=== PATIENT | female | born 1945 | race Caucasian/White ===

== ENCOUNTER 2017-08-12 09:49 | Inpatient (IN) ==
--- NOTE | 2017-08-12 10:02 | Emergency Department Note ---
Disposition Clinical Impression: Pleural effusion, right, Acute dyspnea, CKD (chronic kidney disease) stage 3, GFR 30-59 ml/min, T12 compression fracture, Pulmonary nodule Anemia Qualifiers: Anemia type: unspecified type Qualified Code(s): D64.9 - Anemia, unspecified Hypotension Qualifiers: Hypotension type: unspecified hypotension type Qualified Code(s): I95.9 - Hypotension, unspecified Disposition: Admitted As Inpatient Condition: Undetermined Referrals: Stephanie Morgan, FIELD ACCOUNT DIRECTOR [Primary Care Provider] - Forms: ED Satisfaction Letter Time of Disposition: 12:44 General Adult HPI - General Chief complaint: ED Dizziness Stated complaint: dizziness Time Seen by Provider: 08/12/17 09:55 Source: patient, EMS Mode of arrival: EMS Limitations: no limitations Nursing Notes Reviewed: Yes Vital Signs Reviewed: Yes - History of Present Illness HPI Narrative: 71-year-old female with history of MA with 2 cardiac stents, seizures, "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 The patient states she was also drinking some right upper quadrant to right flank discomfort at that time. No radiation of the pain. It was sharp in nature. Patient was also noted to be mildly dyspneic with an O2 saturation of 89% per EMS upon arrival. The patient was placed on 2 L nasal cannula and transported to the emergency department after receiving 4 mg of IV Zofran. The patient has a history of congestive heart failure. She admits to some bilateral lower extremity swelling. She denies any hemoptysis, history DVT or PE, recent immobilizations, recent surgeries. The patient also states that she has been experiencing headaches over the past month and a strange feeling inside her head. She denies any other complaints at this time. She is mildly diaphoretic on examination. - Related Data Home Medications Medication Instructions Recorded Confirmed Furosemide [Lasix] 20 mg PO DAILY 11/30/14 03/13/15 Lisinopril/Hydrochlorothiazide 1 tab PO DAILY 11/30/14 03/13/15 [Zestoretic 20-12.5 mg Tablet] Carvedilol [Coreg] 25 mg PO BID 03/13/15 03/13/15 Insulin ASPART [NovoLOG] 0 unit SQ TIDWM 03/13/15 03/13/15 Insulin Glargine [Lantus] 15 unit 03/13/15 Levothyroxine [Synthroid] 125 mcg PO 0630 03/13/15 03/13/15 Pantoprazole Sodium [Protonix] 40 mg PO 03/13/15 Thiamine (B-1) [Vitamin B-1] 100 mg PO DAILY 03/13/15 03/13/15 hydrALAZINE [HydrALAZINE] 25 mg PO Q8HR 03/13/15 03/13/15 Previous Rx's Medication Instructions Recorded cephALEXin [Keflex] 500 mg PO BID #10 capsule 03/15/15 Allergies Allergy/AdvReac Type Severity Reaction Status Date / Time Tetanus Vaccines and Toxoid Allergy Unknown unknown Verified 03/13/15 22:58 [Tetanus Vaccines & Toxoid] All systems ED: reviewed and negative except as stated. Constitutional: Denies: fever, chills, weakness ENT ED: Denies: congestion Cardiovascular: Reports: dyspnea on exertion, edema. Denies: chest pain, orthopnea, syncope Respiratory: Reports: dyspnea. Denies: cough, wheezes Gastrointestinal: Reports: abdominal pain, nausea, vomiting. Denies: diarrhea, constipation, hematemesis, melena, hematochezia Genitourinary: Denies: urgency, dysuria Musculoskeletal: Denies: back pain, neck pain Neurological: Reports: headache, weakness. Denies: numbness, paresthesias, confusion, abnormal gait Past Medical History - Past Medical History Attestation: Yes The following information was validated with the patient. Source: patient, old records reviewed Medical history: Reports: asthma, CHF, diabetes, hyperlipidemia, hypertension, seizures, other Surgical history: Reports: cholecystectomy, coronary bypass (CABG), other Psychiatric history: Reports: anxiety, depression, panic disorder - Social History Smoking Status: Never smoker Smokeless Tobacco Status: No Alcohol use: Reports: none Drug use: Reports: none Physical Exam - General Limitations: no limitations General appearance: alert, in distress (mildly diaphoretic) - Head Head exam: atraumatic, normocephalic, normal inspection - Eye Eye exam: Present: normal appearance, PERRL, EOMI - ENT ENT exam: normal exam, normal oropharynx, mucous membranes moist - Neck Neck exam: Present: normal inspection, full ROM, trachea midline - Chest Chest inspection: Present: normal inspection, symmetric chest wall rise - Respiratory Respiratory exam: Present: other (Coarse breath sounds) - Cardiovascular Cardiovascular exam: Present: regular rate, normal rhythm, normal heart sounds - Abdominal Exam Abdominal exam: Present: soft, tenderness (RUQ/ Right flank). Absent: distention, guarding, rebound, rigidity, pulsatile mass - Extremities Exam Extremities exam: Present: normal inspection, full ROM. Absent: tenderness, pedal edema - Neurological Exam Neurological exam: Present: alert, oriented X3 - Skin Skin exam: Present: warm, dry, intact, normal color Course - Consultations Consultation #1: Spoke with interventional radiology, who stated they will see patient once admitted. Time: 12:05 Vital Signs Temperature 98.2 F 08/12/17 09:51 Pulse Rate 65 08/12/17 09:51 Respiratory Rate 18 08/12/17 09:51 Blood Pressure 127/102 08/12/17 09:51 O2 Sat by Pulse Oximetry 93 08/12/17 09:51 Temperature 98.2 F 08/12/17 09:51 Pulse Rate 62 08/12/17 12:42 Respiratory Rate 14 08/12/17 12:42 Blood Pressure 109/56 08/12/17 12:42 O2 Sat by Pulse Oximetry 98 08/12/17 12:42 Oxygen Delivery Oxygen Delivery Bipap Medical Decision Making - [facility] Narrative Medical decision making narrative: Workup in the emergency department demonstrates findings consistent with a moderate right-sided pleural effusion. The patient has numerous nodules noted on CT scan. The patient is also noted to be anemic with hemoglobin of 9.1 with her last hemoglobin being roughly 6 months ago at 12. The patient denies any black or bloody stools. She denies any other sources of bleeding. In addition the patient was noted to have a chronic kidney disease with a creatinine of 1.40. She denies any unilateral leg swelling. She has no episodes of hemoptysis. The patient was given 1 L of IV fluids here in the emergency department for her hypotension to which she quickly responded. She is maintaining blood pressures with systolics over 100 since the IV fluids. In addition the patient had a small blood pressure cuff for the patient initially and was improperly sized. After correct size the patient's blood pressures remained within normal limits. The patient has not been tachycardic during her ED visit. She has remained in the 60s likely associated with the patient's medications. The patient has remained with a normal mental status ever since receiving the IV fluids. She is aware what is going on in his had no further syncopal episodes. In addition the patient was placed on BiPAP to prevent any further progression of pleural effusion. She is resting comfortably on BiPAP with an O2 saturation of 100% at this time. The patient is in no respiratory distress at this time. The patient's lactic acid was negative. The patient did have some acidosis that was noted on VBG. This does not appear to be DKA and rather is likely associated with this pleural effusion. The patient was administered 1 dose of Zosyn here in the emergency department to cover any sort of infectious etiology of the patient's right pleural effusion. Urinalysis did not treats no ketones or any other signs of infection as well. Patient's abdominal CT demonstrates no intra-abdominal source of infection or an etiology for the patient's symptoms. We will admit the patient to the hospital at this time. Interventional cardiology has been consulted and will see patient and likely drainage of the patient's right pleural effusion was admitted to the floor. The patient was admitted to the hospitalist, accepted by Dr. Hernandez. Patient and daughter were made aware of the admission and agree to plan of care. No further questions or concerns noted at this time. - Lab Data Lab results reviewed: Yes I reviewed the patient's lab results. Result diagrams: 08/12/17 10:15 08/12/17 10:15 Lab Results 08/12/17 08/12/17 08/12/17 Range/Units 10:09 10:15 10:15 WBC 15.1 H (4.3-11.1) K/mcL RBC 3.26 L (3.82-4.97) M/mcL Hgb 9.1 L (11.5-15.4) g/dL Hct 29.3 L (35.3-44.9) % MCV 89.9 (83.0-100.0) fL MCH 27.9 L (28.0-33.3) pg MCHC 31.1 L (31.6-35.5) g/dL RDW 14.3 (11.5-14.5) % Plt Count 312 (140-400) K/mcL MPV 9.4 (9.4-12.4) fL Immature Gran % 0.5 (0-4) % Seg Neutrophils % 75.8 % Lymphocytes % 15.2 % Monocytes % 4.4 % Eosinophils % 3.6 % Basophils % 0.5 % Neutrophils # 11.5 H (1.6-8.9) K/mcL Lymphocytes # 2.3 (0.6-4.6) K/mcL Monocytes # 0.7 (0.0-1.3) K/mcL Eosinophils # 0.5 (0.0-0.6) K/mcL Basophils # 0.1 (0.0-0.2) K/mcL PT (9.4-12.1) Seconds INR APTT (26.0-36.0) Seconds VBG pH (7.32-7.42) pH Units VBG pCO2 (41-51) mmHg VBG pO2 (25-50) mmHg VBG HCO3 (21-27) mEq/L Sodium 141 (136-145) mEq/L Potassium 4.0 (3.5-5.1) mEq/L Chloride 109 H (98-107) mEq/L Carbon Dioxide 22 L (23-29) mEq/L BUN 21 (8-23) mg/dL Creatinine 1.40 H (0.60-1.20) mg/dL Est GFR ( Amer) 45 L (> 60) Est GFR (Non-Af Amer) 37 L (> 60) BUN/Creatinine Ratio 15 (6-26) Glucose 251 H (70-105) mg/dL POC Glucose 246 H (70-99) mg/dL Calculated Osmolality 303 H (280-300) Lactic Acid (0.5-2.2) mmol/L Calcium 8.1 L (8.6-10.3) mg/dL Total Bilirubin 0.2 L (0.3-1.0) mg/dL AST 8 L (13-39) Units/L ALT 9 (7-52) Units/L Alkaline Phosphatase 99 (34-104) Units/L Troponin I < 0.03 (< 0.04) ng/mL B-Natriuretic Peptide (Less than 100) pg/mL Serum Total Protein 6.2 L (6.4-8.9) g/dL Albumin 3.2 L (3.5-5.7) g/dL Globulin 3.0 (2.4-3.5) g/dL Albumin/Globulin Ratio 1.1 (1.1-2.2) Urine Color (Yellow) Urine Clarity (Clear) Urine pH (5.0-8.0) pH Units Ur Specific [place] (1.010-1.025) Urine Protein (Neg-Trace) mg/dL Urine Glucose (UA) (Normal) mg/dL Urine Ketones (Negative) mg/dL Urine Blood (Negative) Urine Nitrite (Negative) Urine Bilirubin (Negative) Urine Urobilinogen (Normal) mg/dL Ur Leukocyte Esterase (Negative) Urine Microscopic RBC (0-3) per hpf Urine Microscopic WBC (0-3) per hpf Ur Squamous Epith Cells (None-Few) per lpf Amorphous Sediment (Few) Urine Bacteria (None-Few) per hpf Hyaline Casts (None-Few) per lpf Granular Casts (None Seen) per lpf Ur Culture Indicated? (NO) 08/12/17 08/12/17 08/12/17 Range/Units 10:15 10:37 11:15 WBC (4.3-11.1) K/mcL RBC (3.82-4.97) M/mcL Hgb (11.5-15.4) g/dL Hct (35.3-44.9) % MCV (83.0-100.0) fL MCH (28.0-33.3) pg MCHC (31.6-35.5) g/dL RDW (11.5-14.5) % Plt Count (140-400) K/mcL MPV (9.4-12.4) fL Immature Gran % (0-4) % Seg Neutrophils % % Lymphocytes % % Monocytes % % Eosinophils % % Basophils % % Neutrophils # (1.6-8.9) K/mcL Lymphocytes # (0.6-4.6) K/mcL Monocytes # (0.0-1.3) K/mcL Eosinophils # (0.0-0.6) K/mcL Basophils # (0.0-0.2) K/mcL PT 12.1 (9.4-12.1) Seconds INR 1.1 APTT 25.3 L (26.0-36.0) Seconds VBG pH 7.28 L (7.32-7.42) pH Units VBG pCO2 49 (41-51) mmHg VBG pO2 47 (25-50) mmHg VBG HCO3 23 (21-27) mEq/L Sodium (136-145) mEq/L Potassium (3.5-5.1) mEq/L Chloride (98-107) mEq/L Carbon Dioxide (23-29) mEq/L BUN (8-23) mg/dL Creatinine (0.60-1.20) mg/dL Est GFR ( Amer) (> 60) Est GFR (Non-Af Amer) (> 60) BUN/Creatinine Ratio (6-26) Glucose (70-105) mg/dL POC Glucose (70-99) mg/dL Calculated Osmolality (280-300) Lactic Acid (0.5-2.2) mmol/L Calcium (8.6-10.3) mg/dL Total Bilirubin (0.3-1.0) mg/dL AST (13-39) Units/L ALT (7-52) Units/L Alkaline Phosphatase (34-104) Units/L Troponin I (< 0.04) ng/mL B-Natriuretic Peptide 125 H (Less than 100) pg/mL Serum Total Protein (6.4-8.9) g/dL Albumin (3.5-5.7) g/dL Globulin (2.4-3.5) g/dL Albumin/Globulin Ratio (1.1-2.2) Urine Color (Yellow) Urine Clarity (Clear) Urine pH (5.0-8.0) pH Units Ur Specific [place] (1.010-1.025) Urine Protein (Neg-Trace) mg/dL Urine Glucose (UA) (Normal) mg/dL Urine Ketones (Negative) mg/dL Urine Blood (Negative) Urine Nitrite (Negative) Urine Bilirubin (Negative) Urine Urobilinogen (Normal) mg/dL Ur Leukocyte Esterase (Negative) Urine Microscopic RBC (0-3) per hpf Urine Microscopic WBC (0-3) per hpf Ur Squamous Epith Cells (None-Few) per lpf Amorphous Sediment (Few) Urine Bacteria (None-Few) per hpf Hyaline Casts (None-Few) per lpf Granular Casts (None Seen) per lpf Ur Culture Indicated? (NO) 08/12/17 08/12/17 Range/Units 11:40 11:51 WBC (4.3-11.1) K/mcL RBC (3.82-4.97) M/mcL Hgb (11.5-15.4) g/dL Hct (35.3-44.9) % MCV (83.0-100.0) fL MCH (28.0-33.3) pg MCHC (31.6-35.5) g/dL RDW (11.5-14.5) % Plt Count (140-400) K/mcL MPV (9.4-12.4) fL Immature Gran % (0-4) % Seg Neutrophils % % Lymphocytes % % Monocytes % % Eosinophils % % Basophils % % Neutrophils # (1.6-8.9) K/mcL Lymphocytes # (0.6-4.6) K/mcL Monocytes # (0.0-1.3) K/mcL Eosinophils # (0.0-0.6) K/mcL Basophils # (0.0-0.2) K/mcL PT (9.4-12.1) Seconds INR APTT (26.0-36.0) Seconds VBG pH (7.32-7.42) pH Units VBG pCO2 (41-51) mmHg VBG pO2 (25-50) mmHg VBG HCO3 (21-27) mEq/L Sodium (136-145) mEq/L Potassium (3.5-5.1) mEq/L Chloride (98-107) mEq/L Carbon Dioxide (23-29) mEq/L BUN (8-23) mg/dL Creatinine (0.60-1.20) mg/dL Est GFR ( Amer) (> 60) Est GFR (Non-Af Amer) (> 60) BUN/Creatinine Ratio (6-26) Glucose (70-105) mg/dL POC Glucose (70-99) mg/dL Calculated Osmolality (280-300) Lactic Acid 2.0 (0.5-2.2) mmol/L Calcium (8.6-10.3) mg/dL Total Bilirubin (0.3-1.0) mg/dL AST (13-39) Units/L ALT (7-52) Units/L Alkaline Phosphatase (34-104) Units/L Troponin I (< 0.04) ng/mL B-Natriuretic Peptide (Less than 100) pg/mL Serum Total Protein (6.4-8.9) g/dL Albumin (3.5-5.7) g/dL Globulin (2.4-3.5) g/dL Albumin/Globulin Ratio (1.1-2.2) Urine Color Yellow (Yellow) Urine Clarity Cloudy A (Clear) Urine pH 5.0 (5.0-8.0) pH Units Ur Specific [place] 1.019 (1.010-1.025) Urine Protein Negative (Neg-Trace) mg/dL Urine Glucose (UA) Normal (Normal) mg/dL Urine Ketones Negative (Negative) mg/dL Urine Blood Negative (Negative) Urine Nitrite Negative (Negative) Urine Bilirubin Negative (Negative) Urine Urobilinogen Normal (Normal) mg/dL Ur Leukocyte Esterase Negative (Negative) Urine Microscopic RBC 0-3 (0-3) per hpf Urine Microscopic WBC 0-3 (0-3) per hpf Ur Squamous Epith Cells Many H (None-Few) per lpf Amorphous Sediment Moderate H (Few) Urine Bacteria Few (None-Few) per hpf Hyaline Casts None Seen (None-Few) per lpf Granular Casts Few H (None Seen) per lpf Ur Culture Indicated? NO (NO) - Radiology Data Radiology results reviewed: Yes I reviewed the patient's radiology results. Abdomen/Pelvis CT 08/12/17 09:55 IMPRESSION: 1. [id number] right-sided pleural effusion with adjacent compressive atelectasis. Bilateral lung nodules measuring up to 1.[address] chest is recommended. 2. No evidence of obstructive uropathy. 3. A 1.2 cm hyperdense lesion in the midpole of the right kidney which is indeterminate on this noncontrast examination. Further evaluation with CT or MRI renal mass protocol is recommended. 4. T12 compression deformity of unknown chronicity. D/ / 08/12/2017 12:03:36 Zenobia Lemon MD / [facility] Interpreting Provider: Zenobia Lemon MD Chest X-Ray 08/12/17 09:55 IMPRESSION: Multiple enlarging pulmonary masses. Moderate right pleural effusion. D/ / 08/12/2017 10:28:59 Ortiz Costa MD / [facility] Interpreting Provider: Ortiz Costa MD Head CT 08/12/17 09:55 IMPRESSION: No acute intracranial abnormality. Previous bifrontal craniotomy. Encephalomalacia in the right frontal lobe from previous area of injury or infarct. Mild chronic small vessel ischemic changes. D/ / 08/12/2017 11:29:55 Flower Vargas MD / [facility] Interpreting Provider: Flower Vargas MD - EKG Data EKG #1 EKG attestation: Yes I reviewed and interpreted this EKG. EKG results narrative: Heart rate 64 bpm. Normal sinus rhythm with new right bundle branch block. No ST elevation or ST depression noted. Right bundle branch block new from EKG from 12/01/2014. EKG #2 heart rate 59 beats for minute. Sinus bradycardia. No ST elevation or ST depression noted. EKG identical to EKG performed at 0959 on 08/12/2017.
--- NOTE | 2017-08-12 10:16 | Emergency Department Note ---
Disposition Clinical Impression: ACS (acute coronary syndrome) Disposition: Still a Patient Referrals: Stephanie Morgan, RETAIL DEPARTMENT MANAGER [Primary Care Provider] - Forms: ED Satisfaction Letter General Adult HPI - General Chief complaint: ED Dizziness Stated complaint: dizziness Time Seen by Provider: 08/12/17 09:55 Source: patient, EMS Mode of arrival: EMS Limitations: no limitations - History of Present Illness Pain Scale: 4 - Related Data Home Medications Medication Instructions Recorded Confirmed Atorvastatin [Lipitor] 10 mg PO HS 11/30/14 03/13/15 Clopidogrel [Plavix] 75 mg PO DAILY 11/30/14 03/13/15 Furosemide [Lasix] 20 mg PO DAILY 11/30/14 03/13/15 Lisinopril/Hydrochlorothiazide 1 tab PO DAILY 11/30/14 03/13/15 [Zestoretic 20-12.5 mg Tablet] Metoprolol [Lopressor] 12.5 mg PO BID 11/30/14 03/13/15 Montelukast [Singulair] 10 mg PO DAILY 11/30/14 03/13/15 Potassium Chloride 10 meq PO DAILY 11/30/14 11/30/14 SitaGLIPtin [Januvia] 100 mg PO DAILY 11/30/14 03/13/15 Carvedilol [Coreg] 25 mg PO BID 03/13/15 03/13/15 Insulin ASPART [NovoLOG] 0 unit SQ TIDWM 03/13/15 03/13/15 Insulin Glargine [Lantus] 15 unit 03/13/15 Levothyroxine [Synthroid] 125 mcg PO 0630 03/13/15 03/13/15 Pantoprazole Sodium [Protonix] 40 mg PO 03/13/15 Thiamine (B-1) [Vitamin B-1] 100 mg PO DAILY 03/13/15 03/13/15 hydrALAZINE [HydrALAZINE] 25 mg PO Q8HR 03/13/15 03/13/15 Previous Rx's Medication Instructions Recorded LORazepam [Ativan] 1 mg PO BID #10 tablet 11/27/14 LevETIRAcetam [Keppra] 500 mg PO BID #20 tablet 11/27/14 cephALEXin [Keflex] 500 mg PO BID #10 capsule 03/15/15 Allergies Allergy/AdvReac Type Severity Reaction Status Date / Time Tetanus Vaccines and Toxoid Allergy Unknown unknown Verified 03/13/15 22:58 [Tetanus Vaccines & Toxoid] Constitutional: Denies: fever, chills, weakness ENT ED: Denies: congestion Cardiovascular: Reports: dyspnea on exertion, edema. Denies: chest pain, orthopnea, syncope Respiratory: Reports: dyspnea. Denies: cough, wheezes Gastrointestinal: Reports: abdominal pain, nausea, vomiting. Denies: diarrhea, constipation, hematemesis, melena, hematochezia Genitourinary: Denies: urgency, dysuria Musculoskeletal: Denies: back pain, neck pain Neurological: Reports: headache, weakness. Denies: numbness, paresthesias, confusion, abnormal gait Past Medical History - Past Medical History Medical history: Reports: asthma, CHF, diabetes, hyperlipidemia, hypertension, seizures, other Surgical history: Reports: cholecystectomy, coronary bypass (CABG), other Psychiatric history: Reports: anxiety, depression, panic disorder - Social History Smoking Status: Never smoker Smokeless Tobacco Status: No Alcohol use: Reports: none Drug use: Reports: none Physical Exam - General Limitations: no limitations General appearance: alert, in distress (mildly diaphoretic) Course - Reevaluation(s) Reevaluation #1: ATTESTATION NOTE I examined this patient and my medical decision-making was reviewed with the Emergency Medicine Resident Physician, Benjamin Nolan. I agree with the documented findings, disposition and treatment plan as described except to the extent set forth below. I have personally performed a face to face evaluation on this patient. I have reviewed and agree with the care plan. Briefly: 71-year-old female, by EMS brought in for chest discomfort right upper quadrant pain. Patient has a history of 2 prior coronary stents. Patient's abdomen has right upper quadrant discomfort she presents slightly pale and weak. She also has dizziness. No vertigo. Neurologically nonfocal slight bibasilar crackles with peripheral edema noted. Patient will be getting screening labs. EKG shows a marked mild nonspecific ST-T changes were noted EKG for comparison unable to these are important changes or not. Plan is admission, disposition pending. Time: 10:13 Vital Signs Temperature 98.2 F 08/12/17 09:51 Pulse Rate 65 08/12/17 09:51 Respiratory Rate 18 08/12/17 09:51 Blood Pressure 127/102 08/12/17 09:51 O2 Sat by Pulse Oximetry 93 06/07/18 09:51 Temperature 98.2 F 08/12/17 09:51 Pulse Rate 65 08/12/17 09:51 Respiratory Rate 18 08/12/17 09:51 Blood Pressure 127/102 08/12/17 09:51 O2 Sat by Pulse Oximetry 96 08/12/17 10:06 Oxygen Delivery Oxygen Delivery Nasal Cannula
[2017-08-12] MEDS ORDERED: 0.9 % Sodium Chloride 1,000 ML ONE (10:27)
[2017-08-12 10:31] LABS: Basophils # 0.1 K/mcL (0.0-0.2); Basophils % 0.5 %; Eosinophils # 0.5 K/mcL (0.0-0.6); Eosinophils % 3.6 %; Hematocrit 29.3 % (35.3-44.9); Hemoglobin 9.1 g/dL (11.5-15.4); Immature Granulocytes % 0.5 % (0-4); Lymphocytes # 2.3 K/mcL (0.6-4.6); Lymphocytes % 15.2 %; Mean Corpuscular HGB Conc 31.1 g/dL (31.6-35.5); Mean Corpuscular Hemoglobin 27.9 pg (28.0-33.3); Mean Corpuscular Volume 89.9 fL (83.0-100.0); Mean Platelet Volume 9.4 fL (9.4-12.4); Monocytes # 0.7 K/mcL (0.0-1.3); Monocytes % 4.4 %; Neutrophils # 11.5 K/mcL (1.6-8.9); Platelet Count 312 K/mcL (140-400); Red Blood Count 3.26 M/mcL (3.82-4.97); Red Cell Distribution Width 14.3 % (11.5-14.5); Segmented Neutrophils % 75.8 %
[2017-08-12 10:41] LABS: VBG HCO3 23 mEq/L (21-27); VBG PCO2 49 mmHg (41-51); VBG PH 7.28 pH Units (7.32-7.42); VBG PO2 47 mmHg (25-50)
[2017-08-12 10:52] LABS: Troponin I < 0.03 ng/mL (< 0.04)
[2017-08-12 10:55] LABS: Alanine Aminotransferase 9 Units/L (7-52); Albumin 3.2 g/dL (3.5-5.7); Albumin/Globulin Ratio 1.1 (1.1-2.2); Alkaline Phosphatase 99 Units/L (34-104); Aspartate Amino Transferase 8 Units/L (13-39); BUN/Creatinine Ratio 15 (6-26); Bilirubin,Total 0.2 mg/dL (0.3-1.0); Blood Urea Nitrogen 21 mg/dL (8-23); Calcium 8.1 mg/dL (8.6-10.3); Carbon Dioxide 22 mEq/L (23-29); Chloride 109 mEq/L (98-107); Glucose 251 mg/dL (70-105); Osmolality,Calculated 303 (280-300); Sodium 141 mEq/L (136-145); Total Protein 6.2 g/dL (6.4-8.9); eGFR For African Americans 45 (> 60); eGFR For Non-African Americans 37 (> 60)
[2017-08-12 11:59] LABS: INR 1.1; Prothrombin Time 12.1 Seconds (9.4-12.1)
[2017-08-12 12:01] LABS: Bilirubin,Urine Negative (Negative); Blood,Urine Negative (Negative); Clarity,Urine Cloudy (Clear); Color,Urine Yellow (Yellow); Glucose,Urine (UA) Normal (Normal); Ketones,Urine Negative (Negative); Leukocyte Esterase,Urine Negative (Negative); Nitrite,Urine Negative (Negative); Protein,Urine Negative (Neg-Trace); Specific Gravity,Urine 1.019 (1.010-1.025); Urobilinogen,Urine Normal (Normal)
[2017-08-12 12:02] LABS: Activated Partial Thrombo Time 25.3 Seconds (26.0-36.0)
[2017-08-12 12:04] LABS: RBC,Urine 0-3 per hpf (0-3); Squamous Epithelial Cell,Urine Many per lpf (None-Few); WBC,Urine 0-3 per hpf (0-3)
[2017-08-12 12:22] LABS: Amorphous Sediment,Urine Moderate (Few); Granular Casts,Urine Few per lpf (None Seen); Hyaline Casts,Urine None Seen per lpf (None-Few)
[2017-08-12 12:23] LABS: Bacteria,Urine Few per hpf (None-Few)
[2017-08-12] MEDS ORDERED: Piperacillin/Tazobactam 3.375 GM in 0.9 % Sodium Chloride Mini Bag 100 ML IVPB ONE ×2 (12:28→14:00)
[2017-08-12] MEDS ORDERED: Naloxone 0.4 MG/ML INJ IVP PRN (13:33)
[2017-08-12] MEDS ORDERED: Ondansetron 4 MG/2 ML VIAL IVP ONE (13:38)
[2017-08-12] MEDS ORDERED: Ondansetron 4 MG/2 ML VIAL ONE (13:40)
[2017-08-12] MEDS ORDERED: Azithromycin 500 MG in D5% in Water 250 ML IVPB SCH (14:00)
--- NOTE | 2017-08-12 14:59 | Pulmonology Consult Note ---
<SterlingLuci leos M - Last Filed: 08/12/17 17:40> Date of Encounter: 08/12/17 Medications and Allergies Furosemide [Lasix] 20 mg PO DAILY 11/30/14 [History] Insulin ASPART [NovoLOG] 0 unit SQ TIDWM PRN 03/13/15 [History] Insulin Glargine [Lantus] 15 unit SQ DAILY 03/13/15 [History] Pantoprazole Sodium [Protonix] 40 mg PO DAILY 03/13/15 [History] hydrALAZINE [HydrALAZINE] 25 mg PO Q8HR 03/13/15 [History] Aspirin [Adult Aspirin] 81 mg PO DAILY 08/12/17 [History] Atorvastatin Calcium [Lipitor] 20 mg PO DAILY 08/12/17 [History] Clopidogrel [Plavix] 75 mg PO DAILY 08/12/17 [History] Ergocalciferol (VITAMIN D2) [Vitamin D2] 50,000 unit PO QWEEK 08/12/17 [History] Escitalopram Oxalate 5 mg PO DAILY 08/12/17 [History] LevETIRAcetam [Keppra] 750 mg PO BID 08/12/17 [History] Levothyroxine Sodium [Levoxyl] 25 mcg PO DAILY 08/12/17 [History] Levothyroxine Sodium [Synthroid] 200 mcg PO DAILY 08/12/17 [History] Lisinopril [Zestril] 10 mg PO DAILY 08/12/17 [History] Metoprolol [Lopressor] 25 mg PO BID 08/12/17 [History] Montelukast [Singulair] 10 mg PO DAILY 08/12/17 [History] Phenytoin [Dilantin] 150 mg PO BID 08/12/17 [History] Pioglitazone HCl [Actos] 15 mg PO DAILY 08/12/17 [History] SitaGLIPtin [Januvia] 100 mg PO DAILY 08/12/17 [History] Tolterodine Tartrate [Detrol] 2 mg PO BID 08/12/17 [History] 3 Allergy/AdvReac Type Severity Reaction Status Date / Time Tetanus Vaccines and Toxoid Allergy Unknown unknown Verified 03/13/15 22:58 [Tetanus Vaccines & Toxoid] All Systems: The remainder of the systems were reviewed and are negative Physical Examination Vital Signs: Vital Signs, Last 4 Hours Temp Pulse Resp BP Pulse Ox 08/12/17 15:58 16 91 08/12/17 15:30 97.9 F 73 18 93/66 93 08/12/17 14:31 97.5 F L 68 20 98/62 92 Results - Laboratory Findings CBC and BMP: 08/12/17 10:15 08/12/17 10:15 PT/INR, D-dimer PT 12.1 Seconds (9.4-12.1) 08/12/17 11:15 Abnormal lab findings: Abnormal lab results WBC 15.1 K/mcL (4.3-11.1) H 08/12/17 10:15 RBC 3.26 M/mcL (3.82-4.97) L 08/12/17 10:15 Hgb 9.1 g/dL (11.5-15.4) L 08/12/17 10:15 Hct 29.3 % (35.3-44.9) L 08/12/17 10:15 MCH 27.9 pg (28.0-33.3) L 08/12/17 10:15 MCHC 31.1 g/dL (31.6-35.5) L 08/12/17 10:15 Neutrophils # 11.5 K/mcL (1.6-8.9) H 08/12/17 10:15 APTT 25.3 Seconds (26.0-36.0) L 08/12/17 11:15 VBG pH 7.28 pH Units (7.32-7.42) L 08/12/17 10:37 Chloride 109 mEq/L (98-107) H 08/12/17 10:15 Carbon Dioxide 22 mEq/L (23-29) L 08/12/17 10:15 Creatinine 1.40 mg/dL (0.60-1.20) H 08/12/17 10:15 Est GFR ( Amer) 45 (> 60) L 08/12/17 10:15 Est GFR (Non-Af Amer) 37 (> 60) L 08/12/17 10:15 Glucose 251 mg/dL (70-105) H 08/12/17 10:15 POC Glucose 246 mg/dL (70-99) H 08/12/17 10:09 Calculated Osmolality 303 (280-300) H 06/07/18 10:15 Calcium 8.1 mg/dL (8.6-10.3) L 08/12/17 10:15 Phosphorus 5.0 mg/dL (2.7-4.5) H 08/12/17 13:45 AST 8 Units/L (13-39) L 08/12/17 10:15 B-Natriuretic Peptide 125 pg/mL (Less than 100) H 08/12/17 10:15 Albumin/Globulin Ratio 1.0 (1.1-2.2) L 08/12/17 13:45 Urine Clarity Cloudy (Clear) A 08/12/17 11:40 Ur Squamous Epith Cells Many per lpf (None-Few) H 08/12/17 11:40 Amorphous Sediment Moderate (Few) H 08/12/17 11:40 Granular Casts Few per lpf (None Seen) H 08/12/17 11:40 - Clinical Findings Intake & Output: Intake & Output 08/12/17 08/12/17 08/12/17 07:59 15:59 23:59 Weight 118.501 kg Consult Discharge Plan - Plan Referrals: Stephanie Morgan, AUDIO EXPERIENCE EXPERT [Primary Care Provider] - - Attending Attestation I examined this patient and my medical decision-making was reviewed with the Resident Physician. I agree with the documented findings, disposition and treatment plan as described except to the extent set forth below. Patient seen and examined. Labs, radiology, chart personally reviewed. 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 Patient has evidence of pleural effusion on CT abdomen and since it is unilateral recommend to have a full CT chest for better visualization and to rule out any underlying abnormalities or lesions of the lung. I suspect this is chronic in nature with possibly trapped lung and most likely will need the diagnostic thoracentesis. It is not clear at this time the etiology of pleural effusion. Cardiovascular: stable Thank you for the consultation and this was discussed with primary team. <Ava Javier - Last Filed: 08/12/17 22:12> Date of Encounter: 08/12/17 Time of Encounter: 14:58 Assessment and Plan (1) Pleural effusion, right Current Visit: Yes Status: Acute - Right-sided pleural effusion visible on CXR and CT abd/pelvis. - Unclear etiology but may be secondary to CHF, malignancy, vs other - CT chest pending - Plan for diagnostic thoracentesis tomorrow - Tolerating room air during interview, intermittent BiPAP dependence Plan - Supportive care with O2 - Diagnostic thoracentesis and CT chest pending (2) Lung entrapment Current Visit: Yes Status: Acute - As above for pleural effusion (3) Pulmonary nodule Current Visit: Yes Status: Acute - On CXR - Pt is aware, had a follow up MRI scheduled in 2017 without change of size or character per patient - Further management as outpatient (4) Right upper quadrant abdominal pain Current Visit: Yes Status: Acute - Likely related to pleural referred pain - Without gallbladder - CT abd shows kidney cyst and lung findings as above, otherwise does not note abnormality - Symptomatic treatment per primary with pain control and anti-emetics - Further management as above for lung findings. History of Present Illness Consult date: 08/12/17 Requesting physician: Seema Dawson Reason for consult: pleural effusion Chief complaint: nausea, vomiting History of present illness: 71 year old female with a MOMhx of SC s/p stent x2, seizures, CHF, childhood asthma, unknown brain tumor s/p resection and radiation 5 years ago presented to ED with a complaint of nausea and vomiting. Pulmonology was consulted due to moderate sized pleural effusion on CXR and abdominal CT as well as lung nodules. She states she has had fevers, chills, dull ache in her RUQ/right lower chest since this AM. Pain is dull in nature but admits to sharp pleuritic pain. Also admits to cough with productive green sputum x 1-2days which is not her baseline. Denies increasing SOB. Never a smoker, no family history of lung cancers. Past Med Surg Social Fam HX - Past Medical History Medical history: asthma, CHF, diabetes, hyperlipidemia, hypertension, seizures, other Additional medical history: history of brain tumor Psychiatric history: anxiety, depression, panic disorder - Past Surgical History Surgical History: cholecystectomy, coronary bypass (CABG), other Additional surgical history: Craniotomy, ankle surgery - Social History Smoking Status: Never smoker Smokeless Tobacco Status: No Alcohol use: none Drug use: none - Family History Father Adopted: No Living Status: Hx Family Cardiac Disorders: Yes Hx Family Respiratory Disorders: Yes Hx Family Cancer: Yes All Systems: The remainder of the systems were reviewed and are negative - Constitutional Constitutional: as per HPI, chills, fever(s) - Cardiovascular Cardiovascular: no chest pain, no chest pain at rest, no chest pain with activity, no dyspnea, no dyspnea on exertion, no pedal edema - Respiratory Respiratory: cough, pain on inspirtation, excessive phlegm production, change in phlegm color, no dyspnea, no hemoptysis, no dyspnea on exertion, no wheezing - Gastrointestinal Gastrointestinal: nausea, vomiting Physical Examination Vital Signs: Vital Signs, Last 4 Hours Temp Pulse Resp BP Pulse Ox 08/12/17 14:31 97.5 F L 68 20 98/62 92 General appearance: no acute distress, other (ill appearing, tired, pale) ENT: oropharynx moist Effort: normal Inspection: normal Auscultation: right: diminished breath sounds (absent on RLL), bilateral: clear Cardiovascular: regular rate and rhythm Integumentary: normal, other (pale) Extremities: no edema, pink and warm normal mental status, non-focal exam mood appropriate, affect normal Results - Laboratory Findings CBC and BMP: 08/12/17 10:15 08/12/17 10:15 PT/INR, D-dimer PT 12.1 Seconds (9.4-12.1) 08/12/17 11:15 Abnormal lab findings: Abnormal lab results WBC 15.1 K/mcL (4.3-11.1) H 08/12/17 10:15 RBC 3.26 M/mcL (3.82-4.97) L 08/12/17 10:15 Hgb 9.1 g/dL (11.5-15.4) L 08/12/17 10:15 Hct 29.3 % (35.3-44.9) L 08/12/17 10:15 MCH 27.9 pg (28.0-33.3) L 08/12/17 10:15 MCHC 31.1 g/dL (31.6-35.5) L 08/12/17 10:15 Neutrophils # 11.5 K/mcL (1.6-8.9) H 08/12/17 10:15 APTT 25.3 Seconds (26.0-36.0) L 08/12/17 11:15 VBG pH 7.28 pH Units (7.32-7.42) L 08/12/17 10:37 Chloride 109 mEq/L (98-107) H 08/12/17 10:15 Carbon Dioxide 22 mEq/L (23-29) L 08/12/17 10:15 Creatinine 1.40 mg/dL (0.60-1.20) H 08/12/17 10:15 Est GFR ( Amer) 45 (> 60) L 08/12/17 10:15 Est GFR (Non-Af Amer) 37 (> 60) L 08/12/17 10:15 Glucose 251 mg/dL (70-105) H 08/12/17 10:15 POC Glucose 246 mg/dL (70-99) H 08/12/17 10:09 Calculated Osmolality 303 (280-300) H 08/12/17 10:15 Calcium 8.1 mg/dL (8.6-10.3) L 08/12/17 10:15 Total Bilirubin 0.2 mg/dL (0.3-1.0) L 08/12/17 10:15 AST 8 Units/L (13-39) L 08/12/17 10:15 B-Natriuretic Peptide 125 pg/mL (Less than 100) H 08/12/17 10:15 Serum Total Protein 6.2 g/dL (6.4-8.9) L 08/12/17 10:15 Albumin 3.2 g/dL (3.5-5.7) L 08/12/17 10:15 Urine Clarity Cloudy (Clear) A 08/12/17 11:40 Ur Squamous Epith Cells Many per lpf (None-Few) H 08/12/17 11:40 Amorphous Sediment Moderate (Few) H 08/12/17 11:40 Granular Casts Few per lpf (None Seen) H 08/12/17 11:40 - Clinical Findings Intake & Output: Intake & Output 08/11/17 08/12/17 08/12/17 23:59 07:59 15:59 Weight 118.501 kg
--- NOTE | 2017-08-12 15:14 | Internal Med History&Physical ---
Date of Encounter: 08/12/17 Time of Encounter: 14:30 Internal Medicine - H&P: HPI Chief complaint: Shortness of breath, dizziness Admitted From: Emergency Dept History of present illness: Ms. Almanza is a 71 year old female with past medical history of brain cancer status post surgery chemotherapy and radiation therapy. Patient stated that that she has history of lung nodule in the past. Patient stated over last year she has history of recurrent bronchitis, she was recently diagnosed with pneumonia she was placed on antibiotic as well as steroid as an outpatient. Patient stated her symptom has been getting better over last months but noticed over last 1 week her symptom started to get worse again starts to have productive cough with greenish sputum with progressive shortness of breath. Patient stated she wake up this morning with severe right axillary area and right lower quadrant pain 6 out of 10 in severity sharp constant her being get worse with taking deep breathing or coughing. Patient denied any and denies any trauma. Patient stated that she will she was feeling so. Dizzy and clammy this morning denies any palpitation. Patient denies any motor or sensory changes, denies any visual changes. Patient denies any fever or chills. Past Med Surg Social Fam HX - Past Medical History Medical history: asthma, CHF, diabetes, hyperlipidemia, hypertension, seizures, other Additional medical history: history of brain tumor Psychiatric history: anxiety, depression, panic disorder - Past Surgical History Surgical History: cholecystectomy, coronary bypass (CABG), other Additional surgical history: Craniotomy, ankle surgery - Social History Smoking Status: Never smoker Smokeless Tobacco Status: No Alcohol use: none Drug use: none - Family History Father Adopted: No Living Status: Hx Family Cardiac Disorders: Yes Hx Family Respiratory Disorders: Yes Hx Family Cancer: Yes Hx Family Medical Disorders: Yes (Mother has a history of ovarian cancer, uncle has H/O pancreatic cancer) Internal Medicine - H&P: Meds Furosemide [Lasix] 20 mg PO DAILY 11/30/14 [History] Insulin ASPART [NovoLOG] 0 unit SQ TIDWM PRN 03/13/15 [History] Insulin Glargine [Lantus] 15 unit SQ DAILY 03/13/15 [History] Pantoprazole Sodium [Protonix] 40 mg PO DAILY 03/13/15 [History] hydrALAZINE [HydrALAZINE] 25 mg PO Q8HR 03/13/15 [History] Aspirin [Adult Aspirin] 81 mg PO DAILY 08/12/17 [History] Atorvastatin Calcium [Lipitor] 20 mg PO DAILY 08/12/17 [History] Clopidogrel [Plavix] 75 mg PO DAILY 08/12/17 [History] Ergocalciferol (VITAMIN D2) [Vitamin D2] 50,000 unit PO QWEEK 08/12/17 [History] Escitalopram Oxalate 5 mg PO DAILY 08/12/17 [History] LevETIRAcetam [Keppra] 750 mg PO BID 08/12/17 [History] Levothyroxine Sodium [Levoxyl] 25 mcg PO DAILY 08/12/17 [History] Levothyroxine Sodium [Synthroid] 200 mcg PO DAILY 08/12/17 [History] Lisinopril [Zestril] 10 mg PO DAILY 08/12/17 [History] Metoprolol [Lopressor] 25 mg PO BID 08/12/17 [History] Montelukast [Singulair] 10 mg PO DAILY 08/12/17 [History] Phenytoin [Dilantin] 150 mg PO BID 08/12/17 [History] Pioglitazone HCl [Actos] 15 mg PO DAILY 08/12/17 [History] SitaGLIPtin [Januvia] 100 mg PO DAILY 08/12/17 [History] Tolterodine Tartrate [Detrol] 2 mg PO BID 08/12/17 [History] 3 Allergy/AdvReac Type Severity Reaction Status Date / Time Tetanus Vaccines and Toxoid Allergy Unknown unknown Verified 03/13/15 22:58 [Tetanus Vaccines & Toxoid] All Systems PM: A 10-system review of systems was performed and is negative for pertinent findings except as documented above in the HPI. - Constitutional Vitals: Temp Pulse Resp BP Pulse Ox 97.5 F L 68 20 98/62 92 08/12/17 14:31 08/12/17 14:31 08/12/17 14:31 08/12/17 14:31 08/12/17 14:31 General appearance: Present: A&O X 3, answers questions appropriately - Head Head exam: Present: atraumatic Additional comments: Patient had to scarring from her previous brain surgery right temporal lobe - Eye Eye exam: Present: PERRL, conjuntiva pink, sclera anicteric Pupils: Present: PERRL - Neck Neck exam general surgery: Present: supple, trachea midline. Absent: lymphadenopathy - Respiratory Respiratory exam: Present: decreased breath sounds, prolonged expiratory phase, rales (rales bilateral lung base). Absent: accessory muscle use, rhonchi, wheezes - Cardiovascular Cardiovascular exam: Present: RRR, +S1, +S2. Absent: diastolic murmur, gallop, rubs, systolic murmur - GI/Abdominal GI/Abdominal exam: Present: normal bowel sounds, soft, no peritoneal signs. Absent: distended, tenderness - Extremities Exam Extremities exam: Present: calf tenderness, warm, radial pulses palpable and symmetrical. Absent: cyanotic - Neurological Exam Neurological exam: Present: CN II-XII intact, oriented X3, no focal deficits. Absent: pronater drift, facial droop, speech deficit - Psychiatric Psychiatric exam: Present: normal affect, normal mood - Skin Skin exam: Present: dry, intact Internal Med - H&P Results - Labs CBC & Chem 7: 08/12/17 10:15 08/12/17 10:15 - Assessment and plan (1) Right upper quadrant abdominal pain Current Visit: Yes Status: Acute (2) Lung mass Current Visit: Yes Status: Acute Code(s): R91.8 - Other nonspecific abnormal finding of lung field SNOMED Code(s): 965564760 (3) Hypotension Current Visit: Yes Status: Acute Qualifiers: Hypotension type: unspecified hypotension type Qualified Code(s): I95.9 - Hypotension, unspecified Code(s): I95.9 - Hypotension, unspecified SNOMED Code(s): 22798068 (4) Pleural effusion, right Current Visit: Yes Status: Acute Code(s): J90 - Pleural effusion, not elsewhere classified SNOMED Code(s): 93087423 (5) Calf tenderness Current Visit: Yes Status: Acute - Time Spent With Patient Patient had calf tenderness left lower extremities, will check venous Doppler lower extremity stat. For right now will start patient on anticoagulant on prophylactic dose, with her morbid obesity was start Lovenox twice a day, awaiting thoracocentesis to be done by interventional radiology, with her history of brain cancer and large lung mass with sick cytology and check for any exudative pleural effusion. With her worsening of shortness of breath productive cough with yellowish sputum on possible parapneumonic effusion was start patient on empiric antibiotic coverage add steroid to help with her pleuritic chest pain in addition to add aerosol treatment every 6 hour, add Mucinex. With chronic use of the steroid on the off and her hypotension, add this to stress dose of steroids Wean off steroids gradually, close monitoring patient condition. Total time spent is greater than 50% in coordination of care (as documented) at patient's floor/unit and/or counseling patient:60 minutes
[2017-08-12 15:16] LABS: Magnesium 1.7 mg/dL (1.6-2.6); Troponin I < 0.03 ng/mL (< 0.04)
[2017-08-12] MEDS ORDERED: methylPREDNISolone 125 MG/2 ML VIAL IVP ONE (15:34)
[2017-08-12 15:46] LABS: Albumin 3.6 g/dL (3.5-5.7); Bilirubin,Total 0.3 mg/dL (0.3-1.0); Cholesterol 134 mg/dL (< 200); Globulin 3.5 g/dL (2.4-3.5); Lactate Dehydrogenase 155 Units/L (140-271); Total Protein 7.1 g/dL (6.4-8.9)
[2017-08-12] MEDS: Ipratropium/Albuterol Neb 3 ML IH SCH ×3 (15:58→23:37)
[2017-08-12] MEDS: Doxycycline 100 MG in 0.9 % Sodium Chloride Mini Bag 100 ML IVPB SCH (17:47)
[2017-08-12] MEDS: Hydrocortisone Sodium Succ 100 MG/2 ML VIAL IVP SCH (17:47)
[2017-08-12] MEDS: Piperacillin/Tazobactam 3.375 GM in 0.9 % Sodium Chloride Mini Bag 100 ML IVPB SCH (23:23)
[2017-08-13] MEDS ORDERED: *HR* Dextrose 50 % in Water (Syg) 50 ML SYRINGE IVP PRN (00:44)
[2017-08-13] MEDS ORDERED: D5% in Water 1,000 ML IVC PRN (00:44)
[2017-08-13] MEDS ORDERED: Dextrose Gel 15 GM/37.5 ML TUBE PO PRN ×2 (00:44)
[2017-08-13] MEDS ORDERED: Insulin DETEMIR 100 UNIT/ML X5UNITS SQ SCH (00:45)
[2017-08-13] MEDS: Hydrocortisone Sodium Succ 100 MG/2 ML VIAL IVP SCH ×3 (01:13→15:09)
[2017-08-13] MEDS: Ipratropium/Albuterol Neb 3 ML IH SCH ×6 (03:44→23:44)
[2017-08-13 05:46] LABS: Basophils % 0.2 %; Eosinophils % 0.1 %; Hematocrit 27.6 % (35.3-44.9); Hemoglobin 8.2 g/dL (11.5-15.4); Immature Granulocytes % 0.5 % (0-4); Lymphocytes # 1.3 K/mcL (0.6-4.6); Lymphocytes % 8.1 %; Mean Corpuscular HGB Conc 29.7 g/dL (31.6-35.5); Mean Corpuscular Hemoglobin 27.7 pg (28.0-33.3); Mean Corpuscular Volume 93.2 fL (83.0-100.0); Mean Platelet Volume 9.9 fL (9.4-12.4); Monocytes # 0.4 K/mcL (0.0-1.3); Monocytes % 2.6 %; Neutrophils # 14.4 K/mcL (1.6-8.9); Platelet Count 269 K/mcL (140-400); Red Blood Count 2.96 M/mcL (3.82-4.97); Red Cell Distribution Width 14.6 % (11.5-14.5); Segmented Neutrophils % 88.5 %
[2017-08-13 06:04] LABS: Albumin 3.5 g/dL (3.5-5.7); Bilirubin,Total 0.3 mg/dL (0.3-1.0); Calcium 8.3 mg/dL (8.6-10.3); Chol/HDL Ratio 4.2 (0-4.9); Globulin 3.4 g/dL (2.4-3.5); Potassium 4.5 mEq/L (3.5-5.1); Total Protein 6.9 g/dL (6.4-8.9)
[2017-08-13] MEDS: Doxycycline 100 MG in 0.9 % Sodium Chloride Mini Bag 100 ML IVPB SCH ×2 (06:28→17:01)
--- NOTE | 2017-08-13 08:07 | Pulmonology Progress Note ---
Date of Encounter: 08/13/17 Time of Encounter: 08:05 Assessment and Plan (1) Pleural effusion, right Current Visit: Yes Status: Acute - Right-sided pleural effusion visible on CXR and CT abd/pelvis. - Unclear etiology but may be secondary to CHF, malignancy, vs other - Beside U/S shows loculated fluid surrounding compressed lung tissue; d/t characteristics of pleural fluid and body habitus, thoracentesis would be technically difficult Plan - Supportive care with O2 - Recommend diagnostic thoracentesis by IR with repeat CT chest following procedure; pleural fluid should be sent for analysis to include cytology, protein, and LDH to determine transudative vs exudative fluid (2) Lung entrapment Current Visit: Yes Status: Acute - As above for pleural effusion (3) Pulmonary nodule Current Visit: Yes Status: Acute -On CXR and visible on CT abdomen pelvis, pt has known about these nodules for a few years - 08/12/17 CT Chest (compared to 2016) shows pulmonary masses that are new and larger; dominant right lobe mass 5.1 cm (was 2.8 cm) and dominant LLL mass 3.2 cm; right pleural effusion partially loculated; large amount of atelectasis vs airspace disease right middle and right lower lobes - Concerning for potential malignancy which could be followed up as outpatient. (4) Right upper quadrant abdominal pain Current Visit: Yes Status: Acute - Likely related to pleural referred pain - h/o cholecystectomy - CT abd shows kidney cyst and lung findings as above, otherwise does not note abnormality - Symptomatic treatment per primary with pain control and anti-emetics - Further management as above for lung findings Subjective Interval history: Pt seen and examined at bedside. She is seated at edge of bed with breakfast tray and is feeling well. Pt's only complaint is pain while having labs drawn by phlebotomists at this time as well. Objective PUL Vital signs: Last Vital Signs Temp 98.4 F 08/13/17 07:19 Pulse 97 08/13/17 07:19 Resp 18 08/13/17 07:29 BP 144/73 08/13/17 07:19 Pulse Ox 91 08/13/17 07:29 General: vital signs noted, no acute distress, AAO x3 Head: normocephalic, atraumatic Eyes: PERRL, sclera anicteric Neck: supple, no lymphadenopathy Cardio: Regular rate, regular rhythm Pulm: normal respiratory effort, absent breath sounds RLL, diminished breath sounds bilaterally Neuro: no focal deficits, moves all extremities spontaneously Psych: normal mood, normal affect, cooperative, answers questions appropriately Skin: warm, dry, intact Results - Laboratory Findings CBC and BMP: 08/13/17 04:57 08/13/17 04:57 PT/INR, D-dimer PT 12.1 Seconds (9.4-12.1) 08/12/17 11:15 Abnormal lab findings: Abnormal lab results WBC 16.2 K/mcL (4.3-11.1) H 08/13/17 04:57 RBC 2.96 M/mcL (3.82-4.97) L 08/13/17 04:57 Hgb 8.2 g/dL (11.5-15.4) L 08/13/17 04:57 Hct 27.6 % (35.3-44.9) L 08/13/17 04:57 MCH 27.7 pg (28.0-33.3) L 08/13/17 04:57 MCHC 29.7 g/dL (31.6-35.5) L 08/13/17 04:57 RDW 14.6 % (11.5-14.5) H 08/13/17 04:57 Neutrophils # 14.4 K/mcL (1.6-8.9) H 08/13/17 04:57 APTT 25.3 Seconds (26.0-36.0) L 08/12/17 11:15 VBG pH 7.28 pH Units (7.32-7.42) L 08/12/17 10:37 Carbon Dioxide 21 mEq/L (23-29) L 08/13/17 04:57 BUN 30 mg/dL (8-23) H 08/13/17 04:57 Creatinine 2.09 mg/dL (0.60-1.20) H 08/13/17 04:57 Est GFR ( Amer) 28 (> 60) L 08/13/17 04:57 Est GFR (Non-Af Amer) 23 (> 60) L 08/13/17 04:57 Glucose 250 mg/dL (70-105) H 08/13/17 04:57 POC Glucose 231 mg/dL (70-99) H 08/12/17 21:28 Calculated Osmolality 305 (280-300) H 08/13/17 04:57 Calcium 8.3 mg/dL (8.6-10.3) L 08/13/17 04:57 Phosphorus 5.0 mg/dL (2.7-4.5) H 08/12/17 13:45 AST 9 Units/L (13-39) L 08/13/17 04:57 Alkaline Phosphatase 107 Units/L (34-104) H 08/13/17 04:57 B-Natriuretic Peptide 125 pg/mL (Less than 100) H 08/12/17 10:15 Albumin/Globulin Ratio 1.0 (1.1-2.2) L 08/13/17 04:57 Triglycerides 153 mg/dL (< 150) H 08/13/17 04:57 VLDL Cholesterol, Calc 31 mg/dL (< 31) H 08/13/17 04:57 HDL Cholesterol 31 mg/dL (40-59) L 08/13/17 04:57 Urine Clarity Cloudy (Clear) A 08/12/17 11:40 Ur Squamous Epith Cells Many per lpf (None-Few) H 08/12/17 11:40 Amorphous Sediment Moderate (Few) H 08/12/17 11:40 Granular Casts Few per lpf (None Seen) H 08/12/17 11:40 - Clinical Findings Intake & Output: Intake & Output 08/12/17 08/13/17 08/13/17 23:59 07:59 15:59 Intake Total 100 / 100 Output Total 100 / 100 Balance 0 / 0 Weight 118.841 kg Consult Discharge Plan - Plan Referrals: Stephanie Morgan, PLUGGER MAN [Primary Care Provider] -
[2017-08-13] MEDS: Aspirin Enteric Coated 81 MG Tablet PO SCH (08:13)
[2017-08-13] MEDS: Insulin LISPRO 300 UNITS/3 ML VIAL SQ SCH ×3 (08:13→17:00)
[2017-08-13] MEDS: Piperacillin/Tazobactam 3.375 GM in 0.9 % Sodium Chloride Mini Bag 100 ML IVPB SCH ×3 (08:14→21:55)
[2017-08-13] MEDS ORDERED: PrednisoLONE Oral Soln 15 MG/5 ML UDC PO SCH (09:00)
[2017-08-13 10:28] LABS: Phenytoin (Dilantin) 4.8 mcg/mL (10.0-20.0)
--- NOTE | 2017-08-13 10:32 | Internal Med Progress Note ---
Date of Encounter: 08/13/17 Time of Encounter: 10:15 - Assessment and plan (1) Right upper quadrant abdominal pain Current Visit: Yes Status: Acute Assessment and plan: Resolved (2) Lung mass Current Visit: Yes Status: Acute Assessment and plan: Awaiting for thoracocentesis may need bronchoscopy Code(s): R91.8 - Other nonspecific abnormal finding of lung field SNOMED Code( s): 004429132 (3) Hypotension Current Visit: Yes Status: Resolved Assessment and plan: Resume home blood pressure medication Qualifiers: Hypotension type: unspecified hypotension type Qualified Code(s): I95.9 - Hypotension, unspecified Code(s): I95.9 - Hypotension, unspecified SNOMED Code(s): 57940024 (4) Pleural effusion, right Current Visit: Yes Status: Acute Assessment and plan: Discussed with pulmonary team, recommended thoracocentesis to be done by interventional radiology, consult placed again, awaiting for fluid analysis Code(s): J90 - Pleural effusion, not elsewhere classified SNOMED Code(s): 38906361 (5) Calf tenderness Current Visit: Yes Status: Acute (6) Acute renal failure superimposed on stage 3 chronic kidney disease Current Visit: Yes Status: Acute Assessment and plan: Discussed with nephrology team, remove Segal catheter, check postvoiding residual, patient had history of urinary incontinence rule out neurogenic bladder Qualifiers: Acute renal failure type: unspecified Qualified Code(s): N17.9 - Acute kidney failure, unspecified; N18.3 - Chronic kidney disease, stage 3 (moderate) (7) Anemia in chronic kidney disease Current Visit: Yes Status: Acute Assessment and plan: Iron study ordered patient would benefit from Aranesp especially with her COPD and hypoxemia Qualifiers: Chronic kidney disease stage: stage 3 (moderate) Qualified Code(s): N18.3 - Chronic kidney disease, stage 3 (moderate); D63.1 - Anemia in chronic kidney disease (8) Renal mass Current Visit: Yes Status: Acute Assessment and plan: Urology was consulted, discussed with interventional radiology, patient need contrast study at this point with her renal function hold on any contrast study (9) Hyperglycemia Current Visit: Yes Status: Acute Assessment and plan: Insulin sliding scale - Time Spent With Patient Total time spent is greater than 50% in coordination of care (as documented) at patient's floor/unit and/or counseling patient: Greater than 35 minutes - Subjective Interval history: Productive cough with clear sputum - Constitutional Vitals: Temp Pulse Resp BP Pulse Ox 98.4 F 97 18 144/73 91 08/13/17 07:19 08/13/17 07:19 08/13/17 07:29 08/13/17 07:19 08/13/17 07:29 General appearance: Present: A&O X 3, no acute distress, answers questions appropriately - Respiratory Respiratory exam: Present: decreased breath sounds (more at rt lung base), prolonged expiratory phase. Absent: accessory muscle use, rhonchi, wheezes - GI/Abdominal GI/Abdominal exam: Present: normal bowel sounds, soft, no peritoneal signs. Absent: distended, tenderness - Extremities Exam Extremities exam: Present: pedal edema (+1-2), warm, radial pulses palpable and symmetrical. Absent: calf tenderness, cyanotic - Neurological Exam Neurological exam: Present: CN II-XII intact, oriented X3, no focal deficits Internal Medicine: Result - Labs CBC & Chem 7: 08/13/17 04:57 08/13/17 04:57 - ABG Interpretation ABG results: PT/INR, D-dimer PT 12.1 Seconds (9.4-12.1) 08/12/17 11:15 Consult Discharge Plan - Plan Referrals: Stephanie Morgan, WING COVERER [Primary Care Provider] -
--- NOTE | 2017-08-13 10:38 | Nephrology Consult Note ---
Date of Encounter: 08/13/17 Time of Encounter: 10:33 Assessment and Plan (1) Acute kidney injury Current Visit: No Status: Acute GLENNA on CKD stage IIIb with prior renal insults (hx of AKIs increase the chance for CKD), plus her CKD may be from obesity and HTN. The GLENNA will need work up, but is currently nonoliguric. No urgent indications for CATHODE MAKER today. I have ordered serologies to work up for a GN and renal U/S to rule out any post renal contribution to the GLENNA Renal mass noted, but appears chronic. Agree with out pt work up as described by Urology. Continue to follow a renal protective strategy including strict I/Os, avoidance of NSAIDs, IV contrast, Bactrim, other nephrotoxins and to dose renally cleared Rx by eGFR Thank you for consulting the [facility]. Will continue to follow with you. (2) Anemia Current Visit: Yes Status: Acute Will check iron studies Qualifiers: Anemia type: unspecified type Qualified Code(s): D64.9 - Anemia, unspecified (3) CKD (chronic kidney disease) stage 3, GFR 30-59 ml/min Current Visit: Yes Status: Chronic She has not followed with a animation director for her CKD IIIb but I'd recommend follow up after this hospitalization. (4) Renal mass Current Visit: Yes Status: Acute (5) Hypertension Current Visit: No Status: Chronic Hold the SHIRA d/t the GLENNA. Qualifiers: Hypertension type: unspecified Qualified Code(s): I10 - Essential (primary ) hypertension History of Present Illness - Reason for Consult Consult date: 08/13/17 Acute Kidney Injury, Chronic Kidney Disease Requesting physician: Seema Dawson - Chief Complaint GLENNA on CKD stage IIIb - History of Present Illness Van Jones is a very pleasant 71 y/o WF with a pmh of Obesity, HTN, CKD stage IIIb and et al who presented with N/V and RUQ pain. She said that she does not follow with a animation director. Dating back to 2016, she was first diagnosed with CKD when she reported being critically ill at [facility] and ultimately transferred to [facility] for rehab. She denied taking OTC NSAIDS or any recent Contrast exposures (no recent LHC or CT with IV contrast), she affirmed. She did report having extensive N/V and pain that developed near the RUQ recently. She occ has some LE edema, she affirmed but not bad now and typically the left leg is larger the right, she reported. She denied having any FHx of ESRD or renal transplant. Past Med Surg Social Fam HX - Past Medical History Medical history: asthma, CHF, diabetes, hyperlipidemia, hypertension, seizures, other Additional medical history: history of brain tumor Psychiatric history: anxiety, depression, panic disorder - Past Surgical History Surgical History: cholecystectomy, coronary bypass (CABG), other Additional surgical history: Craniotomy, ankle surgery - Social History Smoking Status: Never smoker Smokeless Tobacco Status: No Alcohol use: none Drug use: none - Family History Father Adopted: No Living Status: Hx Family Cardiac Disorders: Yes Hx Family Respiratory Disorders: Yes Hx Family Cancer: Yes Hx Family Medical Disorders: Yes (Mother has a history of ovarian cancer, uncle has H/O pancreatic cancer) Medications and Allergies Furosemide [Lasix] 20 mg PO DAILY 11/30/14 [History] Insulin ASPART [NovoLOG] 0 unit SQ TIDWM PRN 03/13/15 [History] Insulin Glargine [Lantus] 15 unit SQ DAILY 03/13/15 [History] Pantoprazole Sodium [Protonix] 40 mg PO DAILY 03/13/15 [History] hydrALAZINE [HydrALAZINE] 25 mg PO Q8HR 03/13/15 [History] Aspirin [Adult Aspirin] 81 mg PO DAILY 08/12/17 [History] Atorvastatin Calcium [Lipitor] 20 mg PO DAILY 08/12/17 [History] Clopidogrel [Plavix] 75 mg PO DAILY 08/12/17 [History] Ergocalciferol (VITAMIN D2) [Vitamin D2] 50,000 unit PO QWEEK 08/12/17 [History] Escitalopram Oxalate 5 mg PO DAILY 08/12/17 [History] LevETIRAcetam [Keppra] 750 mg PO BID 08/12/17 [History] Levothyroxine Sodium [Levoxyl] 25 mcg PO DAILY 08/12/17 [History] Levothyroxine Sodium [Synthroid] 200 mcg PO DAILY 08/12/17 [History] Lisinopril [Zestril] 10 mg PO DAILY 08/12/17 [History] Metoprolol [Lopressor] 25 mg PO BID 08/12/17 [History] Montelukast [Singulair] 10 mg PO DAILY 08/12/17 [History] Phenytoin [Dilantin] 150 mg PO BID 08/12/17 [History] Pioglitazone HCl [Actos] 15 mg PO DAILY 08/12/17 [History] SitaGLIPtin [Januvia] 100 mg PO DAILY 08/12/17 [History] Tolterodine Tartrate [Detrol] 2 mg PO BID 08/12/17 [History] 3 Allergy/AdvReac Type Severity Reaction Status Date / Time Tetanus Vaccines and Toxoid Allergy Unknown unknown Verified 03/13/15 22:58 [Tetanus Vaccines & Toxoid] Review of Systems All Systems: reviewed and no additional remarkable complaints except as stated Exam - Vital Signs Vital signs: Initial Vital Signs Temp Pulse Resp BP Pulse Ox 98.2 F 65 18 127/102 93 08/12/17 09:51 08/12/17 09:51 08/12/17 09:51 08/12/17 09:51 08/12/17 09:51 Intake and Output 08/12/17 08/13/17 08/13/17 23:59 07:59 15:59 Other: Blood Glucose* 264 - General Appearance General appearance: well-developed, well-nourished, appears started age, obese EENT: ATNC, PERRL, mucous membranes moist Neck: supple Respiratory: clear Cardiology: edema (nontense, nonpitting (mostly SQ adiposity) LLE > RLE), regular rate, regular rhythm, normal S1, normal S2 Gastrointestinal: normoactive bowel sounds, no tenderness, no guarding, obese Integumentary: no rash, warm and dry Neurologic: no focal deficit, no asterixis, alert and oriented x3 (with fluent speach and moved all four extremities) Musculoskeletal: no erythema, no cyanosis Psychiatric: mood/affect appropriate (very talkative), cooperative Results - Lab Results 08/13/17 04:57 08/13/17 04:57 Most recent lab results Calcium 8.3 mg/dL (8.6-10.3) L 08/13/17 04:57 Phosphorus 5.0 mg/dL (2.7-4.5) H 08/12/17 13:45 Magnesium 1.7 mg/dL (1.6-2.6) 08/12/17 13:45 I reviewed the progress notes, labs, vitals, imaging, med lists and etc in this high risk patient. Consult Discharge Plan - Plan Referrals: Stephanie Morgan, CAR [Primary Care Provider] -
[2017-08-13] MEDS: Insulin DETEMIR 100 UNIT/ML X5UNITS SQ SCH ×2 (12:15→21:54)
[2017-08-13] MEDS: hydrALAZINE 25 MG TABLET PO SCH ×2 (15:09→21:53)
--- NOTE | 2017-08-13 15:14 | IR Procedure Note ---
Date of procedure: 08/13/17 Consent Obtained: Written consent Timeout: Correct patient and procedure verified, Correct site verified, Time out performed, Skin prep completed Indications: rt effusion Procedure Performed: rt thorACENTESIS Was there an blacksmith assistant present: No Site/Technique: right, 8F Results/Findings: large effusion right Estimated blood loss (cc): 0 Complications: None; Tolerated procedure well Post Procedure Treatment Plan: CXR Specimen: none
[2017-08-13 15:41] LABS: RBC,Pleural Fluid 1.561 M/mcL
[2017-08-13 15:48] LABS: Total Protein,Pleural Fluid 5.6 g/dL (No Ref Range)
[2017-08-13 15:55] LABS: Appearance of Pleural Fl Bloody (Clear)
--- NOTE | 2017-08-13 16:34 | Urology - Consult Note ---
Date of Encounter: 08/13/17 Time of Encounter: 16:32 - Assessment and Plan (1) Renal mass Current Visit: Yes Status: Acute Assessment and plan: Patient has a small hyperdense lesion in the right lateral aspect of her kidney. This area does not show obvious changes consistent with renal cell carcinoma but is poorly evaluated on the CT scan. This will eventually require either MRI or follow up CT scan to evaluate for possible change in size. Patient can be scheduled for follow-up in our office in 3-4 weeks for discussion of possible further evaluation. Patient is agreeable with this plan. Call with any questions. Urology CN:HPI Consult date: 08/13/17 Reason for consult Urology: Other (right renal mass) Requesting physician: Seema Dawson History of present illness: Gene is a 71-year-old female with a history of brain cancer status post treatment and radiation in the mid . Patient now admitted secondary to right upper quadrant abdominal pain. She was found on CT scan to have a fluid collection/pleural effusion. Patient also found to have a small 17 m hyperdense right renal lesion. No comparison CT scans were available. Patient also with large lung mass seen on CT scan. No flank pain. No hydronephrosis. Past Med Surg Social Fam HX - Past Medical History Medical history: asthma, CHF, diabetes, hyperlipidemia, hypertension, seizures, other Additional medical history: history of brain tumor Psychiatric history: anxiety, depression, panic disorder - Past Surgical History Surgical History: cholecystectomy, coronary bypass (CABG), other Additional surgical history: Craniotomy, ankle surgery - Social History Smoking Status: Never smoker Smokeless Tobacco Status: No Alcohol use: none Drug use: none - Family History Father Adopted: No Living Status: Hx Family Cardiac Disorders: Yes Hx Family Respiratory Disorders: Yes Hx Family Cancer: Yes Hx Family Medical Disorders: Yes (Mother has a history of ovarian cancer, uncle has H/O pancreatic cancer) Medications and Allergies Furosemide [Lasix] 20 mg PO DAILY 11/30/14 [History] Insulin ASPART [NovoLOG] 0 unit SQ TIDWM PRN 03/13/15 [History] Insulin Glargine [Lantus] 15 unit SQ DAILY 03/13/15 [History] Pantoprazole Sodium [Protonix] 40 mg PO DAILY 03/13/15 [History] hydrALAZINE [HydrALAZINE] 25 mg PO Q8HR 03/13/15 [History] Aspirin [Adult Aspirin] 81 mg PO DAILY 08/12/17 [History] Atorvastatin Calcium [Lipitor] 20 mg PO DAILY 08/12/17 [History] Clopidogrel [Plavix] 75 mg PO DAILY 08/12/17 [History] Ergocalciferol (VITAMIN D2) [Vitamin D2] 50,000 unit PO QWEEK 08/12/17 [History] Escitalopram Oxalate 5 mg PO DAILY 08/12/17 [History] LevETIRAcetam [Keppra] 750 mg PO BID 08/12/17 [History] Levothyroxine Sodium [Levoxyl] 25 mcg PO DAILY 08/12/17 [History] Levothyroxine Sodium [Synthroid] 200 mcg PO DAILY 08/12/17 [History] Lisinopril [Zestril] 10 mg PO DAILY 08/12/17 [History] Metoprolol [Lopressor] 25 mg PO BID 08/12/17 [History] Montelukast [Singulair] 10 mg PO DAILY 08/12/17 [History] Phenytoin [Dilantin] 150 mg PO BID 08/12/17 [History] Pioglitazone HCl [Actos] 15 mg PO DAILY 08/12/17 [History] SitaGLIPtin [Januvia] 100 mg PO DAILY 08/12/17 [History] Tolterodine Tartrate [Detrol] 2 mg PO BID 08/12/17 [History] 3 Allergy/AdvReac Type Severity Reaction Status Date / Time Tetanus Vaccines and Toxoid Allergy Unknown unknown Verified 03/13/15 22:58 [Tetanus Vaccines & Toxoid] Review of Systems - Constitutional no chills, no fever(s) - EENT Nose, mouth and throat: no dizziness - Cardiovascular no chest pain - Respiratory no cough, no dyspnea - Gastrointestinal abdominal pain Exam Initial Vital Signs Temp Pulse Resp BP Pulse Ox 98.2 F 65 18 127/102 93 08/12/17 09:51 08/12/17 09:51 08/12/17 09:51 08/12/17 09:51 08/12/17 09:51 General/Neuological: alert and oriented x 3 Eyes: normal pupils, non-icteric Neck: no lymphadenopathy noted, supple to touch ABD: soft, nontender, morbidly obese, no masses palpated, good bowel sounds Back: no pain on percmussion bilaterally Skin: no rashes noted Musculoskeletal: normal gait, FROMx4 Urology Results - Labs 08/13/17 04:57 08/13/17 04:57 Abnormal lab results WBC 16.2 K/mcL (4.3-11.1) H 08/13/17 04:57 RBC 2.96 M/mcL (3.82-4.97) L 08/13/17 04:57 Hgb 8.2 g/dL (11.5-15.4) L 08/13/17 04:57 Hct 27.6 % (35.3-44.9) L 08/13/17 04:57 MCH 27.7 pg (28.0-33.3) L 08/13/17 04:57 MCHC 29.7 g/dL (31.6-35.5) L 08/13/17 04:57 RDW 14.6 % (11.5-14.5) H 08/13/17 04:57 Neutrophils # 14.4 K/mcL (1.6-8.9) H 08/13/17 04:57 APTT 25.3 Seconds (26.0-36.0) L 08/12/17 11:15 VBG pH 7.28 pH Units (7.32-7.42) L 08/12/17 10:37 Carbon Dioxide 21 mEq/L (23-29) L 08/13/17 04:57 BUN 30 mg/dL (8-23) H 08/13/17 04:57 Creatinine 2.09 mg/dL (0.60-1.20) H 08/13/17 04:57 Est GFR ( Amer) 28 (> 60) L 08/13/17 04:57 Est GFR (Non-Af Amer) 23 (> 60) L 08/13/17 04:57 Glucose 250 mg/dL (70-105) H 08/13/17 04:57 POC Glucose 231 mg/dL (70-99) H 08/12/17 21:28 Calculated Osmolality 305 (280-300) H 08/13/17 04:57 Calcium 8.3 mg/dL (8.6-10.3) L 08/13/17 04:57 Phosphorus 5.0 mg/dL (2.7-4.5) H 08/12/17 13:45 Iron 38 mcg/dL (50-170) L 08/13/17 08:14 % Saturation 12 % (15-50) L 08/13/17 08:14 AST 9 Units/L (13-39) L 08/13/17 04:57 Alkaline Phosphatase 107 Units/L (34-104) H 08/13/17 04:57 B-Natriuretic Peptide 125 pg/mL (Less than 100) H 08/12/17 10:15 Albumin/Globulin Ratio 1.0 (1.1-2.2) L 08/13/17 04:57 Triglycerides 153 mg/dL (< 150) H 08/13/17 04:57 VLDL Cholesterol, Calc 31 mg/dL (< 31) H 08/13/17 04:57 HDL Cholesterol 31 mg/dL (40-59) L 08/13/17 04:57 Urine Clarity Cloudy (Clear) A 08/12/17 11:40 Ur Squamous Epith Cells Many per lpf (None-Few) H 08/12/17 11:40 Amorphous Sediment Moderate (Few) H 08/12/17 11:40 Granular Casts Few per lpf (None Seen) H 08/12/17 11:40 Pleural Appearance Bloody (Clear) A 08/13/17 14:00 Pleural RBC 1.561 M/mcL (0.000-0.002) H 08/13/17 14:00 Pleural Tot Nuc Cell 4157 TNC/mcL (0-1000) H 08/13/17 14:00 Phenytoin 4.8 mcg/mL (10.0-20.0) L 08/13/17 08:14 All other labs normal. - Imaging CT scan - abdomen: image reviewed CT scan - pelvis: image reviewed Consult Discharge Plan - Plan Referrals: Stephanie Morgan, CONSTRUCTION LINEMAN [Primary Care Provider] -
--- NOTE | 2017-08-13 17:18 | Electrocardiograph Report ---
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
--- NOTE | 2017-08-13 17:20 | Electrocardiograph Report ---
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
[2017-08-13] MEDS: levETIRAcetam 250 MG TABLET PO SCH (21:53)
[2017-08-14] MEDS: Hydrocortisone Sodium Succ 100 MG/2 ML VIAL IVP SCH ×4 (00:27→22:08)
[2017-08-14] MEDS: Insulin LISPRO 300 UNITS/3 ML VIAL SQ SCH ×5 (00:27→22:09)
[2017-08-14] MEDS: Ipratropium/Albuterol Neb 3 ML IH SCH ×6 (04:11→23:36)
[2017-08-14] MEDS: Doxycycline 100 MG in 0.9 % Sodium Chloride Mini Bag 100 ML IVPB SCH ×2 (05:38→17:00)
[2017-08-14] MEDS: Levothyroxine 25 MCG TABLET PO SCH (05:38)
[2017-08-14 06:12] LABS: Basophils % 0.1 %; Eosinophils % 0.3 %; Hemoglobin 6.8 g/dL (11.5-15.4); Immature Granulocytes % 0.8 % (0-4); Lymphocytes # 1.5 K/mcL (0.6-4.6); Lymphocytes % 10.8 %; Mean Corpuscular HGB Conc 30.9 g/dL (31.6-35.5); Mean Corpuscular Hemoglobin 27.6 pg (28.0-33.3); Mean Corpuscular Volume 89.4 fL (83.0-100.0); Mean Platelet Volume 9.9 fL (9.4-12.4); Monocytes # 0.6 K/mcL (0.0-1.3); Monocytes % 4.6 %; Neutrophils # 11.3 K/mcL (1.6-8.9); Platelet Count 213 K/mcL (140-400); Red Blood Count 2.46 M/mcL (3.82-4.97); Segmented Neutrophils % 83.4 %
[2017-08-14 06:30] LABS: Calcium 7.8 mg/dL (8.6-10.3); Magnesium 1.8 mg/dL (1.6-2.6); Potassium 4.2 mEq/L (3.5-5.1)
--- NOTE | 2017-08-14 07:22 | Internal Med Progress Note ---
Date of Encounter: 08/14/17 Time of Encounter: 07:22 - Assessment and plan (1) Acute renal failure superimposed on stage 3 chronic kidney disease Current Visit: Yes Status: Acute Assessment and plan: Cr 1.4 --> 2.0 --> 2.0 nephrology appreciated: supporitve management, hold SHIRA-i Qualifiers: Acute renal failure type: unspecified Qualified Code(s): N17.9 - Acute kidney failure, unspecified; N18.3 - Chronic kidney disease, stage 3 (moderate) (2) Acute on chronic anemia Current Visit: Yes Status: Acute Assessment and plan: Hb 9.1 --> 6.8 Transfuse 1 unit PRBC, recheck AM no overt bleeding check stool for occult blood may need GI eval (3) Recurrent right pleural effusion Current Visit: Yes Status: Acute Assessment and plan: s/p thoracentesis exudative cytology pending pulmonology appreciated: pneumonia vs malignancy, wait for above before invasive work up will attemt to wean off of oxygen (4) Renal mass Current Visit: Yes Status: Acute Assessment and plan: ontrast CT or MRI when GLENNA resolved per urology (5) Pneumonia Current Visit: Yes Status: Acute Assessment and plan: possible pneumonia cont Abx until cultures back Qualifiers: Pneumonia type: due to unspecified organism Laterality: unspecified laterality Lung location: unspecified part of lung Qualified Code(s): J18.9 - Pneumonia, unspecified organism (6) CAD (coronary artery disease) Current Visit: Yes Status: Acute Assessment and plan: on ASA/Plavix LAD stent If anemia persistent, will ask cardiology if Plavix can be stopped Qualifiers: Coronary Disease-Associated Artery/Lesion type: tang[place]q artery [place] vs. transplanted heart: tang[place]q heart Associated angina: angina presence unspecified Qualified Code(s): I25.10 - Atherosclerotic heart disease of [place]irnaq coronary artery without angina pectoris (7) Hypotension Current Visit: Yes Status: Resolved Assessment and plan: hypotension resolved appears that solu-cortef started on admission in that setting will start weaning down Qualifiers: Hypotension type: unspecified hypotension type Qualified Code(s): I95.9 - Hypotension, unspecified (8) Skin lesion of scalp Current Visit: Yes Status: Acute Assessment and plan: ongoing scab for a few months at the site of prior surgery will likely need imaging of brain and oncology vs dermatology eval - Time Spent With Patient Total time spent is greater than 50% in coordination of care (as documented) at patient's floor/unit and/or counseling patient: - Subjective Interval history: feeling better but still has fatigue some blood in sputum dyspnea right flank pain 3 L/NC no n, v, abd pain Scab on head for 1.5 months at prior surgery site - Constitutional Vitals: Temp Pulse Resp BP Pulse Ox 98.7 F 86 18 144/71 94 08/14/17 04:31 08/14/17 04:31 08/14/17 04:31 08/14/17 04:31 08/14/17 04:31 General appearance: Present: A&O X 3, morbidly obese, no acute distress, answers questions appropriately - Head Additional comments: 3x 3.5 cm approx right centre scalp scab like lesion - Eye Eye exam: Present: PERRL, conjuntiva pink, sclera anicteric Pupils: Present: PERRL - Neck Neck exam general surgery: Present: supple, trachea midline. Absent: nuchal rigidity - Respiratory Respiratory exam: Present: CTAB. Absent: accessory muscle use, rales, rhonchi, wheezes - Cardiovascular Cardiovascular exam: Present: RRR, +S1, +S2. Absent: diastolic murmur, gallop, rubs, systolic murmur - GI/Abdominal GI/Abdominal exam: Present: normal bowel sounds, soft, no peritoneal signs. Absent: distended, tenderness - Extremities Exam Extremities exam: Present: warm, radial pulses palpable and symmetrical. Absent : cyanotic, pedal edema - Neurological Exam Neurological exam: Present: oriented X3, no focal deficits. Absent: pronater drift, facial droop, speech deficit - Skin Skin exam: Present: dry, intact Internal Medicine: Result - Labs CBC & Chem 7: 08/14/17 05:22 08/14/17 05:22 Labs: Short CBC 08/14/17 Range/Units 05:22 WBC 13.6 H (4.3-11.1) K/mcL Hgb 6.8 L (11.5-15.4) g/dL Hct 22.0 L (35.3-44.9) % Plt Count 213 (140-400) K/mcL Neutrophils # 11.3 H (1.6-8.9) K/mcL BMP 08/14/17 05:22 Sodium 136 Potassium 4.2 Chloride 107 Carbon Dioxide 21 L BUN 39 H Creatinine 2.03 H Glucose 204 H Calcium 7.8 L - ABG Interpretation ABG results: PT/INR, D-dimer PT 12.1 Seconds (9.4-12.1) 08/12/17 11:15 - Impressions Impressions Chest X-Ray 08/13/17 14:35 IMPRESSION: Decreased right pleural effusion following thoracentesis with no pneumothorax. Multiple rounded nodules bilaterally largest measuring over 6 cm on the right presumed metastatic. These are better demonstrated on recent CT scan but partially obscured by pleural effusion. D/ / Cesar Pham MD / Cesar Pham MD Interpreting Provider: Cesar Pham MD Retroperitoneum Ultrasound 08/13/17 20:00 IMPRESSION: 1. No hydronephrosis. 2. Soft tissue nodule in the abdominal wall, perhaps a schwannoma. D/ / John Quiñones MD / John Quiñones MD Interpreting Provider: John Quiñones MD Consult Discharge Plan - Plan Referrals: Stephanie Morgan, PILL COATER [Primary Care Provider] -
--- NOTE | 2017-08-14 08:25 | Pulmonology Progress Note ---
<Naveed Sears - Last Filed: 08/14/17 10:31> Date of Encounter: 08/14/17 Time of Encounter: 08:25 Assessment and Plan (1) Pleural effusion, right Current Visit: Yes Status: Acute 1. Awaiting results of cytology from recent thoracentesis 2. Effusion is definitely exudative and multiple etiologies are considered including pneumonia and malignancy 3. HGB dropped today, ordered repeat CT chest w/o contrast - significant improvement in effusion, also had some concern over pleural thickening 4. Symptomatically, patient is doing much better and I feel we can hold off on any further invasive procedures from a pulmonary standpoint until workup is back Subjective Principal diagnosis: pleural effusion Interval history: Patient doing well from a symptomatic standpoint. HGB did drop to <7. Reviewing IR tap, it was bloody but patient has been doing very well so do not suspect any continued bleeding from that source. Patient states she is feeling better. Denies fever, worsening cough, chest pain, worsening SOB, or n/v/d. Objective PUL Vital signs: Last Vital Signs Temp 98.6 F 08/14/17 07:30 Pulse 80 08/14/17 07:30 Resp 18 08/14/17 07:30 BP 154/68 08/14/17 07:30 Pulse Ox 96 08/14/17 07:30 General appearance: no acute distress, alert Eyes: nonicteric ENT: oropharynx moist Neck: supple Effort: normal Auscultation: right: diminished breath sounds Cardiovascular: regular rate and rhythm Gastrointestinal: normoactive bowel sounds, non-distended Integumentary: normal Extremities: no cyanosis, no clubbing Musculoskeletal: no deformities, ROM normal normal mental status, non-focal exam mood appropriate, affect normal Results - Laboratory Findings CBC and BMP: 08/14/17 05:22 08/14/17 05:22 PT/INR, D-dimer PT 12.1 Seconds (9.4-12.1) 08/12/17 11:15 Abnormal lab findings: Abnormal lab results WBC 13.6 K/mcL (4.3-11.1) H 08/14/17 05:22 RBC 2.46 M/mcL (3.82-4.97) L 08/14/17 05:22 Hgb 6.8 g/dL (11.5-15.4) L 08/14/17 05:22 Hct 22.0 % (35.3-44.9) L 08/14/17 05:22 MCH 27.6 pg (28.0-33.3) L 08/14/17 05:22 MCHC 30.9 g/dL (31.6-35.5) L 08/14/17 05:22 RDW 15.0 % (11.5-14.5) H 08/14/17 05:22 Neutrophils # 11.3 K/mcL (1.6-8.9) H 08/14/17 05:22 APTT 25.3 Seconds (26.0-36.0) L 08/12/17 11:15 VBG pH 7.28 pH Units (7.32-7.42) L 08/12/17 10:37 Carbon Dioxide 21 mEq/L (23-29) L 08/14/17 05:22 BUN 39 mg/dL (8-23) H 08/14/17 05:22 Creatinine 2.03 mg/dL (0.60-1.20) H 08/14/17 05:22 Est GFR ( Amer) 29 (> 60) L 08/14/17 05:22 Est GFR (Non-Af Amer) 24 (> 60) L 08/14/17 05:22 Glucose 204 mg/dL (70-105) H 08/14/17 05:22 POC Glucose 213 mg/dL (70-99) H 08/13/17 22:32 Calcium 7.8 mg/dL (8.6-10.3) L 08/14/17 05:22 Phosphorus 5.0 mg/dL (2.7-4.5) H 08/12/17 13:45 Iron 38 mcg/dL (50-170) L 08/13/17 08:14 % Saturation 12 % (15-50) L 08/13/17 08:14 AST 9 Units/L (13-39) L 08/13/17 04:57 Alkaline Phosphatase 107 Units/L (34-104) H 08/13/17 04:57 B-Natriuretic Peptide 172 pg/mL (Less than 100) H 08/14/17 05:22 Albumin/Globulin Ratio 1.0 (1.1-2.2) L 08/13/17 04:57 Triglycerides 153 mg/dL (< 150) H 08/13/17 04:57 VLDL Cholesterol, Calc 31 mg/dL (< 31) H 08/13/17 04:57 HDL Cholesterol 31 mg/dL (40-59) L 08/13/17 04:57 Urine Clarity Cloudy (Clear) A 08/12/17 11:40 Ur Squamous Epith Cells Many per lpf (None-Few) H 08/12/17 11:40 Amorphous Sediment Moderate (Few) H 08/12/17 11:40 Granular Casts Few per lpf (None Seen) H 08/12/17 11:40 Pleural Appearance Bloody (Clear) A 08/13/17 14:00 Pleural RBC 1.561 M/mcL (0.000-0.002) H 08/13/17 14:00 Pleural Tot Nuc Cell 4157 TNC/mcL (0-1000) H 08/13/17 14:00 Phenytoin 4.8 mcg/mL (10.0-20.0) L 08/13/17 08:14 - Microbiology Findings Microbiology Findings: Microbiology, Last 48 Hours 08/13/17 14:00 Body Fluid Culture - Preliminary Pleural Fluid - Clinical Findings Intake & Output: Intake & Output 08/13/17 08/14/17 08/14/17 23:59 07:59 15:59 Intake Total 600 / 600 Output Total 100 / 100 Balance 600 / 600 -100 / -100 Weight 119.6 kg Consult Discharge Plan - Plan Referrals: Stephanie Morgan, WET MIX OPERATOR [Primary Care Provider] - <Luci Fraser - Last Filed: 08/14/17 13:17> Date of Encounter: 08/14/17 Objective PUL Vital signs: Last Vital Signs Temp 98.2 F 08/14/17 11:14 Pulse 72 08/14/17 11:14 Resp 18 08/14/17 11:25 BP 147/79 08/14/17 11:14 Pulse Ox 93 08/14/17 11:25 Results - Laboratory Findings CBC and BMP: 08/14/17 05:22 08/14/17 05:22 PT/INR, D-dimer PT 12.1 Seconds (9.4-12.1) 08/12/17 11:15 Abnormal lab findings: Abnormal lab results WBC 13.6 K/mcL (4.3-11.1) H 08/14/17 05:22 RBC 2.46 M/mcL (3.82-4.97) L 08/14/17 05:22 Hgb 6.8 g/dL (11.5-15.4) L 08/14/17 05:22 Hct 22.0 % (35.3-44.9) L 08/14/17 05:22 MCH 27.6 pg (28.0-33.3) L 08/14/17 05:22 MCHC 30.9 g/dL (31.6-35.5) L 08/14/17 05:22 RDW 15.0 % (11.5-14.5) H 08/14/17 05:22 Neutrophils # 11.3 K/mcL (1.6-8.9) H 08/14/17 05:22 APTT 25.3 Seconds (26.0-36.0) L 08/12/17 11:15 VBG pH 7.28 pH Units (7.32-7.42) L 08/12/17 10:37 Carbon Dioxide 21 mEq/L (23-29) L 08/14/17 05:22 BUN 39 mg/dL (8-23) H 08/14/17 05:22 Creatinine 2.03 mg/dL (0.60-1.20) H 08/14/17 05:22 Est GFR ( Amer) 29 (> 60) L 08/14/17 05:22 Est GFR (Non-Af Amer) 24 (> 60) L 08/14/17 05:22 Glucose 204 mg/dL (70-105) H 08/14/17 05:22 POC Glucose 186 mg/dL (70-99) H 08/14/17 10:55 Calcium 7.8 mg/dL (8.6-10.3) L 08/14/17 05:22 Phosphorus 5.0 mg/dL (2.7-4.5) H 08/12/17 13:45 Iron 38 mcg/dL (50-170) L 08/13/17 08:14 % Saturation 12 % (15-50) L 08/13/17 08:14 AST 9 Units/L (13-39) L 08/13/17 04:57 Alkaline Phosphatase 107 Units/L (34-104) H 08/13/17 04:57 B-Natriuretic Peptide 172 pg/mL (Less than 100) H 08/14/17 05:22 Albumin/Globulin Ratio 1.0 (1.1-2.2) L 08/13/17 04:57 Triglycerides 153 mg/dL (< 150) H 08/13/17 04:57 VLDL Cholesterol, Calc 31 mg/dL (< 31) H 08/13/17 04:57 HDL Cholesterol 31 mg/dL (40-59) L 08/13/17 04:57 Urine Clarity Cloudy (Clear) A 08/12/17 11:40 Ur Squamous Epith Cells Many per lpf (None-Few) H 08/12/17 11:40 Amorphous Sediment Moderate (Few) H 08/12/17 11:40 Granular Casts Few per lpf (None Seen) H 08/12/17 11:40 Pleural Appearance Bloody (Clear) A 08/13/17 14:00 Pleural RBC 1.561 M/mcL (0.000-0.002) H 08/13/17 14:00 Pleural Tot Nuc Cell 4157 TNC/mcL (0-1000) H 08/13/17 14:00 Phenytoin 4.8 mcg/mL (10.0-20.0) L 08/13/17 08:14 - Microbiology Findings Microbiology Findings: Microbiology, Last 48 Hours 08/13/17 14:00 Body Fluid Culture - Preliminary Pleural Fluid - Clinical Findings Intake & Output: Intake & Output 08/13/17 08/14/17 08/14/17 23:59 07:59 15:59 Intake Total 600 / 600 100 / 100 360 / 360 Output Total 100 / 100 Balance 600 / 600 0 / 0 360 / 360 Weight 119.6 kg - Attending Attestation I examined this patient and my medical decision-making was reviewed with the Resident Physician. I agree with the documented findings, disposition and treatment plan as described except to the extent set forth below. Patient seen and examined. Labs, radiology, chart personally reviewed. Agree with resident's history and physical, assessment, plan with following comments: MANAGER AEROSPACE: Patient follows commands, Pulmonary: Acceptable oxygenation and ventilation and patient feels better after thoracentesis. Repeating CT chest still show evidence of multiple lesions in both lungs, however there is improvement in the area of the right lower lobe and they suspect he was compressive atelectasis. Waiting for pleural fluid analysis and digits nondiagnostic perhaps CT-guided biopsy for one of those masses. Cardiovascular: stable GI: Nutrition per dietary and GI prophylaxis per routine Heme: DVT prophylaxis per routine
[2017-08-14] MEDS: hydrALAZINE 25 MG TABLET PO SCH ×3 (09:15→22:07)
[2017-08-14] MEDS: levETIRAcetam 250 MG TABLET PO SCH ×2 (09:15→22:07)
[2017-08-14] MEDS: Aspirin Enteric Coated 81 MG Tablet PO SCH (09:15)
[2017-08-14] MEDS: Piperacillin/Tazobactam 3.375 GM in 0.9 % Sodium Chloride Mini Bag 100 ML IVPB SCH ×2 (09:16→14:56)
[2017-08-14] MEDS: Insulin DETEMIR 100 UNIT/ML X5UNITS SQ SCH ×2 (09:16→22:07)
[2017-08-14] MEDS ORDERED: 0.9 % Sodium Chloride 250 ML ONE (10:39)
--- NOTE | 2017-08-14 11:11 | Nephrology Progress Note ---
Date of Encounter: 08/14/17 Time of Encounter: 09:20 - Assessment and Plan (1) Acute kidney injury Current Visit: No Status: Acute Nonoliguric and stable. No indications for SUPERVISOR PIG MACHINE. Her UA had demonstrated a few granular casts, but she clearly does not have saurav ATN since she is not progressively worsening. Continue to follow a renal protective strategy and I would continue to hold the SHIRA until her SCr trends a little better. (2) Anemia Current Visit: Yes Status: Acute Worsening. Transfusion parameters as per primary. Qualifiers: Anemia type: unspecified type Qualified Code(s): D64.9 - Anemia, unspecified (3) CKD (chronic kidney disease) stage 3, GFR 30-59 ml/min Current Visit: Yes Status: Chronic B/l CKD stage III with basic renal work up having been started. Though her UA did not have microscopic hematuria, I did order some serologies, but I am not expecting a GN. (4) Renal mass Current Visit: Yes Status: Acute Appreciate Urology. Appears to be stable. (5) Hypertension Current Visit: No Status: Chronic See above Qualifiers: Hypertension type: unspecified Qualified Code(s): I10 - Essential (primary ) hypertension Subjective Principal diagnosis: pleural effusion Interval history: Pt was s/e and she reported feeling better today and wanting to be more mobile. She denied N/V/D or diminished appetite. She feels that her breathing is easier after the paracentesis, she affirmed. Her floor RN was present during my interview/exam. Objective - Vital Signs Vital signs: Vital Signs Temp Pulse Resp BP Pulse Ox 08/14/17 10:57 97.8 F 74 18 151/78 96 08/14/17 10:52 97.8 F 72 16 151/78 95 08/14/17 07:30 98.6 F 80 18 154/68 96 08/14/17 04:31 98.7 F 86 18 144/71 94 08/14/17 04:12 16 97 08/14/17 01:07 98.6 F 90 18 175/71 96 08/13/17 23:45 16 99 08/13/17 20:02 98.6 F 102 18 161/65 96 08/13/17 19:25 16 96 08/13/17 15:45 18 91 08/13/17 15:21 98.6 F 87 16 130/73 93 06/08/18 11:26 98.3 F 79 16 129/51 92 08/13/17 11:16 18 92 Intake and Output 08/13/17 08/14/17 08/14/17 23:59 07:59 15:59 Intake Total 600 / 600 100 / 100 240 / 240 Output Total 100 / 100 Balance 600 / 600 0 / 0 240 / 240 Intake: IV Fluids 200 / 200 100 / 100 Doxycycline 100 MG In 0.9 % 100 / 100 Sodium Chloride (Mini-Bag +) 100 ML @ 100 mls/hr IVPB Q12HR [facility] Rx#:[id number] Zosyn 3.375 GM In 0.9 % Sodium 100 / 100 100 / 100 Chloride (Mini-Bag +) 100 ML @ 25 mls/hr IVPB TID [facility] Rx#: [id number] Oral 400 / 400 240 / 240 Blood Product 0 / 0 Rbcs Leuko Poor As-1 Unit 0 / 0 [id number] Output: Urine 100 / 100 Other: Meal Breakfast Percent of Meal Consumed 100% # Voids 1 Weight 119.6 kg Blood Glucose* 251 225 186 Patient Weight 08/14/17 23:59 Weight 119.6 kg - General Appearance Exam: General appearance: well-developed, well-nourished, appears started age, obese EENT: ATNC, PERRL, mucous membranes moist, facial pallor Neck: supple Respiratory: clear with improved airflow in the bases bilaterally Cardiology: edema (nontense, nonpitting (mostly SQ adiposity) LLE > RLE), regular rate, regular rhythm, normal S1, normal S2 Gastrointestinal: normoactive bowel sounds, no tenderness, no guarding, obese Integumentary: no rash, warm and dry Neurologic: no focal deficit, no asterixis, alert and oriented x3 (with fluent speach and moved all four extremities) Musculoskeletal: no erythema, no cyanosis Psychiatric: mood/affect appropriate (very talkative), cooperative - Lab 08/14/17 05:22 08/14/17 05:22 Most recent lab results Calcium 7.8 mg/dL (8.6-10.3) L 08/14/17 05:22 Phosphorus 5.0 mg/dL (2.7-4.5) H 08/12/17 13:45 Magnesium 1.8 mg/dL (1.6-2.6) 08/14/17 05:22 - VTE Documentation of Mechanical Device: Intermittent pneumatic compression device Consult Discharge Plan - Plan Referrals: Stephanie Morgan, CAR [Primary Care Provider] -
[2017-08-14 22:46] LABS: Phenytoin (Dilantin) Free 0.9 ug/mL (1.0-2.5); Phenytoin Dose NOT PROVIDED; Phenytoin Dose Frequency NOT PROVIDED; Phenytoin Route NOT PROVIDED
[2017-08-15] MEDS: Piperacillin/Tazobactam 3.375 GM in 0.9 % Sodium Chloride Mini Bag 100 ML IVPB SCH ×3 (00:50→14:48)
[2017-08-15] MEDS: Ipratropium/Albuterol Neb 3 ML IH SCH ×6 (03:14→23:47)
[2017-08-15 03:28] LABS: Basophils % 0.1 %; Eosinophils # 0.1 K/mcL (0.0-0.6); Eosinophils % 0.6 %; Hematocrit 23.1 % (35.3-44.9); Hemoglobin 7.2 g/dL (11.5-15.4); Immature Granulocytes % 0.8 % (0-4); Lymphocytes # 1.2 K/mcL (0.6-4.6); Lymphocytes % 8.7 %; Mean Corpuscular HGB Conc 31.2 g/dL (31.6-35.5); Mean Corpuscular Hemoglobin 28.2 pg (28.0-33.3); Mean Corpuscular Volume 90.6 fL (83.0-100.0); Mean Platelet Volume 9.8 fL (9.4-12.4); Monocytes % 5.6 %; Neutrophils # 11.2 K/mcL (1.6-8.9); Red Blood Count 2.55 M/mcL (3.82-4.97); Red Cell Distribution Width 14.7 % (11.5-14.5); Segmented Neutrophils % 84.2 %
[2017-08-15 03:46] LABS: Calcium 7.7 mg/dL (8.6-10.3); Magnesium 1.8 mg/dL (1.6-2.6); Potassium 4.1 mEq/L (3.5-5.1)
[2017-08-15 03:47] LABS: Monocytes # 0.7 K/mcL (0.0-1.3)
[2017-08-15 03:51] LABS: Platelet Count 208 K/mcL (140-400)
[2017-08-15] MEDS: Levothyroxine 25 MCG TABLET PO SCH (05:50)
[2017-08-15] MEDS: Doxycycline 100 MG in 0.9 % Sodium Chloride Mini Bag 100 ML IVPB SCH ×2 (05:50→17:03)
[2017-08-15] MEDS: Hydrocortisone Sodium Succ 100 MG/2 ML VIAL IVP SCH ×3 (05:51→22:15)
[2017-08-15] MEDS: Insulin LISPRO 300 UNITS/3 ML VIAL SQ SCH ×4 (07:26→22:24)
[2017-08-15] MEDS: levETIRAcetam 250 MG TABLET PO SCH ×2 (07:50→22:14)
[2017-08-15] MEDS: Insulin DETEMIR 100 UNIT/ML X5UNITS SQ SCH ×2 (07:50→22:24)
[2017-08-15] MEDS: Aspirin Enteric Coated 81 MG Tablet PO SCH (07:50)
[2017-08-15] MEDS: hydrALAZINE 25 MG TABLET PO SCH ×3 (07:50→22:15)
[2017-08-15 13:47] LABS: Phenytoin Type of Draw NOT PROVIDED
[2017-08-15 15:11] LABS: Bilirubin,Urine Negative (Negative); Blood,Urine Trace-intact (Negative); Clarity,Urine Clear (Clear); Color,Urine Yellow (Yellow); Glucose,Urine (UA) Normal (Normal); Ketones,Urine Negative (Negative); Leukocyte Esterase,Urine Large (Negative); Nitrite,Urine Negative (Negative); PH,Urine 5.5 pH Units (5.0-8.0); Protein,Urine Trace mg/dL (Neg-Trace); Specific Gravity,Urine 1.015 (1.010-1.025); Urobilinogen,Urine Normal (Normal)
[2017-08-15 15:16] LABS: Bacteria,Urine Few per hpf (None-Few); RBC,Urine 0-3 per hpf (0-3); WBC,Urine 0-3 per hpf (0-3)
--- NOTE | 2017-08-15 17:14 | Internal Med Progress Note ---
Date of Encounter: 08/15/17 Time of Encounter: 17:12 - Assessment and plan (1) Acute renal failure superimposed on stage 3 chronic kidney disease Current Visit: Yes Status: Acute Assessment and plan: slowly improving Cr 1.4 --> 2.0 --> 1.8 nephrology appreciated: supportive management, hold SHIRA-i Qualifiers: Acute renal failure type: unspecified Qualified Code(s): N17.9 - Acute kidney failure, unspecified; N18.3 - Chronic kidney disease, stage 3 (moderate) (2) Acute on chronic anemia Current Visit: Yes Status: Acute Assessment and plan: Hb 9.1 --> 6.8 --> 1 unit PRBC --> 7.2 FOBT negative no overt bleeding Could be due to acute illness, but f recurrent anemia, may need GI eval (3) Recurrent right pleural effusion Current Visit: Yes Status: Acute Assessment and plan: s/p thoracentesis exudative cytology pending pulmonology appreciated: pneumonia vs malignancy, wait for above before invasive work up, may need CT guided biopsy now weaned off of oxygen though still had intermittent hypoxia 87% on RA, cont pulm toilet (4) Renal mass Current Visit: Yes Status: Acute Assessment and plan: contrast CT or MRI when GLENNA resolved per urology (5) Pneumonia Current Visit: Yes Status: Acute Assessment and plan: possible pneumonia, leukocytosis noted today is day 3, cont Abx until cultures back, likely doesn't need if pleural fluid and blood culture negative until tomorrow Qualifiers: Pneumonia type: due to unspecified organism Laterality: unspecified laterality Lung location: unspecified part of lung Qualified Code(s): J18.9 - Pneumonia, unspecified organism (6) CAD (coronary artery disease) Current Visit: Yes Status: Acute Assessment and plan: on ASA/Plavix due to LAD stent If anemia deemed to be due to bleeding, will ask cardiology if Plavix can be stopped Qualifiers: Coronary Disease-Associated Artery/Lesion type: [place] artery [place] vs. transplanted heart: [place] heart Associated angina: angina presence unspecified Qualified Code(s): I25.10 - Atherosclerotic heart disease of [place] coronary artery without angina pectoris (7) Hypotension Current Visit: Yes Status: Resolved Assessment and plan: hypotension resolved appears that solu-cortef started on admission in that setting DC Solu-Cortef Qualifiers: Hypotension type: unspecified hypotension type Qualified Code(s): I95.9 - Hypotension, unspecified (8) Skin lesion of scalp Current Visit: Yes Status: Acute Assessment and plan: ongoing scab for a few months at the site of prior surgery for brain cancer will likely need imaging of brain with contrast when GLENNA resolved and oncology vs dermatology eval - Time Spent With Patient Total time spent is greater than 50% in coordination of care (as documented) at patient's floor/unit and/or counseling patient: - Subjective Interval history: occasional hemoptysis no chest pain or dyspnea no n, v, abd pain Scab on head for 1.5 months at prior surgery site - Constitutional Vitals: Temp Pulse Resp BP Pulse Ox 98.5 F 85 17 158/70 92 08/15/17 16:14 08/15/17 16:14 08/15/17 16:14 08/15/17 16:14 08/15/17 16:14 General appearance: Present: A&O X 3, morbidly obese, no acute distress, answers questions appropriately - Head Head exam: Present: normocephalic Additional comments: approx 3x 3.5 cm right centre scalp scab like lesion - Eye Eye exam: Present: PERRL, conjuntiva pink, sclera anicteric Pupils: Present: PERRL - Neck Neck exam general surgery: Present: supple, trachea midline. Absent: nuchal rigidity - Respiratory Respiratory exam: Present: CTAB. Absent: accessory muscle use, rales, rhonchi, wheezes - Cardiovascular Cardiovascular exam: Present: RRR, +S1, +S2. Absent: diastolic murmur, gallop, rubs, systolic murmur - GI/Abdominal GI/Abdominal exam: Present: normal bowel sounds, soft, no peritoneal signs. Absent: distended, guarding, rebound, tenderness - Extremities Exam Extremities exam: Present: warm, radial pulses palpable and symmetrical. Absent : calf tenderness, cyanotic, pedal edema - Neurological Exam Neurological exam: Present: oriented X3, no focal deficits. Absent: facial droop, speech deficit - Skin Skin exam: Present: dry, intact Internal Medicine: Result - Labs CBC & Chem 7: 08/15/17 02:15 08/15/17 02:15 Labs: Short CBC 08/15/17 Range/Units 02:15 WBC 13.3 H (4.3-11.1) K/mcL Hgb 7.2 L (11.5-15.4) g/dL Hct 23.1 L (35.3-44.9) % Plt Count 208 (140-400) K/mcL Neutrophils # 11.2 H (1.6-8.9) K/mcL BMP 08/15/17 02:15 Sodium 137 Potassium 4.1 Chloride 108 H Carbon Dioxide 20 L BUN 46 H Creatinine 1.80 H Glucose 140 H Calcium 7.7 L Urine 08/15/17 Range/Units 14:45 Urine Color Yellow (Yellow) Urine Clarity Clear (Clear) Urine pH 5.5 (5.0-8.0) pH Units Ur Specific [place] 1.015 (1.010-1.025) Urine Protein Trace (Neg-Trace) mg/dL Urine Glucose (UA) Normal (Normal) mg/dL - ABG Interpretation ABG results: PT/INR, D-dimer PT 12.1 Seconds (9.4-12.1) 08/12/17 11:15 - Impressions Impressions Chest CT 08/14/17 08:07 IMPRESSION: 1. Interval decrease in right pleural effusion, with interval improvement in large right lower lobe pulmonary opacity. Findings may represent combination of atelectasis, pneumonia, aspiration, and/or malignancy. 2. High density appearance of the pleura within right lower hemithorax. Although this could represent collapsed lung parenchyma, pleural metastasis is not excluded. Recommend attention on follow-up examination. 3. Redemonstration of multiple pulmonary nodules/masses of various size within bilateral lungs, reasonably similar to examination 2 days prior. Findings are most concerning for pulmonary metastasis. Correlate with patient's history. 4. Unchanged moderate T12 vertebral body fracture with mild retropulsion into the spinal canal superiorly. No new osseous abnormalities identified. D/ / 08/14/2017 10:00:35 Cirilo Arthur MD / [email or web address] Interpreting Provider: Cirilo Arthur MD - VTE Documentation of Mechanical Device: Intermittent pneumatic compression device Consult Discharge Plan - Plan Referrals: Stephanie Morgan, DISTRIBUTOR CLEANER [Primary Care Provider] - (web request 08/15/2017)
[2017-08-15] MEDS: Acetaminophen 325 MG TABLET PO PRN (22:23)
[2017-08-16] MEDS: Piperacillin/Tazobactam 3.375 GM in 0.9 % Sodium Chloride Mini Bag 100 ML IVPB SCH ×4 (01:32→23:14)
[2017-08-16] MEDS: Ipratropium/Albuterol Neb 3 ML IH SCH ×6 (03:35→23:00)
[2017-08-16 04:24] LABS: Basophils # 0.1 K/mcL (0.0-0.2); Basophils % 0.4 %; Eosinophils # 0.4 K/mcL (0.0-0.6); Eosinophils % 2.8 %; Hemoglobin 7.8 g/dL (11.5-15.4); Immature Granulocytes % 0.9 % (0-4); Lymphocytes # 2.3 K/mcL (0.6-4.6); Lymphocytes % 16.8 %; Mean Corpuscular HGB Conc 31.2 g/dL (31.6-35.5); Mean Corpuscular Hemoglobin 28.4 pg (28.0-33.3); Mean Corpuscular Volume 90.9 fL (83.0-100.0); Mean Platelet Volume 9.6 fL (9.4-12.4); Monocytes # 0.9 K/mcL (0.0-1.3); Monocytes % 6.3 %; Platelet Count 202 K/mcL (140-400); Red Blood Count 2.75 M/mcL (3.82-4.97); Red Cell Distribution Width 15.1 % (11.5-14.5); Segmented Neutrophils % 72.8 %
[2017-08-16 04:37] LABS: Calcium 7.8 mg/dL (8.6-10.3)
[2017-08-16] MEDS: Doxycycline 100 MG in 0.9 % Sodium Chloride Mini Bag 100 ML IVPB SCH ×3 (05:59→23:15)
[2017-08-16] MEDS: Hydrocortisone Sodium Succ 100 MG/2 ML VIAL IVP SCH ×2 (06:00→07:37)
[2017-08-16] MEDS: Levothyroxine 25 MCG TABLET PO SCH (06:01)
[2017-08-16] MEDS: hydrALAZINE 25 MG TABLET PO SCH ×3 (09:00→23:18)
[2017-08-16] MEDS: levETIRAcetam 250 MG TABLET PO SCH ×2 (09:00→23:18)
[2017-08-16] MEDS: Aspirin Enteric Coated 81 MG Tablet PO SCH (09:00)
[2017-08-16] MEDS: Insulin LISPRO 300 UNITS/3 ML VIAL SQ SCH ×4 (09:01→23:39)
[2017-08-16] MEDS: Insulin DETEMIR 100 UNIT/ML X5UNITS SQ SCH ×2 (09:05→23:17)
--- NOTE | 2017-08-16 13:03 | Nephrology Progress Note ---
Date of Encounter: 08/16/17 Time of Encounter: 12:50 - Assessment and Plan (1) Acute kidney injury Current Visit: No Status: Acute Trending better Renal function. No inpatient indications for VP BUSINESS DEVELOPMENT. She c/o dyspnea: as per primary but consider CXR, BNP and Breathing treatments Having recovered to her baseline, I will sign-off. Please feel free to call or contact me for any questions. Continue to follow a renal protective strategy Thank you. (2) Anemia Current Visit: Yes Status: Acute Worsening. Transfusion parameters as per primary. Qualifiers: Anemia type: unspecified type Qualified Code(s): D64.9 - Anemia, unspecified (3) CKD (chronic kidney disease) stage 3, GFR 30-59 ml/min Current Visit: Yes Status: Chronic Baseline CKD stage III (4) Renal mass Current Visit: Yes Status: Acute Appreciate Urology. Appears to be stable. (5) Hypertension Current Visit: No Status: Chronic See above Qualifiers: Hypertension type: unspecified Qualified Code(s): I10 - Essential (primary ) hypertension Subjective Principal diagnosis: pleural effusion Interval history: Pt was s/e and she reported feeling better today and wanting to be more mobile. She denied N/V/D or diminished appetite. However she did c/o shortness of breath. Objective - Vital Signs Vital signs: Vital Signs Temp Pulse Resp BP Pulse Ox 08/16/17 11:29 16 96 08/16/17 11:19 98.5 F 86 16 147/68 94 08/16/17 07:48 16 96 08/16/17 06:45 98.3 F 79 16 169/75 94 08/16/17 03:38 97.9 F 76 17 174/76 100 08/16/17 03:35 16 97 08/15/17 23:51 98.3 F 80 16 164/82 100 08/15/17 23:48 16 93 08/15/17 19:56 20 92 08/15/17 19:34 98.9 F 88 17 142/55 90 08/15/17 16:14 98.5 F 85 17 158/70 92 08/15/17 15:48 16 93 08/15/17 14:35 81 18 175/79 96 Intake and Output 08/15/17 08/16/17 08/16/17 23:59 07:59 15:59 Intake Total 540 / 540 100 / 100 60 / 60 Output Total 400 / 400 700 / 700 200 / 200 Balance 140 / 140 -600 / -600 -140 / -140 Intake: IV Fluids 300 / 300 100 / 100 Doxycycline 100 MG In 0.9 % 200 / 200 Sodium Chloride (Mini-Bag +) 100 ML @ 100 mls/hr IVPB Q12HR [facility] Rx#:[id number] Zosyn 3.375 GM In 0.9 % Sodium 100 / 100 100 / 100 Chloride (Mini-Bag +) 100 ML @ 25 mls/hr IVPB Q8HR [facility] Rx#: [id number] Oral 240 / 240 60 / 60 Output: Urine 400 / 400 700 / 700 200 / 200 Other: Meal Dinner Percent of Meal Consumed 90% Stool Size Moderate Moderate Stool Consistency loose loose soft soft Stool Color Brown # Voids 1 1 # Bowel Movements 1 Weight 122.47 kg Blood Glucose* 200 118 150 - General Appearance Exam: General appearance: well-developed, well-nourished, appears started age, obese EENT: ATNC, PERRL, mucous membranes moist Neck: supple Respiratory: clear Cardiology: edema (nontense, nonpitting (mostly SQ adiposity) LLE > RLE), regular rate, regular rhythm, normal S1, normal S2 Gastrointestinal: normoactive bowel sounds, no tenderness, no guarding, obese Integumentary: no rash, warm and dry Neurologic: no focal deficit, no asterixis, alert and oriented x3 (with fluent speach and moved all four extremities) Musculoskeletal: no erythema, no cyanosis Psychiatric: mood/affect appropriate (very talkative), cooperative - Lab 08/16/17 04:11 08/16/17 04:11 Most recent lab results Calcium 7.8 mg/dL (8.6-10.3) L 08/16/17 04:11 Phosphorus 5.0 mg/dL (2.7-4.5) H 08/12/17 13:45 Magnesium 1.8 mg/dL (1.6-2.6) 08/15/17 02:15 Urine Creatinine 65 mg/dL 08/15/17 14:45 Urine Sodium 36.0 mEq/L 08/15/17 14:45 - VTE Documentation of Mechanical Device: Intermittent pneumatic compression device Consult Discharge Plan - Plan Referrals: Stephanie Morgan, EMT I/99 [Primary Care Provider] - 08/24/17 11:00 am ()
[2017-08-16] MEDS ORDERED: Hydrocortisone Sodium Succ 100 MG/2 ML VIAL IVP ONE (16:00)
--- NOTE | 2017-08-16 16:04 | Internal Med Progress Note ---
Date of Encounter: 08/16/17 Time of Encounter: 16:00 - Assessment and plan (1) Pleural effusion, right Current Visit: Yes Status: Acute Assessment and plan: Executive neutrophilic predominant. Pending cytology. Suspect secondary to malignancy. Likely metastatic disease to the chest. Code(s): J90 - Pleural effusion, not elsewhere classified SNOMED Code(s): 71783402 (2) Hypotension Current Visit: Yes Status: Resolved Assessment and plan: Resume home blood pressure medication Qualifiers: Hypotension type: unspecified hypotension type Qualified Code(s): I95.9 - Hypotension, unspecified Code(s): I95.9 - Hypotension, unspecified SNOMED Code(s): 17652764 (3) Lung mass Current Visit: Yes Status: Acute Assessment and plan: Bilateral pulmonary nodules and masses noted suspected to be secondary to metastatic disease. Primary could be renal. Awaiting pleural fluid cytology. Code(s): R91.8 - Other nonspecific abnormal finding of lung field SNOMED Code( s): 218097120 (4) Right upper quadrant abdominal pain Current Visit: Yes Status: Acute Assessment and plan: Improved (5) Acute renal failure superimposed on stage 3 chronic kidney disease Current Visit: Yes Status: Acute Assessment and plan: Creatinine is improving. We will trend urine output and follow creatinine. Qualifiers: Acute renal failure type: unspecified Qualified Code(s): N17.9 - Acute kidney failure, unspecified; N18.3 - Chronic kidney disease, stage 3 (moderate) (6) Anemia in chronic kidney disease Current Visit: Yes Status: Acute Assessment and plan: Stable hemoglobin Qualifiers: Chronic kidney disease stage: stage 3 (moderate) Qualified Code(s): N18.3 - Chronic kidney disease, stage 3 (moderate); D63.1 - Anemia in chronic kidney disease (7) Renal mass Current Visit: Yes Status: Acute Assessment and plan: She will need follow-up imaging either a CTA abdomen pelvis or MRI. Awaiting resolution of GLENNA. 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 No events overnight. - Constitutional Vitals: Temp Pulse Resp BP Pulse Ox 97.9 F 77 15 160/70 90 08/16/17 15:42 08/16/17 15:42 08/16/17 15:42 08/16/17 15:42 08/16/17 15:42 General appearance: Present: A&O X 3, morbidly obese, no acute distress, answers questions appropriately Exam: Physical exam Gen: Comfortable, laying in bed, in no visible distress HEENT: Normocephalic, atraumatic. No conjunctival icterus. Moist oral mucosa. Neck: Supple Lungs: Diminished breath sounds, reduced egophony at the right base Heart: Normal S1-S2, no murmurs rubs or gallops Abdomen: Normoactive bowel sounds, no guarding rigidity or tenderness Extremities: No edema clubbing or cyanosis Neuro: Alert oriented 3, no focal deficits Skin: No skin lesions Internal Medicine: Result - Labs CBC & Chem 7: 08/16/17 04:11 08/16/17 04:11 Labs: Short CBC 08/16/17 Range/Units 04:11 WBC 13.7 H (4.3-11.1) K/mcL Hgb 7.8 L (11.5-15.4) g/dL Hct 25.0 L (35.3-44.9) % Plt Count 202 (140-400) K/mcL Neutrophils # 10.0 H (1.6-8.9) K/mcL BMP 08/16/17 04:11 Sodium 140 Potassium 4.0 Chloride 113 H Carbon Dioxide 16 L BUN 47 H Creatinine 1.67 H Glucose 129 H Calcium 7.8 L - ABG Interpretation ABG results: PT/INR, D-dimer PT 12.1 Seconds (9.4-12.1) 08/12/17 11:15 - VTE Documentation of Mechanical Device: Intermittent pneumatic compression device Consult Discharge Plan - Plan Referrals: Stephanie Morgan, [employer]ER [Primary Care Provider] - 08/24/17 11:00 am ()
[2017-08-16] MEDS ORDERED: Ketorolac 30 MG/ML VIAL IVP PRN (18:11)
[2017-08-17] MEDS: Ipratropium/Albuterol Neb 3 ML IH SCH ×6 (03:46→23:55)
[2017-08-17] MEDS: *HR* Promethazine 25 MG/ML VIAL IVP PRN (04:45)
[2017-08-17] MEDS: Levothyroxine 25 MCG TABLET PO SCH (05:40)
[2017-08-17] MEDS: Doxycycline 100 MG in 0.9 % Sodium Chloride Mini Bag 100 ML IVPB SCH ×2 (06:49→16:45)
[2017-08-17] MEDS: Insulin LISPRO 300 UNITS/3 ML VIAL SQ SCH ×4 (09:38→22:04)
[2017-08-17] MEDS: hydrALAZINE 25 MG TABLET PO SCH ×3 (09:46→22:00)
[2017-08-17] MEDS: predniSONE 20 MG TABLET PO SCH (09:46)
[2017-08-17] MEDS: levETIRAcetam 250 MG TABLET PO SCH ×2 (09:46→22:00)
[2017-08-17] MEDS: Aspirin Enteric Coated 81 MG Tablet PO SCH (09:46)
[2017-08-17] MEDS: Piperacillin/Tazobactam 3.375 GM in 0.9 % Sodium Chloride Mini Bag 100 ML IVPB SCH ×3 (09:47→23:51)
[2017-08-17] MEDS: Insulin DETEMIR 100 UNIT/ML X5UNITS SQ SCH ×2 (09:48→22:08)
--- NOTE | 2017-08-17 09:53 | Internal Med Progress Note ---
Date of Encounter: 08/17/17 Time of Encounter: 09:15 - Assessment and plan (1) Pleural effusion, right Current Visit: Yes Status: Acute Assessment and plan: Executive neutrophilic predominant. Pending cytology. Suspect secondary to malignancy. Likely metastatic disease to the chest. Code(s): J90 - Pleural effusion, not elsewhere classified SNOMED Code(s): 74943180 (2) Hypotension Current Visit: Yes Status: Resolved Assessment and plan: Resume home blood pressure medication Qualifiers: Hypotension type: unspecified hypotension type Qualified Code(s): I95.9 - Hypotension, unspecified Code(s): I95.9 - Hypotension, unspecified SNOMED Code(s): 98183127 (3) Lung mass Current Visit: Yes Status: Acute Assessment and plan: Bilateral pulmonary nodules and masses noted suspected to be secondary to metastatic disease. Primary could be renal. Awaiting pleural fluid cytology. Code(s): R91.8 - Other nonspecific abnormal finding of lung field SNOMED Code( s): 465498245 (4) Right upper quadrant abdominal pain Current Visit: Yes Status: Acute Assessment and plan: Improved (5) Acute renal failure superimposed on stage 3 chronic kidney disease Current Visit: Yes Status: Acute Assessment and plan: Creatinine is improving. We will trend urine output and follow creatinine. Qualifiers: Acute renal failure type: unspecified Qualified Code(s): N17.9 - Acute kidney failure, unspecified; N18.3 - Chronic kidney disease, stage 3 (moderate) (6) Anemia in chronic kidney disease Current Visit: Yes Status: Acute Assessment and plan: Stable hemoglobin Qualifiers: Chronic kidney disease stage: stage 3 (moderate) Qualified Code(s): N18.3 - Chronic kidney disease, stage 3 (moderate); D63.1 - Anemia in chronic kidney disease (7) Renal mass Current Visit: Yes Status: Acute Assessment and plan: She will need follow-up imaging either a CTA abdomen pelvis or MRI. Awaiting resolution of GLENNA. 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 No events overnight. She is upset about people coming to her room sitting in the room which induced cough today. - Constitutional Vitals: Temp Pulse Resp BP Pulse Ox 98.5 F 77 17 164/73 90 08/17/17 07:00 08/17/17 07:00 08/17/17 07:00 08/17/17 07:00 08/17/17 07:00 Exam: Physical exam Gen: Comfortable, laying in bed, in no visible distress HEENT: Normocephalic, atraumatic. No conjunctival icterus. Moist oral mucosa. Neck: Supple Lungs: Diminished breath sounds, reduced egophony at the right base Heart: Normal S1-S2, no murmurs rubs or gallops Abdomen: Normoactive bowel sounds, no guarding rigidity or tenderness Extremities: No edema clubbing or cyanosis Neuro: Alert oriented 3, no focal deficits Skin: No skin lesions Internal Medicine: Result - Labs CBC & Chem 7: 08/16/17 04:11 08/16/17 04:11 - ABG Interpretation ABG results: PT/INR, D-dimer PT 12.1 Seconds (9.4-12.1) 08/12/17 11:15 - VTE Documentation of Mechanical Device: Intermittent pneumatic compression device Consult Discharge Plan - Plan Referrals: Stephanie Morgan, [employer]ESSIONAL [Primary Care Provider] - 08/24/17 11:00 am ()
[2017-08-17 10:16] LABS: Hemoglobin 8.2 g/dL (11.5-15.4); Mean Corpuscular HGB Conc 31.5 g/dL (31.6-35.5); Mean Corpuscular Hemoglobin 28.8 pg (28.0-33.3); Mean Corpuscular Volume 91.2 fL (83.0-100.0); Mean Platelet Volume 9.5 fL (9.4-12.4); Platelet Count 225 K/mcL (140-400); Red Blood Count 2.85 M/mcL (3.82-4.97); Red Cell Distribution Width 15.2 % (11.5-14.5)
[2017-08-17 10:35] LABS: Calcium 8.1 mg/dL (8.6-10.3); Potassium 3.7 mEq/L (3.5-5.1)
[2017-08-17 11:25] LABS: Complement Component 3 137 mg/dL (88-201); Complement Component 4 25 mg/dL (10-40)
--- NOTE | 2017-08-17 15:30 | Event Note ---
Date of Encounter: 08/17/17 Time of Encounter: 15:29 Pulmonary event now. Pleural fluid negative for malignancy. Recommend CT- guided biopsy of right dominant lung mass while in house. Alternatively this could be done as an outpatient. Regardless he will need pulmonary follow-up after discharge versus oncology consultation based upon pathology result. Please call with questions
[2017-08-17] MEDS: Benzonatate 100 MG CAPSULE PO PRN (22:01)
[2017-08-17] MEDS: Acetaminophen 325 MG TABLET PO PRN (22:01)
[2017-08-18] MEDS: Ipratropium/Albuterol Neb 3 ML IH SCH ×5 (03:51→19:27)
[2017-08-18] MEDS: Levothyroxine 25 MCG TABLET PO SCH (06:08)
[2017-08-18] MEDS: Doxycycline 100 MG in 0.9 % Sodium Chloride Mini Bag 100 ML IVPB SCH (06:08)
[2017-08-18 07:11] LABS: Basophils % 0.3 %; Eosinophils # 0.7 K/mcL (0.0-0.6); Eosinophils % 4.7 %; Hematocrit 26.4 % (35.3-44.9); Hemoglobin 8.1 g/dL (11.5-15.4); Immature Granulocytes % 0.5 % (0-4); Lymphocytes # 1.5 K/mcL (0.6-4.6); Lymphocytes % 9.5 %; Mean Corpuscular HGB Conc 30.7 g/dL (31.6-35.5); Mean Corpuscular Hemoglobin 27.8 pg (28.0-33.3); Mean Corpuscular Volume 90.7 fL (83.0-100.0); Mean Platelet Volume 9.6 fL (9.4-12.4); Monocytes % 6.4 %; Platelet Count 252 K/mcL (140-400); Red Blood Count 2.91 M/mcL (3.82-4.97); Red Cell Distribution Width 15.2 % (11.5-14.5); Segmented Neutrophils % 78.6 %
[2017-08-18 07:30] LABS: Potassium 3.4 mEq/L (3.5-5.1)
[2017-08-18] MEDS: Insulin LISPRO 300 UNITS/3 ML VIAL SQ SCH ×3 (07:30→16:19)
[2017-08-18 07:51] LABS: ANA IgG by ELISA NONE DETECTED (None Detected)
[2017-08-18] MEDS: levETIRAcetam 250 MG TABLET PO SCH (07:51)
[2017-08-18] MEDS: Benzonatate 100 MG CAPSULE PO PRN ×2 (07:51→16:25)
[2017-08-18] MEDS: hydrALAZINE 25 MG TABLET PO SCH ×2 (07:52→16:19)
[2017-08-18] MEDS: predniSONE 20 MG TABLET PO SCH (07:52)
[2017-08-18] MEDS: Insulin DETEMIR 100 UNIT/ML X5UNITS SQ SCH (07:52)
[2017-08-18] MEDS: Aspirin Enteric Coated 81 MG Tablet PO SCH (07:52)
[2017-08-18] MEDS: Piperacillin/Tazobactam 3.375 GM in 0.9 % Sodium Chloride Mini Bag 100 ML IVPB SCH (07:53)
[2017-08-18] MEDS: *HR* Promethazine 25 MG/ML VIAL IVP PRN (11:59)
[2017-08-18 13:26] LABS: Myeloperoxidase Ab 0 AU/mL (0-19); Serine Protease-3 Antibody 3 AU/mL (0-19)
[2017-08-18 15:54] VITALS: BP 153/79
--- NOTE | 2017-08-18 16:04 | Discharge Summary ---
- NOTES TO OUTPATIENT PROVIDER Notes to Outpatient Provider: Follow-up with pulmonary medicine within 1 week Date of Encounter: 08/18/17 Time of Encounter: 14:00 - Discharge Diagnosis (1) Pleural effusion, right Priority: Primary Status: Acute Assessment and Plan: Exudative neutrophilic predominant. Cytology negative for malgnancy. Suspect secondary to malignancy. Likely metastatic disease to the chest. Strict primary renal cell carcinoma. Code(s): J90 - Pleural effusion, not elsewhere classified SNOMED Code(s): 15026142 (2) Hypotension Priority: Secondary Status: Resolved Qualifiers: Hypotension type: unspecified hypotension type Qualified Code(s): I95.9 - Hypotension, unspecified Code(s): I95.9 - Hypotension, unspecified SNOMED Code(s): 50325005 (3) Lung mass Priority: Primary Status: Acute Assessment and Plan: Bilateral pulmonary nodules and masses noted suspected to be secondary to metastatic disease. Primary could be renal. Needs CT-guided biopsy of the nodules. Code(s): R91.8 - Other nonspecific abnormal finding of lung field SNOMED Code( s): 936103656 (4) Right upper quadrant abdominal pain Priority: Secondary Status: Resolved Assessment and Plan: Improved (5) Acute renal failure superimposed on stage 3 chronic kidney disease Priority: Primary Status: Resolved Assessment and Plan: Creatinine is back to baseline at around 1.33. Qualifiers: Acute renal failure type: unspecified Qualified Code(s): N17.9 - Acute kidney failure, unspecified; N18.3 - Chronic kidney disease, stage 3 (moderate) (6) Anemia in chronic kidney disease Priority: Secondary Status: Acute Assessment and Plan: Stable hemoglobin Qualifiers: Chronic kidney disease stage: stage 3 (moderate) Qualified Code(s): N18.3 - Chronic kidney disease, stage 3 (moderate); D63.1 - Anemia in chronic kidney disease (7) Renal mass Priority: Primary Status: Acute Assessment and Plan: She will need follow-up imaging either a CTA abdomen pelvis or MRI. Follow up with urology. (8) Lung entrapment Priority: Primary Status: Acute Assessment and Plan: Cannot completely exclude pneumonia of the right lower lobe in evidence of leukocytosis and neutrophilia in the pleural effusion. She received antibiotics intravenous Zosyn until today. We will prescribe 3 more days of Levaquin and finish a total of 8 is of antibiotics. 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 Almanza is a 71 year old female with prior medical history of asthma, HFpEF, hypertension, hyperlipidemia, diabetes, seizure disorder, anxiety, depression, brain tumor status post resection presented presented to the emergency room on 09/01/2017. Patient stated over last year she has history of recurrent bronchitis, she was recently diagnosed with pneumonia she was placed on antibiotic as well as steroid as an outpatient. Patient stated her symptom has been getting better over last months but noticed over last 1 week her symptom started to get worse again starts to have productive cough with greenish sputum with progressive shortness of breath. Patient stated she woke up this morning with severe right axillary area and right lower quadrant pain 6 out of 10 in severity sharp constant her being get worse with taking deep breathing or coughing. Patient denied any and denies any trauma. Patient stated that she will she was feeling so. Dizzy and clammy this morning denies any palpitation. Patient denies any motor or sensory changes, denies any visual changes. Patient denies any fever or chills. Initial workup: Physical exam on admission suggestive of decreased sounds, prolonged expiratory phase, bilateral crackles. The body data suggestive of leukocytosis with a white count of 15.1 thousand, elevated creatinine 1.4 Imaging included: CT abdomen and pelvis without contrast for abdominal pain IMPRESSION: 1. [id number] right-sided pleural effusion with adjacent compressive atelectasis. Bilateral lung nodules measuring up to 1.[address] chest is recommended. 2. No evidence of obstructive uropathy. 3. A 1.2 cm hyperdense lesion in the midpole of the right kidney which is indeterminate on this noncontrast examination. Further evaluation with CT or MRI renal mass protocol is recommended. 4. T12 compression deformity of unknown chronicity. CT head that showed no acute intracranial abnormality and previous bifrontal craniotomy with an supplementation the right frontal lobe was noted. Mild chronic small vessel ischemic changes noted. Pulmonary medicine was consulted. Differential diagnosis included CHF, malignancy, infection. Diagnostic thoracentesis was recommended and performed subsequently which revealed neutrophilic predominant exudative pleural effusion. A follow up CT chest was obtained. This showed: IMPRESSION: The examination is limited due to lack of IV contrast. Compared to a prior chest CT from 2016, there are multiple new and larger pulmonary nodules and masses. The dominant mass in the right lobe measures 5.1 cm, which is partially obscured by surrounding fluid, previously measuring 2.8 cm. The largest mass in the left lower lobe measures 3.2 cm. Moderate somewhat complex right pleural effusion, which appears partially loculated. Large amount of atelectasis or airspace disease in the right middle lobe and right lower lobe. Smaller amount of atelectasis or airspace disease in the right upper lobe. Cytology was negative for malignancy cells. Due to leukocytosis their suspicion for infection, patient received a total of 8 days of antibiotics including the 3 days that she will finish outpatient in case there is a pneumonia. Plan is to see pulmonary medicine and urology in clinic. She will require transthoracic needle biopsy of the pulmonary nodules. Suspicion at this time is for primary renal cell carcinoma with metastases to the lungs. Dedicated imaging of the kidneys such as MRI or CT abdomen pelvis with contrast should be performed outpatient. - Time Spent with Patient Total time spent providing and/or coordinating discharge services: Greater than 30 minutes - Discharge Medications Prescriptions: Insulin Glargine [Lantus] 15 unit SQ BID 30 Days #900 mls levoFLOXacin [Levaquin] 750 mg PO DAILY 3 Days #3 tablet Home Medications: Furosemide [Lasix] 20 mg PO DAILY 11/30/14 [History] Insulin ASPART [NovoLOG] 0 unit SQ TIDWM PRN 03/13/15 [History] Pantoprazole Sodium [Protonix] 40 mg PO DAILY 03/13/15 [History] Aspirin [Adult Aspirin] 81 mg PO DAILY 08/12/17 [History] Atorvastatin Calcium [Lipitor] 20 mg PO DAILY 08/12/17 [History] Clopidogrel [Plavix] 75 mg PO DAILY 08/12/17 [History] Ergocalciferol (VITAMIN D2) [Vitamin D2] 50,000 unit PO QWEEK 08/12/17 [History] Escitalopram Oxalate 5 mg PO DAILY 08/12/17 [History] LevETIRAcetam [Keppra] 750 mg PO BID 08/12/17 [History] Levothyroxine Sodium [Levoxyl] 25 mcg PO DAILY 08/12/17 [History] Levothyroxine Sodium [Synthroid] 200 mcg PO DAILY 08/12/17 [History] Lisinopril [Zestril] 10 mg PO DAILY 08/12/17 [History] Metoprolol [Lopressor] 25 mg PO BID 08/12/17 [History] Montelukast [Singulair] 10 mg PO DAILY 08/12/17 [History] Phenytoin [Dilantin] 150 mg PO BID 08/12/17 [History] Pioglitazone HCl [Actos] 15 mg PO DAILY 08/12/17 [History] SitaGLIPtin [Januvia] 100 mg PO DAILY 08/12/17 [History] Tolterodine Tartrate [Detrol] 2 mg PO BID 08/12/17 [History] Acetaminophen [Tylenol] 650 mg PO Q6HR PRN tablet 08/18/17 [Rx] Insulin Glargine [Lantus] 15 unit SQ BID 30 Days #900 mls 08/18/17 [Rx] hydrALAZINE [HydrALAZINE] 25 mg PO TID tablet 08/18/17 [Rx] levoFLOXacin [Levaquin] 750 mg PO DAILY 3 Days #3 tablet 08/18/17 [Rx] Allergies/Adverse Reactions: 3 Allergy/AdvReac Type Severity Reaction Status Date / Time Tetanus Vaccines and Toxoid Allergy Unknown unknown Verified 03/13/15 22:58 [Tetanus Vaccines & Toxoid] Date of admission: 08/13/17 07:40 Primary care physician: Stephanie Morgan CNP Consults: 08/13/17 09:28 Consult to Interventional Radiology [CONS] Routine Consulting Provider: Radiology Interventional Cols Reason for Consult: Thorocentisis Rt pleura, please send fluid for furthur testing Call Completed: Yes Discharging clinician: Milly Gonzalez Anticipated date of discharge: 08/18/17 - Constitutional Vitals: Temp Pulse Resp BP Pulse Ox 98.1 F 75 16 153/79 92 08/18/17 15:43 08/18/17 15:43 08/18/17 15:59 08/18/17 15:43 08/18/17 15:59 Exam: Physical exam Gen: Comfortable, laying in bed, in no visible distress HEENT: Normocephalic, atraumatic. No conjunctival icterus. Moist oral mucosa. Neck: Supple Lungs: Diminished breath sounds, reduced egophony at the right base Heart: Normal S1-S2, no murmurs rubs or gallops Abdomen: Normoactive bowel sounds, no guarding rigidity or tenderness Extremities: No edema clubbing or cyanosis Neuro: Alert oriented 3, no focal deficits Skin: No skin lesions - Patient Status Disposition: Home Health Service Condition: Fair Functional capacity at discharge: independent ambulation Overall status at discharge: patient is progressing back to baseline - Discharge Instructions Follow Up With: Stephanie Morgan CNP [Primary Care Provider] - 08/24/17 11:00 am () Marcel Harman MD [Partnered Physician] - Tod Cornejo MD [Partnered Physician] - Additional Instructions: Follow-up with pulmonary medicine and urology within a week - Diet and Activity Activity: resume usual activities as tolerated Diet: advance to your usual diet - VTE Documentation of Mechanical Device: Intermittent pneumatic compression device
--- NOTE | 2017-08-18 17:30 | Physician Discharge Referral ---
Home Health/Hosp Referral Info Transfer to: Home Health Provider in Charge Post Discharge: PCP - Diagnosis (1) Pleural effusion, right Priority: Primary Status: Acute (2) Hypotension Priority: Secondary Status: Resolved (3) Lung mass Priority: Primary Status: Acute (4) Right upper quadrant abdominal pain Priority: Primary Status: Resolved (5) Acute renal failure superimposed on stage 3 chronic kidney disease Priority: Primary Status: Resolved (6) Anemia in chronic kidney disease Priority: Secondary Status: Acute (7) Renal mass Priority: Primary Status: Acute (8) Lung entrapment Priority: Primary Status: Acute (9) Skin lesion of scalp Priority: Secondary Status: Acute (10) Diabetes mellitus Priority: Secondary Status: Chronic (11) Hypertension Priority: Secondary Status: Chronic (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 For more information, call the [place] Tobacco Quit Line at 3-517-SPHR-NOW. - Diet/Nutrition Diet/Nutrition Orders: Regular - Activity Activity Orders: Ambulate - Services Needed Following services are medically necessary services: Nursing, Home Health Aide - Transfer Medications Prescriptions: Benzonatate [Tessalon] 100 mg PO TID PRN 14 Days #42 capsule PRN Reason: Cough Insulin Glargine [Lantus] 15 unit SQ BID 30 Days #900 mls levoFLOXacin [Levaquin] 750 mg PO DAILY 3 Days #3 tablet Home Medications: Furosemide [Lasix] 20 mg PO DAILY 11/30/14 [History] Insulin ASPART [NovoLOG] 0 unit SQ TIDWM PRN 03/13/15 [History] Pantoprazole Sodium [Protonix] 40 mg PO DAILY 03/13/15 [History] Aspirin [Adult Aspirin] 81 mg PO DAILY 08/12/17 [History] Atorvastatin Calcium [Lipitor] 20 mg PO DAILY 08/12/17 [History] Clopidogrel [Plavix] 75 mg PO DAILY 08/12/17 [History] Ergocalciferol (VITAMIN D2) [Vitamin D2] 50,000 unit PO QWEEK 08/12/17 [History] Escitalopram Oxalate 5 mg PO DAILY 08/12/17 [History] LevETIRAcetam [Keppra] 750 mg PO BID 08/12/17 [History] Levothyroxine Sodium [Levoxyl] 25 mcg PO DAILY 08/12/17 [History] Levothyroxine Sodium [Synthroid] 200 mcg PO DAILY 08/12/17 [History] Lisinopril [Zestril] 10 mg PO DAILY 08/12/17 [History] Metoprolol [Lopressor] 25 mg PO BID 08/12/17 [History] Montelukast [Singulair] 10 mg PO DAILY 08/12/17 [History] Phenytoin [Dilantin] 150 mg PO BID 08/12/17 [History] Pioglitazone HCl [Actos] 15 mg PO DAILY 08/12/17 [History] SitaGLIPtin [Januvia] 100 mg PO DAILY 08/12/17 [History] Tolterodine Tartrate [Detrol] 2 mg PO BID 08/12/17 [History] Acetaminophen [Tylenol] 650 mg PO Q6HR PRN tablet 08/18/17 [Rx] Benzonatate [Tessalon] 100 mg PO TID PRN 14 Days #42 capsule 08/18/17 [Rx] Insulin Glargine [Lantus] 15 unit SQ BID 30 Days #900 mls 08/18/17 [Rx] hydrALAZINE [HydrALAZINE] 25 mg PO TID tablet 08/18/17 [Rx] levoFLOXacin [Levaquin] 750 mg PO DAILY 3 Days #3 tablet 08/18/17 [Rx] Allergies/Adverse Reactions: 3 Allergy/AdvReac Type Severity Reaction Status Date / Time Tetanus Vaccines and Toxoid Allergy Unknown unknown Verified 03/13/15 22:58 [Tetanus Vaccines & Toxoid] Certification: Further, I certify that my clinical findings support that this patient is homebound (i.e. absences from home require considerable and taxing effort and are for medical reasons or christian services or infrequently or short duration when for other reasons) because: Homebound Reason: Patient requires assistance of a person or device to safely leave home Attestation: My signature below is to certify that this patient is under my care and that I, or nurse practitioner, or a physician's recreation assistant working with me, has a face-to -face encounter with this patient.
[2017-08-19] MEDS ORDERED: levoFLOXacin 750 MG TABLET PO SCH (09:00)
== END 2017-08-18 19:30 | disposition home health service (06) | DRG 187 ==
LOC: 2ANU 09:49 → EMEROO 09:49 → 2ANU 13:49
PROVIDERS: ADMIT Family Medicine; ATTEND Family Medicine

== ENCOUNTER 2017-08-20 11:45 | Inpatient (IN) ==
[2017-08-20] MEDS ORDERED: Isovue-370 500 ML INFUS..BTL IV ONE (12:32)
[2017-08-20 12:33] LABS: Basophils % 0.2 %; Eosinophils # 0.2 K/mcL (0.0-0.6); Eosinophils % 1.2 %; Hematocrit 28.4 % (35.3-44.9); Hemoglobin 9.1 g/dL (11.5-15.4); Immature Granulocytes % 0.7 % (0-4); Lymphocytes # 1.2 K/mcL (0.6-4.6); Lymphocytes % 6.1 %; Mean Corpuscular Hemoglobin 28.3 pg (28.0-33.3); Mean Corpuscular Volume 88.5 fL (83.0-100.0); Mean Platelet Volume 9.2 fL (9.4-12.4); Monocytes # 1.2 K/mcL (0.0-1.3); Monocytes % 6.3 %; Neutrophils # 16.4 K/mcL (1.6-8.9); Platelet Count 338 K/mcL (140-400); Red Blood Count 3.21 M/mcL (3.82-4.97); Red Cell Distribution Width 15.1 % (11.5-14.5); Segmented Neutrophils % 85.5 %
[2017-08-20 12:47] LABS: INR 1.2; Prothrombin Time 13.1 Seconds (9.4-12.1)
[2017-08-20 12:50] LABS: Activated Partial Thrombo Time 24.7 Seconds (26.0-36.0)
[2017-08-20 12:53] LABS: Troponin I < 0.03 ng/mL (< 0.04)
--- NOTE | 2017-08-20 12:54 | Emergency Department Note ---
Disposition Clinical Impression: Acute dyspnea, Hypoxia, Recurrent right pleural effusion Anemia Qualifiers: Anemia type: unspecified type Qualified Code(s): D64.9 - Anemia, unspecified Pneumonia Qualifiers: Pneumonia type: due to unspecified organism Laterality: right Lung location: lower lobe of lung Qualified Code(s): J18.1 - Lobar pneumonia, unspecified organism Disposition: Admitted As Inpatient Condition: Fair Referrals: Stephanie Morgan, [employer] [Primary Care Provider] - Forms: ED Satisfaction Letter Time of Disposition: 15:20 SOB HPI - General Chief Complaint: ED Shortness of Breath/Dyspnea Stated Complaint: sob/right chest pain Time Seen by Provider: 08/20/17 11:49 Source: patient, EMS Mode of arrival: EMS Limitations: no limitations Nursing Notes Reviewed: Yes Vital Signs Reviewed: Yes - History of Present Illness Patient presents emergency room by EMS for evaluation of shortness of breath. Patient was just discharged from the hospital on Wednesday for similar issue. She was diagnosed with a right-sided pleural effusion. Patient was at home. Today she felt she could not breathe and that her initial symptoms were getting worse again. She has right-sided chest wall discomfort and pain is worse when she takes a deep breath in. She denies any symptoms when she is sitting still or resting. Patient denies any fevers or chills nausea vomiting diarrhea headache vision changes at this point. Patient does have shortness of breath and hypoxia based on EMS transport but otherwise is comfortable. Pt Subjective Complaint: shortness of breath Onset (ago): hour(s) Context: recent illness Severity: moderate Consistency/Duration: constant Improves with: oxygen, rest, upright position Worsens with: lying flat, exertion, movement Associated symptoms: Reports: chest pain, pain with inspiration, cough, orthopnea. Denies: fever, wheezing, sputum production, lower extremity pain, polyuria, polydipsia Treatment prior to arrival: oxygen Cough present: Yes Cough Description: Voluntary - Related Data Home oxygen amount: none Home Medications Medication Instructions Recorded Confirmed Furosemide [Lasix] 20 mg PO DAILY 11/30/14 08/20/17 Insulin ASPART [NovoLOG] 0 unit SQ TIDWM PRN 03/13/15 08/20/17 Pantoprazole Sodium [Protonix] 40 mg PO DAILY 03/13/15 08/20/17 Aspirin [Adult Aspirin] 81 mg PO DAILY 08/12/17 08/20/17 Atorvastatin Calcium [Lipitor] 20 mg PO DAILY 08/12/17 08/20/17 Clopidogrel [Plavix] 75 mg PO DAILY 08/12/17 08/20/17 Ergocalciferol (VITAMIN D2) 50,000 unit PO QWEEK 08/12/17 08/20/17 [Vitamin D2] Escitalopram Oxalate 5 mg PO DAILY 08/12/17 08/20/17 LevETIRAcetam [Keppra] 750 mg PO BID 08/12/17 08/20/17 Levothyroxine Sodium [Levoxyl] 25 mcg PO DAILY 08/12/17 08/20/17 Levothyroxine Sodium [Synthroid] 200 mcg PO DAILY 08/12/17 08/20/17 Lisinopril [Zestril] 10 mg PO DAILY 08/12/17 08/20/17 Metoprolol [Lopressor] 25 mg PO BID 08/12/17 08/20/17 Montelukast [Singulair] 10 mg PO DAILY 08/12/17 08/20/17 Phenytoin [Dilantin] 150 mg PO BID 08/12/17 08/20/17 Pioglitazone HCl [Actos] 15 mg PO DAILY 08/12/17 08/20/17 SitaGLIPtin [Januvia] 100 mg PO DAILY 08/12/17 08/20/17 Tolterodine Tartrate [Detrol] 2 mg PO BID 08/12/17 08/20/17 Previous Rx's Medication Instructions Recorded Acetaminophen [Tylenol] 650 mg PO Q6HR PRN tablet 08/18/17 Benzonatate [Tessalon] 100 mg PO TID PRN 14 Days #42 08/18/17 capsule Insulin Glargine [Lantus] 15 unit SQ BID 30 Days #900 mls 08/18/17 hydrALAZINE [HydrALAZINE] 25 mg PO TID tablet 08/18/17 levoFLOXacin [Levaquin] 750 mg PO DAILY 3 Days #3 tablet 08/18/17 Allergies Allergy/AdvReac Type Severity Reaction Status Date / Time Tetanus Vaccines and Toxoid Allergy Unknown unknown Verified 08/20/17 11:53 [Tetanus Vaccines & Toxoid] All systems ED: reviewed and negative except as stated. Review of Systems: As Per HPI Constitutional: Denies: fever, chills ENT ED: Denies: congestion Cardiovascular: Reports: chest pain, dyspnea on exertion, orthopnea. Denies: palpitations, edema Respiratory: Reports: cough, dyspnea. Denies: wheezes, hemoptysis, stridor, sputum production Gastrointestinal: Denies: abdominal pain, nausea, vomiting, diarrhea, constipation, hematemesis, melena, hematochezia Genitourinary: Denies: urgency, dysuria, frequency Musculoskeletal: Denies: back pain, neck pain Integumentary: Denies: rash Neurological: Denies: headache Psychiatric: Denies: anxiety, depression Endocrine: Denies: fatigue Past Medical History - Past Medical History Attestation: Yes The following information was validated with the patient. Source: patient Medical history: Reports: asthma, CHF, diabetes, hyperlipidemia, hypertension, seizures, other Surgical history: Reports: cholecystectomy, coronary bypass (CABG), other Psychiatric history: Reports: anxiety, depression, panic disorder - Social History Smoking Status: Never smoker Smokeless Tobacco Status: No Alcohol use: Reports: none Drug use: Reports: none Physical Exam - General Limitations: no limitations General appearance: alert - Head Head exam: atraumatic, normocephalic, normal inspection - Eye Eye exam: Present: normal appearance, PERRL, EOMI - Chest Chest inspection: Present: normal inspection, symmetric chest wall rise, tenderness - Respiratory Respiratory exam: Present: respiratory distress, accessory muscle use, other. Absent: wheezes, stridor - Cardiovascular Cardiovascular exam: Present: regular rate, normal rhythm, normal heart sounds - Abdominal Exam Abdominal exam: Present: soft, tenderness. Absent: Non-Tender, distention, guarding, rebound, rigidity, Clark's sign, Rovsing's sign, tenderness at McBurney's Point - Extremities Exam Extremities exam: Present: normal inspection, full ROM - Back Exam Back exam: Present: normal inspection - Neurological Exam Neurological exam: Present: alert, oriented X3, CN II-XII intact, normal gait - Skin Skin exam: Present: warm, dry, intact, normal color Course Course Narrative: Patient seen and examined some arrival. See history of present illness. 71- year-old female presents emergency room by EMS for complaint of progressively worsening shortness of breath. Patient was seen and evaluated treated in the hospital for the last 5 days. She was discharged on Wednesday of this week. Since going home patient has had difficulty with breathing. The symptoms of been progressively getting worse. Today she has had right-sided chest wall pain is worse with inspiration. She denies any fevers or chills nausea vomiting or diarrhea headache or vision change. She has been taking all of her home medications. During her last hospital stay patient had a thoracentesis completed for which she said they took off 2 L of fluid. Since the procedure she feels like the initial complaint got much better and then slowly got worse over time. She does have a very remote history of cardiac related disease over 15 years ago. She does not have any rash or lesion across the chest wall. Physical exam shows patient presenting here with his hypoxic on initial evaluation requiring oxygen for which she typically does not use at home. She does have significantly diminished breath sounds in the right side of the chest. Left lung appears to be stable. Heart is regular. Abdomen is soft nontender nondistended with no guarding no rigidity. There is reproducible discomfort up over the right lateral rib margins into the right upper quadrant of the abdomen but there is no point tenderness or guarding or concern for gallbladder related illness. Patient has no pitting edema in the lower extremity she ambulated to her bed without any significant difficulty except that she required oxygen. Patient otherwise does not have any acute signs cardiac related disease appears to be reproducible chest wall discomfort and pain over the right side of the chest wall where she had thoracentesis completed. The area will be evaluated. Patient will have EKG chest x-ray CBC chemistry troponin along with lactic acid electrolytes and liver function testing at this point. Patient will be provided with fluids pain medication nausea medication this time. Patient will most likely require admission after the full workup and treatment course are established. Initial EKG shows sinus rhythm with potential slight elevation in lead 3 but appears to be chronic in nature but because of the context of the right-sided chest wall pain will repeat EKG 30 minutes after arrival. Aspirin will be given. Disposition pending treatment course and evaluation. Patient is otherwise stable at this point with oxygen applied - Reevaluation(s) Reevaluation #1: Patient's troponin is normal lactic acid is normal. Patient does have a newly elevated white blood cell count. Concern is noted for pulmonary infection based on the chest x-ray does show either stable right pleural effusion or progressing of nodularity and atelectasis. Patient will have vancomycin and Zosyn added on secondary to age Concerned with her most recent admission. Patient will have symptomatic control completed observation and established. Patient will require admission once his treatment course is completed at this time. Because of the change in the interval presentation of the right-sided chest wall issues CT angiography the chest will be added on to address any signs of pulmonary emboli versus cancerous etiology versus infectious etiology Time: 13:03 Reevaluation #2: IV pain medication will be given at this time. Patient had worsening symptoms when she got back from her CAT scan. After lengthy discussion it was determined that the patient has had this pain since last which required to be admitted the last time. Patient has never truly gone away just persisting at worse again to the point where it is the same as it felt like when she got admitted during her last evaluation. This is more concerning for the chest wall versus pleural effusion related issue causing the symptoms here today as opposed cardiac presentation. CT of the chest is still pending and an admission process will be completed for the hypoxia shortness of breath and increased work of breathing Time: 13:47 Reevaluation #3: Patient was discussed with the hospitalist Dr. Owens. Interventional radiology was contacted for thoracentesis of the right chest wall. Patient will be admitted for hypoxia and progressive progression of her pleural effusion after being discharged from the hospital. Patient otherwise is currently stable but appears to be metastatic disease causing effusion in the right lung field. No other recommendations or concerns at this time. Admission process to be completed Time: 15:19 Vital Signs O2 Sat by Pulse Oximetry 86 08/20/17 11:54 Temperature 99.1 F 08/20/17 11:56 Pulse Rate 69 08/20/17 15:05 Respiratory Rate 26 08/20/17 15:05 Blood Pressure 128/91 08/20/17 15:05 O2 Sat by Pulse Oximetry 95 08/20/17 15:05 Oxygen Delivery Oxygen Delivery Nasal Cannula Shortness of Breath/Dyspnea - MDM Narrative Medical decision making narrative: Shortness of breath, hypoxia, right-sided chest wall pain, right-sided pleural effusion pneumonia - Medical Records Medical records reviewed: Yes I reviewed the patient's medical records. - Lab Data Lab results reviewed: Yes I reviewed the patient's lab results. Result diagrams: 08/20/17 12:17 08/20/17 12:17 Lab Results 08/20/17 08/20/17 08/20/17 Range/Units 12:17 12:17 12:17 WBC 19.1 H (4.3-11.1) K/mcL RBC 3.21 L (3.82-4.97) M/mcL Hgb 9.1 L (11.5-15.4) g/dL Hct 28.4 L (35.3-44.9) % MCV 88.5 (83.0-100.0) fL MCH 28.3 (28.0-33.3) pg MCHC 32.0 (31.6-35.5) g/dL RDW 15.1 H (11.5-14.5) % Plt Count 338 (140-400) K/mcL MPV 9.2 L (9.4-12.4) fL Immature Gran % 0.7 (0-4) % Seg Neutrophils % 85.5 % Lymphocytes % 6.1 % Monocytes % 6.3 % Eosinophils % 1.2 % Basophils % 0.2 % Neutrophils # 16.4 H (1.6-8.9) K/mcL Lymphocytes # 1.2 (0.6-4.6) K/mcL Monocytes # 1.2 (0.0-1.3) K/mcL Eosinophils # 0.2 (0.0-0.6) K/mcL Basophils # 0.0 (0.0-0.2) K/mcL PT 13.1 H (9.4-12.1) Seconds INR 1.2 APTT 24.7 L (26.0-36.0) Seconds Sodium 133 L (136-145) mEq/L Potassium 3.7 (3.5-5.1) mEq/L Chloride 104 (98-107) mEq/L Carbon Dioxide 21 L (23-29) mEq/L BUN 31 H (8-23) mg/dL Creatinine 1.48 H (0.60-1.20) mg/dL Est GFR ( Amer) 42 L (> 60) Est GFR (Non-Af Amer) 35 L (> 60) BUN/Creatinine Ratio 21 (6-26) Glucose 193 H (70-105) mg/dL Calculated Osmolality 288 (280-300) Lactic Acid (0.5-2.2) mmol/L Calcium 7.8 L (8.6-10.3) mg/dL Total Bilirubin 0.5 (0.3-1.0) mg/dL Direct Bilirubin 0.0 (0.0-0.2) mg/dL Indirect Bilirubin 0.5 (0.0-1.2) mg/dL AST 9 L (13-39) Units/L ALT 12 (7-52) Units/L Alkaline Phosphatase 120 H (34-104) Units/L Troponin I < 0.03 (< 0.04) ng/mL B-Natriuretic Peptide (Less than 100) pg/mL Serum Total Protein 5.9 L (6.4-8.9) g/dL Albumin 2.8 L (3.5-5.7) g/dL Globulin 3.1 (2.4-3.5) g/dL Albumin/Globulin Ratio 0.9 L (1.1-2.2) Lipase 8 L (11-82) Units/L 08/20/17 08/20/17 Range/Units 12:17 12:17 WBC (4.3-11.1) K/mcL RBC (3.82-4.97) M/mcL Hgb (11.5-15.4) g/dL Hct (35.3-44.9) % MCV (83.0-100.0) fL MCH (28.0-33.3) pg MCHC (31.6-35.5) g/dL RDW (11.5-14.5) % Plt Count (140-400) K/mcL MPV (9.4-12.4) fL Immature Gran % (0-4) % Seg Neutrophils % % Lymphocytes % % Monocytes % % Eosinophils % % Basophils % % Neutrophils # (1.6-8.9) K/mcL Lymphocytes # (0.6-4.6) K/mcL Monocytes # (0.0-1.3) K/mcL Eosinophils # (0.0-0.6) K/mcL Basophils # (0.0-0.2) K/mcL PT (9.4-12.1) Seconds INR APTT (26.0-36.0) Seconds Sodium (136-145) mEq/L Potassium (3.5-5.1) mEq/L Chloride (98-107) mEq/L Carbon Dioxide (23-29) mEq/L BUN (8-23) mg/dL Creatinine (0.60-1.20) mg/dL Est GFR ( Amer) (> 60) Est GFR (Non-Af Amer) (> 60) BUN/Creatinine Ratio (6-26) Glucose (70-105) mg/dL Calculated Osmolality (280-300) Lactic Acid 0.9 (0.5-2.2) mmol/L Calcium (8.6-10.3) mg/dL Total Bilirubin (0.3-1.0) mg/dL Direct Bilirubin (0.0-0.2) mg/dL Indirect Bilirubin (0.0-1.2) mg/dL AST (13-39) Units/L ALT (7-52) Units/L Alkaline Phosphatase (34-104) Units/L Troponin I (< 0.04) ng/mL B-Natriuretic Peptide 175 H (Less than 100) pg/mL Serum Total Protein (6.4-8.9) g/dL Albumin (3.5-5.7) g/dL Globulin (2.4-3.5) g/dL Albumin/Globulin Ratio (1.1-2.2) Lipase (11-82) Units/L - Radiology Data Radiology results reviewed: Yes I reviewed the patient's radiology results. X-ray shows right-sided pleural effusion with possible mass versus nodularity - EKG Data EKG attestation: Yes I reviewed and interpreted this EKG. EKG results narrative: Initial EKG shows sinus rhythm with marked left axis deviation. Ventricular rate of 78. SC interval 155. QRS duration of 142. QTC of 4:30. Patient has potential 0.5 mm elevation in lead 3 but no other contiguous leads are appreciated. Patient does have T-wave inversions and depressions in lead 1 aVL and V1 V2 on this EKG. Is compared to previous EKG on 08/12/17 with the only new changes being the T-wave inversion in lead V2. Repeat EKG will be collected. EKG #2 Repeat EKG shows sinus rhythm. Ventricular rate of 76. SC interval 156. QRS duration 144. QTC of 444. [place] appears to be stable leftward deviation. No acute changes in the morphology of presentation within 50 minutes of the initial EKG being collected. No acute signs of WPW or Brugada syndrome noted
[2017-08-20] MEDS ORDERED: *HR* HYDROcodone/Acet 5/325 mg TABLET PO ONE (12:59)
[2017-08-20] MEDS ORDERED: Ondansetron 4 MG/2 ML VIAL IVP ONE (12:59)
[2017-08-20] MEDS ORDERED: Piperacillin/Tazobactam 3.375 GM in 0.9 % Sodium Chloride Mini Bag 100 ML IVPB ONE (13:02)
[2017-08-20 13:08] LABS: BUN/Creatinine Ratio 21 (6-26); Blood Urea Nitrogen 31 mg/dL (8-23); Calcium 7.8 mg/dL (8.6-10.3); Carbon Dioxide 21 mEq/L (23-29); Chloride 104 mEq/L (98-107); Glucose 193 mg/dL (70-105); Osmolality,Calculated 288 (280-300); Potassium 3.7 mEq/L (3.5-5.1); Sodium 133 mEq/L (136-145); eGFR For African Americans 42 (> 60); eGFR For Non-African Americans 35 (> 60)
[2017-08-20 13:37] LABS: Alanine Aminotransferase 12 Units/L (7-52); Albumin 2.8 g/dL (3.5-5.7); Albumin/Globulin Ratio 0.9 (1.1-2.2); Alkaline Phosphatase 120 Units/L (34-104); Aspartate Amino Transferase 9 Units/L (13-39); Bilirubin,Indirect 0.5 mg/dL (0.0-1.2); Bilirubin,Total 0.5 mg/dL (0.3-1.0); Globulin 3.1 g/dL (2.4-3.5); Lipase 8 Units/L (11-82); Total Protein 5.9 g/dL (6.4-8.9)
[2017-08-20] MEDS ORDERED: *HR* FentaNYL (PF) 100 MCG/2 ML VIAL IVP ONE (13:43)
--- NOTE | 2017-08-20 17:42 | IR Procedure Note ---
Date of procedure: 08/20/17 Consent Obtained: Verbal consent, Written consent Timeout: Correct patient and procedure verified, Correct site verified, Time out performed, Skin prep completed Local anesthetic: Lidocaine 1% Indications: effusion Procedure Performed: thoracentesis Was there an assistant executive housekeeper present: No Site/Technique: right Estimated blood loss (cc): 1 Post Procedure Treatment Plan: CXR Specimen: 1.5L fluid aspirated
[2017-08-20] MEDS ORDERED: Benzonatate 100 MG CAPSULE PO PRN (18:43)
[2017-08-20] MEDS ORDERED: Naloxone 0.4 MG/ML INJ IVP PRN (18:48)
[2017-08-20] MEDS ORDERED: *HR* Dextrose 50 % in Water (Syg) 50 ML SYRINGE IVP PRN (18:50)
[2017-08-20] MEDS ORDERED: D5% in Water 1,000 ML IVC PRN (18:50)
[2017-08-20] MEDS ORDERED: Dextrose Gel 15 GM/37.5 ML TUBE PO PRN ×2 (18:50)
--- NOTE | 2017-08-20 18:55 | Internal Med History&Physical ---
Date of Encounter: 08/20/17 Time of Encounter: 19:05 Internal Medicine - H&P: HPI Chief complaint: SOB History of present illness: Ms. Almanza is a 71 year old female who was recently discharged on Wednesday after being here for 6 days for investigation for right pleural effusion likely secondary to malignancy pending evaluation who presents as a readmission for recurrent shortness of breath secondary to rapidly reaccumulating pleural effusion. She reports a history significant for diabetes type 2, CAD, CHF, seizure. During her last hospital course pressure was discharged 2 days ago, she had been investigated with a suspicion that her pleural effusion is second to an undiagnosed malignancy and was advised for outpatient pulmonology and urology follow-up. Imaging suggested multiple lung lesions with abdominal imaging suspicious for a small renal lesion - unsure whether this represents a primary. Nevertheless she was discharged on antibiotics Levaquin and was sent home with outpatient follow-up with pulmonary neurology for further investigation. However that did not last long and she had rapidly accumulating and recurrent pleural effusion Patient reported becoming symptomatic this morning after waking up reporting shortness of breath at rest, could not catch her breath. She reports some difficulty breathing associated with some pain on inspiration. She is feeling more tired in general. At baseline, she uses no oxygen. She denies smoking history. She reports a history significant for diabetes type 2, CAD, CHF, seizure. EKG personally reviewed with rate 76, right bundle branch block XR/XR chest 1V portable IMPRESSION: 1. Small right pleural effusion with overlying atelectasis, increased in size from the previous exam. 2. Pulmonary nodules and dominant right mid lung mass, concerning for metastatic disease. CT/CT chest wo con IMPRESSION: Interval increase in size of partially loculated large right pleural effusion with volume loss in the right lung. Multiple large pulmonary nodules and masses throughout both lungs, the largest measuring 4.8 cm in diameter in the right upper lobe most likely representing metastatic disease. Significant progression in size and number since 05/07/2015 exam. Chronic T12 compression fracture. Past Med Surg Social Fam HX - Past Medical History Medical history: asthma, CHF, diabetes, hyperlipidemia, hypertension, seizures, other Additional medical history: history of brain tumor Psychiatric history: anxiety, depression, panic disorder - Past Surgical History Surgical History: cholecystectomy, coronary bypass (CABG), other Additional surgical history: Craniotomy, ankle surgery - Social History Smoking Status: Never smoker Smokeless Tobacco Status: No Alcohol use: none Drug use: none - Family History Father Adopted: No Living Status: Hx Family Cardiac Disorders: Yes Hx Family Respiratory Disorders: Yes Hx Family Cancer: Yes Internal Medicine - H&P: Meds Furosemide [Lasix] 20 mg PO DAILY 11/30/14 [History] Insulin ASPART [NovoLOG] 0 unit SQ TIDWM PRN 03/13/15 [History] Pantoprazole Sodium [Protonix] 40 mg PO DAILY 03/13/15 [History] Aspirin [Adult Aspirin] 81 mg PO DAILY 08/12/17 [History] Atorvastatin Calcium [Lipitor] 20 mg PO DAILY 08/12/17 [History] Clopidogrel [Plavix] 75 mg PO DAILY 08/12/17 [History] Ergocalciferol (VITAMIN D2) [Vitamin D2] 50,000 unit PO QWEEK 08/12/17 [History] Escitalopram Oxalate 5 mg PO DAILY 08/12/17 [History] LevETIRAcetam [Keppra] 750 mg PO BID 08/12/17 [History] Levothyroxine Sodium [Levoxyl] 25 mcg PO DAILY 08/12/17 [History] Levothyroxine Sodium [Synthroid] 200 mcg PO DAILY 08/12/17 [History] Lisinopril [Zestril] 10 mg PO DAILY 08/12/17 [History] Metoprolol [Lopressor] 25 mg PO BID 08/12/17 [History] Montelukast [Singulair] 10 mg PO DAILY 08/12/17 [History] Phenytoin [Dilantin] 150 mg PO BID 08/12/17 [History] Pioglitazone HCl [Actos] 15 mg PO DAILY 08/12/17 [History] SitaGLIPtin [Januvia] 100 mg PO DAILY 08/12/17 [History] Tolterodine Tartrate [Detrol] 2 mg PO BID 08/12/17 [History] Acetaminophen [Tylenol] 650 mg PO Q6HR PRN tablet 08/18/17 [Rx] Benzonatate [Tessalon] 100 mg PO TID PRN 14 Days #42 capsule 08/18/17 [Rx] Insulin Glargine [Lantus] 15 unit SQ BID 30 Days #900 mls 08/18/17 [Rx] hydrALAZINE [HydrALAZINE] 25 mg PO TID tablet 08/18/17 [Rx] levoFLOXacin [Levaquin] 750 mg PO DAILY 3 Days #3 tablet 08/18/17 [Rx] 3 Allergy/AdvReac Type Severity Reaction Status Date / Time Tetanus Vaccines and Toxoid Allergy Unknown unknown Verified 08/20/17 11:53 [Tetanus Vaccines & Toxoid] All Systems PM: A 10-system review of systems was performed and is negative for pertinent findings except as documented above in the HPI. Review of systems: ROS 14 point review of systems reviewed as best as possible given presentation. Pertinent positive or negative as per HPI or otherwise reviewed as negative - Constitutional Vitals: Temp Pulse Resp BP Pulse Ox 98.5 F 67 20 150/61 97 08/20/17 16:34 08/20/17 18:03 08/20/17 18:03 08/20/17 18:03 08/20/17 18:03 Exam: General - AAO x 3 Psych - Appropriate affect/speech. No agitation Eyes - AMARI. Eye lids intact. No scleral icterus Neuro - No gross peripheral or central neuro deficits on inspection Heart - Sinus. RRR. S1 and S2 present. No added HS/murmurs appreciated. No elevated JVD appreciated. Lung - decreased air entry b/l, No crackles/wheezes appreciated GI - Abdominal hernia. Soft, non-tender. No hepatosplenomegaly/ascites. BS+ - No CVA/suprapubic tenderness or palpable bladder distension Skin - Intact. No rash/petechiae/ecchymosis. Lower extremity edema Internal Med - H&P Results - Labs CBC & Chem 7: 08/20/17 12:17 08/20/17 12:17 - Impressions ITS Impressions Chest X-Ray 08/20/17 17:06 IMPRESSION: No pneumothorax following right thoracentesis. Decreased size of partially loculated right pleural effusion, with basilar atelectasis and/or consolidation. Stable right mid lung mass. 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 Current Visit: Yes Status: Acute Assessment and plan: consult onc to assist in eval and management (3) CKD (chronic kidney disease) stage 3, GFR 30-59 ml/min Current Visit: No Status: Chronic Assessment and plan: trend Cr (4) Diabetes mellitus Current Visit: No Status: Chronic Assessment and plan: continue insulin and oral agents Qualifiers: Diabetes mellitus terminal carman insulin use: with residential use Diabetes mellitus complication status: without complication Qualified Code(s): E11.9 - Type 2 diabetes mellitus without complications; Z79.4 - senior living (current) use of insulin (5) Hypertension Current Visit: No Status: Chronic Qualifiers: Hypertension type: essential hypertension Qualified Code(s): I10 - Essential (primary) hypertension (6) Reactive airway disease Current Visit: Yes Status: Acute Assessment and plan: continue med Qualifiers: Asthma severity: mild Asthma complication type: uncomplicated Qualified Code(s): J45.20 - Mild intermittent asthma, uncomplicated (7) Hypothyroid Current Visit: Yes Status: Acute Assessment and plan: synthroid Qualifiers: Hypothyroidism type: acquired Qualified Code(s): E03.9 - Hypothyroidism, unspecified (8) Seizure Current Visit: Yes Status: Acute Assessment and plan: hx of seizure - continue seizure med - Time Spent With Patient Total time spent is greater than 50% in coordination of care (as documented) at patient's floor/unit and/or counseling patient:
[2017-08-20] MEDS: hydrALAZINE 25 MG TABLET PO SCH (20:32)
[2017-08-20] MEDS: levETIRAcetam 250 MG TABLET PO SCH (20:33)
[2017-08-20] MEDS: Insulin LISPRO 300 UNITS/3 ML VIAL SQ SCH (20:33)
[2017-08-20] MEDS: Insulin DETEMIR 100 UNIT/ML X5UNITS SQ SCH (20:34)
[2017-08-21 05:36] LABS: Basophils % 0.2 %; Eosinophils # 0.7 K/mcL (0.0-0.6); Eosinophils % 3.9 %; Hematocrit 27.1 % (35.3-44.9); Hemoglobin 8.4 g/dL (11.5-15.4); Immature Granulocytes % 0.8 % (0-4); Lymphocytes # 1.4 K/mcL (0.6-4.6); Lymphocytes % 8.4 %; Mean Corpuscular Hemoglobin 28.6 pg (28.0-33.3); Mean Corpuscular Volume 92.2 fL (83.0-100.0); Mean Platelet Volume 9.3 fL (9.4-12.4); Monocytes # 1.3 K/mcL (0.0-1.3); Monocytes % 7.3 %; Neutrophils # 13.6 K/mcL (1.6-8.9); Platelet Count 328 K/mcL (140-400); Red Blood Count 2.94 M/mcL (3.82-4.97); Red Cell Distribution Width 15.2 % (11.5-14.5); Segmented Neutrophils % 79.4 %
[2017-08-21 05:42] LABS: INR 1.2; Prothrombin Time 13.2 Seconds (9.4-12.1)
[2017-08-21 05:45] LABS: Activated Partial Thrombo Time 25.3 Seconds (26.0-36.0)
[2017-08-21 05:58] LABS: Calcium 7.5 mg/dL (8.6-10.3); Potassium 3.6 mEq/L (3.5-5.1)
[2017-08-21] MEDS: Levothyroxine 25 MCG TABLET PO SCH (06:30)
--- NOTE | 2017-08-21 06:52 | Pulmonology Consult Note ---
Date of Encounter: 08/21/17 Time of Encounter: 06:52 Assessment and Plan (1) Pleural effusion, right Current Visit: No Status: Acute The patient has recurrent exudative right-sided pleural effusion. This is very suspicious for a malignant effusion however cytology at last drainage was negative for malignant cells. These effusions can be missed clot classified on the first attempt and 40% of the cases. Additional samples can increase the sensitivity. Repeat thoracentesis was done yesterday with the cytology pending. Given the rapid reaccumulation definitive treatment is indicated. Although at first approximation the placement of Pleurx catheter seems beneficial given the loculated nature of her effusion I suspect that this would not be the most ideal management strategy. For this reason I am recommending formal consultation with CT surgery to evaluate for possible pleurodesis given the loculated nature of her effusion. Alternatively patient could not undergo serial thoracentesis although given the rapid reaccumulation I do not think that this is clinically feasible (2) Multiple lung nodules on CT Current Visit: Yes Status: Acute I reviewed the images of her CT scan as well as chest x-ray before and after thoracentesis. The CT scan is notable for bilateral lung nodules the largest of which is approximately 5 cm in the right upper lobe however she has multiple nodules bilaterally measuring up to 2.8 cm. Radiographically with a history of a renal mass this is very suspicious for renal cell carcinoma which has notoriously been associated with metastatic disease to the lung in the radiographic pattern that is noted on the patient's CT scan. Per the primary service's Notes they are requesting formal oncology evaluation which I think is reasonable The patient was evaluated by pulmonary at last visit and had recommended CT- guided biopsy of any number of the lung lesions which is still my recommendation the largest of which is in the right upper lobe which could be easily accessible by transthoracic needle aspiration (TTNA) (3) Renal mass Current Visit: No Status: Acute Concerning for renal cell carcinoma although evaluated be urology who feels that the radiographic appearance is not necessarily consistent with this. May need biopsy or outpatient MRI Thank you for this consultation please call with any questions History of Present Illness Consult date: 08/21/17 Requesting physician: Jose Padron Reason for consult: pleural effusion Chief complaint: Difficulty in Breathing History of present illness: The patient is a 71-year-old woman who presents for evaluation of shortness of breath. She was recently discharged from the hospital where a right pleural effusion was diagnosed status post thoracentesis. She also has evidence of bilateral lung nodules with a renal lesion concerning for metastatic disease however of unclear primary. The pleural effusion was thought to be malignant however cytology that was processed at last admission was negative for malignancy. She was home less than 48 hours when she return for increasing shortness of breath and chest pain found to have reaccumulation of right pleural effusion status post thoracentesis yesterday with approximately 1.5 L of arcenio-colored fluid drained from the right lung. Pulmonary was consulted for further evaluation of the reaccumulation of her pleural effusion as well as some options for management. The patient is a lifelong nonsmoker she denies any significant weight loss fevers chills night sweats or hemoptysis. She did have a history of a brain lesion in the past for which she underwent radiotherapy she is unclear if this was a malignant tumor or not this was managed at [facility] Past Med Surg Social Fam HX - Past Medical History Medical history: asthma, CHF, diabetes, hyperlipidemia, hypertension, seizures, other Additional medical history: history of brain tumor Psychiatric history: anxiety, depression, panic disorder - Past Surgical History Surgical History: cholecystectomy, coronary bypass (CABG), other Additional surgical history: Craniotomy, ankle surgery - Social History Smoking Status: Never smoker Smokeless Tobacco Status: No Alcohol use: none Drug use: none - Family History Father Adopted: No Living Status: Hx Family Cardiac Disorders: Yes Hx Family Respiratory Disorders: Yes Hx Family Cancer: Yes Medications and Allergies Furosemide [Lasix] 20 mg PO DAILY 11/30/14 [History] Insulin ASPART [NovoLOG] 0 unit SQ TIDWM PRN 03/13/15 [History] Pantoprazole Sodium [Protonix] 40 mg PO DAILY 03/13/15 [History] Aspirin [Adult Aspirin] 81 mg PO DAILY 08/12/17 [History] Atorvastatin Calcium [Lipitor] 20 mg PO DAILY 08/12/17 [History] Clopidogrel [Plavix] 75 mg PO DAILY 08/12/17 [History] Ergocalciferol (VITAMIN D2) [Vitamin D2] 50,000 unit PO QWEEK 08/12/17 [History] Escitalopram Oxalate 5 mg PO DAILY 08/12/17 [History] LevETIRAcetam [Keppra] 750 mg PO BID 08/12/17 [History] Levothyroxine Sodium [Levoxyl] 25 mcg PO DAILY 08/12/17 [History] Levothyroxine Sodium [Synthroid] 200 mcg PO DAILY 08/12/17 [History] Lisinopril [Zestril] 10 mg PO DAILY 08/12/17 [History] Metoprolol [Lopressor] 25 mg PO BID 08/12/17 [History] Montelukast [Singulair] 10 mg PO DAILY 08/12/17 [History] Phenytoin [Dilantin] 150 mg PO BID 08/12/17 [History] Pioglitazone HCl [Actos] 15 mg PO DAILY 08/12/17 [History] SitaGLIPtin [Januvia] 100 mg PO DAILY 08/12/17 [History] Tolterodine Tartrate [Detrol] 2 mg PO BID 08/12/17 [History] Acetaminophen [Tylenol] 650 mg PO Q6HR PRN tablet 08/18/17 [Rx] Benzonatate [Tessalon] 100 mg PO TID PRN 14 Days #42 capsule 08/18/17 [Rx] Insulin Glargine [Lantus] 15 unit SQ BID 30 Days #900 mls 08/18/17 [Rx] hydrALAZINE [HydrALAZINE] 25 mg PO TID tablet 08/18/17 [Rx] levoFLOXacin [Levaquin] 750 mg PO DAILY 3 Days #3 tablet 08/18/17 [Rx] 3 Allergy/AdvReac Type Severity Reaction Status Date / Time Tetanus Vaccines and Toxoid Allergy Unknown unknown Verified 08/20/17 11:53 [Tetanus Vaccines & Toxoid] All Systems: The remainder of the systems were reviewed and are negative Physical Examination General appearance: no acute distress Eyes: nonicteric ENT: oropharynx moist Neck: supple, no lymphadenopathy Effort: normal Auscultation: left: clear, right: diminished breath sounds Cardiovascular: regular rate and rhythm Gastrointestinal: normoactive bowel sounds, soft, non-tender Integumentary: normal Extremities: no cyanosis, no clubbing, pink and warm Musculoskeletal: no deformities normal mental status, non-focal exam mood appropriate Results - Laboratory Findings CBC and BMP: 08/21/17 04:07 08/21/17 04:07 PT/INR, D-dimer PT 13.2 Seconds (9.4-12.1) H 08/21/17 04:07 Abnormal lab findings: Abnormal lab results WBC 17.1 K/mcL (4.3-11.1) H 08/21/17 04:07 RBC 2.94 M/mcL (3.82-4.97) L 08/21/17 04:07 Hgb 8.4 g/dL (11.5-15.4) L 08/21/17 04:07 Hct 27.1 % (35.3-44.9) L 08/21/17 04:07 MCHC 31.0 g/dL (31.6-35.5) L 08/21/17 04:07 RDW 15.2 % (11.5-14.5) H 08/21/17 04:07 MPV 9.3 fL (9.4-12.4) L 08/21/17 04:07 Neutrophils # 13.6 K/mcL (1.6-8.9) H 08/21/17 04:07 Eosinophils # 0.7 K/mcL (0.0-0.6) H 08/21/17 04:07 PT 13.2 Seconds (9.4-12.1) H 08/21/17 04:07 APTT 25.3 Seconds (26.0-36.0) L 08/21/17 04:07 Sodium 133 mEq/L (136-145) L 08/21/17 04:07 Carbon Dioxide 21 mEq/L (23-29) L 08/21/17 04:07 BUN 33 mg/dL (8-23) H 08/21/17 04:07 Creatinine 1.72 mg/dL (0.60-1.20) H 08/21/17 04:07 Est GFR ( Amer) 36 (> 60) L 08/21/17 04:07 Est GFR (Non-Af Amer) 29 (> 60) L 08/21/17 04:07 POC Glucose 141 mg/dL (70-99) H 08/20/17 20:33 Calcium 7.5 mg/dL (8.6-10.3) L 08/21/17 04:07 AST 9 Units/L (13-39) L 08/20/17 12:17 Alkaline Phosphatase 120 Units/L (34-104) H 08/20/17 12:17 B-Natriuretic Peptide 175 pg/mL (Less than 100) H 08/20/17 12:17 Serum Total Protein 5.9 g/dL (6.4-8.9) L 08/20/17 12:17 Albumin 2.8 g/dL (3.5-5.7) L 08/20/17 12:17 Albumin/Globulin Ratio 0.9 (1.1-2.2) L 08/20/17 12:17 Lipase 8 Units/L (11-82) L 08/20/17 12:17 - Diagnostic Findings Chest x-ray: report reviewed, image reviewed CT scan - chest: report reviewed, image reviewed - Clinical Findings Intake & Output: Intake & Output 08/20/17 08/20/17 08/21/17 15:59 23:59 07:59 Intake Total 250 / 250 120 / 120 Output Total 0 / 0 0 / 0 Balance 250 / 250 120 / 120 Weight 123.3 kg 124.8 kg Consult Discharge Plan - Plan Referrals: Stephanie Morgan, POEM WRITER [Primary Care Provider] -
[2017-08-21] MEDS ORDERED: Furosemide 20 MG TABLET PO SCH (09:00)
[2017-08-21] MEDS ORDERED: *HR* SitaGLIPtin 100 MG TABLET PO SCH (09:00)
[2017-08-21] MEDS ORDERED: *HR* Pioglitazone 15 MG TABLET PO SCH (09:00)
[2017-08-21] MEDS: Insulin LISPRO 300 UNITS/3 ML VIAL SQ SCH ×4 (10:08→21:32)
[2017-08-21] MEDS: Aspirin Enteric Coated 81 MG Tablet PO SCH (10:12)
[2017-08-21] MEDS: hydrALAZINE 25 MG TABLET PO SCH ×3 (10:14→21:07)
[2017-08-21] MEDS: Insulin DETEMIR 100 UNIT/ML X5UNITS SQ SCH ×2 (10:14→21:31)
[2017-08-21] MEDS: levETIRAcetam 250 MG TABLET PO SCH ×2 (10:14→21:07)
--- NOTE | 2017-08-21 10:47 | Electrocardiograph Report ---
[facility] Test Date: 2017-08-20 Pat Name: Van Almanza Department: 103 Room: 2NE18 Gender: F Vine Pruner: : 1945 Requested By: Alton Quinonez Order Number: [id number] Reading MD: Tommy Tejada Measurements Intervals [place] Rate: 78 P: 25 [place]: 155 QRS: -55 QRSD: 142 T: 44 QT: 396 QTc: 430 Interpretive Statements SINUS RHYTHM MARKED LEFT AXIS DEVIATION RIGHT BUNDLE BRANCH BLOCK Electronically Signed On 08-21-2017 10:45:32 EDT by Tommy Tejada
--- NOTE | 2017-08-21 10:48 | Electrocardiograph Report ---
[facility] Test Date: 2017-08-20 Pat Name: Van Almanza Department: 103 Room: 2NE18 Gender: F Technical Account Representative: : 1945 Requested By: Alton Quinonez Order Number: [id number] Reading MD: Tommy Tejada Measurements Intervals [place] Rate: 76 P: 9 [place]: 156 QRS: -53 QRSD: 140 T: 36 QT: 414 QTc: 444 Interpretive Statements SINUS RHYTHM RIGHT BUNDLE BRANCH BLOCK LEFT ANTERIOR FASCICULAR BLOCK Electronically Signed On 08-21-2017 10:46:51 EDT by Tommy Tejada
--- NOTE | 2017-08-21 11:25 | Internal Med Progress Note ---
Date of Encounter: 08/21/17 Time of Encounter: 11:25 - Assessment and plan (1) Diabetes mellitus Current Visit: Yes Status: Chronic Assessment and plan: continue insulin , FS ACHS, ADA diet Qualifiers: Diabetes mellitus fdc insulin use: with fdc use Diabetes mellitus complication status: without complication Qualified Code(s): E11.9 - Type 2 diabetes mellitus without complications; Z79.4 - halfway (current) use of insulin (2) Hypertension Current Visit: Yes Status: Chronic Assessment and plan: controlled, continue home medications Qualifiers: Hypertension type: essential hypertension Qualified Code(s): I10 - Essential (primary) hypertension (3) CKD (chronic kidney disease) stage 3, GFR 30-59 ml/min Current Visit: Yes Status: Chronic Assessment and plan: renal function slightly worse than baseline Hold lasix and lisinopril for the next 24 hrs and observe (4) Recurrent right pleural effusion Current Visit: Yes Status: Acute Assessment and plan: likely to be malignant-bloody, pleural fluid cytology has no yield previously, will repeat cytology on 1.5 L right thoracentesis today consult oncology to assist in choice of bx - likely need tissue pulm eval noted (5) Seizure Current Visit: Yes Status: Chronic Assessment and plan: hx of seizure - continue seizure med (6) Hypothyroid Current Visit: Yes Status: Chronic Assessment and plan: synthroid Qualifiers: Hypothyroidism type: acquired Qualified Code(s): E03.9 - Hypothyroidism, unspecified (7) Reactive airway disease Current Visit: Yes Status: Acute Assessment and plan: continue med Qualifiers: Asthma severity: mild Asthma complication type: uncomplicated Qualified Code(s): J45.20 - Mild intermittent asthma, uncomplicated (8) 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 Current Visit: Yes Status: Acute Assessment and plan: onc consulted by admitting team eval is pending - Time Spent With Patient Total time spent is greater than 50% in coordination of care (as documented) at patient's floor/unit and/or counseling patient: - Subjective Interval history: Seen and examined at the bedside 71 F with PMH of CKD, asthma, HFpEF, hypertension, hyperlipidemia, diabetes, seizure disorder, anxiety, depression, brain tumor status post resection She also has a history of renal cell CA with lung metastasis She was just discharged after being managed for PNA, Pleural effusion She presents with reaccumulation of R pleural effusion likely malignant s/p thoracentrensis with 1.5L removed, cytology pending Chest imaging of R lung also suspicious for malignancy Pulmonary has been consulted and is following, input appreciated - Constitutional Vitals: Temp Pulse Resp BP Pulse Ox 98.4 F 69 17 133/64 94 08/21/17 07:04 08/21/17 07:04 08/21/17 07:04 08/21/17 07:04 08/21/17 07:04 General appearance: Present: A&O X 3, morbidly obese, pleasant, no acute distress - Head Head exam: Present: atraumatic, normocephalic - Eye Eye exam: Present: PERRL, conjuntiva pink, sclera anicteric Pupils: Present: PERRL - Respiratory Additional comments: diminished breath sounds on the RLL, some rhonchi on RML and RLL - Cardiovascular Cardiovascular exam: Present: RRR, +S1, +S2. Absent: diastolic murmur, gallop, rubs, systolic murmur - GI/Abdominal GI/Abdominal exam: Present: normal bowel sounds, soft, no peritoneal signs. Absent: distended, tenderness - Extremities Exam Extremities exam: Present: warm, radial pulses palpable and symmetrical. Absent : calf tenderness, cyanotic, pedal edema - Neurological Exam Neurological exam: Present: alert, CN II-XII intact, oriented X3, no focal deficits. Absent: pronater drift, facial droop, speech deficit - Skin Skin exam: Present: dry, intact Internal Medicine: Result - Labs CBC & Chem 7: 08/21/17 04:07 08/21/17 04:07 Labs: Short CBC 08/21/17 Range/Units 04:07 WBC 17.1 H (4.3-11.1) K/mcL Hgb 8.4 L (11.5-15.4) g/dL Hct 27.1 L (35.3-44.9) % Plt Count 328 (140-400) K/mcL Neutrophils # 13.6 H (1.6-8.9) K/mcL BMP 08/21/17 04:07 Sodium 133 L Potassium 3.6 Chloride 107 Carbon Dioxide 21 L BUN 33 H Creatinine 1.72 H Glucose 86 Calcium 7.5 L - ABG Interpretation ABG results: PT/INR, D-dimer PT 13.2 Seconds (9.4-12.1) H 08/21/17 04:07 - Impressions Impressions Chest X-Ray 08/20/17 17:06 IMPRESSION: No pneumothorax following right thoracentesis. Decreased size of partially loculated right pleural effusion, with basilar atelectasis and/or consolidation. Stable right mid lung mass. D/ / Rob Menard MD / Rob Menard MD Interpreting Provider: Rob Menard MD Consult Discharge Plan - Plan Referrals: Stephanie Morgan, UNDERGROUND REPAIRER [Primary Care Provider] -
[2017-08-21] MEDS: *HR* Heparin 5,000 UNIT/ML VIAL SQ SCH (21:08)
[2017-08-22] MEDS: Levothyroxine 25 MCG TABLET PO SCH (05:56)
[2017-08-22] MEDS: *HR* Heparin 5,000 UNIT/ML VIAL SQ SCH ×3 (05:56→22:09)
[2017-08-22 05:59] LABS: Basophils % 0.1 %; Eosinophils # 0.7 K/mcL (0.0-0.6); Hematocrit 26.6 % (35.3-44.9); Hemoglobin 8.4 g/dL (11.5-15.4); Immature Granulocytes % 0.6 % (0-4); Lymphocytes # 1.4 K/mcL (0.6-4.6); Lymphocytes % 7.7 %; Mean Corpuscular HGB Conc 31.6 g/dL (31.6-35.5); Mean Corpuscular Volume 91.7 fL (83.0-100.0); Mean Platelet Volume 9.1 fL (9.4-12.4); Monocytes # 1.3 K/mcL (0.0-1.3); Monocytes % 7.5 %; Neutrophils # 14.2 K/mcL (1.6-8.9); Platelet Count 367 K/mcL (140-400); Red Cell Distribution Width 15.5 % (11.5-14.5); Segmented Neutrophils % 80.1 %
[2017-08-22 06:01] LABS: Calcium 7.6 mg/dL (8.6-10.3); Potassium 3.8 mEq/L (3.5-5.1)
[2017-08-22] MEDS ORDERED: 0.9 % Sodium Chloride 1,000 ML IVC ONE (08:06)
--- NOTE | 2017-08-22 09:16 | Oncology Inp Consult Note ---
Date of Encounter: 08/22/17 Time of Encounter: 09:00 Assessment and Plan (1) Recurrent right pleural effusion Status: Acute Assessment and plan: initial cytology was nondiagnostic, repeat cytology has been sent to likely secondary to malignancy, metastatic. Prior thoracentesis cytology was nondiagnostic, repeat is elevated we will recommend biopsy of the lung nodule while patient is in house. She is on Plavix which is currently on hold. We will obtain further reports from [facility] regarding her brain tumor treatment. Imaging findings and fluid pathology discussed with her. She is willing to undergo further testing and treatment at [place]. Plan of care discussed with patient will await biopsy results to discsus further management. - Data of Consult Requesting Physician: Tian Casillas MD Primary Care Provider: Stephanie Morgan CNP - Consult Narrative Reason for consult: lung nodules History of present illness: Ms. Almanza is a 71 year old female with medical history significant for asthma, hypertension, hyperlipidemia, diabetes mellitus, anxiety depression, seizure disorder, history of brain tumor status post resection in the past, chronic kidney disease, with recurrent pleural effusion, as patient was hospitalized recently underwent thoracentesis readmitted soon after discharge her due to worsening shortness of breath the. She had also noted previously productive phlegm with greenish expectoration, right lower quadrant pain. Imaging also CT abdomen and pelvis showed small moderate right-sided effusion bilateral lung nodules measuring up to 1.8 cm in size, peripherally located right upper lobe mass measuring up to 4.8 cm in size. Patient was treated with IV antibiotics, she underwent repeat thoracentesis and about 1.5 L of fluid was obtained. Cytology on prior thoracentesis showed inflammatory cells. A repeat cytology is pending. Imaging was also significant for a 1.2 cm hypodense lesion in the right kidney further evaluation with imaging was recommended. Patient reports some discomfort in the right lateral chest she is status post thoracentesis, Pleurx versus pleurodesis is planned. Her shortness of breath has improved. She is a nonsmoker. She denied any hemoptysis. Patient had prior excision of brain tumor at [facility]. She also undergone radiation therapy. Past Med Surg Social Fam HX - Past Medical History Medical history: asthma, CHF, diabetes, hyperlipidemia, hypertension, seizures, other Additional medical history: history of brain tumor Psychiatric history: anxiety, depression, panic disorder - Past Surgical History Surgical History: cholecystectomy, coronary bypass (CABG), other Additional surgical history: Craniotomy, ankle surgery - Social History Smoking Status: Never smoker Smokeless Tobacco Status: No Alcohol use: none Drug use: none - Family History Father Adopted: No Living Status: Hx Family Cardiac Disorders: Yes Hx Family Respiratory Disorders: Yes Hx Family Cancer: Yes Medications and Allergies Furosemide [Lasix] 20 mg PO DAILY 11/30/14 [History] Insulin ASPART [NovoLOG] 0 unit SQ TIDWM PRN 03/13/15 [History] Pantoprazole Sodium [Protonix] 40 mg PO DAILY 03/13/15 [History] Aspirin [Adult Aspirin] 81 mg PO DAILY 08/12/17 [History] Atorvastatin Calcium [Lipitor] 20 mg PO DAILY 08/12/17 [History] Clopidogrel [Plavix] 75 mg PO DAILY 08/12/17 [History] Ergocalciferol (VITAMIN D2) [Vitamin D2] 50,000 unit PO QWEEK 08/12/17 [History] Escitalopram Oxalate 5 mg PO DAILY 08/12/17 [History] LevETIRAcetam [Keppra] 750 mg PO BID 08/12/17 [History] Levothyroxine Sodium [Levoxyl] 25 mcg PO DAILY 08/12/17 [History] Levothyroxine Sodium [Synthroid] 200 mcg PO DAILY 08/12/17 [History] Lisinopril [Zestril] 10 mg PO DAILY 08/12/17 [History] Metoprolol [Lopressor] 25 mg PO BID 08/12/17 [History] Montelukast [Singulair] 10 mg PO DAILY 08/12/17 [History] Phenytoin [Dilantin] 150 mg PO BID 08/12/17 [History] Pioglitazone HCl [Actos] 15 mg PO DAILY 08/12/17 [History] SitaGLIPtin [Januvia] 100 mg PO DAILY 08/12/17 [History] Tolterodine Tartrate [Detrol] 2 mg PO BID 08/12/17 [History] Acetaminophen [Tylenol] 650 mg PO Q6HR PRN tablet 08/18/17 [Rx] Benzonatate [Tessalon] 100 mg PO TID PRN 14 Days #42 capsule 08/18/17 [Rx] Insulin Glargine [Lantus] 15 unit SQ BID 30 Days #900 mls 08/18/17 [Rx] hydrALAZINE [HydrALAZINE] 25 mg PO TID tablet 08/18/17 [Rx] levoFLOXacin [Levaquin] 750 mg PO DAILY 3 Days #3 tablet 08/18/17 [Rx] 3 Allergy/AdvReac Type Severity Reaction Status Date / Time Tetanus Vaccines and Toxoid Allergy Unknown unknown Verified 08/20/17 11:53 [Tetanus Vaccines & Toxoid] Review of systems: as in HPI Oncology - Exam - Constitutional Vitals: Temp Pulse Resp BP Pulse Ox 98.7 F 83 17 143/61 98 08/21/17 21:32 08/22/17 06:58 08/22/17 06:58 08/22/17 06:58 08/22/17 06:58 General appearance: average body habitus, no acute distress - Head Head exam: Present: atraumatic, normal inspection - Eye Eye exam: Present: sclera anicteric - ENT ENT exam: Present: mucous membranes moist - Neck Neck exam: Present: full ROM - Respiratory Respiratory exam: Present: CTAB - Cardiovascular Cardiovascular exam: Present: +S1, +S2 - GI/Abdominal GI/Abdominal exam: Present: normal bowel sounds, soft - Extremities Exam Extremities exam: Present: full ROM, normal inspection - Neurological Exam Neurological exam: Present: alert, CN II-XII intact, oriented X3, no focal deficits - Psychiatric Psychiatric exam: Present: normal affect Oncology - Results Labs: 3 08/22/17 08/22/17 08/22/17 07:01 05:32 05:32 WBC 17.8 H RBC 2.90 L Hgb 8.4 L Hct 26.6 L MCV 91.7 MCH 29.0 MCHC 31.6 RDW 15.5 H Plt Count 367 MPV 9.1 L Immature Gran % 0.6 Seg Neutrophils % 80.1 Lymphocytes % 7.7 Monocytes % 7.5 Eosinophils % 4.0 Basophils % 0.1 Neutrophils # 14.2 H Lymphocytes # 1.4 Monocytes # 1.3 Eosinophils # 0.7 H Basophils # 0.0 PT INR APTT Sodium 132 L Potassium 3.8 Chloride 104 Carbon Dioxide 23 BUN 38 H Creatinine 2.46 H Est GFR ( Amer) 24 L Est GFR (Non-Af Amer) 19 L BUN/Creatinine Ratio 15 Glucose 89 POC Glucose 83 Calculated Osmolality 283 Calcium 7.6 L 3 08/21/17 08/21/17 08/21/17 21:30 16:20 11:29 WBC RBC Hgb Hct MCV MCH MCHC RDW Plt Count MPV Immature Gran % Seg Neutrophils % Lymphocytes % Monocytes % Eosinophils % Basophils % Neutrophils # Lymphocytes # Monocytes # Eosinophils # Basophils # PT INR APTT Sodium Potassium Chloride Carbon Dioxide BUN Creatinine Est GFR ( Amer) Est GFR (Non-Af Amer) BUN/Creatinine Ratio Glucose POC Glucose 141 H 133 H 104 H Calculated Osmolality Calcium 3 08/21/17 08/21/17 08/21/17 07:16 04:07 04:07 WBC RBC Hgb Hct MCV MCH MCHC RDW Plt Count MPV Immature Gran % Seg Neutrophils % Lymphocytes % Monocytes % Eosinophils % Basophils % Neutrophils # Lymphocytes # Monocytes # Eosinophils # Basophils # PT 13.2 H INR 1.2 APTT 25.3 L Sodium 133 L Potassium 3.6 Chloride 107 Carbon Dioxide 21 L BUN 33 H Creatinine 1.72 H Est GFR ( Amer) 36 L Est GFR (Non-Af Amer) 29 L BUN/Creatinine Ratio 19 Glucose 86 POC Glucose 78 Calculated Osmolality 283 Calcium 7.5 L 3 08/21/17 08/20/17 08/20/17 04:07 20:33 18:12 WBC 17.1 H RBC 2.94 L Hgb 8.4 L Hct 27.1 L MCV 92.2 MCH 28.6 MCHC 31.0 L RDW 15.2 H Plt Count 328 MPV 9.3 L Immature Gran % 0.8 Seg Neutrophils % 79.4 Lymphocytes % 8.4 Monocytes % 7.3 Eosinophils % 3.9 Basophils % 0.2 Neutrophils # 13.6 H Lymphocytes # 1.4 Monocytes # 1.3 Eosinophils # 0.7 H Basophils # 0.0 PT INR APTT Sodium Potassium Chloride Carbon Dioxide BUN Creatinine Est GFR ( Amer) Est GFR (Non-Af Amer) BUN/Creatinine Ratio Glucose POC Glucose 141 H 145 H Calculated Osmolality Calcium Consult Discharge Plan - Plan Referrals: Stephanie Morgan, WATERWORKS SUPERVISOR [Primary Care Provider] -
[2017-08-22] MEDS: Insulin LISPRO 300 UNITS/3 ML VIAL SQ SCH ×4 (09:53→22:10)
[2017-08-22] MEDS: levETIRAcetam 250 MG TABLET PO SCH ×2 (10:00→22:09)
[2017-08-22] MEDS: Aspirin Enteric Coated 81 MG Tablet PO SCH (10:00)
[2017-08-22] MEDS: hydrALAZINE 25 MG TABLET PO SCH ×3 (10:06→22:09)
[2017-08-22] MEDS: Insulin DETEMIR 100 UNIT/ML X5UNITS SQ SCH (10:12)
[2017-08-22] MEDS: Acetaminophen 325 MG TABLET PO PRN ×2 (11:34→19:35)
--- NOTE | 2017-08-22 12:08 | Internal Med Progress Note ---
Date of Encounter: 08/22/17 Time of Encounter: 12:05 - Assessment and plan (1) Acute on chronic renal failure Current Visit: Yes Status: Acute Assessment and plan: Nonoliguric, likely prerenal. Creatinine this morning 2.48, yesterday 1.72. Give IV fluid boluses Monitor I and O Hold lisinopril, and lasix and avoid nephrotoxins Qualifiers: Acute renal failure type: unspecified Chronic kidney disease stage: stage 3 (moderate) Qualified Code(s): N17.9 - Acute kidney failure, unspecified; N18.3 - Chronic kidney disease, stage 3 (moderate) (2) Diabetes mellitus Current Visit: Yes Status: Chronic Assessment and plan: continue insulin , FS ACHS, ADA diet Hold po meds Qualifiers: Diabetes mellitus [facility] use: with [facility] use Diabetes mellitus complication status: without complication Qualified Code(s): E11.9 - Type 2 diabetes mellitus without complications; Z79.4 - keno terminal operator (current) use of insulin (3) Hypertension Current Visit: Yes Status: Chronic Assessment and plan: controlled, continue home medications Qualifiers: Hypertension type: essential hypertension Qualified Code(s): I10 - Essential (primary) hypertension (4) CKD (chronic kidney disease) stage 3, GFR 30-59 ml/min Current Visit: Yes Status: Chronic Assessment and plan: as in [facility] on CKD (5) Recurrent right pleural effusion Current Visit: Yes Status: Acute Assessment and plan: likely to be malignant-bloody, pleural fluid cytology has no yield previously, will repeat cytology on 1.5 L right thoracentesis today pulm eval noted Onc doni noted (6) Seizure Current Visit: Yes Status: Chronic Assessment and plan: hx of seizure - continue seizure med (7) Hypothyroid Current Visit: Yes Status: Chronic Assessment and plan: synthroid Qualifiers: Hypothyroidism type: acquired Qualified Code(s): E03.9 - Hypothyroidism, unspecified (8) Reactive airway disease Current Visit: Yes Status: Chronic Assessment and plan: continue med Qualifiers: Asthma severity: mild Asthma complication type: uncomplicated Qualified Code(s): J45.20 - Mild intermittent asthma, uncomplicated (9) 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 Current Visit: Yes Status: Acute Assessment and plan: onc consulteddoni noted, for tissue biopsy hold plavix - Time Spent With Patient Total time spent is greater than 50% in coordination of care (as documented) at patient's floor/unit and/or counseling patient: - Subjective Interval history: Seen and examined at the bedside 71 F with PMH of CKD, asthma, HFpEF, hypertension, hyperlipidemia, diabetes, seizure disorder, anxiety, depression, brain tumor status post resection She also has a history of renal cell CA with lung metastasis She was just discharged after being managed for PNA, Pleural effusion She presented with reaccumulation of R pleural effusion likely malignant s/p thoracentrensis with 1.5L removed, cytology pending Chest imaging of R lung also suspicious for malignancy Pulmonary has been consulted and is following, input appreciated Oncology evaluation noted. No new complaints this morning. She is making urine, however, renal function worsen above baseline. - Constitutional Vitals: Temp Pulse Resp BP Pulse Ox 98.7 F 78 18 128/59 90 08/21/17 21:32 08/22/17 11:20 08/22/17 11:20 08/22/17 11:20 08/22/17 11:20 General appearance: Present: A&O X 3, morbidly obese, pleasant, no acute distress - Head Head exam: Present: atraumatic, normocephalic - Eye Eye exam: Present: PERRL, conjuntiva pink, sclera anicteric Pupils: Present: PERRL - Neck Neck exam general surgery: Present: supple, trachea midline. Absent: lymphadenopathy - Respiratory Respiratory exam: Present: decreased breath sounds. Absent: rales, rhonchi, wheezes - Cardiovascular Cardiovascular exam: Present: RRR, +S1, +S2. Absent: diastolic murmur, gallop, rubs, systolic murmur - GI/Abdominal GI/Abdominal exam: Present: normal bowel sounds, soft, no peritoneal signs. Absent: distended, tenderness - Extremities Exam Extremities exam: Present: warm, radial pulses palpable and symmetrical. Absent : calf tenderness, cyanotic, pedal edema - Neurological Exam Neurological exam: Present: alert, CN II-XII intact, oriented X3, no focal deficits. Absent: pronater drift, facial droop, speech deficit - Skin Skin exam: Present: dry Internal Medicine: Result - Labs CBC & Chem 7: 08/22/17 05:32 08/22/17 05:32 Labs: Short CBC 08/22/17 Range/Units 05:32 WBC 17.8 H (4.3-11.1) K/mcL Hgb 8.4 L (11.5-15.4) g/dL Hct 26.6 L (35.3-44.9) % Plt Count 367 (140-400) K/mcL Neutrophils # 14.2 H (1.6-8.9) K/mcL BMP 08/22/17 05:32 Sodium 132 L Potassium 3.8 Chloride 104 Carbon Dioxide 23 BUN 38 H Creatinine 2.46 H Glucose 89 Calcium 7.6 L - ABG Interpretation ABG results: PT/INR, D-dimer PT 13.2 Seconds (9.4-12.1) H 08/21/17 04:07 Consult Discharge Plan - Plan Referrals: Stephanie Morgan, RADIO MAINTAINER [Primary Care Provider] -
[2017-08-23 06:01] LABS: Hematocrit 24.9 % (35.3-44.9); Hemoglobin 7.8 g/dL (11.5-15.4); Immature Granulocytes % 0.8 % (0-4); Lymphocytes % 7.9 %; Mean Corpuscular HGB Conc 31.3 g/dL (31.6-35.5); Mean Corpuscular Hemoglobin 28.4 pg (28.0-33.3); Mean Corpuscular Volume 90.5 fL (83.0-100.0); Mean Platelet Volume 9.1 fL (9.4-12.4); Monocytes % 6.2 %; Platelet Count 357 K/mcL (140-400); Red Blood Count 2.75 M/mcL (3.82-4.97); Red Cell Distribution Width 15.4 % (11.5-14.5)
[2017-08-23 06:02] LABS: Basophils % 0.1 %; Eosinophils # 0.4 K/mcL (0.0-0.6); Lymphocytes # 1.1 K/mcL (0.6-4.6); Monocytes # 0.9 K/mcL (0.0-1.3); Neutrophils # 11.6 K/mcL (1.6-8.9)
[2017-08-23] MEDS: *HR* Heparin 5,000 UNIT/ML VIAL SQ SCH ×3 (06:02→21:56)
[2017-08-23] MEDS: Levothyroxine 25 MCG TABLET PO SCH (06:02)
[2017-08-23 06:19] LABS: Calcium 7.6 mg/dL (8.6-10.3); Potassium 4.2 mEq/L (3.5-5.1)
[2017-08-23] MEDS: Insulin LISPRO 300 UNITS/3 ML VIAL SQ SCH ×4 (08:07→21:48)
[2017-08-23] MEDS: levETIRAcetam 250 MG TABLET PO SCH ×2 (08:16→21:56)
[2017-08-23] MEDS: hydrALAZINE 25 MG TABLET PO SCH ×3 (08:16→21:55)
[2017-08-23] MEDS: Aspirin Enteric Coated 81 MG Tablet PO SCH (08:16)
--- NOTE | 2017-08-23 10:02 | Internal Med Progress Note ---
Date of Encounter: 08/23/17 Time of Encounter: 10:00 - Assessment and plan (1) Acute on chronic renal failure Current Visit: Yes Status: Acute Assessment and plan: Nonoliguric, likely prerenal. Creatinine improved this morning 2.20 (2.46) Hold IVF Continue I/O Continue to hold lisinopril, and lasix and avoid nephrotoxins Qualifiers: Acute renal failure type: unspecified Chronic kidney disease stage: stage 3 (moderate) Qualified Code(s): N17.9 - Acute kidney failure, unspecified; N18.3 - Chronic kidney disease, stage 3 (moderate) (2) Diabetes mellitus Current Visit: Yes Status: Chronic Assessment and plan: continue insulin , FS ACHS, ADA diet Hold po meds Qualifiers: Diabetes mellitus skilled nursing insulin use: with skilled nursing use Diabetes mellitus complication status: without complication Qualified Code(s): E11.9 - Type 2 diabetes mellitus without complications; Z79.4 - custodial (current) use of insulin (3) Hypertension Current Visit: Yes Status: Chronic Assessment and plan: controlled, continue home medications Qualifiers: Hypertension type: essential hypertension Qualified Code(s): I10 - Essential (primary) hypertension (4) CKD (chronic kidney disease) stage 3, GFR 30-59 ml/min Current Visit: Yes Status: Chronic Assessment and plan: as in [facility] on CKD (5) Recurrent right pleural effusion Current Visit: Yes Status: Acute Assessment and plan: likely to be malignant-bloody, pleural fluid cytology has no yield previously, will repeat cytology on 1.5 L right thoracentesis today pulm eval noted Onc doni noted (6) Seizure Current Visit: Yes Status: Chronic Assessment and plan: hx of seizure - continue seizure med (7) Hypothyroid Current Visit: Yes Status: Chronic Assessment and plan: synthroid Qualifiers: Hypothyroidism type: acquired Qualified Code(s): E03.9 - Hypothyroidism, unspecified (8) Reactive airway disease Current Visit: Yes Status: Chronic Assessment and plan: continue med Qualifiers: Asthma severity: mild Asthma complication type: uncomplicated Qualified Code(s): J45.20 - Mild intermittent asthma, uncomplicated (9) 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 Current Visit: Yes Status: Acute Assessment and plan: onc consulteddoni noted, for tissue biopsy hold plavix - Time Spent With Patient Total time spent is greater than 50% in coordination of care (as documented) at patient's floor/unit and/or counseling patient: - Subjective Interval history: Seen and examined at the bedside 71 F with PMH of CKD, asthma, HFpEF, hypertension, hyperlipidemia, diabetes, seizure disorder, anxiety, depression, brain tumor status post resection She also has a history of renal cell CA with lung metastasis She was just discharged after being managed for PNA, Pleural effusion She presented with reaccumulation of R pleural effusion likely malignant s/p thoracentrensis with 1.5L removed, cytology pending Chest imaging of R lung also suspicious for malignancy Pulmonary has been consulted and is following, input appreciated Oncology evaluation noted. No new complaints this morning. Her renal function slightly improved with fluids, will hold IVF - Constitutional Vitals: Temp Pulse Resp BP Pulse Ox 98.2 F 72 16 130/68 95 08/23/17 07:00 08/23/17 07:00 08/23/17 07:00 08/23/17 07:00 08/23/17 07:00 General appearance: Present: A&O X 3, morbidly obese, pleasant, no acute distress - Head Head exam: Present: atraumatic, normocephalic - Eye Eye exam: Present: PERRL, conjuntiva pink, sclera anicteric Pupils: Present: PERRL - Neck Neck exam general surgery: Present: supple, trachea midline. Absent: lymphadenopathy - Respiratory Respiratory exam: Present: decreased breath sounds - Cardiovascular Cardiovascular exam: Present: RRR, +S1, +S2. Absent: diastolic murmur, gallop, rubs, systolic murmur - GI/Abdominal GI/Abdominal exam: Present: normal bowel sounds, soft, no peritoneal signs. Absent: distended, tenderness - Extremities Exam Extremities exam: Present: pedal edema (trace ), warm, radial pulses palpable and symmetrical. Absent: calf tenderness, cyanotic - Neurological Exam Neurological exam: Present: alert, CN II-XII intact, oriented X3, no focal deficits. Absent: pronater drift, facial droop, speech deficit - Skin Skin exam: Present: dry, intact Internal Medicine: Result - Labs CBC & Chem 7: 08/23/17 05:21 08/23/17 05:21 Labs: Short CBC 08/23/17 Range/Units 05:21 WBC 14.1 H (4.3-11.1) K/mcL Hgb 7.8 L (11.5-15.4) g/dL Hct 24.9 L (35.3-44.9) % Plt Count 357 (140-400) K/mcL Neutrophils # 11.6 H (1.6-8.9) K/mcL BMP 08/23/17 05:21 Sodium 129 L Potassium 4.2 Chloride 104 Carbon Dioxide 19 L BUN 36 H Creatinine 2.20 H Glucose 85 Calcium 7.6 L - ABG Interpretation ABG results: PT/INR, D-dimer PT 13.2 Seconds (9.4-12.1) H 08/21/17 04:07 Consult Discharge Plan - Plan Referrals: Stephanie Morgan, STAFFING AND SCHEDULING COORDINATOR [Primary Care Provider] -
--- NOTE | 2017-08-23 10:22 | Pulmonology Consult Note ---
<Luci Fraser M - Last Filed: 08/23/17 10:52> Date of Encounter: 08/23/17 Medications and Allergies Furosemide [Lasix] 20 mg PO DAILY 11/30/14 [History] Insulin ASPART [NovoLOG] 0 unit SQ TIDWM PRN 03/13/15 [History] Pantoprazole Sodium [Protonix] 40 mg PO DAILY 03/13/15 [History] Aspirin [Adult Aspirin] 81 mg PO DAILY 08/12/17 [History] Atorvastatin Calcium [Lipitor] 20 mg PO DAILY 08/12/17 [History] Clopidogrel [Plavix] 75 mg PO DAILY 08/12/17 [History] Ergocalciferol (VITAMIN D2) [Vitamin D2] 50,000 unit PO QWEEK 08/12/17 [History] Escitalopram Oxalate 5 mg PO DAILY 08/12/17 [History] LevETIRAcetam [Keppra] 750 mg PO BID 08/12/17 [History] Levothyroxine Sodium [Levoxyl] 25 mcg PO DAILY 08/12/17 [History] Levothyroxine Sodium [Synthroid] 200 mcg PO DAILY 08/12/17 [History] Lisinopril [Zestril] 10 mg PO DAILY 08/12/17 [History] Metoprolol [Lopressor] 25 mg PO BID 08/12/17 [History] Montelukast [Singulair] 10 mg PO DAILY 08/12/17 [History] Phenytoin [Dilantin] 150 mg PO BID 08/12/17 [History] Pioglitazone HCl [Actos] 15 mg PO DAILY 08/12/17 [History] SitaGLIPtin [Januvia] 100 mg PO DAILY 08/12/17 [History] Tolterodine Tartrate [Detrol] 2 mg PO BID 08/12/17 [History] Acetaminophen [Tylenol] 650 mg PO Q6HR PRN tablet 08/18/17 [Rx] Benzonatate [Tessalon] 100 mg PO TID PRN 14 Days #42 capsule 08/18/17 [Rx] Insulin Glargine [Lantus] 15 unit SQ BID 30 Days #900 mls 08/18/17 [Rx] hydrALAZINE [HydrALAZINE] 25 mg PO TID tablet 08/18/17 [Rx] levoFLOXacin [Levaquin] 750 mg PO DAILY 3 Days #3 tablet 08/18/17 [Rx] 3 Allergy/AdvReac Type Severity Reaction Status Date / Time Tetanus Vaccines and Toxoid Allergy Unknown unknown Verified 08/20/17 11:53 [Tetanus Vaccines & Toxoid] All Systems: The remainder of the systems were reviewed and are negative Physical Examination Vital Signs: Vital Signs, Last 4 Hours Temp Pulse Resp BP Pulse Ox 08/23/17 07:00 98.2 F 72 16 130/68 95 Results - Laboratory Findings CBC and BMP: 08/23/17 05:21 08/23/17 05:21 PT/INR, D-dimer PT 13.2 Seconds (9.4-12.1) H 08/21/17 04:07 Abnormal lab findings: Abnormal lab results WBC 14.1 K/mcL (4.3-11.1) H 08/23/17 05:21 RBC 2.75 M/mcL (3.82-4.97) L 08/23/17 05:21 Hgb 7.8 g/dL (11.5-15.4) L 08/23/17 05:21 Hct 24.9 % (35.3-44.9) L 08/23/17 05:21 MCHC 31.3 g/dL (31.6-35.5) L 08/23/17 05:21 RDW 15.4 % (11.5-14.5) H 08/23/17 05:21 MPV 9.1 fL (9.4-12.4) L 08/23/17 05:21 Neutrophils # 11.6 K/mcL (1.6-8.9) H 08/23/17 05:21 PT 13.2 Seconds (9.4-12.1) H 08/21/17 04:07 APTT 25.3 Seconds (26.0-36.0) L 08/21/17 04:07 Sodium 129 mEq/L (136-145) L 08/23/17 05:21 Carbon Dioxide 19 mEq/L (23-29) L 08/23/17 05:21 BUN 36 mg/dL (8-23) H 08/23/17 05:21 Creatinine 2.20 mg/dL (0.60-1.20) H 08/23/17 05:21 Est GFR ( Amer) 27 (> 60) L 08/23/17 05:21 Est GFR (Non-Af Amer) 22 (> 60) L 08/23/17 05:21 POC Glucose 138 mg/dL (70-99) H 08/22/17 20:14 Calculated Osmolality 276 (280-300) L 08/23/17 05:21 Calcium 7.6 mg/dL (8.6-10.3) L 08/23/17 05:21 AST 9 Units/L (13-39) L 08/20/17 12:17 Alkaline Phosphatase 120 Units/L (34-104) H 08/20/17 12:17 B-Natriuretic Peptide 175 pg/mL (Less than 100) H 08/20/17 12:17 Serum Total Protein 5.9 g/dL (6.4-8.9) L 08/20/17 12:17 Albumin 2.8 g/dL (3.5-5.7) L 08/20/17 12:17 Albumin/Globulin Ratio 0.9 (1.1-2.2) L 08/20/17 12:17 Lipase 8 Units/L (11-82) L 08/20/17 12:17 - Clinical Findings Intake & Output: Intake & Output 08/22/17 08/23/17 08/23/17 23:59 07:59 15:59 Intake Total 240 / 240 240 / 240 Output Total 300 / 300 200 / 200 Balance -60 / -60 40 / 40 Weight 125 kg Consult Discharge Plan - Plan Referrals: Stephanie Morgan, RELAY TESTER [Primary Care Provider] - 08/27/17 11:00 am - Attending Attestation I examined this patient and my medical decision-making was reviewed with the Resident Physician. I agree with the documented findings, disposition and treatment plan as described except to the extent set forth below. Patient seen and examined. Labs, radiology, chart personally reviewed. 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 Patient has somewhat loculated pleural effusion and is still no official diagnosis and I have reviewed with the residents CT chest with the interventional radiologist and biopsy of lung lesion and perhaps thoracentesis at the same time 11 diagnosis and then patient might benefit from Pleurx pleural catheter. This was explained to the patient is well. We will continue follow-up. <Ava Javier - Last Filed: 08/24/17 08:38> Date of Encounter: 08/23/17 Time of Encounter: 13:30 Assessment and Plan (1) Recurrent right pleural effusion Current Visit: Yes Status: Acute Concern for malignancy as cause of recurrent pleural effusion Discharged from [place] 08/18/17 after right sided pleural effusion drained by thoracentesis Between discharge and re-admission 08/20/17 her dyspnea had returned; repeat right-sided thoracentesis drained 1.5 L fluid and sample sent for cytology Chest CT showed interval increase in size of partially loculated right pleural effusion and right lung volume loss Multiple, large pulmonary nodules and masses also seen throughout both lungs concerning for malignancy Cytology from last admission's thoracentesis negative for malignant cells, but multiple samples may be needed Oncology following Imaging reviewed with IR, discussed possibility of obtaining lung mass biopsy May benefit from Pleurx pleural catheter O2 % saturation in 90's on 2L nasal cannula Plan Recent cytology results from pleural fluid pending Biopsy of lung lesion with possible thoracentesis by IR (2) Multiple lung nodules on CT Current Visit: Yes Status: Acute Chest CT showing multiple, large pulmonary nodules and masses throughout both lungs Largest nodule 4.8 cm diameter in RUL, suspicious for metastatic disease Increased progression of size and number of nodules since 05/07/15 imaging Oncology following Plan As above History of Present Illness Consult date: 08/23/17 Reason for consult: dyspnea, pleural effusion, lung mass History of present illness: Ms. Jones is a 71 year-old female who presented to the ED for shortness of breath. She returned to [place] 2 days after being discharged for similar issue, she was diagnosed with a right pleural effusion and a thoracentesis was performed by IR, total of 1.4 L fluid was drained. After admission, while she was at home, she began to feel like she couldn't breathe and like her original issues symptoms had gotten worse. She does have discomfort and pain of right chest wall when she inhales deeply, however she is without symptoms when she is not moving. Pulmonology was consulted for further care of this pt's recurrent right pleural effusion. She reports feeling more tired than she was at her last visit and feels like she is sleeping a lot more. There are no associated fevers, chills, nausea, vomiting. She also denies headaches or changes in vision. Past Med Surg Social Fam HX - Past Medical History Medical history: asthma, CHF, diabetes, hyperlipidemia, hypertension, seizures, other Additional medical history: history of brain tumor Psychiatric history: anxiety, depression, panic disorder - Past Surgical History Surgical History: cholecystectomy, coronary bypass (CABG), other Additional surgical history: Craniotomy, ankle surgery - Social History Smoking Status: Never smoker Smokeless Tobacco Status: No Alcohol use: none Drug use: none - Family History Father Adopted: No Living Status: Hx Family Cardiac Disorders: Yes Hx Family Respiratory Disorders: Yes Hx Family Cancer: Yes All Systems: The remainder of the systems were reviewed and are negative - Constitutional Constitutional: fatigue, weakness, no chills, no fever(s) - Cardiovascular Cardiovascular: no chest pain, no edema, no orthopnea - Respiratory Respiratory: pain on inspirtation, no hemoptysis - Gastrointestinal Gastrointestinal: no abdominal pain, no diarrhea, no nausea, no vomiting - Neurological Neurological: as per HPI, no numbness, no paresthesias Physical Examination Vital Signs: Vital Signs, Last 4 Hours Temp Pulse Resp BP Pulse Ox 08/23/17 07:00 98.2 F 72 16 130/68 95 General appearance: no acute distress (anxious) Neck: supple Effort: normal Auscultation: right: diminished breath sounds, rales, bilateral: clear Cardiovascular: regular rate and rhythm Gastrointestinal: normoactive bowel sounds, soft, non-distended Integumentary: other (pale) normal mental status, non-focal exam, pupils equal and round, motor strength normal and symmetric mood appropriate, affect normal, anxious Results - Laboratory Findings CBC and BMP: 08/24/17 04:01 08/24/17 04:01 PT/INR, D-dimer PT 13.2 Seconds (9.4-12.1) H 08/21/17 04:07 Abnormal lab findings: Abnormal lab results WBC 14.1 K/mcL (4.3-11.1) H 08/23/17 05:21 RBC 2.75 M/mcL (3.82-4.97) L 08/23/17 05:21 Hgb 7.8 g/dL (11.5-15.4) L 08/23/17 05:21 Hct 24.9 % (35.3-44.9) L 08/23/17 05:21 MCHC 31.3 g/dL (31.6-35.5) L 08/23/17 05:21 RDW 15.4 % (11.5-14.5) H 08/23/17 05:21 MPV 9.1 fL (9.4-12.4) L 08/23/17 05:21 Neutrophils # 11.6 K/mcL (1.6-8.9) H 08/23/17 05:21 PT 13.2 Seconds (9.4-12.1) H 08/21/17 04:07 APTT 25.3 Seconds (26.0-36.0) L 08/21/17 04:07 Sodium 129 mEq/L (136-145) L 08/23/17 05:21 Carbon Dioxide 19 mEq/L (23-29) L 08/23/17 05:21 BUN 36 mg/dL (8-23) H 08/23/17 05:21 Creatinine 2.20 mg/dL (0.60-1.20) H 08/23/17 05:21 Est GFR ( Amer) 27 (> 60) L 08/23/17 05:21 Est GFR (Non-Af Amer) 22 (> 60) L 08/23/17 05:21 POC Glucose 138 mg/dL (70-99) H 08/22/17 20:14 Calculated Osmolality 276 (280-300) L 08/23/17 05:21 Calcium 7.6 mg/dL (8.6-10.3) L 08/23/17 05:21 AST 9 Units/L (13-39) L 08/20/17 12:17 Alkaline Phosphatase 120 Units/L (34-104) H 08/20/17 12:17 B-Natriuretic Peptide 175 pg/mL (Less than 100) H 08/20/17 12:17 Serum Total Protein 5.9 g/dL (6.4-8.9) L 08/20/17 12:17 Albumin 2.8 g/dL (3.5-5.7) L 08/20/17 12:17 Albumin/Globulin Ratio 0.9 (1.1-2.2) L 08/20/17 12:17 Lipase 8 Units/L (11-82) L 06/15/18 12:17 - Clinical Findings Intake & Output: Intake & Output 08/22/17 08/23/17 08/23/17 23:59 07:59 15:59 Intake Total 240 / 240 240 / 240 Output Total 300 / 300 200 / 200 Balance -60 / -60 40 / 40 Weight 125 kg
[2017-08-23] MEDS: Acetaminophen 325 MG TABLET PO PRN (15:46)
--- NOTE | 2017-08-23 17:12 | Oncology Inp Progress Note ---
Date of Encounter: 08/23/17 Time of Encounter: 16:45 (1) Lung mass Current Visit: No Status: Acute Assessment and plan: Recurrent pleural effusions concerning for malignancy. Initial cytology was nondiagnostic, repeat cytology pending, likely secondary to malignancy, metastatic. She is on Plavix which is currently on hold-Last dose 6/15 AM- plan for CT guided lung biopsy with IR 08/25 after plavix on hold x5 days We will obtain further reports from [facility] regarding her brain tumor treatment. CT abdomen/pelvis from 08/12 without contrast reveals 1.2 cm hyperdense lesion in the midpole of the right kidney which is indeterminate. Unable to have IV contrast secondary to GLENNA on CKD. Consider MRI versus PET for staging Imaging findings and fluid pathology discussed with patient again today. She is willing to undergo further testing and treatment at [place]. Plan of care discussed with patient will await biopsy results to discuss further management. Oncology: Subj Interval history: Ms. Almanza is resting in bed, currently without complaints. She denies pain, nausea, vomiting, diarrhea. She is on O2 at 2L which is new for her. - Constitutional Vitals: Vital Signs Temp Pulse Resp BP Pulse Ox 08/23/17 07:00 98.2 F 72 16 130/68 95 08/23/17 04:00 71 16 114/48 92 08/22/17 20:11 98.3 F 73 18 135/56 95 Intake and Output 08/23/17 08/23/17 08/23/17 07:59 15:59 23:59 Intake Total 240 / 240 Output Total 200 / 200 Balance 40 / 40 Intake: Oral 240 / 240 Output: Urine 200 / 200 Other: Meal Breakfast Percent of Meal Consumed 70% Stool Size Small Moderate Stool Consistency formed # Bowel Movements 1 1 Weight 125 kg Blood Glucose* 77 113 Patient Weight 08/23/17 23:59 Weight 125 kg General appearance: cooperative, no acute distress, obese, no febrile - Head Head exam: Present: atraumatic - ENT ENT exam: Present: mucous membranes moist - Respiratory Respiratory exam: Present: decreased breath sounds. Absent: respiratory distress - Cardiovascular Cardiovascular exam: Present: RRR, +S1, +S2 - GI/Abdominal GI/Abdominal exam: Present: normal bowel sounds, soft. Absent: guarding, rebound, tenderness - Extremities Exam Extremities exam: Absent: calf tenderness - Neurological Exam Neurological exam: Present: alert, oriented X3, no focal deficits, strengths equal and symetr throughout - Psychiatric Psychiatric exam: Present: normal affect, normal mood - Skin Skin exam: Present: dry, intact, normal color, warm Oncology: Obj Data - Labs CBC & Chem 7: 08/24/17 04:01 08/24/17 04:01 - ABG Interpretation ABG results: PT/INR, D-dimer PT 13.2 Seconds (9.4-12.1) H 08/21/17 04:07 Consult Discharge Plan - Plan Referrals: Stephanie Morgan, BODY PIERCER [Primary Care Provider] - 08/27/17 11:00 am
[2017-08-23] MEDS: Insulin DETEMIR 100 UNIT/ML X5UNITS SQ SCH (21:56)
[2017-08-24 05:08] LABS: Basophils % 0.1 %; Eosinophils # 0.4 K/mcL (0.0-0.6); Eosinophils % 2.7 %; Hematocrit 23.2 % (35.3-44.9); Hemoglobin 7.1 g/dL (11.5-15.4); Immature Granulocytes % 0.7 % (0-4); Lymphocytes # 0.9 K/mcL (0.6-4.6); Lymphocytes % 6.6 %; Mean Corpuscular HGB Conc 30.6 g/dL (31.6-35.5); Mean Corpuscular Hemoglobin 27.7 pg (28.0-33.3); Mean Corpuscular Volume 90.6 fL (83.0-100.0); Mean Platelet Volume 9.1 fL (9.4-12.4); Monocytes # 0.9 K/mcL (0.0-1.3); Monocytes % 6.5 %; Neutrophils # 11.2 K/mcL (1.6-8.9); Platelet Count 369 K/mcL (140-400); Red Blood Count 2.56 M/mcL (3.82-4.97); Red Cell Distribution Width 15.5 % (11.5-14.5); Segmented Neutrophils % 83.4 %
[2017-08-24] MEDS: *HR* Heparin 5,000 UNIT/ML VIAL SQ SCH ×3 (05:23→19:58)
[2017-08-24] MEDS: Levothyroxine 25 MCG TABLET PO SCH (05:23)
[2017-08-24 05:31] LABS: Calcium 7.5 mg/dL (8.6-10.3); Potassium 3.7 mEq/L (3.5-5.1)
[2017-08-24] MEDS: Insulin LISPRO 300 UNITS/3 ML VIAL SQ SCH ×4 (07:51→22:13)
[2017-08-24] MEDS: levETIRAcetam 250 MG TABLET PO SCH ×2 (08:08→19:58)
[2017-08-24] MEDS: hydrALAZINE 25 MG TABLET PO SCH ×3 (08:08→19:58)
--- NOTE | 2017-08-24 08:39 | Pulmonology Progress Note ---
<Ava Javier - Last Filed: 08/24/17 17:34> Date of Encounter: 08/24/17 Time of Encounter: 14:37 Assessment and Plan (1) Recurrent right pleural effusion Current Visit: Yes Status: Acute Concerned for malignant etiology 08/20/17 repeat right-sided thoracentesis drained 1.5 L fluid Multiple masses in b/l lungs--increased in size and number since 2016 Largest mass in RUL measuring 4.8 cm diameter Imaging reviewed with IR regarding obtaining a lung biopsy Reactive mesothelial cells, inflammatory cells, and "atypical cells" from 08/20 pleural fluid cytology Oncology following Plan CT guided biopsy by IR planned for 08/25 Considering Pleurx (if IR does thoracentesis and if fluid re-accumulates) (2) Multiple lung nodules on CT Current Visit: Yes Status: Acute As above Subjective Principal diagnosis: recurrent right pleural effusion Interval history: Pt seen and examined this afternoon at bedside. When I entered the room, pt was sleeping in her bed and appeared comfortable. Pt states she feels the same as yesterday and denies increased dyspnea. No complaints at time of my visit. However, pt would like to know what her overall plan is and whether or not a lung biopsy will be done--she states she's been back and forth between room and CT and hearing conflicting plans about whether or not a CT biopsy will be done and if so, when? Objective PUL Vital signs: Last Vital Signs Temp 99.5 F 08/24/17 06:58 Pulse 72 08/24/17 06:58 Resp 15 08/24/17 06:58 BP 108/91 08/24/17 06:58 Pulse Ox 94 08/24/17 06:58 General appearance: no acute distress Effort: normal Auscultation: right: diminished breath sounds (Right base), bilateral: clear Cardiovascular: regular rate and rhythm Gastrointestinal: normoactive bowel sounds, soft, non-tender Integumentary: normal normal mental status, non-focal exam, pupils equal and round mood appropriate, affect normal Results - Laboratory Findings CBC and BMP: 08/24/17 15:42 08/24/17 04:01 PT/INR, D-dimer PT 13.2 Seconds (9.4-12.1) H 08/21/17 04:07 Abnormal lab findings: Abnormal lab results WBC 13.5 K/mcL (4.3-11.1) H 08/24/17 04:01 RBC 2.56 M/mcL (3.82-4.97) L 08/24/17 04:01 Hgb 7.1 g/dL (11.5-15.4) L 08/24/17 04:01 Hct 23.2 % (35.3-44.9) L 08/24/17 04:01 MCH 27.7 pg (28.0-33.3) L 08/24/17 04:01 MCHC 30.6 g/dL (31.6-35.5) L 08/24/17 04:01 RDW 15.5 % (11.5-14.5) H 08/24/17 04:01 MPV 9.1 fL (9.4-12.4) L 08/24/17 04:01 Neutrophils # 11.2 K/mcL (1.6-8.9) H 08/24/17 04:01 PT 13.2 Seconds (9.4-12.1) H 08/21/17 04:07 APTT 25.3 Seconds (26.0-36.0) L 08/21/17 04:07 Sodium 129 mEq/L (136-145) L 08/24/17 04:01 Carbon Dioxide 19 mEq/L (23-29) L 08/24/17 04:01 BUN 35 mg/dL (8-23) H 08/24/17 04:01 Creatinine 2.07 mg/dL (0.60-1.20) H 08/24/17 04:01 Est GFR ( Amer) 29 (> 60) L 08/24/17 04:01 Est GFR (Non-Af Amer) 24 (> 60) L 08/24/17 04:01 Glucose 120 mg/dL (70-105) H 08/24/17 04:01 POC Glucose 133 mg/dL (70-99) H 08/23/17 20:59 Calculated Osmolality 277 (280-300) L 08/24/17 04:01 Calcium 7.5 mg/dL (8.6-10.3) L 08/24/17 04:01 AST 9 Units/L (13-39) L 08/20/17 12:17 Alkaline Phosphatase 120 Units/L (34-104) H 08/20/17 12:17 B-Natriuretic Peptide 175 pg/mL (Less than 100) H 08/20/17 12:17 Serum Total Protein 5.9 g/dL (6.4-8.9) L 08/20/17 12:17 Albumin 2.8 g/dL (3.5-5.7) L 08/20/17 12:17 Albumin/Globulin Ratio 0.9 (1.1-2.2) L 08/20/17 12:17 Lipase 8 Units/L (11-82) L 08/20/17 12:17 - Clinical Findings Intake & Output: Intake & Output 08/23/17 08/24/17 08/24/17 23:59 07:59 15:59 Intake Total 120 / 120 240 / 240 Output Total 0 / 0 0 / 0 Balance 120 / 120 240 / 240 Weight 125.2 kg Consult Discharge Plan - Plan Referrals: Stephanie Morgan, CATERING ATTENDANT [Primary Care Provider] - 08/27/17 11:00 am <Luci Fraser - Last Filed: 08/24/17 22:13> Date of Encounter: 08/24/17 Objective PUL Vital signs: Last Vital Signs Temp 98.8 F 08/24/17 20:00 Pulse 71 08/24/17 20:00 Resp 16 08/24/17 20:00 BP 143/50 08/24/17 20:00 Pulse Ox 93 08/24/17 20:00 Results - Laboratory Findings CBC and BMP: 08/24/17 15:42 08/24/17 04:01 PT/INR, D-dimer PT 13.2 Seconds (9.4-12.1) H 08/21/17 04:07 Abnormal lab findings: Abnormal lab results WBC 13.5 K/mcL (4.3-11.1) H 08/24/17 04:01 RBC 2.56 M/mcL (3.82-4.97) L 08/24/17 04:01 Hgb 7.6 g/dL (11.5-15.4) L 08/24/17 15:42 Hct 24.2 % (35.3-44.9) L 08/24/17 15:42 MCH 27.7 pg (28.0-33.3) L 08/24/17 04:01 MCHC 30.6 g/dL (31.6-35.5) L 08/24/17 04:01 RDW 15.5 % (11.5-14.5) H 08/24/17 04:01 MPV 9.1 fL (9.4-12.4) L 08/24/17 04:01 Neutrophils # 11.2 K/mcL (1.6-8.9) H 08/24/17 04:01 PT 13.2 Seconds (9.4-12.1) H 08/21/17 04:07 APTT 25.3 Seconds (26.0-36.0) L 08/21/17 04:07 Sodium 129 mEq/L (136-145) L 08/24/17 04:01 Carbon Dioxide 19 mEq/L (23-29) L 08/24/17 04:01 BUN 35 mg/dL (8-23) H 08/24/17 04:01 Creatinine 2.07 mg/dL (0.60-1.20) H 08/24/17 04:01 Est GFR ( Amer) 29 (> 60) L 08/24/17 04:01 Est GFR (Non-Af Amer) 24 (> 60) L 08/24/17 04:01 Glucose 120 mg/dL (70-105) H 08/24/17 04:01 Calculated Osmolality 277 (280-300) L 08/24/17 04:01 Calcium 7.5 mg/dL (8.6-10.3) L 08/24/17 04:01 AST 9 Units/L (13-39) L 08/20/17 12:17 Alkaline Phosphatase 120 Units/L (34-104) H 08/20/17 12:17 B-Natriuretic Peptide 175 pg/mL (Less than 100) H 08/20/17 12:17 Serum Total Protein 5.9 g/dL (6.4-8.9) L 08/20/17 12:17 Albumin 2.8 g/dL (3.5-5.7) L 08/20/17 12:17 Albumin/Globulin Ratio 0.9 (1.1-2.2) L 08/20/17 12:17 Lipase 8 Units/L (11-82) L 08/20/17 12:17 - Clinical Findings Intake & Output: Intake & Output 08/24/17 08/24/17 08/24/17 07:59 15:59 23:59 Intake Total 240 / 240 420 / 420 360 / 360 Output Total 0 / 0 500 / 500 Balance 240 / 240 420 / 420 -140 / -140 Weight 125.2 kg - Attending Attestation Patient seen and examined. Labs, radiology, chart personally reviewed. 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 Discussed with primary team and preferred to have diagnosis before proceeding nursing PleurX pleural catheter.
--- NOTE | 2017-08-24 11:40 | Internal Med Progress Note ---
<Hanna Leblanc - Last Filed: 08/24/17 14:24> Date of Encounter: 08/24/17 Time of Encounter: 11:38 - Assessment and plan (1) Acute on chronic renal failure Current Visit: Yes Status: Acute Assessment and plan: Nonoliguric, likely prerenal. Creatinine improved this morning to 2.07 from 2.20 Plan: Will consult nephrology for management in the setting of GLENNA with hyponatremia-- recommendations appreciated Continue to hold IVF Continue Strict I/Os Continue to hold lisinopril, and daily lasix Will avoid nephrotoxins and renally dose as able Qualifiers: Acute renal failure type: unspecified Chronic kidney disease stage: stage 3 (moderate) Qualified Code(s): N17.9 - Acute kidney failure, unspecified; N18.3 - Chronic kidney disease, stage 3 (moderate) (2) Recurrent right pleural effusion Current Visit: Yes Status: Acute Assessment and plan: likely to be malignant-bloody, pleural fluid cytology has no yield previously, will repeat cytology on 1.5 L removed from right lung via thoracentesis 08/23 Pt to have lung bx and thoracentesis tomorrow as this will be day 5 off plavix. Repeat cytology pending, previous cytology negative. Pulm plans for pleurex cath if fluid re-accumulates after thoracentesis. Pt has been retaining fluid, SOB with b/l pedal and hand edema. 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 Plan: Oncology consulted, appreciate recommendations hold plavix (4) Diabetes mellitus Current Visit: Yes Status: Chronic Assessment and plan: Fasting sugars stable Plan: continue low dose ISS Accuchecks ACHS ADA diet Hold po meds Qualifiers: Diabetes mellitus type: type 2 Diabetes mellitus termite exterminator insulin use: with termite exterminator use Diabetes mellitus complication status: without complication Qualified Code(s): E11.9 - Type 2 diabetes mellitus without complications; Z79.4 - group home (current) use of insulin (5) Hypertension Current Visit: Yes Status: Chronic Assessment and plan: controlled, continue home medications Qualifiers: Hypertension type: essential hypertension Qualified Code(s): I10 - Essential (primary) hypertension (6) CKD (chronic kidney disease) stage 3, GFR 30-59 ml/min Current Visit: Yes Status: Chronic Assessment and plan: as in GLENNA on CKD (7) Seizure Current Visit: Yes Status: Chronic Assessment and plan: hx of seizure - continue seizure med (8) Hypothyroid Current Visit: Yes Status: Chronic Assessment and plan: continue home dose of levothyroxine Qualifiers: Hypothyroidism type: acquired Qualified Code(s): E03.9 - Hypothyroidism, unspecified (9) Reactive airway disease Current Visit: Yes Status: Chronic Assessment and plan: continue med Qualifiers: Asthma severity: mild Asthma persistence: persistent Asthma complication type: uncomplicated Qualified Code(s): J45.30 - Mild persistent asthma, uncomplicated (10) Hyponatremia Current Visit: Yes Status: Acute Assessment and plan: Na 133 on admission, decreased to 129 today. Consider SIADH in setting of possible malignancy. Plan: Will consult nephrology for assistance in management Fluid restriction One time dose of lasix 20mg IV UA, urine Na CMP in AM - Time Spent With Patient Total time spent is greater than 50% in coordination of care (as documented) at patient's floor/unit and/or counseling patient: - Subjective Interval history: Pt seem and examined, sitting in chair at bedside. She complains of pain in her buttocks. She also complains of SOB and pain on the right at rest with sharp pains in the right with deep breaths. She denies respiratory distress. She also has swelling of both hands and legs. - Constitutional Vitals: Temp Pulse Resp BP Pulse Ox 99.5 F 72 15 108/91 94 08/24/17 06:58 08/24/17 06:58 08/24/17 06:58 08/24/17 06:58 08/24/17 06:58 General appearance: Present: cooperative, A&O X 3, morbidly obese, pleasant, no acute distress, answers questions appropriately - Head Head exam: Present: atraumatic, normocephalic - Eye Eye exam: Present: PERRL, conjuntiva pink, sclera anicteric Pupils: Present: PERRL - ENT ENT exam: Present: mucous membranes dry - Neck Neck exam general surgery: Present: supple, trachea midline. Absent: lymphadenopathy - Respiratory Respiratory exam: Present: decreased breath sounds (on the right). Absent: accessory muscle use, rales, respiratory distress, rhonchi, wheezes, tachypnea - Cardiovascular Cardiovascular exam: Present: RRR, +S1, +S2. Absent: diastolic murmur, gallop, rubs, systolic murmur - GI/Abdominal GI/Abdominal exam: Present: normal bowel sounds, soft, no peritoneal signs. Absent: distended, tenderness - Extremities Exam Extremities exam: Present: normal capillary refill, pedal edema, radial pulses palpable and symmetrical (trace b/l) - Expanded Upper Extremities Exam Forearm wrist exam: Present: swelling Hand wrist exam: Present: swelling (2+ pitting edema b/l L>R) - Neurological Exam Neurological exam: Present: oriented X3, no focal deficits. Absent: facial droop, speech deficit - Psychiatric Psychiatric exam: Present: agitated, anxious - Skin Skin exam: Present: dry, intact Internal Medicine: Result - Labs CBC & Chem 7: 08/24/17 04:01 08/24/17 04:01 Labs: Short CBC 08/24/17 Range/Units 04:01 WBC 13.5 H (4.3-11.1) K/mcL Hgb 7.1 L (11.5-15.4) g/dL Hct 23.2 L (35.3-44.9) % Plt Count 369 (140-400) K/mcL Neutrophils # 11.2 H (1.6-8.9) K/mcL BMP 08/24/17 04:01 Sodium 129 L Potassium 3.7 Chloride 102 Carbon Dioxide 19 L BUN 35 H Creatinine 2.07 H Glucose 120 H Calcium 7.5 L - ABG Interpretation ABG results: PT/INR, D-dimer PT 13.2 Seconds (9.4-12.1) H 08/21/17 04:07 Consult Discharge Plan - Plan Referrals: Stephanie Morgan, MEDICAL RECORDS ADMINISTRATOR [Primary Care Provider] - 08/27/17 11:00 am <Telma Joe - Last Filed: 08/24/17 18:54> Date of Encounter: 08/24/17 - Assessment and plan (1) Diabetes mellitus Current Visit: Yes Status: Chronic Qualifiers: Qualified Code(s): E11.9 - Type 2 diabetes mellitus without complications; Z79.4 - group home (current) use of insulin (2) Hypertension Current Visit: Yes Status: Chronic Qualifiers: Qualified Code(s): I10 - Essential (primary) hypertension (3) CKD (chronic kidney disease) stage 3, GFR 30-59 ml/min Current Visit: Yes Status: Chronic (4) Recurrent right pleural effusion Current Visit: Yes Status: Acute (5) Seizure Current Visit: Yes Status: Chronic (6) Hypothyroid Current Visit: Yes Status: Chronic (7) Reactive airway disease Current Visit: Yes Status: Chronic Qualifiers: Qualified Code(s): J45.30 - Mild persistent asthma, uncomplicated (8) 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 Current Visit: Yes Status: Acute (9) Acute on chronic renal failure Current Visit: Yes Status: Acute Qualifiers: Qualified Code(s): N17.9 - Acute kidney failure, unspecified; N18.3 - Chronic kidney disease, stage 3 (moderate) (10) Hyponatremia Current Visit: Yes Status: Acute - Time Spent With Patient Total time spent is greater than 50% in coordination of care (as documented) at patient's floor/unit and/or counseling patient: - Constitutional Vitals: Temp Pulse Resp BP Pulse Ox 97.9 F 79 18 163/62 92 08/24/17 17:12 08/24/17 17:12 08/24/17 17:12 08/24/17 17:12 08/24/17 17:12 Internal Medicine: Result - Labs CBC & Chem 7: 08/24/17 15:42 08/24/17 04:01 Labs: Short CBC 08/24/17 08/24/17 Range/Units 04:01 15:42 WBC 13.5 H (4.3-11.1) K/mcL Hgb 7.1 L 7.6 L (11.5-15.4) g/dL Hct 23.2 L 24.2 L (35.3-44.9) % Plt Count 369 (140-400) K/mcL Neutrophils # 11.2 H (1.6-8.9) K/mcL BMP 08/24/17 04:01 Sodium 129 L Potassium 3.7 Chloride 102 Carbon Dioxide 19 L BUN 35 H Creatinine 2.07 H Glucose 120 H Calcium 7.5 L - ABG Interpretation ABG results: PT/INR, D-dimer PT 13.2 Seconds (9.4-12.1) H 08/21/17 04:07 - Attending Attestation I examined this patient and my medical decision-making was reviewed with the Resident Physician. I agree with the documented findings, disposition and treatment plan as described except to the extent set forth below.
[2017-08-24] MEDS ORDERED: Furosemide 20 MG/2 ML VIAL IVP ONE (13:39)
[2017-08-24] MEDS: Aspirin Enteric Coated 81 MG Tablet PO SCH (14:44)
[2017-08-24 16:02] LABS: Hematocrit 24.2 % (35.3-44.9); Hemoglobin 7.6 g/dL (11.5-15.4)
[2017-08-24] MEDS: Insulin DETEMIR 100 UNIT/ML X5UNITS SQ SCH (19:59)
[2017-08-25 00:45] LABS: Bilirubin,Urine Negative (Negative); Blood,Urine Negative (Negative); Clarity,Urine Cloudy (Clear); Color,Urine Yellow (Yellow); Glucose,Urine (UA) Normal (Normal); Ketones,Urine Negative (Negative); Leukocyte Esterase,Urine Moderate (Negative); Nitrite,Urine Negative (Negative); PH,Urine 5.5 pH Units (5.0-8.0); Protein,Urine Trace mg/dL (Neg-Trace); Specific Gravity,Urine 1.017 (1.010-1.025); Urobilinogen,Urine Normal (Normal)
[2017-08-25 00:46] LABS: Bacteria,Urine None Seen per hpf (None-Few); Hyaline Casts,Urine None Seen per lpf (None-Few); Squamous Epithelial Cell,Urine Many per lpf (None-Few); WBC,Urine 15-30 per hpf (0-3)
[2017-08-25 01:03] LABS: RBC,Urine 0-3 per hpf (0-3)
[2017-08-25 04:59] LABS: Basophils % 0.1 %; Eosinophils # 0.3 K/mcL (0.0-0.6); Eosinophils % 2.8 %; Hematocrit 23.3 % (35.3-44.9); Hemoglobin 7.2 g/dL (11.5-15.4); Immature Granulocytes % 0.8 % (0-4); Immature Platelets 1.1 % (1.1-6.1); Lymphocytes # 0.8 K/mcL (0.6-4.6); Lymphocytes % 6.9 %; Mean Corpuscular HGB Conc 30.9 g/dL (31.6-35.5); Mean Corpuscular Hemoglobin 27.9 pg (28.0-33.3); Mean Corpuscular Volume 90.3 fL (83.0-100.0); Mean Platelet Volume 8.9 fL (9.4-12.4); Monocytes # 0.7 K/mcL (0.0-1.3); Monocytes % 6.2 %; Platelet Count 401 K/mcL (140-400); Red Blood Count 2.58 M/mcL (3.82-4.97); Red Cell Distribution Width 15.2 % (11.5-14.5); Segmented Neutrophils % 83.2 %
[2017-08-25 05:03] LABS: INR 1.1; Prothrombin Time 12.2 Seconds (9.4-12.1)
[2017-08-25 05:06] LABS: Activated Partial Thrombo Time 28.9 Seconds (26.0-36.0)
[2017-08-25 05:15] LABS: Albumin 2.3 g/dL (3.5-5.7); Albumin/Globulin Ratio 0.7 (1.1-2.2); Bilirubin,Total 0.2 mg/dL (0.3-1.0); Calcium 7.6 mg/dL (8.6-10.3); Globulin 3.4 g/dL (2.4-3.5); Potassium 3.8 mEq/L (3.5-5.1); Total Protein 5.7 g/dL (6.4-8.9)
[2017-08-25] MEDS: *HR* Heparin 5,000 UNIT/ML VIAL SQ SCH (05:24)
[2017-08-25] MEDS: Levothyroxine 25 MCG TABLET PO SCH (05:24)
[2017-08-25] MEDS: Insulin LISPRO 300 UNITS/3 ML VIAL SQ SCH ×4 (07:30→21:38)
--- NOTE | 2017-08-25 07:45 | Internal Med Progress Note ---
<Hanna Leblanc - Last Filed: 08/25/17 07:42> Date of Encounter: 08/25/17 Time of Encounter: 07:44 - Assessment and plan (1) Recurrent right pleural effusion Current Visit: Yes Status: Acute Assessment and plan: Likely to be malignant-bloody, pleural fluid cytology has no yield previously, will repeat cytology on 1.5 L removed from right lung via thoracentesis 08/23 Pt to have lung bx and thoracentesis today as this will be day 5 off plavix. Repeat cytology shows reactive mesothelial cells, inflammatory cells, and "atypical cells" from 08/20 pleural fluid cytology pending, previous cytology negative. Pulm plans for pleurex cath if fluid re-accumulates after thoracentesis. Pt has been retaining fluid, SOB with b/l hand edema. Pedal edema and edema of fingers improved from yesterday, however pt has wheezing on the left. Plan: Lung bx today with IR, possible thoracentess Fluid restriction Continue to hold plavix Pulmonology consulted, appreciate their recommendations (2) Acute on chronic renal failure Current Visit: Yes Status: Acute Assessment and plan: Nonoliguric, likely prerenal. Creatinine improved this morning to 1.76 from 2.07 Plan: Nephrology has been consulted, appreciate their recommendations. Consider restarting lasix based on nephrology recs. 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 Current Visit: Yes Status: Acute Assessment and plan: Pt to have lung bx with IR today Repeat cytology shows reactive mesothelial cells, inflammatory cells, and "atypical cells" from 08/20 pleural fluid Plan: Oncology consulted, appreciate recommendations hold plavix (4) Diabetes mellitus Current Visit: Yes Status: Chronic Assessment and plan: Fasting sugars stable Plan: continue low dose ISS Accuchecks ACHS ADA diet Hold po meds Qualifiers: Diabetes mellitus type: type 2 Diabetes mellitus terminologist insulin use: with retirement use Diabetes mellitus complication status: without complication Qualified Code(s): E11.9 - Type 2 diabetes mellitus without complications; Z79.4 - [facility] (current) use of insulin (5) Hypertension Current Visit: Yes Status: Chronic Assessment and plan: controlled, continue home medications Qualifiers: Hypertension type: essential hypertension Qualified Code(s): I10 - Essential (primary) hypertension (6) CKD (chronic kidney disease) stage 3, GFR 30-59 ml/min Current Visit: Yes Status: Chronic Assessment and plan: as in GLENNA on CKD (7) Seizure Current Visit: Yes Status: Chronic Assessment and plan: hx of seizure - continue seizure med (8) Hypothyroid Current Visit: Yes Status: Chronic Assessment and plan: continue home dose of levothyroxine Qualifiers: Hypothyroidism type: acquired Qualified Code(s): E03.9 - Hypothyroidism, unspecified (9) Reactive airway disease Current Visit: Yes Status: Chronic Assessment and plan: continue med Qualifiers: Asthma severity: mild Asthma persistence: persistent Asthma complication type: uncomplicated Qualified Code(s): J45.30 - Mild persistent asthma, uncomplicated (10) Hyponatremia Current Visit: Yes Status: Acute Assessment and plan: Na 133 on admission, decreased to 129 08/24, improved today to 131 after fluid restriction and 1 dose of lasix 20mg IV. Consider SIADH in setting of possible malignancy. Urine Na <10 Plan: Nephrology consulted for assistance in management, appreciate their recommendations Continue 1.5L Fluid restriction - Time Spent With Patient Total time spent is greater than 50% in coordination of care (as documented) at patient's floor/unit and/or counseling patient: - Subjective Interval history: Pt seem and examined, lying comfortably in bed. She complains of SOB and pain on the right at rest with sharp pains in the right with deep breaths. She denies respiratory distress. She also has swelling of both hands that has improved slightly. - Constitutional Vitals: Temp Pulse Resp BP Pulse Ox 98.1 F 78 17 152/67 96 08/25/17 07:20 08/25/17 07:00 08/25/17 07:00 08/25/17 07:00 08/25/17 07:00 General appearance: Present: cooperative, A&O X 3, morbidly obese, pleasant, no acute distress, answers questions appropriately - Head Head exam: Present: atraumatic, normocephalic - Eye Eye exam: Present: PERRL, conjuntiva pink, sclera anicteric Pupils: Present: PERRL - ENT ENT exam: Present: mucous membranes dry - Respiratory Respiratory exam: Present: decreased breath sounds (on the right), wheezes (on the left). Absent: accessory muscle use, tachypnea - Cardiovascular Cardiovascular exam: Present: RRR, +S1, +S2. Absent: diastolic murmur, gallop, rubs, systolic murmur - GI/Abdominal GI/Abdominal exam: Present: normal bowel sounds, soft, no peritoneal signs. Absent: distended, tenderness - Extremities Exam Extremities exam: Present: normal capillary refill, warm, radial pulses palpable and symmetrical. Absent: pedal edema - Expanded Upper Extremities Exam Hand wrist exam: Present: swelling (of the hand, finger swelling has improved) - Neurological Exam Neurological exam: Present: CN II-XII intact, oriented X3, no focal deficits. Absent: pronater drift, facial droop, speech deficit - Psychiatric Psychiatric exam: Present: depressed - Skin Skin exam: Present: dry, intact Internal Medicine: Result - Labs CBC & Chem 7: 08/25/17 03:52 08/25/17 03:52 Labs: Short CBC 08/24/17 08/25/17 Range/Units 15:42 03:52 WBC 12.0 H (4.3-11.1) K/mcL Hgb 7.6 L 7.2 L (11.5-15.4) g/dL Hct 24.2 L 23.3 L (35.3-44.9) % Plt Count 401 H (140-400) K/mcL Neutrophils # 10.0 H (1.6-8.9) K/mcL BMP 08/25/17 03:52 Sodium 131 L Potassium 3.8 Chloride 104 Carbon Dioxide 19 L BUN 33 H Creatinine 1.76 H Glucose 128 H Calcium 7.6 L Liver Function 08/25/17 Range/Units 03:52 Total Bilirubin 0.2 L (0.3-1.0) mg/dL AST 7 L (13-39) Units/L ALT 7 (7-52) Units/L Alkaline Phosphatase 97 (34-104) Units/L Albumin 2.3 L (3.5-5.7) g/dL Urine 08/25/17 Range/Units 00:02 Urine Color Yellow (Yellow) Urine Clarity Cloudy A (Clear) Urine pH 5.5 (5.0-8.0) pH Units Ur Specific [place] 1.017 (1.010-1.025) Urine Protein Trace (Neg-Trace) mg/dL Urine Glucose (UA) Normal (Normal) mg/dL - ABG Interpretation ABG results: PT/INR, D-dimer PT 12.2 Seconds (9.4-12.1) H 08/25/17 03:52 Consult Discharge Plan - Plan Referrals: Stephanie Morgan HYDROGEOLOGY PROFESSOR [Primary Care Provider] - 08/27/17 11:00 am <Telma Joe - Last Filed: 08/25/17 18:23> Date of Encounter: 08/25/17 - Assessment and plan (1) Diabetes mellitus Current Visit: Yes Status: Chronic Qualifiers: Diabetes mellitus type: type 2 Diabetes mellitus retirement insulin use: with terminologist use Diabetes mellitus complication status: without complication Qualified Code(s): E11.9 - Type 2 diabetes mellitus without complications; Z79.4 - intermediate designer (current) use of insulin (2) Hypertension Current Visit: Yes Status: Chronic Qualifiers: Hypertension type: essential hypertension Qualified Code(s): I10 - Essential (primary) hypertension (3) CKD (chronic kidney disease) stage 3, GFR 30-59 ml/min Current Visit: Yes Status: Chronic (4) Recurrent right pleural effusion Current Visit: Yes Status: Acute (5) Seizure Current Visit: Yes Status: Chronic (6) Hypothyroid Current Visit: Yes Status: Chronic (7) Reactive airway disease Current Visit: Yes Status: Chronic Qualifiers: Asthma severity: mild Asthma persistence: persistent Asthma complication type: uncomplicated Qualified Code(s): J45.30 - Mild persistent asthma, uncomplicated (8) 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 Current Visit: Yes Status: Acute (9) Acute on chronic renal failure Current Visit: Yes Status: Acute Qualifiers: Acute renal failure type: unspecified Chronic kidney disease stage: stage 3 (moderate) Qualified Code(s): N17.9 - Acute kidney failure, unspecified; N18.3 - Chronic kidney disease, stage 3 (moderate) (10) Hyponatremia Current Visit: Yes Status: Acute - Time Spent With Patient Total time spent is greater than 50% in coordination of care (as documented) at patient's floor/unit and/or counseling patient: - Constitutional Vitals: Temp Pulse Resp BP Pulse Ox 98.0 F 70 18 145/67 98 08/25/17 16:19 08/25/17 16:19 08/25/17 16:19 08/25/17 16:19 08/25/17 16:19 Internal Medicine: Result - Labs CBC & Chem 7: 08/25/17 12:01 08/25/17 03:52 Labs: Short CBC 08/25/17 08/25/17 Range/Units 03:52 12:01 WBC 12.0 H (4.3-11.1) K/mcL Hgb 7.2 L 7.2 L (11.5-15.4) g/dL Hct 23.3 L 23.3 L (35.3-44.9) % Plt Count 401 H (140-400) K/mcL Neutrophils # 10.0 H (1.6-8.9) K/mcL BMP 08/25/17 03:52 Sodium 131 L Potassium 3.8 Chloride 104 Carbon Dioxide 19 L BUN 33 H Creatinine 1.76 H Glucose 128 H Calcium 7.6 L Liver Function 08/25/17 Range/Units 03:52 Total Bilirubin 0.2 L (0.3-1.0) mg/dL AST 7 L (13-39) Units/L ALT 7 (7-52) Units/L Alkaline Phosphatase 97 (34-104) Units/L Albumin 2.3 L (3.5-5.7) g/dL Urine 08/25/17 Range/Units 00:02 Urine Color Yellow (Yellow) Urine Clarity Cloudy A (Clear) Urine pH 5.5 (5.0-8.0) pH Units Ur Specific [place] 1.017 (1.010-1.025) Urine Protein Trace (Neg-Trace) mg/dL Urine Glucose (UA) Normal (Normal) mg/dL - ABG Interpretation ABG results: PT/INR, D-dimer PT 12.2 Seconds (9.4-12.1) H 08/25/17 03:52 - Impressions Impressions Thoracentesis 08/25/17 00:00 IMPRESSION: 1. CT-guided core biopsy of a right lung mass performed. 2. CT-guided right-sided thoracentesis performed. 300 mL of dark red fluid was able to be aspirated. Residual right-sided pleural fluid was present, likely related to loculations and/or complex debris within the effusion. D/ / 08/25/2017 15:35:56 Rob Menard MD / [email or web address] Interpreting Provider: Rob Menard MD Lung Biopsy CT 08/25/17 07:00 IMPRESSION: 1. CT-guided core biopsy of a right lung mass performed. 2. CT-guided right-sided thoracentesis performed. 300 mL of dark red fluid was able to be aspirated. Residual right-sided pleural fluid was present, likely related to loculations and/or complex debris within the effusion. D/ / 08/25/2017 15:35:56 Rob Menard MD / [email or web address] Interpreting Provider: Rob Menard MD Chest X-Ray 08/25/17 10:30 IMPRESSION: 1. No pneumothorax status post thoracentesis and lung biopsy. 2. Decreased left pleural effusion with moderate residual and associated airspace disease. 3. Similar rounded mass in the periphery of the right mid lung with smaller nodular densities in the left lung. D/ / Shade Serrano / Shade Serrano Interpreting Provider: Shade Serrano - Attending Attestation I examined this patient and my medical decision-making was reviewed with the Resident Physician. I agree with the documented findings, disposition and treatment plan as described except to the extent set forth below.
[2017-08-25] MEDS ORDERED: *HR* Midazolam HCl 2 MG/2 ML VIAL IVP ONE (08:31)
[2017-08-25] MEDS ORDERED: *HR* FentaNYL (PF) 100 MCG/2 ML VIAL IVP ONE (08:31)
--- NOTE | 2017-08-25 08:33 | Pre-Sedation Evaluation ---
Pre-sedation evaluation - Pre-sedation checklist Date of procedure: 08/25/17 Procedure: lung bx, thoracentesis Recent Vitals: Last Vital Signs Temp 98.1 F 08/25/17 07:20 Pulse 78 08/25/17 07:00 Resp 17 08/25/17 07:00 BP 152/67 08/25/17 07:00 Pulse Ox 96 08/25/17 07:00 Dietary Status: NPO 6 hours prior to procedure Airway Assessment: Patient can open mouth completely, TMJ function normal, Micrognathia (under-bite, receding chin) absent, Neck with adequate range of motion ASA Classification *see protocol: CLASS II-Mild systemic disease Plan of Care: Pt appropriate candidate for procedure/moderate/conscious sedation , Risks/benefits of procedure/sedation discussed w/ patient/family, If not NPO; Risk of intake outweiged by necessity to perform procedure
[2017-08-25] MEDS ORDERED: 0.9 % Sodium Chloride 500 ML ONE (08:50)
--- NOTE | 2017-08-25 08:57 | Pulmonology Progress Note ---
Date of Encounter: 08/25/17 Assessment and Plan (1) Recurrent right pleural effusion Current Visit: Yes Status: Acute Concerned for malignant etiology 08/20/17 repeat right-sided thoracentesis drained 1.5 L fluid Multiple masses in b/l lungs--increased in size and number since 2016 Largest mass in RUL measuring 4.8 cm diameter Imaging reviewed with IR regarding obtaining a lung biopsy Reactive mesothelial cells, inflammatory cells, and "atypical cells" from 08/20 pleural fluid cytology Oncology following Plan CT guided biopsy by IR planned for 08/25 Considering Pleurx (if IR does thoracentesis and if fluid re-accumulates) (2) Multiple lung nodules on CT Current Visit: Yes Status: Acute As above Subjective Principal diagnosis: recurrent right pleural effusion Interval history: Pt seen and examined this afternoon at bedside. When I entered the room, pt was sleeping in her bed and appeared comfortable. Pt states she feels the same as yesterday and denies increased dyspnea. No complaints at time of my visit. However, pt would like to know what her overall plan is and whether or not a lung biopsy will be done--she states she's been back and forth between room and CT and hearing conflicting plans about whether or not a CT biopsy will be done and if so, when? Objective PUL Vital signs: Last Vital Signs Temp 98.1 F 08/25/17 07:20 Pulse 82 08/25/17 08:53 Resp 22 08/25/17 08:53 BP 143/3 08/25/17 08:53 Pulse Ox 93 08/25/17 08:53 Results - Laboratory Findings CBC and BMP: 08/25/17 03:52 08/25/17 03:52 PT/INR, D-dimer PT 12.2 Seconds (9.4-12.1) H 08/25/17 03:52 Abnormal lab findings: Abnormal lab results WBC 12.0 K/mcL (4.3-11.1) H 08/25/17 03:52 RBC 2.58 M/mcL (3.82-4.97) L 08/25/17 03:52 Hgb 7.2 g/dL (11.5-15.4) L 08/25/17 03:52 Hct 23.3 % (35.3-44.9) L 08/25/17 03:52 MCH 27.9 pg (28.0-33.3) L 08/25/17 03:52 MCHC 30.9 g/dL (31.6-35.5) L 08/25/17 03:52 RDW 15.2 % (11.5-14.5) H 08/25/17 03:52 Plt Count 401 K/mcL (140-400) H 08/25/17 03:52 MPV 8.9 fL (9.4-12.4) L 08/25/17 03:52 Neutrophils # 10.0 K/mcL (1.6-8.9) H 08/25/17 03:52 PT 12.2 Seconds (9.4-12.1) H 08/25/17 03:52 Sodium 131 mEq/L (136-145) L 08/25/17 03:52 Carbon Dioxide 19 mEq/L (23-29) L 08/25/17 03:52 BUN 33 mg/dL (8-23) H 08/25/17 03:52 Creatinine 1.76 mg/dL (0.60-1.20) H 08/25/17 03:52 Est GFR ( Amer) 35 (> 60) L 08/25/17 03:52 Est GFR (Non-Af Amer) 29 (> 60) L 08/25/17 03:52 Glucose 128 mg/dL (70-105) H 08/25/17 03:52 POC Glucose 156 mg/dL (70-99) H 08/24/17 21:07 Calcium 7.6 mg/dL (8.6-10.3) L 08/25/17 03:52 Total Bilirubin 0.2 mg/dL (0.3-1.0) L 08/25/17 03:52 AST 7 Units/L (13-39) L 08/25/17 03:52 B-Natriuretic Peptide 175 pg/mL (Less than 100) H 08/20/17 12:17 Serum Total Protein 5.7 g/dL (6.4-8.9) L 08/25/17 03:52 Albumin 2.3 g/dL (3.5-5.7) L 08/25/17 03:52 Albumin/Globulin Ratio 0.7 (1.1-2.2) L 08/25/17 03:52 Lipase 8 Units/L (11-82) L 08/20/17 12:17 Urine Clarity Cloudy (Clear) A 08/25/17 00:02 Ur Leukocyte Esterase Moderate (Negative) H 08/25/17 00:02 Urine Microscopic WBC 15-30 per hpf (0-3) H 08/25/17 00:02 Ur Squamous Epith Cells Many per lpf (None-Few) H 08/25/17 00:02 Urine Osmolality 257 mOsm/kg (300-1090) L 08/25/17 00:02 - Clinical Findings Intake & Output: Intake & Output 08/24/17 08/25/17 08/25/17 23:59 07:59 15:59 Intake Total 360 / 360 220 / 220 Output Total 500 / 500 600 / 600 Balance -140 / -140 -380 / -380 Consult Discharge Plan - Plan Referrals: Stephanie Morgan, BUTTON MACHINE OPERATOR [Primary Care Provider] - 08/27/17 11:00 am
[2017-08-25] MEDS ORDERED: Ipratropium/Albuterol Neb 3 ML IH ONE (09:01)
--- NOTE | 2017-08-25 09:40 | IR Procedure Note ---
Date of procedure: 08/25/17 Consent Obtained: Verbal consent, Written consent Timeout: Correct patient and procedure verified, Correct site verified, Time out performed, Skin prep completed Local anesthetic: Lidocaine 1% Indications: right effusion and masses Procedure Performed: thoracentesis and lung bx Was there an mechanic assistant present: No Site/Technique: right Estimated blood loss (cc): 1 Complications: None; Tolerated procedure well Post Procedure Treatment Plan: CXR Specimen: 4 cores; 300 cc fluid aspirated
--- NOTE | 2017-08-25 10:06 | Nephrology Consult Note ---
Date of Encounter: 08/25/17 Time of Encounter: 10:00 Assessment and Plan (1) Acute kidney injury Current Visit: No Status: Acute Elevated SCr mostly from per-renal state with urine sodium noted at <10 but improving almost to baseline Continue current supportive measures as working (2) Hyponatremia Current Visit: Yes Status: Acute Likely from hypovolemic state or multifactorial but does not appear to be a pure SIADH despite pulm issues Urine sodium noted very low and urine osmolality also on the low side as well Increase sodium in diet if possible (3) CKD (chronic kidney disease) stage 3, GFR 30-59 ml/min Current Visit: Yes Status: Chronic History of Present Illness - Reason for Consult Consult date: 08/25/17 Acute Kidney Injury, Chronic Kidney Disease, hyponatremia Requesting physician: Hanna Leblanc - History of Present Illness 71 y o female admitted with SOB and found with right pleural effusion along with lung nodules and a renal lesion suspicious for malignancy currenrly undergoing workup. Renal consulted for management of elevated SCR and low sodium. Sodium has ranged from 129 to 133 this admission and is currently at 131. SCr has ranged from 1.3 to 2.46 this admission and now currently at 1.76, GFR 29. Prior to this admission, her sodium range from normal from 136 to 140 except for an episode in 2016 where it dropped to 130. Baseline Scr ranges from 1.3 to 1.6 with an episode of GLENNA noted in 2016 as well. Past Med Surg Social Fam HX - Past Medical History Medical history: asthma, CHF, diabetes, hyperlipidemia, hypertension, seizures, other Additional medical history: history of brain tumor Psychiatric history: anxiety, depression, panic disorder - Past Surgical History Surgical History: cholecystectomy, coronary bypass (CABG), other Additional surgical history: Craniotomy, ankle surgery - Social History Smoking Status: Never smoker Smokeless Tobacco Status: No Alcohol use: none Drug use: none - Family History Father Adopted: No Living Status: Hx Family Cardiac Disorders: Yes Hx Family Respiratory Disorders: Yes Hx Family Cancer: Yes Medications and Allergies Furosemide [Lasix] 20 mg PO DAILY 11/30/14 [History] Insulin ASPART [NovoLOG] 0 unit SQ TIDWM PRN 03/13/15 [History] Pantoprazole Sodium [Protonix] 40 mg PO DAILY 03/13/15 [History] Aspirin [Adult Aspirin] 81 mg PO DAILY 08/12/17 [History] Atorvastatin Calcium [Lipitor] 20 mg PO DAILY 08/12/17 [History] Clopidogrel [Plavix] 75 mg PO DAILY 08/12/17 [History] Ergocalciferol (VITAMIN D2) [Vitamin D2] 50,000 unit PO QWEEK 08/12/17 [History] Escitalopram Oxalate 5 mg PO DAILY 08/12/17 [History] LevETIRAcetam [Keppra] 750 mg PO BID 08/12/17 [History] Levothyroxine Sodium [Levoxyl] 25 mcg PO DAILY 08/12/17 [History] Levothyroxine Sodium [Synthroid] 200 mcg PO DAILY 08/12/17 [History] Lisinopril [Zestril] 10 mg PO DAILY 08/12/17 [History] Metoprolol [Lopressor] 25 mg PO BID 08/12/17 [History] Montelukast [Singulair] 10 mg PO DAILY 08/12/17 [History] Phenytoin [Dilantin] 150 mg PO BID 08/12/17 [History] Pioglitazone HCl [Actos] 15 mg PO DAILY 08/12/17 [History] SitaGLIPtin [Januvia] 100 mg PO DAILY 08/12/17 [History] Tolterodine Tartrate [Detrol] 2 mg PO BID 08/12/17 [History] Acetaminophen [Tylenol] 650 mg PO Q6HR PRN tablet 08/18/17 [Rx] Benzonatate [Tessalon] 100 mg PO TID PRN 14 Days #42 capsule 08/18/17 [Rx] Insulin Glargine [Lantus] 15 unit SQ BID 30 Days #900 mls 08/18/17 [Rx] hydrALAZINE [HydrALAZINE] 25 mg PO TID tablet 08/18/17 [Rx] levoFLOXacin [Levaquin] 750 mg PO DAILY 3 Days #3 tablet 08/18/17 [Rx] 3 Allergy/AdvReac Type Severity Reaction Status Date / Time Tetanus Vaccines and Toxoid Allergy Unknown unknown Verified 08/20/17 11:53 [Tetanus Vaccines & Toxoid] Review of Systems All Systems: reviewed and no additional remarkable complaints except as stated ( 10 systems reviewed) Exam - Vital Signs Vital signs: Initial Vital Signs Pulse Ox 86 08/20/17 11:54 Vital Signs - Last 8 Hours Temp Pulse Resp BP Pulse Ox 08/25/17 09:24 81 13 155/43 96 08/25/17 09:19 82 18 149/49 94 08/25/17 09:14 81 18 140/47 95 08/25/17 09:09 81 17 130/50 95 08/25/17 09:03 80 16 134/41 94 08/25/17 08:53 82 22 143/3 93 08/25/17 07:20 98.1 F 08/25/17 07:00 78 17 152/67 96 Intake and Output 08/24/17 08/25/17 08/25/17 23:59 07:59 15:59 Intake Total 360 / 360 220 / 220 Output Total 500 / 500 600 / 600 Balance -140 / -140 -380 / -380 Intake: Oral 360 / 360 220 / 220 Output: Urine 500 / 500 600 / 600 Other: Meal Dinner Percent of Meal Consumed 30% Blood Glucose* 156 96 - General Appearance General appearance: chronically ill (NAD) EENT: ATNC, mucous membranes dry Neck: no JVD, supple Additional Comments: good areation ant bilat Cardiology: no edema, normal S1, normal S2 Gastrointestinal: no tenderness, no guarding Integumentary: warm and dry Neurologic: no focal deficit Musculoskeletal: no deformities Psychiatric: mood/affect appropriate, cooperative Results - Lab Results 08/29/17 22:10 08/29/17 04:15 Most recent lab results Calcium 7.6 mg/dL (8.6-10.3) L 08/25/17 03:52 Urine Sodium < 10.0 mEq/L 08/25/17 00:02 Consult Discharge Plan - Plan Additional Instructions: Will need BMP 1 week after discharge. Follow up with nephrology 4 weeks after discharge. Referrals: Stephanie Morgan CNP [Primary Care Provider] - 08/27/17 11:00 am Tequila Dixon MD [Partnered Physician] - (f/u 4 weeks from discharge)
[2017-08-25 12:32] LABS: Hematocrit 23.3 % (35.3-44.9); Hemoglobin 7.2 g/dL (11.5-15.4)
[2017-08-25] MEDS: Aspirin Enteric Coated 81 MG Tablet PO SCH (12:43)
[2017-08-25] MEDS: levETIRAcetam 250 MG TABLET PO SCH ×2 (12:44→20:14)
[2017-08-25] MEDS: hydrALAZINE 25 MG TABLET PO SCH ×3 (12:44→20:14)
--- NOTE | 2017-08-25 12:56 | Oncology Inp Progress Note ---
<Lupe Finney L - Last Filed: 08/26/17 09:27> Date of Encounter: 08/25/17 Time of Encounter: 11:00 (1) Lung mass Current Visit: No Status: Acute Assessment and plan: Recurrent pleural effusions concerning for malignancy. Initial cytology was nondiagnostic, repeat cytology shows reactive mesothelial cells, red cells, inflammatory cells and few atypical cells seen (which are most likely reactive mesothelial). Likely secondary to malignancy, metastatic. Restart plavix per rec from IR CT abdomen/pelvis from 08/12 without contrast reveals 1.2 cm hyperdense lesion in the midpole of the right kidney which is indeterminate. Unable to have IV contrast secondary to GLENNA on CKD. Consider MRI versus PET for staging S/P lung biopsy today-pathology pending Given history of malignant hemangiopericytoma, could be recurrence, primary lung cancer, or other metastatic disease (renal cell carcinoma). Patient is a never smoker which makes lung cancer less likely but still a real possibility. Plan of care discussed with patient will await biopsy results to discuss further management. 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 Phillips's attestation below for additional details Qualifiers: Anemia type: unspecified type Qualified Code(s): D64.9 - Anemia, unspecified Oncology: Subj Interval history: Ms. Almanza has just recently returned from her biopsy, she is a bit drowsy but able to carry on conversation. She states that her biopsy went well and without complication. She denies pain, increased SOB, headache, dizziness, visual changes, nausea, vomiting, diarrhea or constipation. - Constitutional Vitals: Vital Signs Temp Pulse Resp BP Pulse Ox 08/25/17 11:00 79 18 155/60 95 08/25/17 09:24 81 13 155/43 96 08/25/17 09:19 82 18 149/49 94 08/25/17 09:14 81 18 140/47 95 08/25/17 09:09 81 17 130/50 95 08/25/17 09:03 80 16 134/41 94 08/25/17 08:53 82 22 143/3 93 08/25/17 07:20 98.1 F 08/25/17 07:00 78 17 152/67 96 08/24/17 21:00 93 08/24/17 20:00 98.8 F 71 16 143/50 93 08/24/17 17:12 97.9 F 79 18 163/62 92 Intake and Output 08/24/17 08/25/17 08/25/17 23:59 07:59 15:59 Intake Total 360 / 360 220 / 220 Output Total 500 / 500 600 / 600 Balance -140 / -140 -380 / -380 Intake: Oral 360 / 360 220 / 220 Output: Urine 500 / 500 600 / 600 Other: Meal Dinner Percent of Meal Consumed 30% Blood Glucose* 156 96 92 General appearance: cooperative, no acute distress, obese, no febrile - Head Additional comments: ulcerated, necrotic lesion to right frontal - ENT ENT exam: Present: mucous membranes moist - Respiratory Respiratory exam: Present: decreased breath sounds, CTAB. Absent: respiratory distress - Cardiovascular Cardiovascular exam: Present: RRR, +S1, +S2 - GI/Abdominal GI/Abdominal exam: Present: normal bowel sounds, soft. Absent: guarding, rebound, tenderness - Extremities Exam Extremities exam: Absent: calf tenderness - Neurological Exam Neurological exam: Present: alert, oriented X3, no focal deficits, strengths equal and symetr throughout - Psychiatric Psychiatric exam: Present: normal affect, normal mood - Skin Skin exam: Present: dry, intact, normal color, warm Oncology: Obj Data - Labs CBC & Chem 7: 08/26/17 03:25 08/26/17 03:25 - Impressions Impressions Chest X-Ray 08/25/17 10:30 IMPRESSION: 1. No pneumothorax status post thoracentesis and lung biopsy. 2. Decreased left pleural effusion with moderate residual and associated airspace disease. 3. Similar rounded mass in the periphery of the right mid lung with smaller nodular densities in the left lung. D/ / Shade Serrano / Shade Serrano Interpreting Provider: Shade Serrano - ABG Interpretation ABG results: PT/INR, D-dimer PT 12.2 Seconds (9.4-12.1) H 08/25/17 03:52 Consult Discharge Plan - Plan Referrals: Stephanie Morgan, [employer]LE REPAIRER [Primary Care Provider] - 08/27/17 11:00 am <David Phillips - Last Filed: 08/26/17 13:31> Date of Encounter: 08/26/17 - Constitutional Vitals: Vital Signs Temp Pulse Resp BP Pulse Ox 08/26/17 11:51 98.4 F 69 16 142/57 94 08/26/17 07:34 98.4 F 77 18 154/61 92 08/25/17 23:52 98.0 F 69 18 143/69 97 08/25/17 21:00 92 08/25/17 20:47 98.5 F 81 18 139/52 92 08/25/17 16:19 98.0 F 70 18 145/67 98 Intake and Output 08/25/17 08/26/17 08/26/17 23:59 07:59 15:59 Intake Total 480 / 480 0 / 0 Output Total 400 / 400 250 / 250 Balance 80 / 80 0 / 0 -250 / -250 Intake: Oral 480 / 480 0 / 0 Output: Urine 400 / 400 Urine/Stool Mix 250 / 250 Other: Meal Breakfast Percent of Meal Consumed 0% Stool Size Moderate Smear Stool Consistency loose soft Stool Color Brown Brown # Voids 0 # Bowel Movements 1 Weight 125.9 kg Blood Glucose* 116 77 83 Oncology: Obj Data - Labs CBC & Chem 7: 08/26/17 03:25 08/26/17 03:25 Labs: Laboratory Results - last 24 hr 08/25/17 08/25/17 08/25/17 07:18 09:15 09:15 WBC RBC Hgb Hct MCV MCH MCHC RDW Plt Count MPV Immature Gran % Seg Neutrophils % Lymphocytes % Monocytes % Eosinophils % Basophils % Neutrophils # Lymphocytes # Monocytes # Eosinophils # Basophils # Sodium Potassium Chloride Carbon Dioxide BUN Creatinine Est GFR ( Amer) Est GFR (Non-Af Amer) BUN/Creatinine Ratio Glucose POC Glucose 96 Calculated Osmolality Calcium Pleural Fluid Volume 300.0 Pleural Appearance Bloody A Pleural pH 8.00 Pleural RBC 0.129 H Pleural Tot Nuc Cell 575 Pleural Neutrophils 60.0 Pleural Band Neuts Test Not Performed Pleural Eosinophils Test Not Performed Pleural Basophils Test Not Performed Pleural Lymphocytes % 32.0 Pleural Monocytes % 8.0 Pleural Other Cells % Test Not Performed Pleural Total Protein 3.3 Pleural Albumin 1.6 Pleural LDH 1162 Pleural Glucose 57 08/25/17 08/25/17 08/26/17 11:26 16:21 03:25 WBC 9.9 RBC 2.59 L Hgb 7.4 L Hct 23.6 L MCV 91.1 MCH 28.6 MCHC 31.4 L RDW 15.5 H Plt Count 377 MPV 8.7 L Immature Gran % 0.8 Seg Neutrophils % 79.2 Lymphocytes % 9.2 Monocytes % 6.9 Eosinophils % 3.7 Basophils % 0.2 Neutrophils # 7.9 Lymphocytes # 0.9 Monocytes # 0.7 Eosinophils # 0.4 Basophils # 0.0 Sodium Potassium Chloride Carbon Dioxide BUN Creatinine Est GFR ( Amer) Est GFR (Non-Af Amer) BUN/Creatinine Ratio Glucose POC Glucose 92 92 Calculated Osmolality Calcium Pleural Fluid Volume Pleural Appearance Pleural pH Pleural RBC Pleural Tot Nuc Cell Pleural Neutrophils Pleural Band Neuts Pleural Eosinophils Pleural Basophils Pleural Lymphocytes % Pleural Monocytes % Pleural Other Cells % Pleural Total Protein Pleural Albumin Pleural LDH Pleural Glucose 08/26/17 08/26/17 03:25 07:35 WBC RBC Hgb Hct MCV MCH MCHC RDW Plt Count MPV Immature Gran % Seg Neutrophils % Lymphocytes % Monocytes % Eosinophils % Basophils % Neutrophils # Lymphocytes # Monocytes # Eosinophils # Basophils # Sodium 134 L Potassium 3.9 Chloride 107 Carbon Dioxide 21 L BUN 28 H Creatinine 1.59 H Est GFR ( Amer) 39 L Est GFR (Non-Af Amer) 32 L BUN/Creatinine Ratio 18 Glucose 81 POC Glucose 77 Calculated Osmolality 283 Calcium 7.8 L Pleural Fluid Volume Pleural Appearance Pleural pH Pleural RBC Pleural Tot Nuc Cell Pleural Neutrophils Pleural Band Neuts Pleural Eosinophils Pleural Basophils Pleural Lymphocytes % Pleural Monocytes % Pleural Other Cells % Pleural Total Protein Pleural Albumin Pleural LDH Pleural Glucose - Impressions Impressions Thoracentesis 08/25/17 00:00 IMPRESSION: 1. CT-guided core biopsy of a right lung mass performed. 2. CT-guided right-sided thoracentesis performed. 300 mL of dark red fluid was able to be aspirated. Residual right-sided pleural fluid was present, likely related to loculations and/or complex debris within the effusion. D/ / 08/25/2017 15:35:56 Rob Menard MD / tanesha Interpreting Provider: Rob Menard MD Lung Biopsy CT 08/25/17 07:00 IMPRESSION: 1. CT-guided core biopsy of a right lung mass performed. 2. CT-guided right-sided thoracentesis performed. 300 mL of dark red fluid was able to be aspirated. Residual right-sided pleural fluid was present, likely related to loculations and/or complex debris within the effusion. D/ / 08/25/2017 15:35:56 Rob Menard MD / tanesha Interpreting Provider: Rob Menard MD - ABG Interpretation ABG results: PT/INR, D-dimer PT 12.2 Seconds (9.4-12.1) H 08/25/17 03:52 - Attending Attestation I examined this patient and my medical decision-making was reviewed with the Advanced Practice Nurse. I agree with the documented findings, disposition and treatment plan as described except to the extent set forth below. 1. Hemangiopericytoma which is a rare primary [place]CH[place] HAND tumor. She had it resected at [facility] a few years ago 2. She presents with a right lung mass 4.8 cm bilateral lung nodules around 1.1 cm. Right lung mass is been biopsied results pending She also had recurrent effusion about 1.5 L drained. Initial cytology was negative 3. 1.2 cm hyperdense mass in the right kidney Hemangiopericytoma is one of those [place]CHARD HAND tumors that can metastasize outside of [place]CHARD HAND. Primary lung cancer is also in the differential We will await pathology results before making any treatment decisions 4. She has ulcerated eczema-type lesion right frontal scalp about 5 cm rounded with depressed margin with hemorrhagic base. I am not sure if it is benign versus malignant. Will have dermatology involved. She may need biopsy
[2017-08-25 14:23] LABS: Total Protein,Pleural Fluid 3.3 g/dL (No Ref Range)
[2017-08-25 14:27] LABS: RBC,Pleural Fluid 0.129 M/mcL
[2017-08-25 14:30] LABS: Appearance of Pleural Fl Bloody (Clear)
[2017-08-25] MEDS ORDERED: Iron Sucrose Complex 400 MG in 0.9 % Sodium Chloride 250 ML IVPB ONE (17:43)
[2017-08-25] MEDS: Insulin DETEMIR 100 UNIT/ML X5UNITS SQ SCH (20:14)
[2017-08-26 04:24] LABS: Basophils % 0.2 %; Eosinophils # 0.4 K/mcL (0.0-0.6); Eosinophils % 3.7 %; Hematocrit 23.6 % (35.3-44.9); Hemoglobin 7.4 g/dL (11.5-15.4); Immature Granulocytes % 0.8 % (0-4); Lymphocytes # 0.9 K/mcL (0.6-4.6); Lymphocytes % 9.2 %; Mean Corpuscular HGB Conc 31.4 g/dL (31.6-35.5); Mean Corpuscular Hemoglobin 28.6 pg (28.0-33.3); Mean Corpuscular Volume 91.1 fL (83.0-100.0); Mean Platelet Volume 8.7 fL (9.4-12.4); Monocytes # 0.7 K/mcL (0.0-1.3); Monocytes % 6.9 %; Neutrophils # 7.9 K/mcL (1.6-8.9); Platelet Count 377 K/mcL (140-400); Red Blood Count 2.59 M/mcL (3.82-4.97); Red Cell Distribution Width 15.5 % (11.5-14.5); Segmented Neutrophils % 79.2 %
[2017-08-26 04:46] LABS: Calcium 7.8 mg/dL (8.6-10.3); Potassium 3.9 mEq/L (3.5-5.1)
[2017-08-26] MEDS: Nystatin POWDER 30 GM BOTTLE TP SCH ×2 (04:54→20:51)
[2017-08-26] MEDS: Levothyroxine 25 MCG TABLET PO SCH (05:32)
--- NOTE | 2017-08-26 07:21 | Internal Med Progress Note ---
<Hanna Leblanc - Last Filed: 08/26/17 15:17> Date of Encounter: 08/26/17 Time of Encounter: 07:21 - Assessment and plan (1) Recurrent right pleural effusion Current Visit: Yes Status: Acute Assessment and plan: Likely to be malignant-bloody, pleural fluid cytology has no yield previously, will repeat cytology on 1.5 L removed from right lung via thoracentesis 08/23 Pt had lung bx and thoracentesis yesterday. Pathology pending Repeat cytology shows reactive mesothelial cells, inflammatory cells, and "atypical cells" from 08/20 pleural fluid cytology pending, previous cytology negative. Pulm plans for pleurex cath if fluid re-accumulates. Pt fluid overload is improving: no SOB, hand edema improved and no pedal edema Plan: Fluid restriction Continue to hold plavix Pulmonology consulted, appreciate their recommendations (2) Acute on chronic renal failure Current Visit: Yes Status: Acute Assessment and plan: Nonoliguric, likely prerenal. Creatinine improved this morning to 1.59 from 1.76 Nephrology would like f/u 4 weeks after discharge with repeat BMP 1 week from discharge. Plan: Nephrology has been consulted, appreciate their recommendations. Consider restarting lasix based on nephrology recs. 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 Current Visit: Yes Status: Acute Assessment and plan: Pt had lung bx with IR yesterday Repeat cytology shows reactive mesothelial cells, inflammatory cells, and "atypical cells" from 08/20 pleural fluid Lung bx--pathology pending Plan: Oncology consulted, appreciate recommendations (4) Diabetes mellitus Current Visit: Yes Status: Chronic Assessment and plan: Fasting sugars stable Plan: continue low dose ISS Accuchecks ACHS ADA diet Hold po meds Qualifiers: Diabetes mellitus type: type 2 Diabetes mellitus usp insulin use: with usp use Diabetes mellitus complication status: without complication Qualified Code(s): E11.9 - Type 2 diabetes mellitus without complications; Z79.4 - retirement (current) use of insulin (5) Hypertension Current Visit: Yes Status: Chronic Assessment and plan: controlled, continue home medications Qualifiers: Hypertension type: essential hypertension Qualified Code(s): I10 - Essential (primary) hypertension (6) CKD (chronic kidney disease) stage 3, GFR 30-59 ml/min Current Visit: Yes Status: Chronic Assessment and plan: as in GLENNA on CKD (7) Seizure Current Visit: Yes Status: Chronic Assessment and plan: hx of seizure - continue seizure med (8) Hypothyroid Current Visit: Yes Status: Chronic Assessment and plan: continue home dose of levothyroxine Qualifiers: Hypothyroidism type: acquired Qualified Code(s): E03.9 - Hypothyroidism, unspecified (9) Reactive airway disease Current Visit: Yes Status: Chronic Assessment and plan: continue med Qualifiers: Asthma severity: mild Asthma persistence: persistent Asthma complication type: uncomplicated Qualified Code(s): J45.30 - Mild persistent asthma, uncomplicated (10) Anemia in chronic kidney disease Current Visit: No Status: Acute Assessment and plan: Pt's hgb has bee down during her visit and has stayed at 7.2-7.4 the last few days. Oncology administered venofer yesterday, hgb 7.4 today. GI was consulted yesterday, plan for EGD/Colonoscopy tomorrow Hemmocult ordered, no sample provided yet Plan: GI has been consulted, appreciate their recommendations NPO at midnight Continue to monitor Qualifiers: Chronic kidney disease stage: stage 3 (moderate) Qualified Code(s): N18.3 - Chronic kidney disease, stage 3 (moderate); D63.1 - Anemia in chronic kidney disease (11) Hyponatremia Current Visit: Yes Status: Acute Assessment and plan: Na 133 on admission, decreased to 129 08/24, improved today to 134. Consider SIADH in setting of possible malignancy, but is likely related to volume status as it is improving with fluid restriction Urine Na <10 Plan: Nephrology consulted for assistance in management, appreciate their recommendations Continue 1.5L Fluid restriction - Time Spent With Patient Total time spent is greater than 50% in coordination of care (as documented) at patient's floor/unit and/or counseling patient: - Subjective Interval history: Pt seem and examined, lying comfortably in bed resting. She states that her SOB has improved after lung bx with thoracentesis yesterday. She states that she actually was able to sleep last night. Denies any other complaints at this time. - Constitutional Vitals: Temp Pulse Resp BP Pulse Ox 98.0 F 69 18 143/69 97 08/25/17 23:52 08/25/17 23:52 08/25/17 23:52 08/25/17 23:52 08/25/17 23:52 General appearance: Present: cooperative, A&O X 3, morbidly obese, pleasant, no acute distress, answers questions appropriately - Head Head exam: Present: atraumatic, normocephalic - Eye Eye exam: Present: PERRL, conjuntiva pink, sclera anicteric Pupils: Present: PERRL - Neck Neck exam general surgery: Present: supple, trachea midline. Absent: lymphadenopathy - Respiratory Respiratory exam: Present: rales. Absent: accessory muscle use, decreased breath sounds, respiratory distress, rhonchi, wheezes, tachypnea - Cardiovascular Cardiovascular exam: Present: RRR, +S1, +S2. Absent: diastolic murmur, gallop, rubs, systolic murmur - GI/Abdominal GI/Abdominal exam: Present: normal bowel sounds, soft, no peritoneal signs. Absent: distended, tenderness - Extremities Exam Extremities exam: Present: warm, radial pulses palpable and symmetrical. Absent : calf tenderness, cyanotic, pedal edema - Neurological Exam Neurological exam: Present: oriented X3, no focal deficits. Absent: motor sensory deficit, facial droop, speech deficit - Psychiatric Psychiatric exam: Present: normal affect, normal mood - Skin Skin exam: Present: dry, intact Internal Medicine: Result - Labs CBC & Chem 7: 08/26/17 03:25 08/26/17 03:25 Labs: Short CBC 08/25/17 08/26/17 Range/Units 12:01 03:25 WBC 9.9 (4.3-11.1) K/mcL Hgb 7.2 L 7.4 L (11.5-15.4) g/dL Hct 23.3 L 23.6 L (35.3-44.9) % Plt Count 377 (140-400) K/mcL Neutrophils # 7.9 (1.6-8.9) K/mcL BMP 08/26/17 03:25 Sodium 134 L Potassium 3.9 Chloride 107 Carbon Dioxide 21 L BUN 28 H Creatinine 1.59 H Glucose 81 Calcium 7.8 L - ABG Interpretation ABG results: PT/INR, D-dimer PT 12.2 Seconds (9.4-12.1) H 08/25/17 03:52 - Impressions Impressions Thoracentesis 08/25/17 00:00 IMPRESSION: 1. CT-guided core biopsy of a right lung mass performed. 2. CT-guided right-sided thoracentesis performed. 300 mL of dark red fluid was able to be aspirated. Residual right-sided pleural fluid was present, likely related to loculations and/or complex debris within the effusion. D/ / 08/25/2017 15:35:56 Rob Menard MD / tanesha Interpreting Provider: Rob Menard MD Lung Biopsy CT 08/25/17 07:00 IMPRESSION: 1. CT-guided core biopsy of a right lung mass performed. 2. CT-guided right-sided thoracentesis performed. 300 mL of dark red fluid was able to be aspirated. Residual right-sided pleural fluid was present, likely related to loculations and/or complex debris within the effusion. D/ / 08/25/2017 15:35:56 Rob Menard MD / tanesha Interpreting Provider: Rob Menard MD Chest X-Ray 08/25/17 10:30 IMPRESSION: 1. No pneumothorax status post thoracentesis and lung biopsy. 2. Decreased left pleural effusion with moderate residual and associated airspace disease. 3. Similar rounded mass in the periphery of the right mid lung with smaller nodular densities in the left lung. D/ / Shade Serrano / Shade Serrano Interpreting Provider: Shade Serrano - VTE Documentation of Mechanical Device: Intermittent pneumatic compression device Consult Discharge Plan - Plan Additional Instructions: Will need BMP 1 week after discharge. Follow up with nephrology 4 weeks after discharge. 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 (2) Hypertension Current Visit: Yes Status: Chronic Qualifiers: Hypertension type: essential hypertension Qualified Code(s): I10 - Essential (primary) hypertension (3) CKD (chronic kidney disease) stage 3, GFR 30-59 ml/min Current Visit: Yes Status: Chronic (4) Anemia in chronic kidney disease Current Visit: No Status: Acute Qualifiers: Chronic kidney disease stage: stage 3 (moderate) Qualified Code(s): N18.3 - Chronic kidney disease, stage 3 (moderate); D63.1 - Anemia in chronic kidney disease (5) Recurrent right pleural effusion Current Visit: Yes Status: Acute (6) Seizure Current Visit: Yes Status: Chronic (7) Hypothyroid Current Visit: Yes Status: Chronic (8) Reactive airway disease Current Visit: Yes Status: Chronic Qualifiers: Asthma severity: mild Asthma persistence: persistent Asthma complication type: uncomplicated Qualified Code(s): J45.30 - Mild persistent asthma, uncomplicated (9) 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 Current Visit: Yes Status: Acute (10) Acute on chronic renal failure Current Visit: Yes Status: Acute Qualifiers: Acute renal failure type: unspecified Chronic kidney disease stage: stage 3 (moderate) Qualified Code(s): N17.9 - Acute kidney failure, unspecified; N18.3 - Chronic kidney disease, stage 3 (moderate) (11) Hyponatremia Current Visit: Yes Status: Acute - Time Spent With Patient Total time spent is greater than 50% in coordination of care (as documented) at patient's floor/unit and/or counseling patient: - Constitutional Vitals: Temp Pulse Resp BP Pulse Ox 98.4 F 69 16 142/57 94 08/26/17 11:51 08/26/17 11:51 08/26/17 11:51 08/26/17 11:51 08/26/17 11:51 Internal Medicine: Result - Labs CBC & Chem 7: 08/26/17 03:25 08/26/17 03:25 Labs: Short CBC 08/26/17 Range/Units 03:25 WBC 9.9 (4.3-11.1) K/mcL Hgb 7.4 L (11.5-15.4) g/dL Hct 23.6 L (35.3-44.9) % Plt Count 377 (140-400) K/mcL Neutrophils # 7.9 (1.6-8.9) K/mcL BMP 08/26/17 03:25 Sodium 134 L Potassium 3.9 Chloride 107 Carbon Dioxide 21 L BUN 28 H Creatinine 1.59 H Glucose 81 Calcium 7.8 L - ABG Interpretation ABG results: PT/INR, D-dimer PT 12.2 Seconds (9.4-12.1) H 08/25/17 03:52 - Impressions Impressions Thoracentesis 08/25/17 00:00 IMPRESSION: 1. CT-guided core biopsy of a right lung mass performed. 2. CT-guided right-sided thoracentesis performed. 300 mL of dark red fluid was able to be aspirated. Residual right-sided pleural fluid was present, likely related to loculations and/or complex debris within the effusion. D/ / 08/25/2017 15:35:56 Rob Menard MD / tanesha Interpreting Provider: Rob Menard MD Lung Biopsy CT 08/25/17 07:00 IMPRESSION: 1. CT-guided core biopsy of a right lung mass performed. 2. CT-guided right-sided thoracentesis performed. 300 mL of dark red fluid was able to be aspirated. Residual right-sided pleural fluid was present, likely related to loculations and/or complex debris within the effusion. D/ / 08/25/2017 15:35:56 Rob Menard MD / tanesha Interpreting Provider: Rob Menard MD - Attending Attestation I examined this patient and my medical decision-making was reviewed with the Resident Physician. I agree with the documented findings, disposition and treatment plan as described except to the extent set forth below.
[2017-08-26] MEDS: Insulin LISPRO 300 UNITS/3 ML VIAL SQ SCH ×4 (07:56→20:48)
[2017-08-26] MEDS: hydrALAZINE 25 MG TABLET PO SCH ×3 (08:08→20:47)
[2017-08-26] MEDS: levETIRAcetam 250 MG TABLET PO SCH ×2 (08:10→20:48)
[2017-08-26] MEDS: Aspirin Enteric Coated 81 MG Tablet PO SCH (08:10)
--- NOTE | 2017-08-26 11:59 | Dermatology Consult Note ---
Date of Encounter: 08/26/17 Time of Encounter: 11:57 History of Present Illness Reason for Consult: ulceration on scalp History of Present Illness: Priscila Delarosa, is a 71-year-old female who was admitted to [facility] for difficulty breathing. During her admission, scale crust was noted on her scalp. She reports the lesion has been growing a previous surgical sites of the last 4-6 weeks. She has a history of craniotomy for tumor and 2009. 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 She denies pain and itching at the current site. She reports that fills thick. She denies touching her cleansing the area. She reports that prior to the crust, she could feel metal hardware in the depression on her scalp since the surgery was performed. She has also had radiation at the same site. Review of Systems Additional Comments: General/Constitutional: Patient denies fevers, chills, no recent unintended weight loss, night sweats, no change in appetite or malaise.. Hematology: Patient denies new or enlarging lumps or bumps.. Skin: Patient denies new or changing moles, or rash other than what is mentioned above.. General/Constitutional: Patient denies fevers, chills, nor recent unintended weight loss, night sweats, no change in appetite or malaise. Hematologic: Patient denies new or enlarging lumps or bumps. Skin: Patient denies new or changing moles, or rash other than what is mentioned above. Past Med Surg Social Fam HX - Past Medical History Medical history: asthma, CHF, diabetes, hyperlipidemia, hypertension, seizures, other Additional medical history: history of brain tumor Psychiatric history: anxiety, depression, panic disorder - Past Surgical History Surgical History: cholecystectomy, coronary bypass (CABG), other Additional surgical history: Craniotomy, ankle surgery - Social History Smoking Status: Never smoker Smokeless Tobacco Status: No Alcohol use: none Drug use: none - Family History Father Adopted: No Living Status: Hx Family Cardiac Disorders: Yes Hx Family Respiratory Disorders: Yes Hx Family Cancer: Yes Medications and Allergies Furosemide [Lasix] 20 mg PO DAILY 11/30/14 [History] Insulin ASPART [NovoLOG] 0 unit SQ TIDWM PRN 03/13/15 [History] Pantoprazole Sodium [Protonix] 40 mg PO DAILY 03/13/15 [History] Aspirin [Adult Aspirin] 81 mg PO DAILY 08/12/17 [History] Atorvastatin Calcium [Lipitor] 20 mg PO DAILY 08/12/17 [History] Clopidogrel [Plavix] 75 mg PO DAILY 08/12/17 [History] Ergocalciferol (VITAMIN D2) [Vitamin D2] 50,000 unit PO QWEEK 08/12/17 [History] Escitalopram Oxalate 5 mg PO DAILY 08/12/17 [History] LevETIRAcetam [Keppra] 750 mg PO BID 08/12/17 [History] Levothyroxine Sodium [Levoxyl] 25 mcg PO DAILY 08/12/17 [History] Levothyroxine Sodium [Synthroid] 200 mcg PO DAILY 08/12/17 [History] Lisinopril [Zestril] 10 mg PO DAILY 08/12/17 [History] Metoprolol [Lopressor] 25 mg PO BID 08/12/17 [History] Montelukast [Singulair] 10 mg PO DAILY 08/12/17 [History] Phenytoin [Dilantin] 150 mg PO BID 08/12/17 [History] Pioglitazone HCl [Actos] 15 mg PO DAILY 08/12/17 [History] SitaGLIPtin [Januvia] 100 mg PO DAILY 08/12/17 [History] Tolterodine Tartrate [Detrol] 2 mg PO BID 08/12/17 [History] Acetaminophen [Tylenol] 650 mg PO Q6HR PRN tablet 08/18/17 [Rx] Benzonatate [Tessalon] 100 mg PO TID PRN 14 Days #42 capsule 08/18/17 [Rx] Insulin Glargine [Lantus] 15 unit SQ BID 30 Days #900 mls 08/18/17 [Rx] hydrALAZINE [HydrALAZINE] 25 mg PO TID tablet 08/18/17 [Rx] levoFLOXacin [Levaquin] 750 mg PO DAILY 3 Days #3 tablet 08/18/17 [Rx] 3 Allergy/AdvReac Type Severity Reaction Status Date / Time Tetanus Vaccines and Toxoid Allergy Unknown unknown Verified 08/20/17 11:53 [Tetanus Vaccines & Toxoid] Examination Vital Signs: Temp Pulse Resp BP Pulse Ox 98.4 F 69 16 142/57 94 08/26/17 11:51 08/26/17 11:51 08/26/17 11:51 08/26/17 11:51 08/26/17 11:51 General Examination: The patient appears alert, oriented X3, in no acute distress, healthy-appearing , normal mood. A detailed skin examination of sites including: scalp, head, neck , face, conjunctive, lids, lips, back, chest/breast/axilla, abdomen, bilateral upper extremities including hands/digits/fingernails, was completed and found to be normal except: 6cm dry brown crust with hair matted into it on right frontal scalp with underlying right temporal depression Procedure: Dermatology Date of procedure: 08/26/17 Procedure: SHAVE BIOPSY: Shave biopsy(s) of the lesion(s) noted above to establish and confirm diagnosis. The procedure, risks, benefits, alternatives and expected outcomes were discussed with the patient and consent was obtained. Time out called. Patient identified, procedure verified, site(s) identified and verified. Patient and staff present in agreement. Area(s) prepped with alcohol and anesthetized with 01.0% lidocaine with epinephrine at 1:100,000 concentration. 2ml of lidocaine with epinephrine were injected- right frontal scalp - shave biopsy today Biopsy(s) of lesion performed. 20% AlCL. Specimen(s ) sent to pathology. Patient instructed in routine post-op care and wound care handout given.. 1 sample was taken for biopsy as [facility] and 1 sample was taken for tissue culture Assessment - D48.5- - favor just retained skin and crust -- however, biopsy taken today to rule out recurrent malignancy and tissue culture taken today to rule out infection -- however, once crust was removed, the underlying skin and hardware appeared clean and intact the consulting provider - Lupe Finney, was made aware of my findings - recommend gentle scrubbing of area daily when washing to prevent build up again in the future - further treatment recommendations pending pathology and culture results Consult Discharge Plan - Plan Referrals: Stephanie Morgan, [employer] [Primary Care Provider] - 08/27/17 11:00 am
--- NOTE | 2017-08-26 12:00 | Gastroenterology Consult Note ---
<Jhoan Chan - Last Filed: 08/26/17 11:45> Date of Encounter: 08/26/17 Time of Encounter: 10:10 - Assessment and plan (1) Anemia Current Visit: Yes Status: Acute Assessment and plan: Hgb on admission was 9.1 with MCV 88.5, today Hgb 7.4 with MCV 91.1. Her basline Hgb 9-10. She received a dose of Venofer yesterday. Continue to monitor CBC and transfuse PRBC as needed. Plan for EGD and colonoscopy tomorrow. Clear liquid diet today, no red or purple. NPO at midnight. If unable tolerate NuLytely please use MiraLAX prep. If not clear by 6 AM, give 2 tap water enemas. Qualifiers: Anemia type: unspecified type Qualified Code(s): D64.9 - Anemia, unspecified (2) Pleural effusion, right Current Visit: No Status: Acute Assessment and plan: Per primary team. (3) Lung mass Current Visit: No Status: Acute - Time Spent With Patient Total time spent is greater than 50% in coordination of care (as documented) at patient's floor/unit and/or counseling patient: GI History of Present Illness - Data of Consult Patient: new to practice Consult date: 08/26/17 Requesting Physician: Tian Casillas MD - Consult Narrative Reason for consult: anemia History of present illness: Ms. Almanza is a 71 year old female with PMHx of asthma, CHF, DM, HLD, HTN was admitted with shortness of breath and found with right pleural effusion, lung nodules, and renal lesion suspicious for malignancy. We have been consulted to evaluate her anemia. Hgb on admission was 9.1 with MCV 88.5, today Hgb 7.4 with MCV 91.1. Her basline Hgb 9-10. She received a dose of Venofer yesterday. Procedures: Colonoscopy 10/08/2005 Dr. Torres: with hyperplastic polyps. NSAIDs: ASA Anticoagulation: Plavix Past Med Surg Social Fam HX - Past Medical History Medical history: asthma, CHF, diabetes, hyperlipidemia, hypertension, seizures, other Additional medical history: history of brain tumor Psychiatric history: anxiety, depression, panic disorder - Past Surgical History Surgical History: cholecystectomy, coronary bypass (CABG), other Additional surgical history: Craniotomy, ankle surgery - Social History Smoking Status: Never smoker Smokeless Tobacco Status: No Alcohol use: none Drug use: none - Family History Father Adopted: No Living Status: Hx Family Cardiac Disorders: Yes Hx Family Respiratory Disorders: Yes Hx Family Cancer: Yes - Gastrointestinal Gastrointestinal: Present: as per HPI - Constitutional Constitutional: as per HPI - EENT Eyes: as per HPI Ears: Present: as per HPI Nose, mouth and throat: Present: as per HPI - Cardiovascular Cardiovascular ROS: Present: as per HPI - Respiratory Respiratory IM: Present: as per HPI - Genitourinary Genitourinary: Absent: change in color, Urinary frequency - Neurological ROS Neurological GI: Present: as per HPI - Hematologic/Lymphatic Hematologic/Lymphatic pediatric: Present: as per HPI - Musculoskeletal Musculoskeletal ROS GI: Present: as per HPI - Integumentary Integumentary GI: Present: as per HPI - Psychiatric ROS Psychiatric GI: Present: as per HPI - Endocrine Endocrine IM: Present: as per HPI - Constitutional Vitals: Temp Pulse Resp BP Pulse Ox 98.4 F 77 18 154/61 92 08/26/17 07:34 08/26/17 07:34 08/26/17 07:34 08/26/17 07:34 08/26/17 07:34 General appearance: Present: cooperative, A&O X 3, no acute distress, answers questions appropriately - Head Head exam: Present: atraumatic, normocephalic - Eye Eye exam: Present: normal appearance, sclera anicteric - ENT ENT exam: Present: mucous membranes dry - Neck Neck exam general surgery: Present: normal inspection, trachea midline - Respiratory Respiratory exam: Present: decreased breath sounds, CTAB - Cardiovascular Cardiovascular exam: Present: RRR, +S1, +S2 - GI/Abdominal GI/Abdominal exam: Present: soft, no peritoneal signs. Absent: distended, firm , guarding, tenderness - Rectal Rectal exam: Present: deferred - Extremities Exam Extremities exam: Present: warm - Neurological Exam Neurological exam: Present: no focal deficits - Psychiatric Psychiatric exam: Present: normal affect, normal mood - Skin Skin exam: Present: dry, intact, normal color, warm Results - Labs CBC & Chem 7: 08/26/17 03:25 08/26/17 03:25 Labs: Last Result Calcium 7.8 mg/dL (8.6-10.3) L 08/26/17 03:25 Troponin I < 0.03 ng/mL (< 0.04) 08/20/17 12:17 Folate 9.7 ng/mL (3.0-16.0) 08/24/17 04:01 Entire Visit Hgb 7.4 g/dL (11.5-15.4) L 08/26/17 03:25 Hct 23.6 % (35.3-44.9) L 08/26/17 03:25 PT 12.2 Seconds (9.4-12.1) H 08/25/17 03:52 Total Bilirubin 0.2 mg/dL (0.3-1.0) L 08/25/17 03:52 AST 7 Units/L (13-39) L 08/25/17 03:52 ALT 7 Units/L (7-52) 08/25/17 03:52 Lipase 8 Units/L (11-82) L 08/20/17 12:17 Folate 9.7 ng/mL (3.0-16.0) 08/24/17 04:01 - ABG ABG results: PT/INR, D-dimer PT 12.2 Seconds (9.4-12.1) H 08/25/17 03:52 - Impressions Impressions Thoracentesis 08/25/17 00:00 IMPRESSION: 1. CT-guided core biopsy of a right lung mass performed. 2. CT-guided right-sided thoracentesis performed. 300 mL of dark red fluid was able to be aspirated. Residual right-sided pleural fluid was present, likely related to loculations and/or complex debris within the effusion. D/ : / 08/25/2017 15:35:56 Rob Menard MD / [facility] Interpreting Provider: Rob Menard MD Lung Biopsy CT 08/25/17 07:00 IMPRESSION: 1. CT-guided core biopsy of a right lung mass performed. 2. CT-guided right-sided thoracentesis performed. 300 mL of dark red fluid was able to be aspirated. Residual right-sided pleural fluid was present, likely related to loculations and/or complex debris within the effusion. D/ : / 08/25/2017 15:35:56 Rob Menard MD / [facility] Interpreting Provider: Rob Menard MD Consult Discharge Plan - Plan Additional Instructions: Will need BMP 1 week after discharge. Follow up with nephrology 4 weeks after discharge. Referrals: Stephanie Morgan CNP [Primary Care Provider] - 08/27/17 11:00 am Tequila Dixon MD [Partnered Physician] - (f/u 4 weeks from discharge) <Keyur Rucker - Last Filed: 08/26/17 18:19> Date of Encounter: 08/26/17 Time of Encounter: 14:30 - Time Spent With Patient Total time spent is greater than 50% in coordination of care (as documented) at patient's floor/unit and/or counseling patient: GI History of Present Illness - Data of Consult Requesting Physician: Tian Casillas MD - Consult Narrative History of present illness: Ms. Almanza is a 71 year old female - Constitutional Vitals: Temp Pulse Resp BP Pulse Ox 98.4 F 93 18 152/58 94 08/26/17 15:27 08/26/17 15:27 08/26/17 15:27 08/26/17 15:27 08/26/17 15:27 Results - Labs CBC & Chem 7: 08/26/17 03:25 08/26/17 03:25 Labs: Last Result Calcium 7.8 mg/dL (8.6-10.3) L 08/26/17 03:25 Troponin I < 0.03 ng/mL (< 0.04) 08/20/17 12:17 Folate 9.7 ng/mL (3.0-16.0) 08/24/17 04:01 Entire Visit Hgb 7.4 g/dL (11.5-15.4) L 08/26/17 03:25 Hct 23.6 % (35.3-44.9) L 08/26/17 03:25 PT 12.2 Seconds (9.4-12.1) H 08/25/17 03:52 Total Bilirubin 0.2 mg/dL (0.3-1.0) L 08/25/17 03:52 AST 7 Units/L (13-39) L 08/25/17 03:52 ALT 7 Units/L (7-52) 08/25/17 03:52 Lipase 8 Units/L (11-82) L 08/20/17 12:17 Folate 9.7 ng/mL (3.0-16.0) 08/24/17 04:01 - ABG ABG results: PT/INR, D-dimer PT 12.2 Seconds (9.4-12.1) H 08/25/17 03:52 - Attending Attestation I have personally performed a face to face evaluation on this patient. I have reviewed and agree with the care plan. History and Exam by me shows: Patient seen. Patient 71-year-old female admitted with right-sided pleural effusion and lung mass for which she is being worked up. during hospitalization she has been noticed to be anemic so we are asked to see her. Denies any overt GI bleeding. Rec: EGD and colonoscopy in the morning
--- NOTE | 2017-08-26 15:01 | Nephrology Progress Note ---
Date of Encounter: 08/26/17 Time of Encounter: 12:00 - Assessment and Plan (1) Acute kidney injury Current Visit: No Status: Acute SCr improved at 1.59, GFR 32 which is technically arund her baseline UOP good at 1250cc in the past 24hrs Continue po fluids for now Continue to avoid nephrotoxins if possible Will sign off, please recosult prn and needs followup with me in 4 weeks upon discharge with BMP in a week (2) Hyponatremia Current Visit: Yes Status: Acute Sodium improved at 134, continue increased sodium intake in meals Does not require fluid restriction at this time (3) CKD (chronic kidney disease) stage 3, GFR 30-59 ml/min Current Visit: Yes Status: Chronic Baseline SCr around 1.3-1.6 with GFR 30-40s Subjective Principal diagnosis: recurrent right pleural effusion Interval history: Pt seen and examined feeling depressed about continued stay in the hospital otherwise no complaints Objective - Vital Signs Vital signs: Vital Signs Temp Pulse Resp BP Pulse Ox 08/26/17 11:51 98.4 F 69 16 142/57 94 08/26/17 07:34 98.4 F 77 18 154/61 92 08/25/17 23:52 98.0 F 69 18 143/69 97 08/25/17 21:00 92 08/25/17 20:47 98.5 F 81 18 139/52 92 08/25/17 16:19 98.0 F 70 18 145/67 98 Intake and Output 08/25/17 08/26/17 08/26/17 23:59 07:59 15:59 Intake Total 480 / 480 0 / 0 480 / 480 Output Total 400 / 400 450 / 450 Balance 80 / 80 0 / 0 Intake: Oral 480 / 480 0 / 0 480 / 480 Output: Urine 400 / 400 200 / 200 Urine/Stool Mix 250 / 250 Other: Meal Breakfast Percent of Meal Consumed 85% Stool Size Moderate Moderate Stool Consistency loose soft Stool Color Brown Brown # Voids 0 # Bowel Movements 1 Weight 125.9 kg Blood Glucose* 116 77 83 - General Appearance General appearance: Present: chronically ill (NAD) EENT: Present: ATNC, mucous membranes moist Neck: Present: no JVD, supple Respiratory: Present: clear Cardiology: Present: no edema, normal S1, normal S2 Gastrointestinal: Present: no tenderness, no guarding, obese Integumentary: Present: warm and dry Neurologic: Present: no focal deficit Musculoskeletal: Present: no deformities Psychiatric: Present: depressed, cooperative - Lab 08/26/17 03:25 08/26/17 03:25 Most recent lab results Calcium 7.8 mg/dL (8.6-10.3) L 08/26/17 03:25 Urine Sodium < 10.0 mEq/L 08/25/17 00:02 - VTE Documentation of Mechanical Device: Intermittent pneumatic compression device Consult Discharge Plan - Plan Referrals: Stephanie Morgan [employer] [Primary Care Provider] - 08/27/17 11:00 am
[2017-08-26] MEDS ORDERED: SODIUM CHLORIDE/NAHCO3/KCL/PEG 4,000 ML SOLN.RECON PO ONE (17:00)
[2017-08-26] MEDS: Insulin DETEMIR 100 UNIT/ML X5UNITS SQ SCH (20:53)
[2017-08-26] MEDS ORDERED: Polyethylene Glycol 3350 255 GM POWDER PO ONE (23:51)
[2017-08-27 03:47] LABS: Basophils % 0.2 %; Eosinophils # 0.4 K/mcL (0.0-0.6); Hematocrit 23.3 % (35.3-44.9); Hemoglobin 7.4 g/dL (11.5-15.4); Immature Granulocytes % 1.5 % (0-4); Lymphocytes # 1.1 K/mcL (0.6-4.6); Lymphocytes % 9.7 %; Mean Corpuscular HGB Conc 31.8 g/dL (31.6-35.5); Mean Corpuscular Hemoglobin 28.5 pg (28.0-33.3); Mean Corpuscular Volume 89.6 fL (83.0-100.0); Mean Platelet Volume 8.5 fL (9.4-12.4); Monocytes # 0.9 K/mcL (0.0-1.3); Monocytes % 7.9 %; Neutrophils # 8.4 K/mcL (1.6-8.9); Platelet Count 389 K/mcL (140-400); Red Cell Distribution Width 15.4 % (11.5-14.5); Segmented Neutrophils % 76.7 %
[2017-08-27 03:55] LABS: Calcium 7.5 mg/dL (8.6-10.3)
[2017-08-27] MEDS: Levothyroxine 25 MCG TABLET PO SCH ×2 (05:56→10:26)
[2017-08-27] MEDS ORDERED: Lidocaine -MPF 2% 2 ML VIAL ONE (06:41)
[2017-08-27] MEDS ORDERED: *HR* Propofol 200 MG/20 ML VIAL IVP ONE (06:42)
--- NOTE | 2017-08-27 07:00 | Anesthesia Evaluation PreOp ---
Date of Encounter: 08/27/17 Time of Encounter: 06:58 - Past History Planned Operation: EGD/colonoscopy Cardiac History: CHF, HTN, Hyperlipidemia, Cardiac Surgery (CABG), Other (Hx CAD ) Pulmonary History: Denies Any Significant HX, Other (has pleural effusion on right and multiple lung masses suspicious for malignancy) [employer] History: Seizures, Other (Hx brain tumor s/p craniotomy with xrt) Other Medical History: Renal (CKD3), Diabetes Type II Anesthesia History: No Prior Anesthetic Complications, Past Anesthesia Alcohol Use: none Drug use: none Medications and Allergies Furosemide [Lasix] 20 mg PO DAILY 11/30/14 [History] Insulin ASPART [NovoLOG] 0 unit SQ TIDWM PRN 03/13/15 [History] Pantoprazole Sodium [Protonix] 40 mg PO DAILY 03/13/15 [History] Aspirin [Adult Aspirin] 81 mg PO DAILY 08/12/17 [History] Atorvastatin Calcium [Lipitor] 20 mg PO DAILY 08/12/17 [History] Clopidogrel [Plavix] 75 mg PO DAILY 08/12/17 [History] Ergocalciferol (VITAMIN D2) [Vitamin D2] 50,000 unit PO QWEEK 08/12/17 [History] Escitalopram Oxalate 5 mg PO DAILY 08/12/17 [History] LevETIRAcetam [Keppra] 750 mg PO BID 08/12/17 [History] Levothyroxine Sodium [Levoxyl] 25 mcg PO DAILY 08/12/17 [History] Levothyroxine Sodium [Synthroid] 200 mcg PO DAILY 08/12/17 [History] Lisinopril [Zestril] 10 mg PO DAILY 08/12/17 [History] Metoprolol [Lopressor] 25 mg PO BID 08/12/17 [History] Montelukast [Singulair] 10 mg PO DAILY 08/12/17 [History] Phenytoin [Dilantin] 150 mg PO BID 08/12/17 [History] Pioglitazone HCl [Actos] 15 mg PO DAILY 08/12/17 [History] SitaGLIPtin [Januvia] 100 mg PO DAILY 08/12/17 [History] Tolterodine Tartrate [Detrol] 2 mg PO BID 08/12/17 [History] Acetaminophen [Tylenol] 650 mg PO Q6HR PRN tablet 08/18/17 [Rx] Benzonatate [Tessalon] 100 mg PO TID PRN 14 Days #42 capsule 08/18/17 [Rx] Insulin Glargine [Lantus] 15 unit SQ BID 30 Days #900 mls 08/18/17 [Rx] hydrALAZINE [HydrALAZINE] 25 mg PO TID tablet 08/18/17 [Rx] levoFLOXacin [Levaquin] 750 mg PO DAILY 3 Days #3 tablet 08/18/17 [Rx] 3 Allergy/AdvReac Type Severity Reaction Status Date / Time Tetanus Vaccines and Toxoid Allergy Unknown unknown Verified 08/20/17 11:53 [Tetanus Vaccines & Toxoid] - Meds/Allergy Pre-op Review Medications Reviewed: Yes Allergies Reviewed: Yes Beta Blockers on Current Med List: Yes If Beta Blockers taken, Date/Time (Last Dose taken): 08-26 @ 2046 Anesthesia Results - Labs 08/27/17 03:31 08/27/17 03:31 - Imaging EKG: report reviewed (SINUS RHYTHM MARKED LEFT AXIS DEVIATION RIGHT BUNDLE BRANCH BLOCK) Additional studies: echo: Impressions: LVEF 55-60%. Mild left ventricular diastolic dysfunction. Normal right ventricular structure and function. Mild mitral regurgitation. No pulmonary hypertension. There is a trivial pericardial effusion present without tamponade. Anesthesia Exam Selected Entries 08/27/17 05:00 Temperature 98.8 F Pulse Rate 78 Respiratory Rate 18 Blood Pressure 156/65 O2 Sat by Pulse Oximetry 95 Weight: 126kg - HEENT Pupil (Motor): EOMI Mallampati: III Teeth: Poor dentition Oral Opening: Greater than 3 - PRODUCT MERCHANDISER LOC: Oriented PRODUCT MERCHANDISER Motor: Normal RUE, Normal LUE, Normal RLE, Normal LLE, Normal Face PRODUCT MERCHANDISER Sensory: Normal: RUE, LUE, RLE, LLE, Face - Cardiac Rhythm: Regular Murmur: None - Pulmonary Breath Sounds: bilateral Clear Respiratory Effort: Symmetrical Anesthesia Assess/Plan ASA Score: 4 Modified Mckay Scale for Level of Consciousness: Cooperative, oriented, and tranquil Anesthetic Plan: MAC Monitoring Plan: Standard Monitors Recovery Plan: Other (agrees to MAC but is aware she may require GA if airway issues develop)
--- NOTE | 2017-08-27 08:34 | Anesthesia Evaluation Post Op ---
Date of Encounter: 08/27/17 Time of Encounter: 08:35 - Vital Signs Vital Signs: vss - Airway Airway: Non-obstructed - Mental Status Mental Status: Asleep with brisk response to light stimulation - Pain Pain Scale used: Sarah (Faces) - Nausea Vomiting Nausea Vomiting: Not Present - Discharge PostOp Status: Transfer Patient to floor
[2017-08-27] MEDS: Aspirin Enteric Coated 81 MG Tablet PO SCH (10:21)
--- NOTE | 2017-08-27 10:23 | Internal Med Progress Note ---
<KennyjaylonfeKati Ben - Last Filed: 08/27/17 13:43> Date of Encounter: 08/27/17 - Assessment and plan (1) Diabetes mellitus Current Visit: Yes Status: Chronic Qualifiers: Diabetes mellitus type: type 2 Diabetes mellitus production control scheduler insulin use: with production control scheduler use Diabetes mellitus complication status: without complication Qualified Code(s): E11.9 - Type 2 diabetes mellitus without complications; Z79.4 - care home (current) use of insulin (2) Hypertension Current Visit: Yes Status: Chronic Qualifiers: Hypertension type: essential hypertension Qualified Code(s): I10 - Essential (primary) hypertension (3) CKD (chronic kidney disease) stage 3, GFR 30-59 ml/min Current Visit: Yes Status: Chronic (4) Anemia in chronic kidney disease Current Visit: No Status: Acute Qualifiers: Chronic kidney disease stage: stage 3 (moderate) Qualified Code(s): N18.3 - Chronic kidney disease, stage 3 (moderate); D63.1 - Anemia in chronic kidney disease (5) Recurrent right pleural effusion Current Visit: Yes Status: Acute (6) Seizure Current Visit: Yes Status: Chronic (7) Hypothyroid Current Visit: Yes Status: Chronic Qualifiers: Hypothyroidism type: acquired Qualified Code(s): E03.9 - Hypothyroidism, unspecified (8) Reactive airway disease Current Visit: Yes Status: Chronic Qualifiers: Asthma severity: mild Asthma persistence: persistent Asthma complication type: uncomplicated Qualified Code(s): J45.30 - Mild persistent asthma, uncomplicated (9) 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 Current Visit: Yes Status: Acute (10) Acute on chronic renal failure Current Visit: Yes Status: Acute Qualifiers: Acute renal failure type: unspecified Chronic kidney disease stage: stage 3 (moderate) Qualified Code(s): N17.9 - Acute kidney failure, unspecified; N18.3 - Chronic kidney disease, stage 3 (moderate) (11) Hyponatremia Current Visit: Yes Status: Acute - Time Spent With Patient Total time spent is greater than 50% in coordination of care (as documented) at patient's floor/unit and/or counseling patient: - Constitutional Vitals: Temp Pulse Resp BP Pulse Ox 98 F 84 16 167/58 94 08/27/17 11:05 08/27/17 11:05 08/27/17 11:05 08/27/17 11:05 08/27/17 08:55 Internal Medicine: Result - Labs CBC & Chem 7: 08/27/17 03:31 08/27/17 03:31 Labs: Short CBC 08/27/17 Range/Units 03:31 WBC 10.9 (4.3-11.1) K/mcL Hgb 7.4 L (11.5-15.4) g/dL Hct 23.3 L (35.3-44.9) % Plt Count 389 (140-400) K/mcL Neutrophils # 8.4 (1.6-8.9) K/mcL BMP 08/27/17 03:31 Sodium 133 L Potassium 4.0 Chloride 107 Carbon Dioxide 17 L BUN 21 Creatinine 1.30 H Glucose 108 H Calcium 7.5 L - ABG Interpretation ABG results: PT/INR, D-dimer PT 12.2 Seconds (9.4-12.1) H 08/25/17 03:52 - Impressions Impressions Thoracentesis 08/25/17 00:00 IMPRESSION: 1. CT-guided core biopsy of a right lung mass performed. 2. CT-guided right-sided thoracentesis performed. 300 mL of dark red fluid was able to be aspirated. Residual right-sided pleural fluid was present, likely related to loculations and/or complex debris within the effusion. D/ / 08/25/2017 15:35:56 Rob Menard MD / [email or web address] Interpreting Provider: Rob Menard MD Lung Biopsy CT 08/25/17 07:00 IMPRESSION: 1. CT-guided core biopsy of a right lung mass performed. 2. CT-guided right-sided thoracentesis performed. 300 mL of dark red fluid was able to be aspirated. Residual right-sided pleural fluid was present, likely related to loculations and/or complex debris within the effusion. D/ / 08/25/2017 15:35:56 Rob Menard MD / [email or web address] Interpreting Provider: Rob Menard MD Consult Discharge Plan - Plan Additional Instructions: Will need BMP 1 week after discharge. Follow up with nephrology 4 weeks after discharge. Referrals: Stephanie Morgan CNP [Primary Care Provider] - 08/27/17 11:00 am Tequila Dixon MD [Partnered Physician] - (f/u 4 weeks from discharge) - Attending Attestation I examined this patient and my medical decision-making was reviewed with the Resident Physician. I agree with the documented findings, disposition and treatment plan as described except to the extent set forth below. Patient returned from EGD and colonoscopy. There were no signs of GI bleed. Patient no longer in respiratory distress but is currently on 2L NC. Patient sitting up in room and in no acute distress. Lung exam unchanged since yesterday. - Acute respiratory failure: Recurrent pleural effusions. Dyspnea improved but still requires O2. Need qualification for O2, overnight sleep study, increase activity and incentive spirometery, increase activity as tolerated. - Anemia from iron deficiency and anemia of chronic disease (GI EGD/colonosocpy was negative). Giving Venefer today and tomorrow, started on oral iron tabs as well. Recheck H&H in AM. - CAD: okay to resume Plavix now that acute bleed is ruled out and also patient is not planned to have any further thoracentesis/biopsies at this time. - Likely metastatic cancer of lung: appreciate Oncology recommendations on this. <Hanna Leblanc - Last Filed: 08/27/17 17:14> Date of Encounter: 08/27/17 Time of Encounter: 10:20 - Assessment and plan (1) Recurrent right pleural effusion Current Visit: Yes Status: Acute Assessment and plan: Likely to be malignant-bloody, pleural fluid cytology has no yield previously, will repeat cytology on 1.5 L removed from right lung via thoracentesis 08/23 Pt had lung bx and thoracentesis 08/25. Pathology pending Repeat cytology shows reactive mesothelial cells, inflammatory cells, and "atypical cells" from 08/20 pleural fluid cytology pending, previous cytology negative. Pulm plans for pleurex cath if fluid re-accumulates. Pt fluid overload is improving: no SOB, hand edema improved and mild pedal edema Anticipate discharge with home health tomorrow Plan: Fluid restriction overnight bipap study 6 minute walk test Pulmonology consulted, appreciate their recommendations (2) Acute on chronic renal failure Current Visit: Yes Status: Acute Assessment and plan: Nonoliguric, likely prerenal. Creatinine improved this morning to 1.30 from 1.59 6 Nephrology would like f/u 4 weeks after discharge with repeat BMP 1 week from discharge. Plan: Nephrology has been consulted, appreciate their recommendations. Consider restarting lasix based on nephrology recs. Continue to hold IVF Continue Strict I/Os Continue to hold lisinopril Will avoid nephrotoxins and renally dose as able Qualifiers: Acute renal failure type: unspecified Chronic kidney disease stage: stage 3 (moderate) Qualified Code(s): N17.9 - Acute kidney failure, unspecified; N18.3 - Chronic kidney disease, stage 3 (moderate) (3) Hyponatremia Current Visit: Yes Status: Acute Assessment and plan: Na 133 on admission, decreased to 129 08/24, improved today to 133. 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 Current Visit: Yes Status: Acute Assessment and plan: Pt had lung bx with IR 08/25 Repeat cytology shows reactive mesothelial cells, inflammatory cells, and "atypical cells" from 08/20 pleural fluid Lung bx--pathology pending Plan: Oncology consulted, appreciate recommendations (5) Diabetes mellitus Current Visit: Yes Status: Chronic Assessment and plan: Fasting sugars stable Plan: continue low dose ISS Accuchecks ACHS ADA diet Hold po meds Qualifiers: Diabetes mellitus type: type 2 Diabetes mellitus alf insulin use: with production control scheduler use Diabetes mellitus complication status: without complication Qualified Code(s): E11.9 - Type 2 diabetes mellitus without complications; 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 (6) Hypertension Current Visit: Yes Status: Chronic Assessment and plan: controlled, continue home medications Qualifiers: Hypertension type: essential hypertension Qualified Code(s): I10 - Essential (primary) hypertension (7) CKD (chronic kidney disease) stage 3, GFR 30-59 ml/min Current Visit: Yes Status: Chronic Assessment and plan: SCr at baseline (8) Seizure Current Visit: Yes Status: Chronic Assessment and plan: hx of seizure Plan: Continue seizure med Seizure precautions (9) Hypothyroid Current Visit: Yes Status: Chronic Assessment and plan: continue home dose of levothyroxine Qualifiers: Hypothyroidism type: acquired Qualified Code(s): E03.9 - Hypothyroidism, unspecified (10) Reactive airway disease Current Visit: Yes Status: Chronic Assessment and plan: continue med Qualifiers: Asthma severity: mild Asthma persistence: persistent Asthma complication type: uncomplicated Qualified Code(s): J45.30 - Mild persistent asthma, uncomplicated (11) Anemia in chronic kidney disease Current Visit: No Status: Acute Assessment and plan: Pt's hgb has bee down during her visit and has stayed at 7.2-7.4 the last few days. Oncology administered venofer yesterday, hgb 7.4 today. Hemmocult ordered, no sample provided yet GI was consulted, performed EGD/Colonoscopy today: 3 sessile, non-bleeding polyps were found and removed in the cecum, transverse and sigmoid colon. EGD negative, bx of stomach taken. Stomach bx pathology: pending Polyp pathology: pending Plan: IV iron today and tomorrow Start oral iron bid and colace bid today to continue at discharge GI has been consulted, appreciate their recommendations Continue to monitor Qualifiers: Chronic kidney disease stage: stage 3 (moderate) Qualified Code(s): N18.3 - Chronic kidney disease, stage 3 (moderate); D63.1 - Anemia in chronic kidney disease - Time Spent With Patient Total time spent is greater than 50% in coordination of care (as documented) at patient's floor/unit and/or counseling patient: - Subjective Interval history: Pt seem and examined, lying comfortably in bed sleeping. Pt arouses easily, denies worsening SOB. She is depressed. Denies any other complaints at this time. - Constitutional Vitals: Temp Pulse Resp BP Pulse Ox 98.8 F 82 16 177/62 94 08/27/17 08:55 08/27/17 08:55 08/27/17 08:55 08/27/17 08:55 08/27/17 08:55 General appearance: Present: cooperative, A&O X 3, morbidly obese, pleasant, no acute distress, answers questions appropriately - Head Head exam: Present: atraumatic, normocephalic - Eye Eye exam: Present: PERRL, conjuntiva pink, sclera anicteric Pupils: Present: PERRL - Neck Neck exam general surgery: Present: supple, trachea midline. Absent: lymphadenopathy - Respiratory Respiratory exam: Present: rales. Absent: respiratory distress, wheezes, tachypnea - Cardiovascular Cardiovascular exam: Present: RRR, +S1, +S2. Absent: diastolic murmur, gallop, rubs, systolic murmur - GI/Abdominal GI/Abdominal exam: Present: normal bowel sounds, soft, no peritoneal signs. Absent: distended, tenderness - Extremities Exam Extremities exam: Present: normal inspection, pedal edema, radial pulses palpable and symmetrical. Absent: tenderness - Neurological Exam Neurological exam: Present: alert, oriented X3, no focal deficits. Absent: facial droop, speech deficit - Psychiatric Psychiatric exam: Present: depressed - Skin Skin exam: Present: dry, intact Internal Medicine: Result - Labs CBC & Chem 7: 08/27/17 03:31 08/27/17 03:31 Labs: Short CBC 08/27/17 Range/Units 03:31 WBC 10.9 (4.3-11.1) K/mcL Hgb 7.4 L (11.5-15.4) g/dL Hct 23.3 L (35.3-44.9) % Plt Count 389 (140-400) K/mcL Neutrophils # 8.4 (1.6-8.9) K/mcL BMP 08/27/17 03:31 Sodium 133 L Potassium 4.0 Chloride 107 Carbon Dioxide 17 L BUN 21 Creatinine 1.30 H Glucose 108 H Calcium 7.5 L - ABG Interpretation ABG results: PT/INR, D-dimer PT 12.2 Seconds (9.4-12.1) H 08/25/17 03:52 - VTE Documentation of Mechanical Device: Intermittent pneumatic compression device
[2017-08-27] MEDS: hydrALAZINE 25 MG TABLET PO SCH ×3 (10:25→20:25)
[2017-08-27] MEDS: levETIRAcetam 250 MG TABLET PO SCH ×2 (10:25→20:25)
[2017-08-27] MEDS: Insulin LISPRO 300 UNITS/3 ML VIAL SQ SCH ×4 (10:26→20:23)
--- NOTE | 2017-08-27 11:13 | Physician Discharge Referral ---
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 For more information, call the [employer] Tobacco Quit Line at 1-198-ZYIS-NOW. - Diet/Nutrition Diet/Nutrition Orders: Renal - Activity Activity Orders: Up ad daniel - Services Needed Following services are medically necessary services: Home Health Aide - Transfer Medications Home Medications: Furosemide [Lasix] 20 mg PO DAILY 11/30/14 [History] Insulin ASPART [NovoLOG] 0 unit SQ TIDWM PRN 03/13/15 [History] Pantoprazole Sodium [Protonix] 40 mg PO DAILY 03/13/15 [History] Aspirin [Adult Aspirin] 81 mg PO DAILY 08/12/17 [History] Atorvastatin Calcium [Lipitor] 20 mg PO DAILY 08/12/17 [History] Clopidogrel [Plavix] 75 mg PO DAILY 08/12/17 [History] Ergocalciferol (VITAMIN D2) [Vitamin D2] 50,000 unit PO QWEEK 08/12/17 [History] Escitalopram Oxalate 5 mg PO DAILY 08/12/17 [History] LevETIRAcetam [Keppra] 750 mg PO BID 08/12/17 [History] Levothyroxine Sodium [Levoxyl] 25 mcg PO DAILY 08/12/17 [History] Levothyroxine Sodium [Synthroid] 200 mcg PO DAILY 08/12/17 [History] Lisinopril [Zestril] 10 mg PO DAILY 08/12/17 [History] Metoprolol [Lopressor] 25 mg PO BID 08/12/17 [History] Montelukast [Singulair] 10 mg PO DAILY 08/12/17 [History] Phenytoin [Dilantin] 150 mg PO BID 08/12/17 [History] Pioglitazone HCl [Actos] 15 mg PO DAILY 08/12/17 [History] SitaGLIPtin [Januvia] 100 mg PO DAILY 08/12/17 [History] Tolterodine Tartrate [Detrol] 2 mg PO BID 08/12/17 [History] Acetaminophen [Tylenol] 650 mg PO Q6HR PRN tablet 08/18/17 [Rx] Benzonatate [Tessalon] 100 mg PO TID PRN 14 Days #42 capsule 08/18/17 [Rx] Insulin Glargine [Lantus] 15 unit SQ BID 30 Days #900 mls 08/18/17 [Rx] hydrALAZINE [HydrALAZINE] 25 mg PO TID tablet 08/18/17 [Rx] levoFLOXacin [Levaquin] 750 mg PO DAILY 3 Days #3 tablet 08/18/17 [Rx] Allergies/Adverse Reactions: 3 Allergy/AdvReac Type Severity Reaction Status Date / Time Tetanus Vaccines and Toxoid Allergy Unknown unknown Verified 08/20/17 11:53 [Tetanus Vaccines & Toxoid] Certification: Further, I certify that my clinical findings support that this patient is homebound (i.e. absences from home require considerable and taxing effort and are for medical reasons or adventist services or infrequently or short duration when for other reasons) because: Homebound Reason: Severity of cardiac or pulmonary status limits activity tolerance Attestation: My signature below is to certify that this patient is under my care and that I, or nurse practitioner, or a physician's embalmer assistant working with me, has a face-to -face encounter with this patient. 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 For more information, call the [place] Tobacco Quit Line at 4-295-AFAB-NOW. - Services Needed Following services are medically necessary services: Nursing, Home Health Aide, Physical Therapy, Occupational Therapy Certification: Further, I certify that my clinical findings support that this patient is homebound (i.e. absences from home require considerable and taxing effort and are for medical reasons or adventist services or infrequently or short duration when for other reasons) because: Homebound Reason: Severity of cardiac or pulmonary status limits activity tolerance Attestation: My signature below is to certify that this patient is under my care and that I, or nurse practitioner, or a physician's embalmer assistant working with me, has a face-to -face encounter with this patient.
[2017-08-27] MEDS: Iron Sucrose Complex 200 MG in 0.9 % Sodium Chloride 100 ML IVPB SCH (12:16)
--- NOTE | 2017-08-27 14:49 | Oncology Inp Progress Note ---
<Lupe Finney L - Last Filed: 08/27/17 18:03> Date of Encounter: 08/27/17 Time of Encounter: 13:30 (1) Lung mass Current Visit: No Status: Acute Assessment and plan: Recurrent pleural effusions concerning for malignancy. Initial cytology was nondiagnostic, repeat cytology shows reactive mesothelial cells, red cells, inflammatory cells and few atypical cells seen (which are most likely reactive mesothelial). 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 CT abdomen/pelvis from 08/12 without contrast reveals 1.2 cm hyperdense lesion in the midpole of the right kidney which is indeterminate. Unable to have IV contrast secondary to GLENNA on CKD. S/P lung biopsy 08/25/17-notified by pathology and morphologically consistent with hemangiopericytoma, further IHC staining needed for final report. Discussed preliminary results with patient at bedside today. Will plan for outpatient PET scan and MRI brain. 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 Known to be aggressive and reappear in lungs, liver and bone (3) Skin lesion of scalp Current Visit: No Status: Acute Assessment and plan: Appreciate evaluation by dermatology. The scabbed lesion was removed, cultured and a shave biopsy was obtained. She now has hardware appearing though her scalp, patient states it has been there for years, really ever since her surgery in 2008. This will need addressed prior to initiation of treatment due to risk of infection, will plan to refer on outpatient basis (4) Anemia Current Visit: Yes Status: Acute Assessment and plan: Hgb 7.4, stable, continue to monitor. DELORES-S/P venofer Please refer to Dr. Solitario's attestation below for additional details Qualifiers: Anemia type: unspecified type Qualified Code(s): D64.9 - Anemia, unspecified Oncology: Subj Interval history: Ms. Almanza is resting in her chair. She reports feeling fatigues. She denies increased SOB, chest pain, headache, dizziness, visual changes, nausea, vomiting or pain. - Constitutional Vitals: Vital Signs Temp Pulse Resp BP Pulse Ox 08/27/17 11:05 98 F 84 16 167/58 08/27/17 08:55 98.8 F 82 16 177/62 94 08/27/17 07:48 98.8 F 82 18 211/60 97 08/27/17 05:00 98.8 F 78 18 156/65 95 08/27/17 01:16 98.2 F 74 18 153/78 94 08/26/17 21:12 94 08/26/17 21:00 98.2 F 76 18 145/66 94 08/26/17 15:27 98.4 F 93 18 152/58 94 Intake and Output 08/26/17 08/27/17 08/27/17 23:59 07:59 15:59 Intake Total 960 / 960 600 / 600 120 / 120 Output Total 950 / 950 400 / 400 Balance 10 / 10 200 / 200 120 / 120 Intake: Oral 960 / 960 600 / 600 120 / 120 Output: Urine 0 / 0 Urine/Stool Mix 950 / 950 400 / 400 Other: Meal Dinner Lunch Percent of Meal Consumed 50% Stool Size Moderate Stool Consistency liquid liquid Stool Color Brown Green Yellow Weight 126 kg Blood Glucose* 148 86 72 Patient Weight 08/27/17 23:59 Weight 126 kg General appearance: cooperative, morbidly obese, no acute distress, no febrile - Head Additional comments: underlying hardware apparent through scalp from prior surgical intervention, no drainage, surrounding skin intact with no s/s infection - ENT ENT exam: Present: mucous membranes moist - Respiratory Respiratory exam: Present: decreased breath sounds, CTAB. Absent: respiratory distress - Cardiovascular Cardiovascular exam: Present: RRR, +S1, +S2 - GI/Abdominal GI/Abdominal exam: Present: normal bowel sounds, soft. Absent: guarding, rebound, tenderness - Extremities Exam Extremities exam: Present: pedal edema. Absent: calf tenderness - Neurological Exam Neurological exam: Present: alert, oriented X3, no focal deficits, strengths equal and symetr throughout - Psychiatric Psychiatric exam: Present: normal affect, normal mood - Skin Skin exam: Present: dry, intact, pallor, warm Oncology: Obj Data - Labs CBC & Chem 7: 08/27/17 03:31 08/27/17 03:31 - Impressions Impressions Thoracentesis 08/25/17 00:00 IMPRESSION: 1. CT-guided core biopsy of a right lung mass performed. 2. CT-guided right-sided thoracentesis performed. 300 mL of dark red fluid was able to be aspirated. Residual right-sided pleural fluid was present, likely related to loculations and/or complex debris within the effusion. D/ / 08/25/2017 15:35:56 Rob Menard MD / tanesha Interpreting Provider: Rob Menard MD Lung Biopsy CT 08/25/17 07:00 IMPRESSION: 1. CT-guided core biopsy of a right lung mass performed. 2. CT-guided right-sided thoracentesis performed. 300 mL of dark red fluid was able to be aspirated. Residual right-sided pleural fluid was present, likely related to loculations and/or complex debris within the effusion. D/ / 08/25/2017 15:35:56 Rob Menard MD / tanesha Interpreting Provider: Rob Menard MD - ABG Interpretation ABG results: PT/INR, D-dimer PT 12.2 Seconds (9.4-12.1) H 08/25/17 03:52 Consult Discharge Plan - Plan Additional Instructions: Will need BMP 1 week after discharge. Follow up with nephrology 4 weeks after discharge. Referrals: Stephanie Morgan CNP [Primary Care Provider] - 08/27/17 11:00 am Tequila Dixon MD [Partnered Physician] - (f/u 4 weeks from discharge) <Shade Solitario - Last Filed: 08/27/17 20:52> Date of Encounter: 08/27/17 - Constitutional Vitals: Vital Signs Temp Pulse Resp BP Pulse Ox 08/27/17 16:00 98.1 F 69 16 159/60 93 08/27/17 11:05 98 F 84 16 167/58 08/27/17 08:55 98.8 F 82 16 177/62 94 08/27/17 07:48 98.8 F 82 18 211/60 97 08/27/17 05:00 98.8 F 78 18 156/65 95 08/27/17 01:16 98.2 F 74 18 153/78 94 08/26/17 21:12 94 08/26/17 21:00 98.2 F 76 18 145/66 94 Intake and Output 08/27/17 08/27/17 08/28/17 08:59 16:59 00:59 Intake Total 600 / 600 120 / 120 120 / 120 Output Total 400 / 400 300 / 300 Balance 200 / 200 -180 / -180 120 / 120 Intake: Oral 600 / 600 120 / 120 120 / 120 Output: Urine 0 / 0 300 / 300 Urine/Stool Mix 400 / 400 Other: Meal Lunch Dinner Percent of Meal Consumed 50% 50% Weight 126 kg Blood Glucose* 82 119 Patient Weight 08/28/17 00:59 Weight 126 kg Oncology: Obj Data - Labs CBC & Chem 7: 08/27/17 03:31 08/27/17 03:31 Labs: Laboratory Results - last 24 hr 08/26/17 08/27/17 08/27/17 20:32 03:31 03:31 WBC 10.9 RBC 2.60 L Hgb 7.4 L Hct 23.3 L MCV 89.6 MCH 28.5 MCHC 31.8 RDW 15.4 H Plt Count 389 MPV 8.5 L Immature Gran % 1.5 Seg Neutrophils % 76.7 Lymphocytes % 9.7 Monocytes % 7.9 Eosinophils % 4.0 Basophils % 0.2 Neutrophils # 8.4 Lymphocytes # 1.1 Monocytes # 0.9 Eosinophils # 0.4 Basophils # 0.0 Sodium 133 L Potassium 4.0 Chloride 107 Carbon Dioxide 17 L BUN 21 Creatinine 1.30 H Est GFR ( Amer) 49 L Est GFR (Non-Af Amer) 41 L BUN/Creatinine Ratio 16 Glucose 108 H POC Glucose 148 H Calculated Osmolality 280 Calcium 7.5 L - Impressions Impressions Thoracentesis 08/25/17 00:00 IMPRESSION: 1. CT-guided core biopsy of a right lung mass performed. 2. CT-guided right-sided thoracentesis performed. 300 mL of dark red fluid was able to be aspirated. Residual right-sided pleural fluid was present, likely related to loculations and/or complex debris within the effusion. D/ / 08/25/2017 15:35:56 Rob Menard MD / tanesha Interpreting Provider: Rob Menard MD Lung Biopsy CT 08/25/17 07:00 IMPRESSION: 1. CT-guided core biopsy of a right lung mass performed. 2. CT-guided right-sided thoracentesis performed. 300 mL of dark red fluid was able to be aspirated. Residual right-sided pleural fluid was present, likely related to loculations and/or complex debris within the effusion. D/ / 08/25/2017 15:35:56 Rob Menard MD / tanesha Interpreting Provider: Rob Menard MD - ABG Interpretation ABG results: PT/INR, D-dimer PT 12.2 Seconds (9.4-12.1) H 08/25/17 03:52 - Attending Attestation I examined this patient and my medical decision-making was reviewed with the Advanced Practice Nurse. I agree with the documented findings, disposition and treatment plan as described except to the extent set forth below. By preliminary pathology review, she has recurrent, metastatic hemangiopericytoma. Clinical presentation is c/w with pattern of spread. Usually a therapy- sensitive tumor, and we have options for traditional chemotherapy, TKI therapy with pazopanib or possibly PD-L1 directed therapy. Pending final pathology, will request NGS for PD-L1 expression and possible targets of PDGFR, etc. Pathology appears to have good tissue sample. Of note, she has an open cranial wound. This will need to be addressed at some point; cytotoxic or TKI therapy will be complicated/contraindicated. Will likely need neurrosurgery/plastics evaluation as an outpatient. Hopeful d/c soon; if her hospital stay is prolonged, would recommend transfer to tertiary care center to evaluate wound. We have arranged for f/u as an outpatient. We will otherwise sign off, please call [phone] with questions.
[2017-08-27] MEDS: Nystatin POWDER 30 GM BOTTLE TP SCH ×4 (15:03→20:26)
[2017-08-27] MEDS: Insulin DETEMIR 100 UNIT/ML X5UNITS SQ SCH (20:25)
[2017-08-28 03:17] LABS: Basophils % 0.2 %; Eosinophils # 0.5 K/mcL (0.0-0.6); Eosinophils % 4.4 %; Hematocrit 23.2 % (35.3-44.9); Hemoglobin 7.2 g/dL (11.5-15.4); Immature Granulocytes % 1.2 % (0-4); Lymphocytes # 0.9 K/mcL (0.6-4.6); Lymphocytes % 9.1 %; Mean Corpuscular Hemoglobin 28.2 pg (28.0-33.3); Mean Platelet Volume 8.3 fL (9.4-12.4); Monocytes # 0.7 K/mcL (0.0-1.3); Monocytes % 7.2 %; Neutrophils # 8.1 K/mcL (1.6-8.9); Platelet Count 415 K/mcL (140-400); Red Blood Count 2.55 M/mcL (3.82-4.97); Red Cell Distribution Width 15.5 % (11.5-14.5); Segmented Neutrophils % 77.9 %
[2017-08-28 03:31] LABS: Calcium 7.6 mg/dL (8.6-10.3); Potassium 3.6 mEq/L (3.5-5.1)
[2017-08-28] MEDS: Insulin LISPRO 300 UNITS/3 ML VIAL SQ SCH ×4 (08:11→20:32)
[2017-08-28] MEDS: levETIRAcetam 250 MG TABLET PO SCH ×2 (09:21→20:31)
[2017-08-28] MEDS: Aspirin Enteric Coated 81 MG Tablet PO SCH (09:22)
[2017-08-28] MEDS: hydrALAZINE 25 MG TABLET PO SCH ×3 (09:23→20:31)
[2017-08-28] MEDS: Levothyroxine 25 MCG TABLET PO SCH (09:24)
[2017-08-28] MEDS: Nystatin POWDER 30 GM BOTTLE TP SCH ×2 (09:26→20:32)
[2017-08-28] MEDS: Iron Sucrose Complex 200 MG in 0.9 % Sodium Chloride 100 ML IVPB SCH (09:30)
--- NOTE | 2017-08-28 11:31 | Internal Med Progress Note ---
<Hanna Leblanc - Last Filed: 08/28/17 11:23> Date of Encounter: 08/28/17 Time of Encounter: 11:24 - Assessment and plan (1) Recurrent right pleural effusion Current Visit: Yes Status: Acute Assessment and plan: Likely to be malignant-bloody, pleural fluid cytology has no yield previously, will repeat cytology on 1.5 L removed from right lung via thoracentesis 08/23 Pt had lung bx and thoracentesis 08/25. Pathology pending Repeat cytology shows reactive mesothelial cells, inflammatory cells, and "atypical cells" from 08/20 and negative for malignancy with 08/25 pleural fluid , previous cytology negative. Pulm plans for pleurex cath if fluid re-accumulates. Pt fluid overload is improving: no SOB, hand edema improved and mild pedal edema Pt did have fever this AM and CXR repeated 08/28: Pleural effusions larger on the right than left with some interval decrease in the volume of fluid in the right pleural space when correlated to the CT from 8 days earlier. There is some loculation of the right pleural fluid. Bilateral lung masses. Right basilar atelectasis or infiltrate. Pt not in respiratory distress, lungs CTAB. Will have pulm reassess pt tomorrow. May need pleurX cath vs chest tube due to the loculations. Plan: Fluid restriction overnight bipap study 6 minute walk test Pulmonology consulted, appreciate their recommendations (2) Acute on chronic renal failure Current Visit: Yes Status: Acute Assessment and plan: Nonoliguric, likely prerenal. Creatinine improved this morning to 1.26 from 1.30, seems to be at baseline Nephrology would like f/u 4 weeks after discharge with repeat BMP 1 week from discharge. Plan: Restart home dose of lasix 20mg daily Restart home lisinopril of 10mg daily Nephrology has been consulted, appreciate their recommendations. Continue Strict I/Os Will avoid nephrotoxins and renally dose as able Qualifiers: Acute renal failure type: unspecified Chronic kidney disease stage: stage 3 (moderate) Qualified Code(s): N17.9 - Acute kidney failure, unspecified; N18.3 - Chronic kidney disease, stage 3 (moderate) (3) 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 Current Visit: Yes Status: Acute Assessment and plan: Pt had lung bx with IR 08/25 Repeat cytology shows reactive mesothelial cells, inflammatory cells, and "atypical cells" from 08/20 pleural fluid Repeat cytology from 08/25 pleural fluid negative for malignancy Lung bx--pathology pending S/P lung biopsy 08/25/17- Onc was notified by pathology of morphologically consistent with hemangiopericytoma, further IHC staining needed for final report. Plan for outpatient PET scan and MRI brain. 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 Diabetes mellitus complication status: without complication Qualified Code(s): E11.9 - Type 2 diabetes mellitus without complications; Z79.4 - snf (current) use of insulin (5) Hypertension Current Visit: Yes Status: Chronic Assessment and plan: controlled, continue home medications Qualifiers: Hypertension type: essential hypertension Qualified Code(s): I10 - Essential (primary) hypertension (6) CKD (chronic kidney disease) stage 3, GFR 30-59 ml/min Current Visit: Yes Status: Chronic Assessment and plan: SCr at baseline (7) Seizure Current Visit: Yes Status: Chronic Assessment and plan: hx of seizure Plan: Continue seizure med Seizure precautions (8) Hypothyroid Current Visit: Yes Status: Chronic Assessment and plan: continue home dose of levothyroxine Qualifiers: Hypothyroidism type: acquired Qualified Code(s): E03.9 - Hypothyroidism, unspecified (9) Reactive airway disease Current Visit: Yes Status: Chronic Assessment and plan: continue med Qualifiers: Asthma severity: mild Asthma persistence: persistent Asthma complication type: uncomplicated Qualified Code(s): J45.30 - Mild persistent asthma, uncomplicated (10) Anemia in chronic kidney disease Current Visit: No Status: Acute Assessment and plan: Pt's hgb has been down during her visit and has stayed at 7.2-7.4 the last few days. Oncology administered venofer yesterday, hgb 7.2 today. Hemmocult ordered, no sample provided yet GI was consulted, performed EGD/Colonoscopy today: 3 sessile, non-bleeding polyps were found and removed in the cecum, transverse and sigmoid colon. EGD negative, bx of stomach taken. Stomach bx pathology: pending Polyp pathology: pending Plan: IV iron today Continue oral iron bid and colace bid GI has been consulted, appreciate their recommendations Continue to monitor Qualifiers: Chronic kidney disease stage: stage 3 (moderate) Qualified Code(s): N18.3 - Chronic kidney disease, stage 3 (moderate); D63.1 - Anemia in chronic kidney disease (11) Hyponatremia Current Visit: Yes Status: Acute Assessment and plan: Na 133 on admission, decreased to 129 08/24, improved today to 132. Has stabilized with fluid restriction. Consider SIADH in setting of possible malignancy, but is likely related to volume status as it is improving with fluid restriction Urine Na <10 Plan: Continue 1.5L Fluid restriction - Time Spent With Patient Total time spent is greater than 50% in coordination of care (as documented) at patient's floor/unit and/or counseling patient: - Subjective Interval history: Pt seem and examined, sitting in chair and just ate breakfast. She states she felt warm and chilled this morning. She denies worsening SOB or CP. She states that she has a lot of questions about future treatments that she can't quite formulate yet. She has a sister that lives with her and she takes care of. She is concerned about how she will be affected with her diagnosis and how the rest of her family will feel. She is in good spirits for compared to previous days. Denies any other complaints at this time. - Constitutional Vitals: Temp Pulse Resp BP Pulse Ox 98.4 F 74 16 128/74 95 08/28/17 11:11 08/28/17 11:11 08/28/17 11:11 08/28/17 11:11 08/28/17 11:11 General appearance: Present: cooperative, A&O X 3, morbidly obese, pleasant, no acute distress, answers questions appropriately - Head Head exam: Present: atraumatic, normocephalic - Eye Eye exam: Present: PERRL, conjuntiva pink, sclera anicteric Pupils: Present: PERRL - Neck Neck exam general surgery: Present: supple, trachea midline. Absent: lymphadenopathy - Respiratory Respiratory exam: Present: CTAB. Absent: accessory muscle use, rales, rhonchi, wheezes - Cardiovascular Cardiovascular exam: Present: RRR, +S1, +S2. Absent: diastolic murmur, gallop, rubs, systolic murmur - GI/Abdominal GI/Abdominal exam: Present: normal bowel sounds, soft, no peritoneal signs. Absent: distended, tenderness - Extremities Exam Extremities exam: Present: warm, radial pulses palpable and symmetrical. Absent : calf tenderness, cyanotic, pedal edema - Neurological Exam Neurological exam: Present: oriented X3, no focal deficits. Absent: facial droop, speech deficit - Psychiatric Psychiatric exam: Present: depressed, normal affect - Skin Skin exam: Present: dry, intact Internal Medicine: Result - Labs CBC & Chem 7: 08/28/17 02:48 08/28/17 02:48 Labs: Short CBC 08/28/17 Range/Units 02:48 WBC 10.3 (4.3-11.1) K/mcL Hgb 7.2 L (11.5-15.4) g/dL Hct 23.2 L (35.3-44.9) % Plt Count 415 H (140-400) K/mcL Neutrophils # 8.1 (1.6-8.9) K/mcL BMP 08/28/17 02:48 Sodium 132 L Potassium 3.6 Chloride 107 Carbon Dioxide 19 L BUN 17 Creatinine 1.26 H Glucose 136 H Calcium 7.6 L - ABG Interpretation ABG results: PT/INR, D-dimer PT 12.2 Seconds (9.4-12.1) H 08/25/17 03:52 - Impressions Impressions Chest X-Ray 08/28/17 07:37 IMPRESSION: Pleural effusions larger on the right than left with some interval decrease in the volume of fluid in the right pleural space when correlated to the CT from 8 days earlier. There is some loculation of the right pleural fluid. Bilateral lung masses. Right basilar atelectasis or infiltrate. D/ / 08/28/2017 08:04:07 Scot Mondragon MD / rigoberto Interpreting Provider: Scot Mondragon MD - VTE Documentation of Mechanical Device: Intermittent pneumatic compression device Consult Discharge Plan - Plan Additional Instructions: Will need BMP 1 week after discharge. Follow up with nephrology 4 weeks after discharge. Referrals: Stephanie Morgan CNP [Primary Care Provider] - 08/27/17 11:00 am Tequila Dixon MD [Partnered Physician] - (f/u 4 weeks from discharge) <Telma Joe - Last Filed: 08/28/17 14:06> Date of Encounter: 08/28/17 - Assessment and plan (1) Diabetes mellitus Current Visit: Yes Status: Chronic Qualifiers: Diabetes mellitus type: type 2 Diabetes mellitus longterm insulin use: with longterm use Diabetes mellitus complication status: without complication Qualified Code(s): E11.9 - Type 2 diabetes mellitus without complications; Z79.4 - snf (current) use of insulin (2) Hypertension Current Visit: Yes Status: Chronic Qualifiers: Hypertension type: essential hypertension Qualified Code(s): I10 - Essential (primary) hypertension (3) CKD (chronic kidney disease) stage 3, GFR 30-59 ml/min Current Visit: Yes Status: Chronic (4) Anemia in chronic kidney disease Current Visit: No Status: Acute Qualifiers: Chronic kidney disease stage: stage 3 (moderate) Qualified Code(s): N18.3 - Chronic kidney disease, stage 3 (moderate); D63.1 - Anemia in chronic kidney disease (5) Recurrent right pleural effusion Current Visit: Yes Status: Acute (6) Seizure Current Visit: Yes Status: Chronic (7) Hypothyroid Current Visit: Yes Status: Chronic (8) Reactive airway disease Current Visit: Yes Status: Chronic Qualifiers: Asthma severity: mild Asthma persistence: persistent Asthma complication type: uncomplicated Qualified Code(s): J45.30 - Mild persistent asthma, uncomplicated (9) 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 Current Visit: Yes Status: Acute (10) Acute on chronic renal failure Current Visit: Yes Status: Acute Qualifiers: Acute renal failure type: unspecified Chronic kidney disease stage: stage 3 (moderate) Qualified Code(s): N17.9 - Acute kidney failure, unspecified; N18.3 - Chronic kidney disease, stage 3 (moderate) (11) Hyponatremia Current Visit: Yes Status: Acute - Time Spent With Patient Total time spent is greater than 50% in coordination of care (as documented) at patient's floor/unit and/or counseling patient: - Constitutional Vitals: Temp Pulse Resp BP Pulse Ox 98.4 F 74 16 128/74 95 08/28/17 11:11 08/28/17 11:11 08/28/17 11:11 08/28/17 11:11 08/28/17 11:11 Internal Medicine: Result - Labs CBC & Chem 7: 08/28/17 02:48 08/28/17 02:48 Labs: Short CBC 08/28/17 Range/Units 02:48 WBC 10.3 (4.3-11.1) K/mcL Hgb 7.2 L (11.5-15.4) g/dL Hct 23.2 L (35.3-44.9) % Plt Count 415 H (140-400) K/mcL Neutrophils # 8.1 (1.6-8.9) K/mcL BMP 08/28/17 02:48 Sodium 132 L Potassium 3.6 Chloride 107 Carbon Dioxide 19 L BUN 17 Creatinine 1.26 H Glucose 136 H Calcium 7.6 L - ABG Interpretation ABG results: PT/INR, D-dimer PT 12.2 Seconds (9.4-12.1) H 08/25/17 03:52 - Impressions Impressions Chest X-Ray 08/28/17 07:37 IMPRESSION: Pleural effusions larger on the right than left with some interval decrease in the volume of fluid in the right pleural space when correlated to the CT from 8 days earlier. There is some loculation of the right pleural fluid. Bilateral lung masses. Right basilar atelectasis or infiltrate. D/ / 08/28/2017 08:04:07 Scot Mondragon MD / rigoberto Interpreting Provider: Scot Mondragon MD - Attending Attestation I examined this patient and my medical decision-making was reviewed with the Resident Physician. I agree with the documented findings, disposition and treatment plan as described except to the extent set forth below.
[2017-08-28] MEDS: Furosemide 20 MG TABLET PO SCH (13:02)
[2017-08-28] MEDS: Insulin DETEMIR 100 UNIT/ML X5UNITS SQ SCH (20:31)
[2017-08-29 04:27] LABS: Basophils % 0.2 %; Eosinophils # 0.4 K/mcL (0.0-0.6); Hematocrit 22.8 % (35.3-44.9); Immature Granulocytes % 0.8 % (0-4); Lymphocytes # 1.1 K/mcL (0.6-4.6); Lymphocytes % 10.2 %; Mean Corpuscular HGB Conc 30.7 g/dL (31.6-35.5); Mean Corpuscular Hemoglobin 27.8 pg (28.0-33.3); Mean Corpuscular Volume 90.5 fL (83.0-100.0); Mean Platelet Volume 8.2 fL (9.4-12.4); Monocytes # 0.8 K/mcL (0.0-1.3); Monocytes % 7.4 %; Neutrophils # 8.5 K/mcL (1.6-8.9); Platelet Count 402 K/mcL (140-400); Red Blood Count 2.52 M/mcL (3.82-4.97); Red Cell Distribution Width 15.7 % (11.5-14.5); Segmented Neutrophils % 77.4 %
[2017-08-29 04:51] LABS: Calcium 7.7 mg/dL (8.6-10.3); Potassium 3.9 mEq/L (3.5-5.1)
[2017-08-29] MEDS: Levothyroxine 25 MCG TABLET PO SCH (06:03)
[2017-08-29] MEDS: Insulin LISPRO 300 UNITS/3 ML VIAL SQ SCH ×4 (07:24→20:56)
[2017-08-29] MEDS: Nystatin POWDER 30 GM BOTTLE TP SCH ×2 (08:24→20:58)
[2017-08-29] MEDS: levETIRAcetam 250 MG TABLET PO SCH ×2 (08:25→20:58)
[2017-08-29] MEDS: hydrALAZINE 25 MG TABLET PO SCH ×3 (08:25→20:58)
[2017-08-29] MEDS: Furosemide 20 MG TABLET PO SCH (08:25)
[2017-08-29] MEDS: Iron Sucrose Complex 200 MG in 0.9 % Sodium Chloride 100 ML IVPB SCH (08:26)
[2017-08-29] MEDS: Aspirin Enteric Coated 81 MG Tablet PO SCH (08:26)
--- NOTE | 2017-08-29 09:07 | Internal Med Progress Note ---
<Hanna Leblanc - Last Filed: 08/29/17 11:45> Date of Encounter: 08/29/17 Time of Encounter: 09:05 - Assessment and plan (1) Recurrent right pleural effusion Current Visit: Yes Status: Acute Assessment and plan: Likely to be malignant-bloody, pleural fluid cytology has no yield previously, will repeat cytology on 1.5 L removed from right lung via thoracentesis 08/23 Pt had lung bx and thoracentesis 08/25. Pathology pending Repeat cytology shows reactive mesothelial cells, inflammatory cells, and "atypical cells" from 08/20 and negative for malignancy with 08/25 pleural fluid , previous cytology negative. Pulm plans for pleurex cath if fluid re-accumulates. Pt fluid overload is improving: no SOB, hand edema improved and mild pedal edema Pt did have fever this AM and CXR repeated 08/28: Pleural effusions larger on the right than left with some interval decrease in the volume of fluid in the right pleural space when correlated to the CT from 8 days earlier. There is some loculation of the right pleural fluid. Bilateral lung masses. Right basilar atelectasis or infiltrate. Pt not in respiratory distress, lungs CTAB. Will have pulm reassess pt . May need pleurX cath vs chest tube due to the loculations. 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 Plan for outpatient PET scan and MRI brain. Her case will be discussed in tumor board next and she will follow up later that day to discuss pathology results and treatment planning which may include consult to [facility] Plan: Oncology consulted, appreciate recommendations (3) Anemia in chronic kidney disease Current Visit: No Status: Acute Assessment and plan: Pt's hgb has been down during her visit and has stayed at 7.2-7.4 the last few days. 08/29 it is 7.0 Hemmocult ordered, no sample provided yet GI was consulted, performed EGD/Colonoscopy today: 3 sessile, non-bleeding polyps were found and removed in the cecum, transverse and sigmoid colon. EGD negative, bx of stomach taken. Stomach bx pathology: pending Polyp pathology: pending She has had several doses of IV iron and has been started on oral iron replacement therapy. Hgb continues to down trend, however baseline hgb seems to be around 7-8 Consider transfusion of 2 units PRBCs Plan: Transfuse as necessary Continue oral iron bid and colace bid GI has been consulted, appreciate their recommendations Heme/Onc has been consulted, appreciate their recommendations. Continue to monitor Qualifiers: Chronic kidney disease stage: stage 3 (moderate) Qualified Code(s): N18.3 - Chronic kidney disease, stage 3 (moderate); D63.1 - Anemia in chronic kidney disease (4) Acute on chronic renal failure Current Visit: Yes Status: Acute Assessment and plan: Nonoliguric, likely prerenal. Creatinine stable at baseline Nephrology would like f/u 4 weeks after discharge with repeat BMP 1 week from discharge. Plan: Continue lasix 20mg daily Continue lisinopril 10mg daily Nephrology has been consulted, appreciate their recommendations. Continue Strict I/Os Will avoid nephrotoxins and renally dose as able Qualifiers: Acute renal failure type: unspecified Chronic kidney disease stage: stage 3 (moderate) Qualified Code(s): N17.9 - Acute kidney failure, unspecified; N18.3 - Chronic kidney disease, stage 3 (moderate) (5) Diabetes mellitus Current Visit: Yes Status: Chronic Assessment and plan: Fasting sugars stable Plan: continue low dose ISS Accuchecks ACHS ADA diet Hold po meds Qualifiers: Diabetes mellitus type: type 2 Diabetes mellitus mcc insulin use: with mcc use Diabetes mellitus complication status: without complication Qualified Code(s): E11.9 - Type 2 diabetes mellitus without complications; 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 (6) Hypertension Current Visit: Yes Status: Chronic Assessment and plan: controlled, continue home medications Qualifiers: Hypertension type: essential hypertension Qualified Code(s): I10 - Essential (primary) hypertension (7) CKD (chronic kidney disease) stage 3, GFR 30-59 ml/min Current Visit: Yes Status: Chronic Assessment and plan: SCr at baseline (8) Seizure Current Visit: Yes Status: Chronic Assessment and plan: hx of seizure Plan: Continue seizure med Seizure precautions (9) Hypothyroid Current Visit: Yes Status: Chronic Assessment and plan: continue home dose of levothyroxine Qualifiers: Hypothyroidism type: acquired Qualified Code(s): E03.9 - Hypothyroidism, unspecified (10) Reactive airway disease Current Visit: Yes Status: Chronic Assessment and plan: continue med Qualifiers: Asthma severity: mild Asthma persistence: persistent Asthma complication type: uncomplicated Qualified Code(s): J45.30 - Mild persistent asthma, uncomplicated (11) Hyponatremia Current Visit: Yes Status: Acute Assessment and plan: Na has stabilized with fluid restriction. Plan: Continue 1.5L Fluid restriction - Time Spent With Patient Total time spent is greater than 50% in coordination of care (as documented) at patient's floor/unit and/or counseling patient: - Subjective Interval history: Pt seem and examined, sitting in chair and just ate breakfast. She denies worsening SOB or CP. We discussed the possibility of pleurX catheter placement and she is hesitant to consider it. She is still very worried about how her sister will react to her diagnosis. Denies any other complaints at this time. - Constitutional Vitals: Temp Pulse Resp BP Pulse Ox 98.4 F 76 17 158/56 96 08/29/17 06:49 08/29/17 06:49 08/29/17 06:49 08/29/17 06:49 08/29/17 08:50 General appearance: Present: cooperative, A&O X 3, morbidly obese, pleasant, no acute distress, answers questions appropriately - Head Head exam: Present: atraumatic, normocephalic - Eye Eye exam: Present: PERRL, conjuntiva pink, sclera anicteric Pupils: Present: PERRL - Neck Neck exam general surgery: Present: supple, trachea midline. Absent: lymphadenopathy - Respiratory Respiratory exam: Present: decreased breath sounds (right lower lobe), rales. Absent: respiratory distress, rhonchi, wheezes, tachypnea - Cardiovascular Cardiovascular exam: Present: RRR, +S1, +S2. Absent: diastolic murmur, gallop, rubs, systolic murmur - GI/Abdominal GI/Abdominal exam: Present: normal bowel sounds, soft, no peritoneal signs. Absent: distended, tenderness - Extremities Exam Extremities exam: Present: warm, radial pulses palpable and symmetrical. Absent : calf tenderness, cyanotic, pedal edema - Neurological Exam Neurological exam: Present: oriented X3, no focal deficits. Absent: motor sensory deficit, facial droop, speech deficit - Psychiatric Psychiatric exam: Present: normal affect, normal mood - Skin Skin exam: Present: dry, intact Internal Medicine: Result - Labs CBC & Chem 7: 08/29/17 04:15 08/29/17 04:15 Labs: Short CBC 08/29/17 Range/Units 04:15 WBC 11.0 (4.3-11.1) K/mcL Hgb 7.0 L (11.5-15.4) g/dL Hct 22.8 L (35.3-44.9) % Plt Count 402 H (140-400) K/mcL Neutrophils # 8.5 (1.6-8.9) K/mcL BMP 08/29/17 04:15 Sodium 134 L Potassium 3.9 Chloride 107 Carbon Dioxide 23 BUN 15 Creatinine 1.30 H Glucose 95 Calcium 7.7 L - ABG Interpretation ABG results: PT/INR, D-dimer PT 12.2 Seconds (9.4-12.1) H 08/25/17 03:52 - VTE Documentation of Mechanical Device: Intermittent pneumatic compression device Consult Discharge Plan - Plan Additional Instructions: Will need BMP 1 week after discharge. Follow up with nephrology 4 weeks after discharge. 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 Diabetes mellitus complication status: without complication Qualified Code(s): E11.9 - Type 2 diabetes mellitus without complications; Z79.4 - halfway (current) use of insulin (2) Hypertension Current Visit: Yes Status: Chronic Qualifiers: Hypertension type: essential hypertension Qualified Code(s): I10 - Essential (primary) hypertension (3) CKD (chronic kidney disease) stage 3, GFR 30-59 ml/min Current Visit: Yes Status: Chronic (4) Anemia in chronic kidney disease Current Visit: No Status: Acute Qualifiers: Chronic kidney disease stage: stage 3 (moderate) Qualified Code(s): N18.3 - Chronic kidney disease, stage 3 (moderate); D63.1 - Anemia in chronic kidney disease (5) Recurrent right pleural effusion Current Visit: Yes Status: Acute (6) Seizure Current Visit: Yes Status: Chronic (7) Hypothyroid Current Visit: Yes Status: Chronic (8) Reactive airway disease Current Visit: Yes Status: Chronic Qualifiers: Asthma severity: mild Asthma persistence: persistent Asthma complication type: uncomplicated Qualified Code(s): J45.30 - Mild persistent asthma, uncomplicated (9) 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 Current Visit: Yes Status: Acute (10) Acute on chronic renal failure Current Visit: Yes Status: Acute Qualifiers: Acute renal failure type: unspecified Chronic kidney disease stage: stage 3 (moderate) Qualified Code(s): N17.9 - Acute kidney failure, unspecified; N18.3 - Chronic kidney disease, stage 3 (moderate) (11) Hyponatremia Current Visit: Yes Status: Acute - Time Spent With Patient Total time spent is greater than 50% in coordination of care (as documented) at patient's floor/unit and/or counseling patient: - Constitutional Vitals: Temp Pulse Resp BP Pulse Ox 98.4 F 76 17 158/56 96 08/29/17 06:49 08/29/17 06:49 08/29/17 06:49 08/29/17 06:49 08/29/17 08:50 Internal Medicine: Result - Labs CBC & Chem 7: 08/29/17 04:15 08/29/17 04:15 Labs: Short CBC 08/29/17 Range/Units 04:15 WBC 11.0 (4.3-11.1) K/mcL Hgb 7.0 L (11.5-15.4) g/dL Hct 22.8 L (35.3-44.9) % Plt Count 402 H (140-400) K/mcL Neutrophils # 8.5 (1.6-8.9) K/mcL BMP 08/29/17 04:15 Sodium 134 L Potassium 3.9 Chloride 107 Carbon Dioxide 23 BUN 15 Creatinine 1.30 H Glucose 95 Calcium 7.7 L - ABG Interpretation ABG results: PT/INR, D-dimer PT 12.2 Seconds (9.4-12.1) H 08/25/17 03:52 - Attending Attestation I examined this patient and my medical decision-making was reviewed with the Resident Physician. I agree with the documented findings, disposition and treatment plan as described except to the extent set forth below.
[2017-08-29] MEDS: Insulin DETEMIR 100 UNIT/ML X5UNITS SQ SCH (20:57)
--- NOTE | 2017-08-29 23:20 | Event Note ---
Date of Encounter: 08/29/17 Time of Encounter: 22:16 Alerted by patient's nurse HENRY Zepeda that patient is scheduled to receive 2 units of PRBCs tonight, however her blood must be sent to [facility] due to special blood needs. Spoke to blood bank who stated that [facility] was not available tonight except for situations where pt. was in distress. Pt. pale but no respiratory distress. VS: 99F with temperature, heart rate 81, respirations 17, BP 166/69, and SPO2 94% on 2 L via nasal cannula. Reviewed pts. Hgb 7.2 on , 7.4 on 08/26, 7.4 on 08/27. 7.2 on 08/28, and 7.0 on 08/29. Timed H/H starting now. Pt. to be monitored closely overnight. Pts. blood to be sent to [facility] in early a.m. for type and screen. Alert provider overnight of decline in status.
[2017-08-29 23:50] LABS: Hematocrit 23.1 % (35.3-44.9); Hemoglobin 6.9 g/dL (11.5-15.4)
[2017-08-30] MEDS: Levothyroxine 25 MCG TABLET PO SCH (06:12)
[2017-08-30 06:28] LABS: Basophils % 0.3 %; Eosinophils # 0.5 K/mcL (0.0-0.6); Hematocrit 26.8 % (35.3-44.9); Hemoglobin 7.9 g/dL (11.5-15.4); Immature Granulocytes % 0.9 % (0-4); Lymphocytes # 1.6 K/mcL (0.6-4.6); Lymphocytes % 12.3 %; Mean Corpuscular HGB Conc 29.5 g/dL (31.6-35.5); Mean Corpuscular Hemoglobin 27.3 pg (28.0-33.3); Mean Corpuscular Volume 92.7 fL (83.0-100.0); Mean Platelet Volume 8.3 fL (9.4-12.4); Monocytes # 0.9 K/mcL (0.0-1.3); Monocytes % 7.2 %; Neutrophils # 9.7 K/mcL (1.6-8.9); Platelet Count 471 K/mcL (140-400); Red Blood Count 2.89 M/mcL (3.82-4.97); Segmented Neutrophils % 75.3 %
[2017-08-30 06:46] LABS: Calcium 8.4 mg/dL (8.6-10.3)
[2017-08-30] MEDS: Insulin LISPRO 300 UNITS/3 ML VIAL SQ SCH ×2 (07:00→11:45)
[2017-08-30] MEDS: levETIRAcetam 250 MG TABLET PO SCH (10:01)
[2017-08-30] MEDS: hydrALAZINE 25 MG TABLET PO SCH ×2 (10:02→15:22)
[2017-08-30] MEDS: Furosemide 20 MG TABLET PO SCH (10:02)
[2017-08-30] MEDS: Aspirin Enteric Coated 81 MG Tablet PO SCH (10:18)
[2017-08-30] MEDS: Nystatin POWDER 30 GM BOTTLE TP SCH (10:18)
[2017-08-30 16:12] VITALS: BP 160/63
--- NOTE | 2017-08-30 17:15 | Discharge Summary ---
<Hanna Leblanc - Last Filed: 08/30/17 17:11> - NOTES TO OUTPATIENT PROVIDER Notes to Outpatient Provider: New diagnosis of lung malignancy, will follow up with Oncology. Will need follow up with Dr. Fraser in 1 week for evaluation of need for PleurX drain. Plavix on hold starting 08/30/17. DELORES-started on oral iron. Will need repeat CBC 1 week from discharge. Has exposed plates in scalp, will need to see Plastic Surgery and have addressed prior to treatment for lung malignancy. Patient will need Sleep Study as outpatient. Patient will need BMP 1 week from discharge and follow up with Nephrology in 4 weeks. 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 Priority: Secondary Status: Acute (3) Anemia in chronic kidney disease Priority: Secondary Status: Acute Qualifiers: Chronic kidney disease stage: stage 3 (moderate) Qualified Code(s): N18.3 - Chronic kidney disease, stage 3 (moderate); D63.1 - Anemia in chronic kidney disease (4) Acute on chronic renal failure Priority: Secondary Status: Acute Qualifiers: Acute renal failure type: unspecified Chronic kidney disease stage: stage 3 (moderate) Qualified Code(s): N17.9 - Acute kidney failure, unspecified; N18.3 - Chronic kidney disease, stage 3 (moderate) (5) Diabetes mellitus Priority: Secondary Status: Chronic Qualifiers: Diabetes mellitus type: type 2 Diabetes mellitus rn long term care insulin use: with mcfp use Diabetes mellitus complication status: without complication Qualified Code(s): E11.9 - Type 2 diabetes mellitus without complications; Z79.4 - rn long term care (current) use of insulin (6) Hypertension Priority: Secondary Status: Chronic Qualifiers: Hypertension type: essential hypertension Qualified Code(s): I10 - Essential (primary) hypertension (7) CKD (chronic kidney disease) stage 3, GFR 30-59 ml/min Priority: Secondary Status: Chronic (8) Seizure Priority: Secondary Status: Chronic (9) Hypothyroid Priority: Secondary Status: Chronic Qualifiers: Hypothyroidism type: acquired Qualified Code(s): E03.9 - Hypothyroidism, unspecified (10) Reactive airway disease Priority: Secondary Status: Chronic Qualifiers: Asthma severity: mild Asthma persistence: persistent Asthma complication type: uncomplicated Qualified Code(s): J45.30 - Mild persistent asthma, uncomplicated (11) Hyponatremia Priority: Secondary Status: Acute Hospital course: Ms. Almanza is a 71 year old female who pwas recently discharged on Wednesday after being here for 6 days for investigation for right pleural effusion likely secondary to malignancy pending evaluation who presented to [facility] ED 08/20 for recurrent shortness of breath secondary to rapidly reaccumulating pleural effusion. During her last hospital course pt had been investigated with a suspicion that her pleural effusion is second to an undiagnosed malignancy and was advised for outpatient pulmonology. Imaging suggested multiple lung lesions with abdominal imaging suspicious for a small renal lesion - unsure whether this represents a primary or mets. Nevertheless she was discharged on antibiotics Levaquin and was sent home with outpatient follow-up with pulmonary neurology for further investigation. However that did not last long and she had rapidly accumulating and recurrent pleural effusion. Patient reported becoming symptomatic after waking up [employer], shortness of breath at rest, could not catch her breath, pain on inspiration, increased fatigue. Cytology from previous pleural fluid was negative. Pt was admitted and IR performed thoracentesis with 1.5L drained. Pulmonology was consulted and recommended CT guideded biopsy with repeat cytolgoy. The patient was on plavix and this had to be help 5 days before she could have procedure with IR on 08/25. 300mL of fluid removed at that time. She has been on 1.5 L fluid restriction and volume status has improved. No wheezing or rhonchi on date of discharge. Pt will need f/u with Dr. Fraser in 1 week for evaluation of need for PleurX drain. Plavix held at discharge until she is seen by Dr. Fraser. Oncology was consulted, the lesions are likely malignant, atypical cells in 08/25 cytology of pleural fluid, final pathology consistent with hemangiopericytoma, favor metastatic, of indeterminate grade. Plan to meet with Tumor Board 09/02 with f/u appointment later that day for plan. Pt will get outpt PET and MRI. Pt will need to see Plastic Surgery at [facility] to address exposed metal plate on her scalp-referral placed--prior to initiating treatment with Cancer Center. Patient hgb down- trended during stay. EGD/Colonoscopy were negative for bleeding. Pt given IV iron for 3 days and started on oral iron, hgb improving. Will need repeat CBC in 1 week. Pt had overnight bipap study and did not qualify for home BiPAP, will need outpt sleep study. Pt had GLENNA on CKD and was followed by Nephrology. SCr improved and she will need repeat BMP in 1 week with Nephrology f/u in 4 weeks. Dermatology was consulted for shave biopsy of scalp, sample sent to [facility] for pathology. Pt in stable condition at discharge, off of oxygen with close follow up. Discharge discussed with: patient, nurse, social work, case management, specialty development consultant - Time Spent with Patient Total time spent providing and/or coordinating discharge services: Greater than 30 minutes - Discharge Medications Prescriptions: Calcium Carbonate [Tums] 1,000 mg PO QID 30 Days #120 tab.chew Docusate [Colace] 100 mg PO BID 30 Days #60 capsule Ferrous Sulfate 325 mg PO BIDWM 30 Days #60 tablet Home Medications: Furosemide [Lasix] 20 mg PO DAILY 11/30/14 [History] Insulin ASPART [NovoLOG] 0 unit SQ TIDWM PRN 03/13/15 [History] Pantoprazole Sodium [Protonix] 40 mg PO DAILY 03/13/15 [History] Aspirin [Adult Aspirin] 81 mg PO DAILY 08/12/17 [History] Atorvastatin Calcium [Lipitor] 20 mg PO DAILY 08/12/17 [History] Ergocalciferol (VITAMIN D2) [Vitamin D2] 50,000 unit PO QWEEK 08/12/17 [History] Escitalopram Oxalate 5 mg PO DAILY 08/12/17 [History] LevETIRAcetam [Keppra] 750 mg PO BID 08/12/17 [History] Levothyroxine Sodium [Levoxyl] 25 mcg PO DAILY 08/12/17 [History] Levothyroxine Sodium [Synthroid] 200 mcg PO DAILY 08/12/17 [History] Lisinopril [Zestril] 10 mg PO DAILY 08/12/17 [History] Metoprolol [Lopressor] 25 mg PO BID 08/12/17 [History] Montelukast [Singulair] 10 mg PO DAILY 08/12/17 [History] Phenytoin [Dilantin] 150 mg PO BID 08/12/17 [History] Pioglitazone HCl [Actos] 15 mg PO DAILY 08/12/17 [History] SitaGLIPtin [Januvia] 100 mg PO DAILY 08/12/17 [History] Tolterodine Tartrate [Detrol] 2 mg PO BID 08/12/17 [History] Acetaminophen [Tylenol] 650 mg PO Q6HR PRN tablet 08/18/17 [Rx] Benzonatate [Tessalon] 100 mg PO TID PRN 14 Days #42 capsule 08/18/17 [Rx] Insulin Glargine [Lantus] 15 unit SQ BID 30 Days #900 mls 08/18/17 [Rx] hydrALAZINE [HydrALAZINE] 25 mg PO TID tablet 08/18/17 [Rx] Calcium Carbonate [Tums] 1,000 mg PO QID 30 Days #120 tab.chew 08/30/17 [Rx] Docusate [Colace] 100 mg PO BID 30 Days #60 capsule 08/30/17 [Rx] Ferrous Sulfate 325 mg PO BIDWM 30 Days #60 tablet 08/30/17 [Rx] Allergies/Adverse Reactions: 3 Allergy/AdvReac Type Severity Reaction Status Date / Time Tetanus Vaccines and Toxoid Allergy Unknown unknown Verified 08/20/17 11:53 [Tetanus Vaccines & Toxoid] Date of admission: 08/20/17 15:29 Primary care physician: Stephanie Morgan CNP Consults: 08/20/17 18:45 Consult to Oncology Hematology [CONS] Routine Consulting Provider: David Phillips Reason for Consult: recurrrent effusion, cancer eval - has lung lesions Call Completed: No Consult to Pulmonology [CONS] Routine Consulting Provider: [facility] [place] Reason for Consult: recurrent effusion, suspect malignant Call Completed: No 08/24/17 07:58 Consult to Interventional Radiology [CONS] Routine Consulting Provider: Radiology Interventional Cols Reason for Consult: Thoracentesis and Lung biopsy Call Completed: Yes 08/24/17 14:58 Consult to Nephrology [CONS] Routine Consulting Provider: Kidney Leora/CATRACHITA/AMIRAH/REBECCA Reason for Consult: hypontremia, GLENNA on CKDIIIb Time Notified: 15:04 Call Completed: Yes 08/25/17 15:16 Consult to Gastroenterology [CONS] Routine Consulting Provider: Gastroenterology [place] Reason for Consult: Anemia, rule out GIB Call Completed: Yes 08/26/17 09:40 Consult to Dermatology [CONS] Routine Consulting Provider: [facility] [place] Reason for Consult: scalp lesion Call Completed: Yes Discharging clinician: Hanna Leblanc Anticipated date of discharge: 08/30/17 - Constitutional Vitals: Temp Pulse Resp BP Pulse Ox 98.5 F 76 20 160/63 98 08/30/17 16:08 08/30/17 16:08 08/30/17 16:08 08/30/17 16:08 08/30/17 16:08 General appearance: Present: cooperative, A&O X 3, morbidly obese, pleasant, no acute distress, answers questions appropriately - Head Head exam: Present: atraumatic, normocephalic Additional comments: exposed metal plating on right crown in hair. No surrounding erythema or drainage. - Eye Eye exam: Present: PERRL, conjuntiva pink, sclera anicteric Pupils: Present: PERRL - Neck Neck exam general surgery: Present: supple, trachea midline. Absent: lymphadenopathy - Respiratory Respiratory exam: Present: decreased breath sounds (right lower lobe), rales. Absent: respiratory distress, rhonchi, stridor, wheezes, tachypnea - Cardiovascular Cardiovascular exam: Present: RRR, +S1, +S2. Absent: diastolic murmur, gallop, rubs, systolic murmur - GI/Abdominal GI/Abdominal exam: Present: normal bowel sounds, soft, no peritoneal signs. Absent: distended, tenderness - Extremities Exam Extremities exam: Present: pedal edema, warm, radial pulses palpable and symmetrical. Absent: calf tenderness, cyanotic - Neurological Exam Neurological exam: Present: oriented X3, no focal deficits, strengths equal and symetr throughout. Absent: motor sensory deficit, facial droop, speech deficit - Psychiatric Psychiatric exam: Present: normal affect, normal mood - Skin Skin exam: Present: dry, intact - Patient Status Disposition: Home Health Service Condition: Fair Functional capacity at discharge: independent ambulation Overall status at discharge: patient is progressing back to baseline - Ambulatory Orders Ambulatory Orders: PET CT skull to thigh DX/initi [PE] Time Frame: 09/01/17, Facility: [facility], Location: Radiology MR head/brain wo/w con [MR] Time Frame: 08/31/17, Facility: [facility], Location: Radiology Sleep Study Time Frame: 1 Week, Location: Determined By Patient - Discharge Instructions Instructions: Iron Supplements (By mouth), Laxative, Stool Softeners (By mouth) , Antacid, Calcium and Magnesium (By mouth), Hypothyroidism (DC), Diabetes Mellitus Type 2 in Adults (DC), Anemia (GEN), Pneumonia (DC) Follow Up With: Stephanie Morgan CNP [Primary Care Provider] - 08/27/17 11:00 am Tequila Dixon MD [Partnered Physician] - (f/u 4 weeks from discharge) Luci Fraser MD [Partnered Physician] - Shade Solitario MD [Partnered Physician] - laura Parker [Other] (Referral to [facility] plastics, eval exposed scalp hardware) Additional Instructions: Will need BMP 1 week after discharge. Follow up with nephrology 4 weeks after discharge. Will need follow up with Dr. Fraser in 1 week. Will need out patient sleep study. Will need CBC in 1 week. Will follow up with Oncology. Will need to be evaluated by plastic surgery, referral placed. Plavix held until sees Dr. Fraser. Continue 1.5 Liter fluid restriction - Diet and Activity Activity: increase activity as tolerated Diet: advance to your usual diet (with 1.5 Liter Fluid Restriction) - VTE Documentation of Mechanical Device: Intermittent pneumatic compression device <Telma Joe - Last Filed: 08/30/17 18:13> Orders not resulted at time of discharge: Pending orders 08/25/17 08:57 Occult Blood,Stool [BF] Routine 08/26/17 11:25 AFB Culture, Tissue [TB] Routine AFB Smear [TB] Routine Culture,Anaerobic [RM] Routine Fungal Culture,Skin [MYC] Routine 08/27/17 08:30 Surgical Pathology [PTH] Routine 08/29/17 16:15 Type and Screen [BBK] Stat 08/31/17 04:00 Basic Metabolic Panel AM 0400 CBC [Complete Blood Count] [HEME] AM 0400 Date of Encounter: 08/30/17 - Discharge Diagnosis (1) Diabetes mellitus Status: Chronic Qualifiers: Diabetes mellitus type: type 2 Diabetes mellitus mcfp insulin use: with rn long term care use Diabetes mellitus complication status: without complication Qualified Code(s): E11.9 - Type 2 diabetes mellitus without complications; Z79.4 - nursing home (current) use of insulin (2) Hypertension Status: Chronic Qualifiers: Hypertension type: essential hypertension Qualified Code(s): I10 - Essential (primary) hypertension (3) CKD (chronic kidney disease) stage 3, GFR 30-59 ml/min Status: Chronic (4) Anemia in chronic kidney disease Status: Acute Qualifiers: Chronic kidney disease stage: stage 3 (moderate) Qualified Code(s): N18.3 - Chronic kidney disease, stage 3 (moderate); D63.1 - Anemia in chronic kidney disease (5) Recurrent right pleural effusion Status: Acute (6) Seizure Status: Chronic (7) Hypothyroid Status: Chronic (8) Reactive airway disease Status: Chronic Qualifiers: Asthma severity: mild Asthma persistence: persistent Asthma complication type: uncomplicated Qualified Code(s): J45.30 - Mild persistent asthma, uncomplicated (9) 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 Status: Acute (10) Acute on chronic renal failure Status: Acute Qualifiers: Acute renal failure type: unspecified Chronic kidney disease stage: stage 3 (moderate) Qualified Code(s): N17.9 - Acute kidney failure, unspecified; N18.3 - Chronic kidney disease, stage 3 (moderate) (11) Hyponatremia Status: Acute Hospital course: Ms. Almanza is a 71 year old female - Time Spent with Patient Total time spent providing and/or coordinating discharge services: Date of admission: 08/20/17 15:29 Primary care physician: Stephanie Morgan CNP Consults: 08/20/17 18:45 Consult to Oncology Hematology [CONS] Routine Consulting Provider: David Phillips Reason for Consult: recurrrent effusion, cancer eval - has lung lesions Call Completed: No Consult to Pulmonology [CONS] Routine Consulting Provider: [facility] [place] Reason for Consult: recurrent effusion, suspect malignant Call Completed: No 08/24/17 07:58 Consult to Interventional Radiology [CONS] Routine Consulting Provider: Radiology Interventional Cols Reason for Consult: Thoracentesis and Lung biopsy Call Completed: Yes 08/24/17 14:58 Consult to Nephrology [CONS] Routine Consulting Provider: Kidney Leora/CATRACHITA/AMIRAH/REBECCA Reason for Consult: hypontremia, GLENNA on CKDIIIb Time Notified: 15:04 Call Completed: Yes 08/25/17 15:16 Consult to Gastroenterology [CONS] Routine Consulting Provider: Gastroenterology [place] Reason for Consult: Anemia, rule out GIB Call Completed: Yes 08/26/17 09:40 Consult to Dermatology [CONS] Routine Consulting Provider: D[facility]at[facility] [place] Reason for Consult: scalp lesion Call Completed: Yes - Constitutional Vitals: Temp Pulse Resp BP Pulse Ox 98.5 F 76 20 160/63 98 08/30/17 16:08 08/30/17 16:08 08/30/17 16:08 08/30/17 16:08 08/30/17 16:08 - Attending Attestation I examined this patient and my medical decision-making was reviewed with the Resident Physician. I agree with the documented findings, disposition and treatment plan as described except to the extent set forth below.
== END 2017-08-30 19:22 | disposition home health service (06) | DRG 180 ==
LOC: EMEROO 11:45 → SUATTDRO 15:29 → 2NENU 15:29
PROVIDERS: ADMIT Internal Medicine Hematology & Oncology; ATTEND Student in an Organized Health Care Education/Training Program
PROC: ENDOEBX (2017-08-27 08:00)

== ENCOUNTER 2017-12-07 15:18 | Inpatient (IN) ==
[2017-12-07] MEDS ORDERED: Ipratropium/Albuterol Neb 3 ML IH ONE (15:26)
--- NOTE | 2017-12-07 15:37 | Emergency Department Note ---
Disposition Clinical Impression: COPD exacerbation Sepsis Qualifiers: Sepsis type: sepsis due to unspecified organism Qualified Code(s): A41.9 - Sepsis, unspecified organism UTI (urinary tract infection) Qualifiers: Urinary tract infection type: site unspecified Hematuria presence: without hematuria Qualified Code(s): N39.0 - Urinary tract infection, site not specified Community acquired pneumonia Qualifiers: Laterality: unspecified laterality Qualified Code(s): J18.9 - Pneumonia, unspecified organism Disposition: Admitted As Inpatient Condition: Fair Referrals: Stephanie Morgan VIROLOGIST [Primary Care Provider] - Forms: ED Satisfaction Letter Time of Disposition: 17:32 SOB HPI - General Time Seen by Provider: 12/07/17 15:26 Source: patient, EMS Mode of arrival: EMS Limitations: no limitations Nursing Notes Reviewed: Yes Vital Signs Reviewed: Yes - History of Present Illness Patient presents to the ED with the chief complaint of shortness of breath. Patient has a history of COPD and CHF. She also has a history of brain cancer and states that she is supposed to be starting chemotherapy soon, but she has a piece of the exposed bone or metal in her skull from her previous surgery that they cannot do gamma knife radiation until that is fixed. States that she started getting more short of breath than usual today. She is on oxygen at home and needed increasing requirements. No fever or chills. Is having some chest tightness and heaviness that is similar to his COPD. States she also has abdominal fullness that is more consistent with her CHF. No increase in swelling in her legs. No history of DVT or PE. States that she had a breathing treatment in the squad on the way over here and that seemed to help. - Related Data Home Medications Medication Instructions Recorded Confirmed Furosemide [Lasix] 20 mg PO DAILY 11/30/14 12/07/17 Pantoprazole Sodium [Protonix] 40 mg PO DAILY 03/13/15 12/07/17 Aspirin [Adult Aspirin] 81 mg PO DAILY 08/12/17 12/07/17 Atorvastatin Calcium [Lipitor] 20 mg PO DAILY 08/12/17 12/07/17 Ergocalciferol (VITAMIN D2) 50,000 unit PO QWEEK 08/12/17 12/07/17 [Vitamin D2] Escitalopram Oxalate 5 mg PO DAILY 08/12/17 12/07/17 LevETIRAcetam [Keppra] 750 mg PO BID 08/12/17 12/07/17 Levothyroxine Sodium [Levoxyl] 25 mcg PO DAILY 08/12/17 12/07/17 Levothyroxine Sodium [Synthroid] 200 mcg PO DAILY 08/12/17 12/07/17 Lisinopril [Zestril] 10 mg PO DAILY 08/12/17 12/07/17 Metoprolol [Lopressor] 25 mg PO BID 08/12/17 12/07/17 Montelukast [Singulair] 10 mg PO DAILY 08/12/17 12/07/17 Phenytoin [Dilantin] 150 mg PO BID 08/12/17 12/07/17 Pioglitazone HCl [Actos] 15 mg PO DAILY 08/12/17 12/07/17 SitaGLIPtin [Januvia] 100 mg PO DAILY 08/12/17 12/07/17 Tolterodine Tartrate [Detrol] 2 mg PO BID 08/12/17 12/07/17 Clopidogrel [Plavix] 75 mg PO DAILY 12/07/17 12/07/17 Insulin Glargine [Lantus] 15 unit SQ HS 12/07/17 12/07/17 Mupirocin [Bactroban Oint] 1 appl TP DAILY 12/07/17 12/07/17 hydrALAZINE [HydrALAZINE] 25 mg PO BID 12/07/17 12/07/17 Previous Rx's Medication Instructions Recorded Acetaminophen [Tylenol] 650 mg PO Q6HR PRN tablet 08/18/17 Calcium Carbonate [Tums] 1,000 mg PO QID 30 Days #120 08/30/17 tab.chew Docusate [Colace] 100 mg PO BID 30 Days #60 capsule 08/30/17 Ferrous Sulfate 325 mg PO BIDWM 30 Days #60 tablet 08/30/17 Allergies Allergy/AdvReac Type Severity Reaction Status Date / Time Tetanus Vaccines and Toxoid Allergy Unknown unknown Verified 11/03/17 13:25 [Tetanus Vaccines & Toxoid] Review of Systems: As reviewed in the HPI. All other systems reviewed are negative or normal. Past Medical History - Past Medical History Attestation: Yes The following information was validated with the patient. Source: patient Medical history: Reports: asthma, CHF, diabetes, hyperlipidemia, hypertension, seizures, other Surgical history: Reports: cholecystectomy, coronary bypass (CABG), other Psychiatric history: Reports: anxiety, depression, panic disorder - Social History Smoking Status: Never smoker Smokeless Tobacco Status: No Alcohol use: Reports: none Drug use: Reports: none Physical Exam CONSTITUTIONAL: [well appearing, alert and in mild respiratory distress] EYES: [EOMI, clear conjunctiva, PERRLA] HENT: [Normocephalic, atraumatic, moist mucus membranes, normal oropharynx] NECK: [normal inspection, full ROM, trachea midline, no obvious swelling] PULMONARY: [[id number] respiratory distress, decreased breath sounds bilateral bases, wheezing upper lung clark, poor inspiratory effort CARDIOVASCULAR: [regular rate, regular rhythm, normal heart sounds, no murmurs, distal extremities are warm and well perfused] GASTROINSTESTINAL: [soft, non-tender, non-rigid, non-distended, no guarding, no rebound, normal bowel sounds] GENITOURINARY/RECTAL: [deferred] NEUROLOGIC: [Alert, oriented x3, normal speech, moves all extremities] EXTREMITIES: [Normal inspection, full ROM, no tenderness, 3+ pedal edema, normal capillary refill] MUSCULOSKELETAL: [no gross deformities, atraumatic] SKIN: [No cyanosis, no diaphoresis, normal color, warm, no rash] PSYCHIATRIC: [normal mood and affect] Course - Reevaluation(s) Reevaluation #1: Patient has a leukocytosis and urinary tract infection. Chest x-ray shows a pleural effusion, but then the patient setting of hypoxia, shortness of breath and productive cough. I do think pneumonia is also likely. We will start on Vanc and Zosyn and admit. Vital Signs Temperature 99.3 F 12/07/17 15:26 Pulse Rate 73 12/07/17 15:26 Respiratory Rate 24 12/07/17 15:26 Blood Pressure 183/86 12/07/17 15:26 O2 Sat by Pulse Oximetry 90 12/07/17 15: Temperature 99.3 F 12/07/17 15: Pulse Rate 71 12/07/17 17:18 Respiratory Rate 20 12/07/17 17:18 Blood Pressure 153/89 12/07/17 17:18 O2 Sat by Pulse Oximetry 93 12/07/17 17:18 Shortness of Breath/Dyspnea - Medical Records Medical records reviewed: Yes I reviewed the patient's medical records. - Lab Data Lab results reviewed: Yes I reviewed the patient's lab results. Result diagrams: 12/07/17 15:36 12/07/17 15:36 Lab Results 12/07/17 12/07/17 12/07/17 Range/Units 15:36 15:36 15:36 WBC 19.1 H D (4.3-11.1) K/mcL RBC 3.71 L (3.82-4.97) M/mcL Hgb 10.0 L (11.5-15.4) g/dL Hct 33.9 L (35.3-44.9) % MCV 91.4 (83.0-100.0) fL MCH 27.0 L (28.0-33.3) pg MCHC 29.5 L (31.6-35.5) g/dL RDW 17.4 H (11.5-14.5) % Plt Count 308 (140-400) K/mcL MPV 10.0 (9.4-12.4) fL Immature Gran % 0.8 (0-4) % Seg Neutrophils % 87.3 % Lymphocytes % 6.2 % Monocytes % 5.2 % Eosinophils % 0.3 % Basophils % 0.2 % Neutrophils # 16.7 H (1.6-8.9) K/mcL Lymphocytes # 1.2 (0.6-4.6) K/mcL Monocytes # 1.0 (0.0-1.3) K/mcL Eosinophils # 0.1 (0.0-0.6) K/mcL Basophils # 0.0 (0.0-0.2) K/mcL PT 13.6 H (9.4-12.1) Seconds INR 1.2 APTT 27.7 (26.0-36.0) Seconds Sodium 140 (136-145) mEq/L Potassium 4.0 (3.5-5.1) mEq/L Chloride 103 (98-107) mEq/L Carbon Dioxide 26 (23-29) mEq/L BUN 20 (8-23) mg/dL Creatinine 1.40 H (0.60-1.20) mg/dL Est GFR ( Amer) 45 L (> 60) Est GFR (Non-Af Amer) 37 L (> 60) BUN/Creatinine Ratio 14 (6-26) Glucose 126 H (70-105) mg/dL Calculated Osmolality 294 (280-300) Lactic Acid (0.5-2.2) mmol/L Calcium 8.6 (8.6-10.3) mg/dL Troponin I 0.04 H* (< 0.04) ng/mL B-Natriuretic Peptide (Less than 100) pg/mL Urine Color (Yellow) Urine Clarity (Clear) Urine pH (5.0-8.0) pH Units Ur Specific [place] (1.010-1.025) Urine Protein (Neg-Trace) mg/dL Urine Glucose (UA) (Normal) mg/dL Urine Ketones (Negative) mg/dL Urine Blood (Negative) Urine Nitrite (Negative) Urine Bilirubin (Negative) Urine Urobilinogen (Normal) mg/dL Ur Leukocyte Esterase (Negative) Urine Microscopic RBC (0-3) per hpf Urine Microscopic WBC (0-3) per hpf Ur Squamous Epith Cells (None-Few) per lpf Urine Bacteria (None-Few) per hpf Ur Culture Indicated? (NO) 12/07/17 12/07/17 12/07/17 Range/Units 15:36 15:36 16:28 WBC (4.3-11.1) K/mcL RBC (3.82-4.97) M/mcL Hgb (11.5-15.4) g/dL Hct (35.3-44.9) % MCV (83.0-100.0) fL MCH (28.0-33.3) pg MCHC (31.6-35.5) g/dL RDW (11.5-14.5) % Plt Count (140-400) K/mcL MPV (9.4-12.4) fL Immature Gran % (0-4) % Seg Neutrophils % % Lymphocytes % % Monocytes % % Eosinophils % % Basophils % % Neutrophils # (1.6-8.9) K/mcL Lymphocytes # (0.6-4.6) K/mcL Monocytes # (0.0-1.3) K/mcL Eosinophils # (0.0-0.6) K/mcL Basophils # (0.0-0.2) K/mcL PT (9.4-12.1) Seconds INR APTT (26.0-36.0) Seconds Sodium (136-145) mEq/L Potassium (3.5-5.1) mEq/L Chloride (98-107) mEq/L Carbon Dioxide (23-29) mEq/L BUN (8-23) mg/dL Creatinine (0.60-1.20) mg/dL Est GFR ( Amer) (> 60) Est GFR (Non-Af Amer) (> 60) BUN/Creatinine Ratio (6-26) Glucose (70-105) mg/dL Calculated Osmolality (280-300) Lactic Acid 1.1 (0.5-2.2) mmol/L Calcium (8.6-10.3) mg/dL Troponin I (< 0.04) ng/mL B-Natriuretic Peptide 1350 H (Less than 100) pg/mL Urine Color Yellow (Yellow) Urine Clarity Cloudy A (Clear) Urine pH 5.5 (5.0-8.0) pH Units Ur Specific [place] >= 1.030 H (1.010-1.025) Urine Protein >=300 H (Neg-Trace) mg/dL Urine Glucose (UA) Normal (Normal) mg/dL Urine Ketones Negative (Negative) mg/dL Urine Blood Trace-intact H (Negative) Urine Nitrite Positive A (Negative) Urine Bilirubin Small H (Negative) Urine Urobilinogen Normal (Normal) mg/dL Ur Leukocyte Esterase Trace H (Negative) Urine Microscopic RBC 15-30 H (0-3) per hpf Urine Microscopic WBC TNTC H (0-3) per hpf Ur Squamous Epith Cells Moderate H (None-Few) per lpf Urine Bacteria Many H (None-Few) per hpf Ur Culture Indicated? YES A (NO) - Radiology Data Radiology results reviewed: Yes I reviewed the patient's radiology results. - EKG Data EKG attestation: Yes I reviewed and interpreted this EKG. EKG results narrative: Sinus rhythm, rate 73, left axis deviation, right bundle-branch block, no acute ischemic changes
[2017-12-07 15:57] LABS: Basophils % 0.2 %; Eosinophils # 0.1 K/mcL (0.0-0.6); Eosinophils % 0.3 %; Hematocrit 33.9 % (35.3-44.9); Immature Granulocytes % 0.8 % (0-4); Lymphocytes # 1.2 K/mcL (0.6-4.6); Lymphocytes % 6.2 %; Mean Corpuscular HGB Conc 29.5 g/dL (31.6-35.5); Mean Corpuscular Volume 91.4 fL (83.0-100.0); Monocytes % 5.2 %; Platelet Count 308 K/mcL (140-400); Red Blood Count 3.71 M/mcL (3.82-4.97); Red Cell Distribution Width 17.4 % (11.5-14.5); Segmented Neutrophils % 87.3 %
[2017-12-07 16:02] LABS: Neutrophils # 16.7 K/mcL (1.6-8.9)
[2017-12-07 16:12] LABS: INR 1.2; Prothrombin Time 13.6 Seconds (9.4-12.1)
[2017-12-07 16:16] LABS: Activated Partial Thrombo Time 27.7 Seconds (26.0-36.0)
[2017-12-07 16:25] LABS: Calcium 8.6 mg/dL (8.6-10.3)
[2017-12-07 16:30] LABS: Troponin I 0.04 ng/mL (< 0.04)
--- NOTE | 2017-12-07 16:34 | Emergency Department Note ---
Disposition Clinical Impression: COPD exacerbation Disposition: Admitted As Inpatient General Adult HPI - General Chief complaint: ED Shortness of Breath/Dyspnea Stated complaint: DAFNE Time Seen by Provider: 12/07/17 15:26 Source: patient, EMS Mode of arrival: EMS Limitations: no limitations - History of Present Illness Pain Scale: 5 - Related Data Home Medications Medication Instructions Recorded Confirmed Furosemide [Lasix] 20 mg PO DAILY 11/30/14 11/03/17 Insulin ASPART [NovoLOG] 0 unit SQ TIDWM PRN 03/13/15 11/03/17 Pantoprazole Sodium [Protonix] 40 mg PO DAILY 03/13/15 11/03/17 Aspirin [Adult Aspirin] 81 mg PO DAILY 08/12/17 11/03/17 Atorvastatin Calcium [Lipitor] 20 mg PO DAILY 08/12/17 11/03/17 Ergocalciferol (VITAMIN D2) 50,000 unit PO QWEEK 08/12/17 11/03/17 [Vitamin D2] Escitalopram Oxalate 5 mg PO DAILY 08/12/17 11/03/17 LevETIRAcetam [Keppra] 750 mg PO BID 08/12/17 11/03/17 Levothyroxine Sodium [Levoxyl] 25 mcg PO DAILY 08/12/17 11/03/17 Levothyroxine Sodium [Synthroid] 200 mcg PO DAILY 08/12/17 11/03/17 Lisinopril [Zestril] 10 mg PO DAILY 08/12/17 11/03/17 Metoprolol [Lopressor] 25 mg PO BID 08/12/17 11/03/17 Montelukast [Singulair] 10 mg PO DAILY 08/12/17 11/03/17 Phenytoin [Dilantin] 150 mg PO BID 08/12/17 11/03/17 Pioglitazone HCl [Actos] 15 mg PO DAILY 08/12/17 11/03/17 SitaGLIPtin [Januvia] 100 mg PO DAILY 08/12/17 11/03/17 Tolterodine Tartrate [Detrol] 2 mg PO BID 08/12/17 11/03/17 Previous Rx's Medication Instructions Recorded Acetaminophen [Tylenol] 650 mg PO Q6HR PRN tablet 08/18/17 Benzonatate [Tessalon] 100 mg PO TID PRN 14 Days #42 08/18/17 capsule Insulin Glargine [Lantus] 15 unit SQ BID 30 Days #900 mls 08/18/17 hydrALAZINE [HydrALAZINE] 25 mg PO TID tablet 08/18/17 Calcium Carbonate [Tums] 1,000 mg PO QID 30 Days #120 08/30/17 tab.chew Docusate [Colace] 100 mg PO BID 30 Days #60 capsule 08/30/17 Ferrous Sulfate 325 mg PO BIDWM 30 Days #60 tablet 08/30/17 Allergies Allergy/AdvReac Type Severity Reaction Status Date / Time Tetanus Vaccines and Toxoid Allergy Unknown unknown Verified 11/03/17 13:25 [Tetanus Vaccines & Toxoid] Past Medical History - Past Medical History Medical history: Reports: asthma, CHF, diabetes, hyperlipidemia, hypertension, seizures, other Surgical history: Reports: cholecystectomy, coronary bypass (CABG), other Psychiatric history: Reports: anxiety, depression, panic disorder - Social History Smoking Status: Never smoker Smokeless Tobacco Status: No Alcohol use: Reports: none Drug use: Reports: none Physical Exam - General Limitations: no limitations General appearance: alert Course Vital Signs Temperature 99.3 F 12/07/17 15:26 Pulse Rate 73 12/07/17 15:26 Respiratory Rate 24 12/07/17 15:26 Blood Pressure 183/86 12/07/17 15:26 O2 Sat by Pulse Oximetry 90 12/07/17 15:26 Temperature 99.3 F 12/07/17 15:26 Pulse Rate 74 12/07/17 16:24 Respiratory Rate 20 12/07/17 16:24 Blood Pressure 159/74 12/07/17 16:24 O2 Sat by Pulse Oximetry 91 12/07/17 16:24 Medical Decision Making - Lab Data Result diagrams: 12/07/17 15:36 12/07/17 15:36 Lab Results 12/07/17 12/07/17 12/07/17 Range/Units 15:36 15:36 15:36 WBC 19.1 H D (4.3-11.1) K/mcL RBC 3.71 L (3.82-4.97) M/mcL Hgb 10.0 L (11.5-15.4) g/dL Hct 33.9 L (35.3-44.9) % MCV 91.4 (83.0-100.0) fL MCH 27.0 L (28.0-33.3) pg MCHC 29.5 L (31.6-35.5) g/dL RDW 17.4 H (11.5-14.5) % Plt Count 308 (140-400) K/mcL MPV 10.0 (9.4-12.4) fL Immature Gran % 0.8 (0-4) % Seg Neutrophils % 87.3 % Lymphocytes % 6.2 % Monocytes % 5.2 % Eosinophils % 0.3 % Basophils % 0.2 % Neutrophils # 16.7 H (1.6-8.9) K/mcL Lymphocytes # 1.2 (0.6-4.6) K/mcL Monocytes # 1.0 (0.0-1.3) K/mcL Eosinophils # 0.1 (0.0-0.6) K/mcL Basophils # 0.0 (0.0-0.2) K/mcL PT 13.6 H (9.4-12.1) Seconds INR 1.2 APTT 27.7 (26.0-36.0) Seconds Sodium 140 (136-145) mEq/L Potassium 4.0 (3.5-5.1) mEq/L Chloride 103 (98-107) mEq/L Carbon Dioxide 26 (23-29) mEq/L BUN 20 (8-23) mg/dL Creatinine 1.40 H (0.60-1.20) mg/dL Est GFR ( Amer) 45 L (> 60) Est GFR (Non-Af Amer) 37 L (> 60) BUN/Creatinine Ratio 14 (6-26) Glucose 126 H (70-105) mg/dL Calculated Osmolality 294 (280-300) Lactic Acid (0.5-2.2) mmol/L Calcium 8.6 (8.6-10.3) mg/dL 12/07/17 Range/Units 15:36 WBC (4.3-11.1) K/mcL RBC (3.82-4.97) M/mcL Hgb (11.5-15.4) g/dL Hct (35.3-44.9) % MCV (83.0-100.0) fL MCH (28.0-33.3) pg MCHC (31.6-35.5) g/dL RDW (11.5-14.5) % Plt Count (140-400) K/mcL MPV (9.4-12.4) fL Immature Gran % (0-4) % Seg Neutrophils % % Lymphocytes % % Monocytes % % Eosinophils % % Basophils % % Neutrophils # (1.6-8.9) K/mcL Lymphocytes # (0.6-4.6) K/mcL Monocytes # (0.0-1.3) K/mcL Eosinophils # (0.0-0.6) K/mcL Basophils # (0.0-0.2) K/mcL PT (9.4-12.1) Seconds INR APTT (26.0-36.0) Seconds Sodium (136-145) mEq/L Potassium (3.5-5.1) mEq/L Chloride (98-107) mEq/L Carbon Dioxide (23-29) mEq/L BUN (8-23) mg/dL Creatinine (0.60-1.20) mg/dL Est GFR ( Amer) (> 60) Est GFR (Non-Af Amer) (> 60) BUN/Creatinine Ratio (6-26) Glucose (70-105) mg/dL Calculated Osmolality (280-300) Lactic Acid 1.1 (0.5-2.2) mmol/L Calcium (8.6-10.3) mg/dL Attestation Statement - Attestation Attestation: I examined this patient and my medical decision-making was reviewed with the Resident Physician. I agree with the documented findings, disposition and treatment plan as described except to the extent set forth below. 72 year old female presents to the ED with complaints of dyspnea and has a history of COPD and CHF. Patient states that she recetky was discharged home with supplemental oxygen and states that she has been requiring increased oxygen therapy at home. Patient has a WBC of 19 which is concerning for infectious etiology. We will give her breathing treatments and steroids and then admit to medicine pending CXR, as she may have HCAP.
[2017-12-07 16:35] LABS: Bacteria,Urine Many per hpf (None-Few); Bilirubin,Urine Small (Negative); Blood,Urine Trace-intact (Negative); Clarity,Urine Cloudy (Clear); Color,Urine Yellow (Yellow); Glucose,Urine (UA) Normal (Normal); Ketones,Urine Negative (Negative); Leukocyte Esterase,Urine Trace (Negative); Nitrite,Urine Positive (Negative); PH,Urine 5.5 pH Units (5.0-8.0); Protein,Urine >=300 mg/dL (Neg-Trace); RBC,Urine 15-30 per hpf (0-3); Specific Gravity,Urine >= 1.030 (1.010-1.025); Urobilinogen,Urine Normal (Normal); WBC,Urine TNTC per hpf (0-3)
[2017-12-07 16:46] LABS: Squamous Epithelial Cell,Urine Moderate per lpf (None-Few)
[2017-12-07] MEDS ORDERED: Furosemide 40 MG/4 ML VIAL IVP ONE (16:50)
[2017-12-07] MEDS ORDERED: Nitroglycerin 0.4 MG TAB.SUBL SL STA (16:50)
[2017-12-07] MEDS ORDERED: Piperacillin/Tazobactam 3.375 GM in 0.9 % Sodium Chloride Mini Bag 100 ML IVPB ONE (17:09)
--- NOTE | 2017-12-07 18:13 | Internal Med History&Physical ---
Date of Encounter: 12/07/17 Time of Encounter: 18:09 Internal Medicine - H&P: HPI Chief complaint: sob and productive cough Admitted From: Emergency Dept Plans for Post Hospital Care: Home History of present illness: Ms. Almanza is a 72 year old female Patient with history of brain cancer with metastases to the lung with recurrent pleural effusion, congestive heart failure, diabetes, morbid obesity, high cholesterol, seizure, CAD had history of stent and believe history of CABG. Patient presented emergency room with shortness of breath progressively worsening requiring increased oxygen at home also cough productive of thick sputum fever and chills emergency room evaluation patient hypoxic chest x-ray consistent with pneumonia left lower lobe pneumonia with pleural effusion also BNP 1350 ( CHF) and patient also has UTI patient admitted for treatment of his heart failure pneumonia and UTI Past Med Surg Social Fam HX - Past Medical History Medical history: asthma, CHF, diabetes, hyperlipidemia, hypertension, seizures, other Additional medical history: hemangiopericytoma Psychiatric history: anxiety, depression, panic disorder - Past Surgical History Surgical History: cholecystectomy, coronary bypass (CABG), other Additional surgical history: L ankle. brain surgery. cardiac stents - Social History Smoking Status: Never smoker Smokeless Tobacco Status: No Alcohol use: none Drug use: none - Family History Father Adopted: No Living Status: Hx Family Cardiac Disorders: Yes Hx Family Respiratory Disorders: Yes Hx Family Cancer: Yes Internal Medicine - H&P: Meds Furosemide [Lasix] 20 mg PO DAILY 11/30/14 [History] Pantoprazole Sodium [Protonix] 40 mg PO DAILY 03/13/15 [History] Aspirin [Adult Aspirin] 81 mg PO DAILY 08/12/17 [History] Atorvastatin Calcium [Lipitor] 20 mg PO DAILY 08/12/17 [History] Ergocalciferol (VITAMIN D2) [Vitamin D2] 50,000 unit PO QWEEK 08/12/17 [History] Escitalopram Oxalate 5 mg PO DAILY 08/12/17 [History] LevETIRAcetam [Keppra] 750 mg PO BID 08/12/17 [History] Levothyroxine Sodium [Levoxyl] 25 mcg PO DAILY 08/12/17 [History] Levothyroxine Sodium [Synthroid] 200 mcg PO DAILY 08/12/17 [History] Lisinopril [Zestril] 10 mg PO DAILY 08/12/17 [History] Metoprolol [Lopressor] 25 mg PO BID 08/12/17 [History] Montelukast [Singulair] 10 mg PO DAILY 08/12/17 [History] Phenytoin [Dilantin] 150 mg PO BID 08/12/17 [History] Pioglitazone HCl [Actos] 15 mg PO DAILY 08/12/17 [History] SitaGLIPtin [Januvia] 100 mg PO DAILY 08/12/17 [History] Tolterodine Tartrate [Detrol] 2 mg PO BID 08/12/17 [History] Acetaminophen [Tylenol] 650 mg PO Q6HR PRN tablet 08/18/17 [Rx] Calcium Carbonate [Tums] 1,000 mg PO QID 30 Days #120 tab.chew 08/30/17 [Rx] Docusate [Colace] 100 mg PO BID 30 Days #60 capsule 08/30/17 [Rx] Ferrous Sulfate 325 mg PO BIDWM 30 Days #60 tablet 08/30/17 [Rx] Clopidogrel [Plavix] 75 mg PO DAILY 12/07/17 [History] Insulin Glargine [Lantus] 15 unit SQ HS 12/07/17 [History] Mupirocin [Bactroban Oint] 1 appl TP DAILY 12/07/17 [History] hydrALAZINE [HydrALAZINE] 25 mg PO BID 12/07/17 [History] 3 Allergy/AdvReac Type Severity Reaction Status Date / Time Tetanus Vaccines and Toxoid Allergy Unknown unknown Verified 11/03/17 13:25 [Tetanus Vaccines & Toxoid] ROS unobtainable: due to endotracheal tube All Systems PM: A 10-system review of systems was performed and is negative for pertinent findings except as documented above in the HPI. - Constitutional Vitals: Temp Pulse Resp BP Pulse Ox 99.3 F 71 20 153/89 93 12/07/17 15:26 12/07/17 17:18 12/07/17 17:18 12/07/17 17:18 12/07/17 17:18 General appearance: Present: mild distress, morbidly obese Exam: done - Eye Eye exam: Present: PERRL, conjuntiva pink, sclera anicteric Pupils: Present: PERRL - Respiratory Respiratory exam: Present: decreased breath sounds, prolonged expiratory phase, rales, wheezes - Cardiovascular Cardiovascular exam: Present: RRR, +S1, +S2. Absent: diastolic murmur, gallop, rubs, systolic murmur - GI/Abdominal GI/Abdominal exam: Present: distended - Extremities Exam Extremities exam: Present: pedal edema Internal Med - H&P Results - Labs CBC & Chem 7: 12/07/17 15:36 12/07/17 15:36 Labs: Short CBC 12/07/17 Range/Units 15:36 WBC 19.1 H D (4.3-11.1) K/mcL Hgb 10.0 L (11.5-15.4) g/dL Hct 33.9 L (35.3-44.9) % Plt Count 308 (140-400) K/mcL Neutrophils # 16.7 H (1.6-8.9) K/mcL BMP 12/07/17 15:36 Sodium 140 Potassium 4.0 Chloride 103 Carbon Dioxide 26 BUN 20 Creatinine 1.40 H Glucose 126 H Calcium 8.6 Cardiac Enzymes 12/07/17 Range/Units 15:36 Troponin I 0.04 H* (< 0.04) ng/mL Urine 12/07/17 Range/Units 16:28 Urine Color Yellow (Yellow) Urine Clarity Cloudy A (Clear) Urine pH 5.5 (5.0-8.0) pH Units Ur Specific [place] >= 1.030 H (1.010-1.025) Urine Protein >=300 H (Neg-Trace) mg/dL Urine Glucose (UA) Normal (Normal) mg/dL - Impressions ITS Impressions Chest X-Ray 12/07/17 15:26 IMPRESSION: 1. Interval worsening of left base opacity and pleural effusion. Stable right base opacity with pleural effusion. 2. Redemonstration of pulmonary nodules measuring up to 7.1 cm on the right and 12 mm on the left. Findings are seen to better advantage on prior PET/CT. 3. Cardiomegaly. D/ / 12/07/2017 17:22:20 Kylie Mandujano MD / reg Interpreting Provider: Kylie Mandujano MD - Assessment and plan (1) Pneumonia Current Visit: Yes Status: Acute Assessment and plan: hcap left lower lung pneumonia patient was in hospital recently was started on Zosyn and vancomycin Send for blood cultures and sputum cultures also has pleural effusion will consult overhead door technician for assistance in management Qualifiers: Pneumonia type: due to unspecified organism Laterality: left Lung location: lower lobe of lung Qualified Code(s): J18.1 - Lobar pneumonia, unspecified organism (2) HCAP (healthcare-associated pneumonia) Current Visit: Yes Status: Acute (3) Diabetes mellitus Current Visit: No Status: Chronic Assessment and plan: Chronic resume home medication and place on sliding scale Qualifiers: Diabetes mellitus type: type 2 Diabetes mellitus terminal carman insulin use: with usp use Diabetes mellitus complication status: without complication Qualified Code(s): E11.9 - Type 2 diabetes mellitus without complications; Z79.4 - long-term (current) use of insulin (4) Hypertension Current Visit: No Status: Chronic Assessment and plan: Chronic resume home medication and make adjustments Qualifiers: Hypertension type: essential hypertension Qualified Code(s): I10 - Essential (primary) hypertension (5) CKD (chronic kidney disease) stage 3, GFR 30-59 ml/min Current Visit: No Status: Chronic Assessment and plan: Chronic we will monitor (6) CAD (coronary artery disease) Current Visit: No Status: Acute Assessment and plan: No chest pain with trend troponin Qualifiers: Coronary Disease-Associated Artery/Lesion type: [place] artery [place] vs. 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 being followed by oncologist (9) COPD exacerbation Current Visit: Yes Status: Acute (10) UTI (urinary tract infection) Current Visit: Yes Status: Acute Assessment and plan: We sent urine culture exertion should be adequate to cover UTI Qualifiers: Urinary tract infection type: site unspecified Hematuria presence: without hematuria Qualified Code(s): N39.0 - Urinary tract infection, site not specified (11) CHF (congestive heart failure) Current Visit: Yes Status: Acute Assessment and plan: Acute on chronic diastolic heart failure most recent echo showed normal LV function we will continue Lasix IV Qualifiers: Heart failure type: diastolic Heart failure chronicity: acute on chronic Qualified Code(s): I50.33 - Acute on chronic diastolic (congestive) heart failure - Time Spent With Patient Total time spent is greater than 50% in coordination of care (as documented) at patient's floor/unit and/or counseling patient:
[2017-12-07] MEDS ORDERED: Naloxone 0.4 MG/ML INJ IVP PRN (18:21)
[2017-12-07] MEDS ORDERED: Acetaminophen 325 MG TABLET PO PRN ×2 (18:21→18:23)
[2017-12-07 18:30] LABS: ABG Base Excess 0 mEq/L (-2 to 3); ABG HCO3 26 mEq/L (21-27); ABG Oxygen Saturation 96 % (95-98); ABG PCO2 46 mmHg (35-45); ABG PH 7.36 pH Units (7.32-7.45); ABG PO2 83 mmHg (85-104); ABG TCO2 27 mEq/L (20-26)
[2017-12-07] MEDS: Furosemide 40 MG/4 ML VIAL IVP SCH (22:08)
[2017-12-07] MEDS: Insulin DETEMIR 100 UNIT/ML X5UNITS SQ SCH (22:09)
[2017-12-07] MEDS: hydrALAZINE 25 MG TABLET PO SCH (22:09)
[2017-12-07] MEDS: levETIRAcetam 250 MG TABLET PO SCH (22:09)
[2017-12-07] MEDS: Cholecalciferol (D-3) 1,000 UNIT TABLET PO SCH (22:09)
[2017-12-08] MEDS: Piperacillin/Tazobactam 3.375 GM in 0.9 % Sodium Chloride Mini Bag 100 ML IVPB SCH ×3 (00:43→18:04)
[2017-12-08 03:51] LABS: Red Cell Distribution Width 17.4 % (11.5-14.5)
[2017-12-08 03:52] LABS: Hemoglobin 8.8 g/dL (11.5-15.4); Mean Corpuscular HGB Conc 30.3 g/dL (31.6-35.5); Mean Corpuscular Hemoglobin 27.2 pg (28.0-33.3); Mean Corpuscular Volume 89.5 fL (83.0-100.0); Mean Platelet Volume 9.7 fL (9.4-12.4); Platelet Count 237 K/mcL (140-400); Red Blood Count 3.24 M/mcL (3.82-4.97)
[2017-12-08 04:15] LABS: Albumin 3.2 g/dL (3.5-5.7); Albumin/Globulin Ratio 0.9 (1.1-2.2); Bilirubin,Total 0.5 mg/dL (0.3-1.0); Calcium 8.6 mg/dL (8.6-10.3); Globulin 3.5 g/dL (2.4-3.5); Magnesium 1.8 mg/dL (1.6-2.6); Total Protein 6.7 g/dL (6.4-8.9)
[2017-12-08] MEDS: *HR* Enoxaparin 40 MG/0.4 ML SYRINGE SQ SCH (05:15)
[2017-12-08] MEDS: levETIRAcetam 250 MG TABLET PO SCH ×2 (08:29→21:44)
[2017-12-08] MEDS: Furosemide 40 MG/4 ML VIAL IVP SCH ×2 (08:29→18:04)
[2017-12-08] MEDS: hydrALAZINE 25 MG TABLET PO SCH ×3 (08:30→21:44)
[2017-12-08] MEDS: *HR* Pioglitazone 15 MG TABLET PO SCH (08:30)
[2017-12-08] MEDS: Cholecalciferol (D-3) 1,000 UNIT TABLET PO SCH (08:30)
[2017-12-08] MEDS: Aspirin Enteric Coated 81 MG Tablet PO SCH (08:30)
[2017-12-08] MEDS: *HR* SitaGLIPtin 25 MG TABLET PO SCH (08:31)
--- NOTE | 2017-12-08 09:50 | Pulmonology Consult Note ---
<Marcel Harman W - Last Filed: 12/08/17 16:52> Date of Encounter: 12/08/17 Medications and Allergies Furosemide [Lasix] 20 mg PO DAILY 11/30/14 [History] Pantoprazole Sodium [Protonix] 40 mg PO DAILY 03/13/15 [History] Aspirin [Adult Aspirin] 81 mg PO DAILY 08/12/17 [History] Atorvastatin Calcium [Lipitor] 20 mg PO DAILY 08/12/17 [History] Ergocalciferol (VITAMIN D2) [Vitamin D2] 50,000 unit PO QWEEK 08/12/17 [History] Escitalopram Oxalate 5 mg PO DAILY 08/12/17 [History] LevETIRAcetam [Keppra] 750 mg PO BID 08/12/17 [History] Levothyroxine Sodium [Levoxyl] 25 mcg PO DAILY 08/12/17 [History] Levothyroxine Sodium [Synthroid] 200 mcg PO DAILY 08/12/17 [History] Lisinopril [Zestril] 10 mg PO DAILY 08/12/17 [History] Metoprolol [Lopressor] 25 mg PO BID 08/12/17 [History] Montelukast [Singulair] 10 mg PO DAILY 08/12/17 [History] Phenytoin [Dilantin] 150 mg PO BID 08/12/17 [History] Pioglitazone HCl [Actos] 15 mg PO DAILY 08/12/17 [History] SitaGLIPtin [Januvia] 100 mg PO DAILY 08/12/17 [History] Tolterodine Tartrate [Detrol] 2 mg PO BID 08/12/17 [History] Acetaminophen [Tylenol] 650 mg PO Q6HR PRN tablet 08/18/17 [Rx] Calcium Carbonate [Tums] 1,000 mg PO QID 30 Days #120 tab.chew 08/30/17 [Rx] Docusate [Colace] 100 mg PO BID 30 Days #60 capsule 08/30/17 [Rx] Ferrous Sulfate 325 mg PO BIDWM 30 Days #60 tablet 08/30/17 [Rx] Clopidogrel [Plavix] 75 mg PO DAILY 12/07/17 [History] Insulin Glargine [Lantus] 15 unit SQ HS 12/07/17 [History] Mupirocin [Bactroban Oint] 1 appl TP DAILY 12/07/17 [History] hydrALAZINE [HydrALAZINE] 25 mg PO BID 12/07/17 [History] Albuterol Sulfate [Proventil Hfa] 2 puff IH Q4H PRN 12/08/17 [History] 3 Allergy/AdvReac Type Severity Reaction Status Date / Time Tetanus Vaccines and Toxoid Allergy Unknown unknown Verified 11/03/17 13:25 [Tetanus Vaccines & Toxoid] All Systems: The remainder of the systems were reviewed and are negative Physical Examination Vital Signs: Vital Signs, Last 4 Hours Temp Pulse Resp BP Pulse Ox 12/08/17 15:41 98.1 F 69 17 139/64 93 Results - Laboratory Findings CBC and BMP: 12/08/17 03:37 12/08/17 03:37 ABG ABG pH 7.36 pH Units (7.32-7.45) 12/07/17 18:25 ABG pCO2 46 mmHg (35-45) H 12/07/17 18:25 ABG pO2 83 mmHg (85-104) L 12/07/17 18:25 ABG O2 Saturation 96 % (95-98) 12/07/17 18:25 PT/INR, D-dimer PT 13.6 Seconds (9.4-12.1) H 12/07/17 15:36 Abnormal lab findings: Abnormal lab results WBC 14.7 K/mcL (4.3-11.1) H 12/08/17 03:37 RBC 3.24 M/mcL (3.82-4.97) L 12/08/17 03:37 Hgb 8.8 g/dL (11.5-15.4) L 12/08/17 03:37 Hct 29.0 % (35.3-44.9) L 12/08/17 03:37 MCH 27.2 pg (28.0-33.3) L 12/08/17 03:37 MCHC 30.3 g/dL (31.6-35.5) L 12/08/17 03:37 RDW 17.4 % (11.5-14.5) H 12/08/17 03:37 Neutrophils # 16.7 K/mcL (1.6-8.9) H 12/07/17 15:36 PT 13.6 Seconds (9.4-12.1) H 12/07/17 15:36 ABG pCO2 46 mmHg (35-45) H 12/07/17 18:25 ABG pO2 83 mmHg (85-104) L 12/07/17 18:25 ABG Total CO2 27 mEq/L (20-26) H 12/07/17 18:25 Creatinine 1.55 mg/dL (0.60-1.20) H 12/08/17 03:37 Est GFR ( Amer) 40 (> 60) L 12/08/17 03:37 Est GFR (Non-Af Amer) 33 (> 60) L 12/08/17 03:37 POC Glucose 117 mg/dL (70-99) H 12/08/17 15:50 AST 9 Units/L (13-39) L 12/08/17 03:37 Alkaline Phosphatase 106 Units/L (34-104) H 12/08/17 03:37 B-Natriuretic Peptide 1350 pg/mL (Less than 100) H 12/07/17 15:36 Albumin 3.2 g/dL (3.5-5.7) L 12/08/17 03:37 Albumin/Globulin Ratio 0.9 (1.1-2.2) L 12/08/17 03:37 Urine Clarity Cloudy (Clear) A 12/07/17 16:28 Ur Specific [place] >= 1.030 (1.010-1.025) H 12/07/17 16:28 Urine Protein >=300 mg/dL (Neg-Trace) H 12/07/17 16:28 Urine Blood Trace-intact (Negative) H 12/07/17 16: Urine Nitrite Positive (Negative) A 12/07/17 16:28 Urine Bilirubin Small (Negative) H 12/07/17 16:28 Ur Leukocyte Esterase Trace (Negative) H 12/07/17 16:28 Urine Microscopic RBC 15-30 per hpf (0-3) H 12/07/17 16:28 Urine Microscopic WBC TNTC per hpf (0-3) H 12/07/17 16:28 Ur Squamous Epith Cells Moderate per lpf (None-Few) H 12/07/17 16:28 Urine Bacteria Many per hpf (None-Few) H 12/07/17 16:28 Ur Culture Indicated? YES (NO) A 10/02/18 16:28 - Clinical Findings Intake & Output: Intake & Output 12/08/17 12/08/17 12/08/17 07:59 15:59 23:59 Intake Total 350 / 350 240 / 240 Output Total 600 / 600 100 / 100 Balance -250 / -250 140 / 140 Consult Discharge Plan - Plan Referrals: Stephanie Morgan, UPSETTER [Primary Care Provider] - - Attending Attestation I examined this patient and my medical decision-making was reviewed with the Resident Physician. I agree with the documented findings, disposition and treatment plan as described except to the extent set forth below. We independently had [id number] contact with the patient Patient seen and examined at bedside Labs, radiology, chart personally reviewed. Impression: 1. Acute on chronic hypoxic respiratory failure 2. Pneumonia with history of exposure to the hospital associated pathogens including MRSA 3. [employer] malignancy with metastatic disease to the lungs 4. Acute on chronic heart failure with preserved ejection fraction 5. Pleural effusion 6. Obstructive sleep apnea 7. Morbid obesity Recs: 1. Continue supplemental oxygen to keep saturation greater than 88% at all times. Recommend out of bed to chair and ambulation as tolerated with supervision and assistance also incentive spirometry these can all mitigate the effects of VQ mismatching from atelectasis 2. Agree with broad-spectrum antimicrobials blood cultures pending check sputum culture respiratory infection panel urine Legionella and strep pneumo antigen course of antibiotics to be determined but likely 7-8 days based upon clinical response. 3. This is being followed by [facility] [[email or web address]] I suspect that the degree of pulmonary involvement is complicating VQ mismatching and hypoxemia 4. Continue diuresis with daily monitoring of kidney function and electrolytes per primary service. Goal diuresis should be 1-1.5 L over the next 24 hours 5. I examined the pleural space with bedside ultrasound there is a very small left-sided effusion and essentially trivial right-sided pleural effusion neither of which could be aspirated at bedside given her obesity and I suspect given the size of this is not contributing to either her hypoxemia nor shortness of breath 6. Will start her home BiPAP settings of with FiO2 bleed to keep saturation greater than 88% 7. Weight loss encouraged <Zachary Brown - Last Filed: 12/08/17 18:06> Date of Encounter: 12/08/17 Time of Encounter: 08:45 Assessment and Plan (1) Acute and chronic respiratory failure with hypoxia Current Visit: Yes Status: Acute -Due to her history of COPD, and was diagnosed with pneumonia during this current admission. -Patient's chest x-ray showed worsening left base opacity. He was leukocytotic on admission on admission which has been trending down (19.1-> 14.7) -Physical exam she had decreased breath sounds and expiratory wheezes. -Early she is on day 2 of Zosyn and vancomycin. Also on 7 L of NC satting at 93 %. -Titrate oxygen for SPO2 > 88%. (2) Pneumonia Current Visit: No Status: Acute - likely multi factorial due to her Hx of COPD and lung nodules. - Patient is currently on day 2 of Zosyn and vancomycin. WBC trending down ( 19.1 -> 14.7) -On physical exam her lungs are clear to auscultation. However she does have diminished breath sounds bilaterally. -Sputum culture, respiratory infection panel and MRSA swab pending. Qualifiers: Pneumonia type: due to unspecified organism Laterality: right Lung location: lower lobe of lung Qualified Code(s): J18.1 - Lobar pneumonia, unspecified organism (3) Pleural effusion Current Visit: Yes Status: Acute - likely multifactorial. Patient has a Hx of Daistolic dysfunction and malignancy. She has a Hx of recurrent pleural effusion, BNP : 1350 - her most recent chest x ray showed bilateral pleural effusion with Left more than the right - she does have increased requirement of O3 from 2 L to 7 L - Bedside ultrasound did not show a decent size pocket of pleural effusion which could be drained while thoracentesis. Overall it is highly unlikely that pleural effusion is continuing to her hypoxemia. (4) Lung nodules Current Visit: Yes Status: Acute - Chest Ct showed multiple nodules with worsening right upper lobe nodules with the current size being 4.8 cm - patient saw Dr Ny at the Oncology clinic in september and from their review of literature systemic therapy that might be beficial to the patient would be chemostherapy (gem/taxotere or doxorubicin based regimen) / VEGF inhibitors, immunotherapy once has had her f/u at the Neurosurgery at the [facility]. (5) COPD exacerbation Current Visit: Yes Status: Acute -unlikely an AECOPD, patient endorses no increase in her cough production although she does endorse a productive sputum - on physical exam she is not wheezing, she does have decreased breath sound bilaterally in the lower lobes which could be due to her pleural effusion. 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 Her most recent PET/CT on 09/29 showed bilateral pulmonary nodules with hypermetabolic right paratracheal, right hilar and subcarinal lymph nodes which were most likely metastatic in nature. Patient also had a CT-guided biopsy in which confirmed metastatic disease to the lungs. She continues to follow -up with [facility] [[email or web address] (7) ELPIDIO (obstructive sleep apnea) Current Visit: Yes Status: Acute -History of obstructive sleep apnea. -Continue to use BiPAP with EPAP/IPAP settings are (8) Morbid obesity Current Visit: Yes Status: Acute -Patient has a history of morbid obesity her BMI is 53.6. -Consult on better dietary choices to reduce weight. 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 Pulmonology was consulted because of SOB and pneumonia. Patient is currently being treated for HCAP and is on day 2 of zosyn and Vanc. Her most recent CXR showed worsening left base opacity and pleural effusion with nodules measuring 7.1 cm on the right and 12 mm on the left .Patient had recently visited [facility] for her reconstruction surgery of the scalp (9 yrs after craniotomy) but was sent back because of worsening respiratory distress . She was also put on 2 L oxygen. Patient was admitted to the hospital not too long ago for SOB, had b/l pleural effusion wity R > L . Patient underwent CT guided right sided thoracentesis , had a CT guided biopsy which consistent with hemangiopericytoma . Patient also had a PET/CT on 09/29 showed b/l pulmonary nodules with hypermetabolic right paratracheal , right hilar and subcarinal lymph nodes most likely metastatic . Her Chest CT prior to that on 08/20/17 showed multiple large pulmonary nodules and masses throughout the lungs, largest measuring 4.8 mm is size in the right upper lobe most likely representing metastatic disease. It was a significant in size and number since the 05/07/2015 exam. Past Med Surg Social Fam HX - Past Medical History Medical history: asthma, CHF, diabetes, hyperlipidemia, hypertension, seizures, other Additional medical history: hemangiopericytoma Psychiatric history: anxiety, depression, panic disorder - Past Surgical History Surgical History: cholecystectomy, coronary bypass (CABG), other Additional surgical history: L ankle. brain surgery. cardiac stents - Social History Smoking Status: Never smoker Smokeless Tobacco Status: No Alcohol use: none Drug use: none - Family History Father Adopted: No Living Status: Hx Family Cardiac Disorders: Yes Hx Family Respiratory Disorders: Yes Hx Family Cancer: Yes All Systems: The remainder of the systems were reviewed and are negative Physical Examination Vital Signs: Vital Signs, Last 4 Hours Temp Pulse Resp BP Pulse Ox 12/08/17 06:23 98.7 F 64 19 147/67 96 General appearance: no acute distress, alert Effort: mildly labored Auscultation: bilateral: diminished breath sounds Cardiovascular: regular rate and rhythm Gastrointestinal: soft, non-tender, non-distended Extremities: no cyanosis, no edema, no clubbing Results - Laboratory Findings CBC and BMP: 12/08/17 03:37 12/08/17 03:37 ABG ABG pH 7.36 pH Units (7.32-7.45) 12/07/17 18:25 ABG pCO2 46 mmHg (35-45) H 12/07/17 18:25 ABG pO2 83 mmHg (85-104) L 12/07/17 18:25 ABG O2 Saturation 96 % (95-98) 12/07/17 18:25 PT/INR, D-dimer PT 13.6 Seconds (9.4-12.1) H 12/07/17 15:36 Abnormal lab findings: Abnormal lab results WBC 14.7 K/mcL (4.3-11.1) H 12/08/17 03:37 RBC 3.24 M/mcL (3.82-4.97) L 12/08/17 03:37 Hgb 8.8 g/dL (11.5-15.4) L 12/08/17 03:37 Hct 29.0 % (35.3-44.9) L 12/08/17 03:37 MCH 27.2 pg (28.0-33.3) L 12/08/17 03:37 MCHC 30.3 g/dL (31.6-35.5) L 12/08/17 03:37 RDW 17.4 % (11.5-14.5) H 12/08/17 03:37 Neutrophils # 16.7 K/mcL (1.6-8.9) H 12/07/17 15:36 PT 13.6 Seconds (9.4-12.1) H 12/07/17 15:36 ABG pCO2 46 mmHg (35-45) H 12/07/17 18:25 ABG pO2 83 mmHg (85-104) L 12/07/17 18:25 ABG Total CO2 27 mEq/L (20-26) H 12/07/17 18:25 Creatinine 1.55 mg/dL (0.60-1.20) H 12/08/17 03:37 Est GFR ( Amer) 40 (> 60) L 12/08/17 03:37 Est GFR (Non-Af Amer) 33 (> 60) L 12/08/17 03:37 POC Glucose 116 mg/dL (70-99) H 12/07/17 21:23 AST 9 Units/L (13-39) L 12/08/17 03:37 Alkaline Phosphatase 106 Units/L (34-104) H 12/08/17 03:37 B-Natriuretic Peptide 1350 pg/mL (Less than 100) H 12/07/17 15:36 Albumin 3.2 g/dL (3.5-5.7) L 12/08/17 03:37 Albumin/Globulin Ratio 0.9 (1.1-2.2) L 12/08/17 03:37 Urine Clarity Cloudy (Clear) A 12/07/17 16:28 Ur Specific [place] >= 1.030 (1.010-1.025) H 12/07/17 16:28 Urine Protein >=300 mg/dL (Neg-Trace) H 12/07/17 16:28 Urine Blood Trace-intact (Negative) H 12/07/17 16:28 Urine Nitrite Positive (Negative) A 12/07/17 16:28 Urine Bilirubin Small (Negative) H 12/07/17 16:28 Ur Leukocyte Esterase Trace (Negative) H 12/07/17 16:28 Urine Microscopic RBC 15-30 per hpf (0-3) H 12/07/17 16:28 Urine Microscopic WBC TNTC per hpf (0-3) H 12/07/17 16:28 Ur Squamous Epith Cells Moderate per lpf (None-Few) H 12/07/17 16:28 Urine Bacteria Many per hpf (None-Few) H 12/07/17 16:28 Ur Culture Indicated? YES (NO) A 12/07/17 16:28 - Clinical Findings Intake & Output: Intake & Output 12/07/17 12/08/17 12/08/17 23:59 07:59 15:59 Intake Total 250 / 350 350 / 350 Output Total 0 / 0 600 / 600 Balance 250 / 350 -250 / -250
--- NOTE | 2017-12-08 11:10 | Internal Med Progress Note ---
Hospitalist Progress Note - Encounter Date of Encounter: 12/08/17 Time of Encounter: 11:05 - Subjective Interval History: Patient seen and examined says she feels much better pulmonary evaluation noted no chest pain - Exam Vitals: Temp Pulse Resp BP Pulse Ox 98.5 F 67 19 134/61 90 12/08/17 10:35 12/08/17 10:35 12/08/17 10:35 12/08/17 10:35 12/08/17 10:35 Exam: done - Assessment and Plan (1) Pneumonia Current Visit: Yes Status: Acute Assessment and Plan: We will continue her current vancomycin and Zosyn pulmonary evaluation appreciated Is clinically much better (2) HCAP (healthcare-associated pneumonia) Current Visit: Yes Status: Acute Assessment and Plan: On Vanco and Zosyn (3) Diabetes mellitus Current Visit: No Status: Chronic Assessment and Plan: We will continue sliding scale (4) Hypertension Current Visit: No Status: Chronic Assessment and Plan: Chronic and currently well controlled (5) CKD (chronic kidney disease) stage 3, GFR 30-59 ml/min Current Visit: No Status: Chronic Assessment and Plan: Creatinine mildly increased we will monitor and if continued to increase then will consult nephrology (6) CAD (coronary artery disease) Current Visit: No Status: Acute Assessment and Plan: No chest pain troponin is negative (7) Hypoxia Current Visit: No Status: Acute Assessment and Plan: ABG is unremarkable we will continue current supplement (8) 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 Current Visit: No Status: Acute Assessment and Plan: Patient followed by oncologist an outpatient (9) COPD exacerbation Current Visit: Yes Status: Acute (10) UTI (urinary tract infection) Current Visit: Yes Status: Acute Assessment and Plan: Cultures pending continue on Zosyn (11) CHF (congestive heart failure) Current Visit: Yes Status: Acute Assessment and Plan: Acute diastolic heart failure clinically much improved - Time Spent with Patient Total time spent is greater than 50% in coordination of care (as documented) at patient's floor/unit and/or counseling patient: Internal Medicine: Result - Labs CBC & Chem 7: 12/08/17 03:37 12/08/17 03:37 Labs: Short CBC 12/08/17 Range/Units 03:37 WBC 14.7 H (4.3-11.1) K/mcL Hgb 8.8 L (11.5-15.4) g/dL Hct 29.0 L (35.3-44.9) % Plt Count 237 (140-400) K/mcL BMP 12/08/17 03:37 Sodium 139 Potassium 4.0 Chloride 106 Carbon Dioxide 27 BUN 22 Creatinine 1.55 H Glucose 83 Calcium 8.6 Cardiac Enzymes 12/07/17 12/08/17 12/08/17 Range/Units 21:13 03:37 09:15 Troponin I 0.03 0.03 0.03 (< 0.04) ng/mL Liver Function 12/08/17 Range/Units 03:37 Total Bilirubin 0.5 (0.3-1.0) mg/dL AST 9 L (13-39) Units/L ALT 9 (7-52) Units/L Alkaline Phosphatase 106 H (34-104) Units/L Albumin 3.2 L (3.5-5.7) g/dL - ABG Interpretation ABG results: ABG ABG pH 7.36 pH Units (7.32-7.45) 12/07/17 18:25 ABG pCO2 46 mmHg (35-45) H 12/07/17 18:25 ABG pO2 83 mmHg (85-104) L 12/07/17 18:25 ABG O2 Saturation 96 % (95-98) 12/07/17 18:25 PT/INR, D-dimer PT 13.6 Seconds (9.4-12.1) H 12/07/17 15:36 Consult Discharge Plan - Plan Referrals: Stephanie Morgan, LIBRARY CIRCULATION TECHNICIAN [Primary Care Provider] - (1) Pneumonia Qualifiers: Pneumonia type: due to unspecified organism Laterality: left Lung location: lower lobe of lung Qualified Code(s): J18.1 - Lobar pneumonia, unspecified organism (3) Diabetes mellitus Qualifiers: Diabetes mellitus type: type 2 Diabetes mellitus fdc insulin use: with bed bug exterminator use Diabetes mellitus complication status: without complication Qualified Code(s): E11.9 - Type 2 diabetes mellitus without complications; Z79.4 - USP (current) use of insulin (4) Hypertension Qualifiers: Hypertension type: essential hypertension Qualified Code(s): I10 - Essential (primary) hypertension (6) CAD (coronary artery disease) Qualifiers: Coronary Disease-Associated Artery/Lesion type: [place] artery [place] vs. transplanted heart: [place] heart Associated angina: angina presence unspecified Qualified Code(s): I25.10 - Atherosclerotic heart disease of [place] coronary artery without angina pectoris (10) UTI (urinary tract infection) Qualifiers: Urinary tract infection type: site unspecified Hematuria presence: without hematuria Qualified Code(s): N39.0 - Urinary tract infection, site not specified (11) CHF (congestive heart failure) Qualifiers: Heart failure type: diastolic Heart failure chronicity: acute on chronic Qualified Code(s): I50.33 - Acute on chronic diastolic (congestive) heart failure
[2017-12-08] MEDS ORDERED: Ipratropium/Albuterol Neb 3 ML IH PRN (14:14)
[2017-12-08] MEDS: Insulin DETEMIR 100 UNIT/ML X5UNITS SQ SCH (21:45)
[2017-12-09] MEDS: Piperacillin/Tazobactam 3.375 GM in 0.9 % Sodium Chloride Mini Bag 100 ML IVPB SCH ×3 (01:34→18:11)
[2017-12-09] MEDS: *HR* Enoxaparin 40 MG/0.4 ML SYRINGE SQ SCH (06:16)
[2017-12-09 07:41] LABS: Adenovirus Not Detected (Not Detect); Bordetella Pertussis Not Detected (Not Detect); Chlamydophila pneumoniae Not Detected (Not Detect); Coronavirus 229E Not Detected (Not Detect); Coronavirus HKU1 Not Detected (Not Detect); Coronavirus NL63 Not Detected (Not Detect); Coronavirus OC43 Not Detected (Not Detect); Human Metapneumovirus Not Detected (Not Detect); Human Rhinovirus/Enterovirus Not Detected (Not Detect); Influenza A Subtype 2009 H1 Not Detected (Not Detect); Influenza A Untypeable Not Detected (Not Detect); Influenza B Not Detected (Not Detect); Mycoplasma pneumoniae Not Detected (Not Detect); Parainfluenza Virus 1 Not Detected (Not Detect); Parainfluenza Virus 2 Not Detected (Not Detect); Parainfluenza Virus 3 Not Detected (Not Detect); Parainfluenza Virus 4 Not Detected (Not Detect); Respiratory Syncytial Virus Not Detected (Not Detect)
[2017-12-09 08:52] LABS: Basophils % 0.4 %; Eosinophils # 0.6 K/mcL (0.0-0.6); Eosinophils % 4.9 %; Hematocrit 30.2 % (35.3-44.9); Hemoglobin 8.8 g/dL (11.5-15.4); Immature Granulocytes % 0.6 % (0-4); Lymphocytes # 0.8 K/mcL (0.6-4.6); Lymphocytes % 7.3 %; Mean Corpuscular HGB Conc 29.1 g/dL (31.6-35.5); Mean Corpuscular Hemoglobin 26.9 pg (28.0-33.3); Mean Corpuscular Volume 92.4 fL (83.0-100.0); Mean Platelet Volume 9.9 fL (9.4-12.4); Monocytes # 0.7 K/mcL (0.0-1.3); Monocytes % 6.2 %; Neutrophils # 9.2 K/mcL (1.6-8.9); Platelet Count 277 K/mcL (140-400); Red Blood Count 3.27 M/mcL (3.82-4.97); Red Cell Distribution Width 17.5 % (11.5-14.5); Segmented Neutrophils % 80.6 %
[2017-12-09 09:05] LABS: Calcium 8.6 mg/dL (8.6-10.3); Potassium 4.1 mEq/L (3.5-5.1)
[2017-12-09] MEDS: levETIRAcetam 250 MG TABLET PO SCH ×2 (10:07→21:30)
[2017-12-09] MEDS: Aspirin Enteric Coated 81 MG Tablet PO SCH (10:07)
[2017-12-09] MEDS: hydrALAZINE 25 MG TABLET PO SCH ×3 (10:08→21:30)
[2017-12-09] MEDS: Cholecalciferol (D-3) 1,000 UNIT TABLET PO SCH (10:08)
[2017-12-09] MEDS: *HR* Pioglitazone 15 MG TABLET PO SCH (10:13)
[2017-12-09] MEDS: *HR* SitaGLIPtin 25 MG TABLET PO SCH (10:24)
--- NOTE | 2017-12-09 12:25 | Internal Med Progress Note ---
<Kylie Sosa - Last Filed: 12/09/17 14:58> Hospitalist Progress Note - Encounter Date of Encounter: 12/09/17 Time of Encounter: 08:30 - Subjective Interval History: The patient is a very pleasant 72 year female with a past medical history significant for brain cancer s/p craniotomy, lung and spine mets, recurrent pleural effusion, CHF, DM, HLD, CAD s/p stent and CABG, and ELPIDIO who presented to [facility] on 12/07/17 with HCAP. She was recently discharged from the hospital on after a stay for bilateral pleural effusions and Ct guided thoracocentesis. This is hospitalization day number 3. The patient was seen and examined at bedside this morning. No acute events were reported overnight. Today, patient is breathing well on 7L of O2 although she is normally only on 2-3L at home. She has been using her BiPAP, settings as per pulmonology. The patient says that yesterday she was feeling clinically better but today she is more fatigued and still having dyspnea and thick sputum production. She is also having some chest tightness. Patient has also had some constipation and has not had a BM since before admission. Patient is already on colace BID. The patient currently denies any lightheadedness, dizziness, vision changes, headache, palpitations, abdominal pain, nausea, vomiting, urinary changes, edema, fever or chills. - Exam Vitals: Temp Pulse Resp BP Pulse Ox 97.7 F 76 18 155/70 95 12/09/17 11:24 12/09/17 11:24 12/09/17 11:24 12/09/17 11:24 12/09/17 11:24 Exam: GENERAL: Patient is a 72 year old morbidly obese class III female in mild respiratory distress with appropriate affect. Alert & oriented x3. HEENT: Head is normocephalic, patient has visible metal plate in her cranium from prior craniotomy in 2008. Was supposed to undergo Surgery on 12/07/17 to fix the exposed plate but this has been rescheduled. EYES: PERRLA, EOMI. Sclera anincteric. MOUTH: Oropharynx clear. Mucous membranes moist. NECK: Supple, no masses, exam difficult due to large neck circumference. CV: Regular rate and rhythm. Normal S1, S2 with no clicks, murmurs, gallops, or rubs. PULMONARY: Decreased breath sounds bilaterally. Symmetrical chest expansion. Scattered rales and wheezes throughout. Accessory muscle usage. GI: Abdomen is soft, obese, nontender, positive bowel sounds x 4 present and appropriate. No peritoneal signs or guarding. No palpable masses. SKIN: Warm, dry and intact. No rashes, bruising, cyanosis or non healing lesions are seen. Pedal edema noted. NEUROLOGICAL: Alert, awake. CN II-XII grossly intact. Patient is moving all extremities and following commands appropriately. No focal deficits are noted. Muscle strength 5/5 x 4 extremities. VASCULAR/EXTREMITIES: Peripheral pulses palpable and equal. - Assessment and Plan (1) HCAP (healthcare-associated pneumonia) Current Visit: Yes Status: Acute Assessment and Plan: HCAP: Patient presented with dyspnea, increased thick sputum production, and required increased oxygen use. Chest X-ray showed lower lobe pneumonia with pleural effusion. Pulmonology has been consulted. They recommend continuing broad spectrum antibiotics until sputum cultures return. They are managing the patients bipap settings. Initial Sputum culture was not cultured because there were too many epithelial cells in the sample. Will repeat sputum sample and culture and tailor antibiotics based on culture and sensitivities. Blood cultures pending. Day #2 of IV Zosyn. Will add Levaquin for double Pseudomonas coverage. Continue Supplemental O2 Continue BiPAP - setting as per pulm - with FiO2 Bleed Continue IV Lasix with goal of 5L over 24 hours Continue Duonebs PRN Q4H (2) Renal failure (ARF), acute on chronic Current Visit: No Status: Acute Assessment and Plan: Patient has CKD Stage 3. Today she has had decreased urinary output and her urine appears concentrated in color. Her BUN and Creatinine have increased from her baseline. She currently has a BUN of 28 and Cr of 2.02. - Will discontinue IV Lasix - Monitor strict I&Os - Repeat BMP in AM - Will consider repeat chest x-ray (3) CHF (congestive heart failure) Current Visit: Yes Status: Acute Assessment and Plan: Patient has a history of Diastolic CHF. Her BNP on admission was 1350. Patient is unable to continue on Lasix therapy at this time due to her GLENNA on CKD. Will continue to monitor strict I&Os, daily weights and clinical signs of fluid overload status. Will monitor for worsening pleural effusion. (4) UTI (urinary tract infection) Current Visit: Yes Status: Acute Assessment and Plan: Patient presented with asymptomatic UTI as seen on UA with positive blood, nitrite, leukocyte esterase, bacteria and WBC. Urine culture preliminary report has grown gram negative rods. Final report and sensitivites to follow. Current antibiotic coverage for PNA should be adequate to cover UTI. (5) Diabetes mellitus Current Visit: No Status: Chronic Assessment and Plan: Patient has a history of Type II DM with CKD Stage 3. She is on Januvia, Lantus and Actos at home. - Diabetic Diet - Accu-checks ACHS - Hypoglycemia protocol - Continue Levemir 15U SQ HS (6) Hypertension Current Visit: No Status: Chronic Assessment and Plan: Patient has a history of hypertension. She is on Hydralazine, Furosemide, Metoprolol and Zestril at home. Patient's BP this AM was 135/55. - We have held her home hydralazine, lasix and zestril. - We are discontinuing the IV Lasix she has been on because she has developed GLENNA on top of her CKD. - Continue Metoprolol 25 mg BID. (7) CKD (chronic kidney disease) stage 3, GFR 30-59 ml/min Current Visit: No Status: Chronic Assessment and Plan: Plan as stated above for GLENNA on CKD. Will continue to monitor. (8) Anemia in chronic kidney disease Current Visit: No Status: Chronic Assessment and Plan: Patient has chronic anemia likely due to her chronic kidney disease. She had a Hgb of 10 on admission. Her Hgb is 8.8 today. Will continue to monitor. (9) CAD (coronary artery disease) Current Visit: No Status: Acute Assessment and Plan: Patient has a history of CAD. She has had prior stenting and CABG. Patient is beginning to complain of some chest tightness. Trops were negative yesterday and EKG did not show any ischemic changes. Will consider new chest x-ray to evaluate pleural effusion status. Last one completed on 12/07. Could be possible demand ischemia since Hgb dropped from 10 to 8.8. - Will check new troponins and stat EKG. Continue home medications as follows: - Lipitor 20mg PO - Aspirin 81mg PO - Plavix 75mg PO (10) Constipation Current Visit: Yes Status: Acute Assessment and Plan: - Patient has not had a BM since before admission - She is currently on Colace 100 mg PO BID but this has not helped - Will switched patient to Senna Plus (11) DVT prophylaxis Current Visit: No Status: Acute Assessment and Plan: Lovenox 40mg SQ - Time Spent with Patient Total time spent is greater than 50% in coordination of care (as documented) at patient's floor/unit and/or counseling patient: 25 - 35 minutes Plan of Care Discussed with: patient Internal Medicine: Result - Labs CBC & Chem 7: 12/09/17 08:16 12/09/17 08:16 Labs: Short CBC 12/09/17 Range/Units 08:16 WBC 11.4 H (4.3-11.1) K/mcL Hgb 8.8 L (11.5-15.4) g/dL Hct 30.2 L (35.3-44.9) % Plt Count 277 (140-400) K/mcL Neutrophils # 9.2 H (1.6-8.9) K/mcL BMP 12/09/17 08:16 Sodium 137 Potassium 4.1 Chloride 105 Carbon Dioxide 23 BUN 28 H Creatinine 2.02 H Glucose 113 H Calcium 8.6 - ABG Interpretation ABG results: ABG ABG pH 7.36 pH Units (7.32-7.45) 12/07/17 18:25 ABG pCO2 46 mmHg (35-45) H 12/07/17 18:25 ABG pO2 83 mmHg (85-104) L 12/07/17 18:25 ABG O2 Saturation 96 % (95-98) 12/07/17 18:25 PT/INR, D-dimer PT 13.6 Seconds (9.4-12.1) H 12/07/17 15:36 Consult Discharge Plan - Plan Referrals: Stephanie Morgan, [facility] [Primary Care Provider] - <Phi Miranda - Last Filed: 12/09/17 16:27> Hospitalist Progress Note - Encounter Date of Encounter: 12/09/17 - Exam Vitals: Temp Pulse Resp BP Pulse Ox 97.7 F 76 18 155/70 95 12/09/17 11:24 12/09/17 11:24 12/09/17 11:24 12/09/17 11:24 12/09/17 11:24 - Time Spent with Patient Total time spent is greater than 50% in coordination of care (as documented) at patient's floor/unit and/or counseling patient: Internal Medicine: Result - Labs CBC & Chem 7: 12/09/17 08:16 12/09/17 08:16 Labs: Short CBC 12/09/17 Range/Units 08:16 WBC 11.4 H (4.3-11.1) K/mcL Hgb 8.8 L (11.5-15.4) g/dL Hct 30.2 L (35.3-44.9) % Plt Count 277 (140-400) K/mcL Neutrophils # 9.2 H (1.6-8.9) K/mcL BMP 12/09/17 08:16 Sodium 137 Potassium 4.1 Chloride 105 Carbon Dioxide 23 BUN 28 H Creatinine 2.02 H Glucose 113 H Calcium 8.6 - ABG Interpretation ABG results: ABG ABG pH 7.36 pH Units (7.32-7.45) 12/07/17 18:25 ABG pCO2 46 mmHg (35-45) H 12/07/17 18:25 ABG pO2 83 mmHg (85-104) L 12/07/17 18:25 ABG O2 Saturation 96 % (95-98) 12/07/17 18:25 PT/INR, D-dimer PT 13.6 Seconds (9.4-12.1) H 12/07/17 15:36 - Attending Attestation The history, physical exam, and medical decision making was performed by the medical student Dr. Sosa either while I was physically present and actively involved or I personally re-performed the exam and medical decision making. I have verified the accuracy of the medical student's documentation with regards to the history, physical exam findings, and medical decision making. 72 year female with a past medical history significant for brain cancer s/p craniotomy, lung and spine mets, recurrent pleural effusion, CHF, DM, HLD, CAD s /p stent and CABG, and ELPIDIO who presented to [facility] on 12/07/17 with HCAP. She was recently discharged from the hospital on 12/02/17 after a stay for bilateral pleural effusions and Ct guided thoracocentesis. Pt was admitted in the hospital and started her on empirical abx. She states she is feeling little better today, still has some chest discomfort. Gen: A, A, O x 3 Chest: Diminished BS b/l, Mild cackles, rales.. Heart: S1S2+ RRR No murmurs A/p 1. Acute on chronic hypoxic resp failure 2. Acute HCAP - mostly abcterial cont Duoneb + O2 cont broad sepc abx 3. Acute on chronic diastolic CHF exacerbation 4. b/l Pleural effusions Held Lasix due to worsening GLENNA cont close monitoring 5. GLENNA with CKD-3 due to aggressive diuresis held Lasix <Kylie Sosa M - Last Filed: 12/09/17 14:58> (2) Renal failure (ARF), acute on chronic Qualifiers: Acute renal failure type: unspecified Chronic kidney disease stage: stage 3 ( moderate) Qualified Code(s): N17.9 - Acute kidney failure, unspecified; N18.3 - Chronic kidney disease, stage 3 (moderate) (3) CHF (congestive heart failure) Qualifiers: Heart failure type: diastolic Heart failure chronicity: acute on chronic Qualified Code(s): I50.33 - Acute on chronic diastolic (congestive) heart failure (4) UTI (urinary tract infection) Qualifiers: Urinary tract infection type: site unspecified Hematuria presence: without hematuria Qualified Code(s): N39.0 - Urinary tract infection, site not specified (5) Diabetes mellitus Qualifiers: Diabetes mellitus type: type 2 Diabetes mellitus [place] insulin use: with halfway use Diabetes mellitus complication status: with kidney complications Diabetes mellitus complication detail: with chronic kidney disease Chronic kidney disease stage: stage 3 (moderate) Qualified Code(s): E11.22 - Type 2 diabetes mellitus with diabetic chronic kidney disease; N18.3 - Chronic kidney disease, stage 3 (moderate); Z79.4 - [facility] (current) use of insulin (6) Hypertension Qualifiers: Hypertension type: essential hypertension Qualified Code(s): I10 - Essential (primary) hypertension (8) Anemia in chronic kidney disease Qualifiers: Chronic kidney disease stage: stage 3 (moderate) Qualified Code(s): N18.3 - Chronic kidney disease, stage 3 (moderate); D63.1 - Anemia in chronic kidney disease (9) CAD (coronary artery disease) Qualifiers: Coronary Disease-Associated Artery/Lesion type: bypass graft [place] vs. transplanted heart: [place] heart Associated angina: angina presence unspecified Qualified Code(s): I25.810 - Atherosclerosis of coronary artery bypass graft(s) without angina pectoris
--- NOTE | 2017-12-09 12:29 | Electrocardiograph Report ---
[place] [id number] Test Date: 2017-12-07 Pat Name: Van Almanza Department: EXAMC1 Room: 2N5 Gender: F [employer]: : 1945 Requested By: Naveed Sears Order Number: [id number] Reading MD: Jalen Rajan Measurements Intervals [place] Rate: 73 P: 45 RI: 154 QRS: -79 QRSD: 142 T: -25 QT: 430 QTc: 474 Interpretive Statements Sinus rhythm Right bundle branch block Left anterior fascicular block Electronically Signed On 12-09-2017 12:28:07 EDT by Jalen Rajan
--- NOTE | 2017-12-09 14:00 | Pulmonology Progress Note ---
<Marcel Harman W - Last Filed: 12/09/17 16:44> Date of Encounter: 12/09/17 Objective PUL Vital signs: Last Vital Signs Temp 97.7 F 12/09/17 11:24 Pulse 76 12/09/17 11:24 Resp 18 12/09/17 11:24 BP 155/70 12/09/17 11:24 Pulse Ox 95 12/09/17 11:24 Results - Laboratory Findings CBC and BMP: 12/09/17 08:16 12/09/17 08:16 ABG ABG pH 7.36 pH Units (7.32-7.45) 12/07/17 18:25 ABG pCO2 46 mmHg (35-45) H 12/07/17 18:25 ABG pO2 83 mmHg (85-104) L 12/07/17 18:25 ABG O2 Saturation 96 % (95-98) 12/07/17 18:25 PT/INR, D-dimer PT 13.6 Seconds (9.4-12.1) H 12/07/17 15:36 Abnormal lab findings: Abnormal lab results WBC 11.4 K/mcL (4.3-11.1) H 12/09/17 08:16 RBC 3.27 M/mcL (3.82-4.97) L 12/09/17 08:16 Hgb 8.8 g/dL (11.5-15.4) L 12/09/17 08:16 Hct 30.2 % (35.3-44.9) L 12/09/17 08:16 MCH 26.9 pg (28.0-33.3) L 12/09/17 08:16 MCHC 29.1 g/dL (31.6-35.5) L 12/09/17 08:16 RDW 17.5 % (11.5-14.5) H 12/09/17 08:16 Neutrophils # 9.2 K/mcL (1.6-8.9) H 12/09/17 08:16 PT 13.6 Seconds (9.4-12.1) H 12/07/17 15:36 ABG pCO2 46 mmHg (35-45) H 12/07/17 18:25 ABG pO2 83 mmHg (85-104) L 12/07/17 18:25 ABG Total CO2 27 mEq/L (20-26) H 12/07/17 18:25 BUN 28 mg/dL (8-23) H 12/09/17 08:16 Creatinine 2.02 mg/dL (0.60-1.20) H 12/09/17 08:16 Est GFR ( Amer) 30 (> 60) L 12/09/17 08:16 Est GFR (Non-Af Amer) 24 (> 60) L 12/09/17 08:16 Glucose 113 mg/dL (70-105) H 12/09/17 08:16 POC Glucose 116 mg/dL (70-99) H 12/09/17 06:51 AST 9 Units/L (13-39) L 12/08/17 03:37 Alkaline Phosphatase 106 Units/L (34-104) H 12/08/17 03:37 B-Natriuretic Peptide 1350 pg/mL (Less than 100) H 12/07/17 15:36 Albumin 3.2 g/dL (3.5-5.7) L 12/08/17 03:37 Albumin/Globulin Ratio 0.9 (1.1-2.2) L 12/08/17 03:37 Urine Clarity Cloudy (Clear) A 12/07/17 16:28 Ur Specific [place] >= 1.030 (1.010-1.025) H 12/07/17 16:28 Urine Protein >=300 mg/dL (Neg-Trace) H 12/07/17 16:28 Urine Blood Trace-intact (Negative) H 12/07/17 16:28 Urine Nitrite Positive (Negative) A 12/07/17 16:28 Urine Bilirubin Small (Negative) H 12/07/17 16:28 Ur Leukocyte Esterase Trace (Negative) H 12/07/17 16:28 Urine Microscopic RBC 15-30 per hpf (0-3) H 12/07/17 16:28 Urine Microscopic WBC TNTC per hpf (0-3) H 12/07/17 16:28 Ur Squamous Epith Cells Moderate per lpf (None-Few) H 12/07/17 16:28 Urine Bacteria Many per hpf (None-Few) H 12/07/17 16:28 Ur Culture Indicated? YES (NO) A 12/07/17 16:28 - Microbiology Findings Microbiology Findings: Microbiology, Last 48 Hours 12/08/17 17:50 Urine Culture - Preliminary Urine,Clean Catch No significant growth. 12/09/17 06:00 Sputum Culture - Final Sputum 12/08/17 17:50 Streptococcus pneumoniae Antigen (M - Final Urine,Catheterized 12/08/17 17:50 Legionella Antigen - Final Urine,Catheterized - Clinical Findings Intake & Output: Intake & Output 12/09/17 12/09/17 12/09/17 07:59 15:59 23:59 Intake Total 100 / 100 150 / 150 Output Total 170 / 170 Balance -70 / -70 150 / 150 Weight 142.7 kg Consult Discharge Plan - Plan Referrals: Stephanie Morgan, SALVAGE MECHANIC [Primary Care Provider] - - Attending Attestation I examined this patient and my medical decision-making was reviewed with the Resident Physician. I agree with the documented findings, disposition and treatment plan as described except to the extent set forth below. We independently had [id number] contact with the patient Patient seen and examined at bedside Labs, radiology, chart personally reviewed. Impression/Recs: -Neuro: Awake and alert no focal deficits -Pulm: Acute on chronic hypoxic hypercapnic respiratory failure with acceptable oxygenation this is a combination of pneumonia and hydrostatic pulmonary edema she is on appropriate antibiotic and I suspect she could be de-escalated from vancomycin in the next 24 hours if cultures remain negative. She will need at least 7 days of coverage for pneumonia and possibly as long as 10 depending on clinical course. She has ELPIDIO will need to useBiPAP at night -Cardio: There is evidence of heart failure I recommend diuresis as tolerated by renal function clearly volume overloaded on exam -Renal: Worsening kidney function this may be a manifestation of renal vascular congestion from heart failure consider nephrology consultation Pulmonary will sign off please call with any questions <Zachary Brown - Last Filed: 12/09/17 17:55> Date of Encounter: 12/09/17 Time of Encounter: 08:30 Assessment and Plan (1) Acute and chronic respiratory failure with hypoxia Current Visit: Yes Status: Acute -Due to her history of COPD, and was diagnosed with pneumonia during this current admission. -Patient's recent chest x-ray showed worsening left base opacity. She was leukocytotic on admission which has been trending down (19.1-> 14.7) -On Physical exam her breath sounds are better than yesterday and her expiratory wheezing is getting better as well. -Currently she is on day 3 of Zosyn. Also on 7 L of NC satting at 94%. -Titrate oxygen for SPO2 > 88%. (2) Pneumonia Current Visit: No Status: Acute - likely multi factorial due to her Hx of COPD and lung nodules. Highly unlikely a postobstructive pneumonia. Patient has a component of hydrostatic pulmonary edema which might be confounding the chest x-ray picture. Her workup was negative for Legionella and strep pneumo antigen. Her MRSA swab was negative as well. Her sputum culture was contaminated by epithelial cells therefore was not very useful. Might consider induced sputum culture in future if needed. - Patient is currently febrile, on day 3 of Zosyn. WBC trending down (19.1 -> 14.7-> 11.4) -On physical exam is mildly diminished breath sounds with mild expiratory wheezes. -Continue to be on incentive spirometry to mitigate the effect of VQ mismatch secondary to atelectasis Qualifiers: Pneumonia type: due to unspecified organism Laterality: right Lung location: lower lobe of lung Qualified Code(s): J18.1 - Lobar pneumonia, unspecified organism (3) Pleural effusion Current Visit: Yes Status: Acute - likely multifactorial. Patient has a Hx of Diastolic dysfunction and malignancy. She has a Hx of recurrent pleural effusion, BNP : 1350 - her most recent chest x ray showed bilateral pleural effusion with Left more than the right - she does have increased requirement of O3 from 2 L to 7 L - Bedside ultrasound yesterday did not show a decent size pocket of pleural effusion which could be drained while thoracentesis. Overall it is highly unlikely that pleural effusion is contributing to her hypoxemia. (4) Lung nodules Current Visit: Yes Status: Acute - Chest Ct showed multiple nodules with worsening right upper lobe nodules with the current size being 4.8 cm - patient saw Dr Ny at the Oncology clinic in september and from their review of literature, systemic therapy that might be beneficial to the patient would be chemotherapy (gem/taxotere or doxorubicin based regimen) / VEGF inhibitors, immunotherapy once has had her f/u at the Neurosurgery at the [facility]. (5) COPD exacerbation Current Visit: Yes Status: Acute -unlikely an AECOPD, patient endorses no increase in her cough production although she does endorse a productive sputum - on physical exam she is not wheezing, she does have decreased breath sound bilaterally in the lower lobes which could be due to her pleural effusion. 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 Her most recent PET/CT on 09/29 showed bilateral pulmonary nodules with hypermetabolic right paratracheal, right hilar and subcarinal lymph nodes which were most likely metastatic in nature. Patient also had a CT-guided biopsy in which confirmed metastatic disease to the lungs. She continues to follow -up with [facility]. (7) ELPIDIO (obstructive sleep apnea) Current Visit: Yes Status: Acute -History of obstructive sleep apnea. -Continue to use BiPAP with EPAP/IPAP settings are (8) Morbid obesity Current Visit: Yes Status: Acute -Patient has a history of morbid obesity her BMI is 53.6. -Consult on better dietary choices to reduce weight. Subjective Principal diagnosis: pneumonia Interval history: no acute events overnight, Patent endorses that she was on BiPAP last night for a while but she stopped using it because of discomfort, denies any worsening fatigue,SOB. She continues to be Zosyn for her pneumonia. Her respiratory infection panel, S Pneumo and Legionella workup was negative, MRSA swab was negative. Her WBC has been trending down (19.1-> 14.7- > 11.4). She's on day 2 of lasix today Objective PUL Vital signs: Last Vital Signs Temp 97.7 F 12/09/17 11:24 Pulse 76 12/09/17 11:24 Resp 18 12/09/17 11:24 BP 155/70 12/09/17 11:24 Pulse Ox 95 12/09/17 11:24 General appearance: no acute distress Auscultation: bilateral: wheezes (mild) Percussion: bilateral: not dull Cardiovascular: regular rate and rhythm Gastrointestinal: soft, non-tender, non-distended Extremities: edema (+1) Results - Laboratory Findings CBC and BMP: 12/09/17 08:16 12/09/17 08:16 ABG ABG pH 7.36 pH Units (7.32-7.45) 12/07/17 18:25 ABG pCO2 46 mmHg (35-45) H 12/07/17 18:25 ABG pO2 83 mmHg (85-104) L 12/07/17 18:25 ABG O2 Saturation 96 % (95-98) 12/07/17 18:25 PT/INR, D-dimer PT 13.6 Seconds (9.4-12.1) H 12/07/17 15:36 Abnormal lab findings: Abnormal lab results WBC 11.4 K/mcL (4.3-11.1) H 12/09/17 08:16 RBC 3.27 M/mcL (3.82-4.97) L 12/09/17 08:16 Hgb 8.8 g/dL (11.5-15.4) L 12/09/17 08:16 Hct 30.2 % (35.3-44.9) L 12/09/17 08:16 MCH 26.9 pg (28.0-33.3) L 12/09/17 08:16 MCHC 29.1 g/dL (31.6-35.5) L 12/09/17 08:16 RDW 17.5 % (11.5-14.5) H 12/09/17 08:16 Neutrophils # 9.2 K/mcL (1.6-8.9) H 12/09/17 08:16 PT 13.6 Seconds (9.4-12.1) H 12/07/17 15:36 ABG pCO2 46 mmHg (35-45) H 12/07/17 18:25 ABG pO2 83 mmHg (85-104) L 12/07/17 18:25 ABG Total CO2 27 mEq/L (20-26) H 12/07/17 18:25 BUN 28 mg/dL (8-23) H 12/09/17 08:16 Creatinine 2.02 mg/dL (0.60-1.20) H 12/09/17 08:16 Est GFR ( Amer) 30 (> 60) L 12/09/17 08:16 Est GFR (Non-Af Amer) 24 (> 60) L 12/09/17 08:16 Glucose 113 mg/dL (70-105) H 12/09/17 08:16 POC Glucose 116 mg/dL (70-99) H 12/09/17 06:51 AST 9 Units/L (13-39) L 12/08/17 03:37 Alkaline Phosphatase 106 Units/L (34-104) H 12/08/17 03:37 B-Natriuretic Peptide 1350 pg/mL (Less than 100) H 12/07/17 15:36 Albumin 3.2 g/dL (3.5-5.7) L 12/08/17 03:37 Albumin/Globulin Ratio 0.9 (1.1-2.2) L 12/08/17 03:37 Urine Clarity Cloudy (Clear) A 12/07/17 16:28 Ur Specific [place] >= 1.030 (1.010-1.025) H 12/07/17 16:28 Urine Protein >=300 mg/dL (Neg-Trace) H 12/07/17 16:28 Urine Blood Trace-intact (Negative) H 12/07/17 16:28 Urine Nitrite Positive (Negative) A 12/07/17 16:28 Urine Bilirubin Small (Negative) H 12/07/17 16:28 Ur Leukocyte Esterase Trace (Negative) H 12/07/17 16:28 Urine Microscopic RBC 15-30 per hpf (0-3) H 12/07/17 16:28 Urine Microscopic WBC TNTC per hpf (0-3) H 12/07/17 16:28 Ur Squamous Epith Cells Moderate per lpf (None-Few) H 12/07/17 16:28 Urine Bacteria Many per hpf (None-Few) H 12/07/17 16:28 Ur Culture Indicated? YES (NO) A 12/07/17 16:28 - Microbiology Findings Microbiology Findings: Microbiology, Last 48 Hours 12/08/17 17:50 Urine Culture - Preliminary Urine,Clean Catch No significant growth. 12/09/17 06:00 Sputum Culture - Final Sputum 12/08/17 17:50 Streptococcus pneumoniae Antigen (M - Final Urine,Catheterized 12/08/17 17:50 Legionella Antigen - Final Urine,Catheterized - Clinical Findings Intake & Output: Intake & Output 12/08/17 12/09/17 12/09/17 23:59 07:59 15:59 Intake Total 340 / 340 100 / 100 150 / 150 Output Total 25 / 25 170 / 170 Balance 315 / 315 -70 / -70 150 / 150 Weight 142.7 kg
[2017-12-09] MEDS ORDERED: Sennosides/Docusate Sodium TABLET PO PRN (16:43)
[2017-12-09] MEDS: Insulin DETEMIR 100 UNIT/ML X5UNITS SQ SCH (21:31)
[2017-12-10] MEDS: Piperacillin/Tazobactam 3.375 GM in 0.9 % Sodium Chloride Mini Bag 100 ML IVPB SCH ×3 (00:21→17:43)
[2017-12-10] MEDS: *HR* Enoxaparin 40 MG/0.4 ML SYRINGE SQ SCH (06:42)
[2017-12-10 07:03] LABS: Basophils % 0.4 %; Mean Platelet Volume 9.9 fL (9.4-12.4)
[2017-12-10 07:05] LABS: Eosinophils # 0.5 K/mcL (0.0-0.6); Eosinophils % 6.8 %; Hematocrit 28.9 % (35.3-44.9); Hemoglobin 8.4 g/dL (11.5-15.4); Immature Granulocytes % 0.5 % (0-4); Lymphocytes # 0.7 K/mcL (0.6-4.6); Lymphocytes % 8.6 %; Mean Corpuscular HGB Conc 29.1 g/dL (31.6-35.5); Mean Corpuscular Hemoglobin 26.4 pg (28.0-33.3); Mean Corpuscular Volume 90.9 fL (83.0-100.0); Monocytes # 0.6 K/mcL (0.0-1.3); Monocytes % 7.5 %; Neutrophils # 6.1 K/mcL (1.6-8.9); Platelet Count 264 K/mcL (140-400); Red Blood Count 3.18 M/mcL (3.82-4.97); Red Cell Distribution Width 17.3 % (11.5-14.5); Segmented Neutrophils % 76.2 %
[2017-12-10 07:08] LABS: Calcium 8.4 mg/dL (8.6-10.3)
[2017-12-10 08:25] LABS: Anisocytosis 1+ (Not Present); Hypochromasia Present (Not Present); Platelet Estimate Normal (Normal)
--- NOTE | 2017-12-10 08:52 | Internal Med Progress Note ---
<EdwardsJavad - Last Filed: 12/10/17 13:39> Hospitalist Progress Note - Encounter Date of Encounter: 12/10/17 Time of Encounter: 09:25 - Subjective Interval History: Patient had complaints of bloody sputum and urine last night. Currently is catheterized. Also decreased urine output. Might consider bladder scan. - Exam Vitals: Temp Pulse Resp BP Pulse Ox 98.7 F 69 20 167/76 89 12/10/17 04:00 12/10/17 07:22 12/10/17 07:22 12/10/17 07:22 12/10/17 07:22 Exam: GENERAL: Patient is a 72 year old morbidly obese class III female in mild respiratory distress with appropriate affect. Alert & oriented x3. HEENT: Head is normocephalic, patient has visible metal plate in her cranium from prior craniotomy in 2008. Was supposed to undergo Surgery on 12/07/17 to fix the exposed plate but this has been rescheduled. EYES: PERRLA, EOMI. Sclera anincteric. MOUTH: Oropharynx clear. Mucous membranes moist. NECK: Supple, no masses, exam difficult due to large neck circumference. CV: Regular rate and rhythm. Normal S1, S2 with no clicks, murmurs, gallops, or rubs. PULMONARY: Decreased breath sounds bilaterally. Symmetrical chest expansion. Scattered rales and wheezes throughout. Accessory muscle usage. GI: Abdomen is soft, obese, nontender, positive bowel sounds x 4 present and appropriate. No peritoneal signs or guarding. No palpable masses. SKIN: Warm, dry and intact. No rashes, bruising, cyanosis or non healing lesions are seen. Pedal edema noted. : Urine catheter with red blood. NEUROLOGICAL: Alert, awake. Patient is moving all extremities and following commands appropriately. No focal deficits are noted. Muscle strength 5/5 x 4 extremities. VASCULAR/EXTREMITIES: Peripheral pulses palpable and equal. - Assessment and Plan (1) HCAP (healthcare-associated pneumonia) Current Visit: Yes Status: Acute Assessment and Plan: HCAP: Patient presented with dyspnea, increased thick sputum production, and required increased oxygen use. Chest X-ray showed lower lobe pneumonia with pleural effusion. Pulmonology has been consulted. They recommend continuing broad spectrum antibiotics until sputum cultures return. They are managing the patients bipap settings. Titrate oxygen as tolerated with goal SPO2 > 88% Initial Sputum culture was not cultured because there were too many epithelial cells in the sample. Repeat sputum culture still does not meet criteria for culture. Blood culture pending. Day #2 of IV Zosyn. Will add Levaquin for double Pseudomonas coverage. Continue Supplemental O2 Continue BiPAP - setting as per pulm Continue Duonebs PRN Q4H (2) Renal failure (ARF), acute on chronic Current Visit: No Status: Acute Assessment and Plan: Patient has CKD Stage 3. Today she has had decreased urinary output and her urine appears concentrated in color. Her BUN and Creatinine have increased from her baseline. She currently has a BUN of 29 and Cr of 2.25. - Will give one dose of lasix 40mg IVP with albumin as patient with CHF exacerbation - Monitor strict I&Os - Repeat BMP in AM - Pending repeat CXR this morning - Pending nephrology consult. recommendations appreciated. (3) CHF (congestive heart failure) Current Visit: Yes Status: Acute Assessment and Plan: Patient has a history of Diastolic CHF. Her BNP on admission was 1350. Lasix 40mg IVP once with albumin. Will continue to monitor strict I&Os, daily weights and clinical signs of fluid overload status. Will monitor for worsening pleural effusion. (4) UTI (urinary tract infection) Current Visit: Yes Status: Acute Assessment and Plan: Patient presented with asymptomatic UTI as seen on UA with positive blood, nitrite, leukocyte esterase, bacteria and WBC. Urine culture preliminary report has grown ESBL and Klebsiella. Sensitivities to Levaquin. Carbapenems is an option here but will lower seizure threshold. Will consult infectious disease due to complicated presentation. Recommendations appreciated. (5) Diabetes mellitus Current Visit: No Status: Chronic Assessment and Plan: Patient has a history of Type II DM with CKD Stage 3. She is on Januvia, Lantus and Actos at home. - Diabetic Diet - Accu-checks ACHS - Hypoglycemia protocol - Continue Levemir 15U SQ HS (6) Hypertension Current Visit: No Status: Chronic Assessment and Plan: Patient has a history of hypertension. She is on Hydralazine, Furosemide, Metoprolol and Zestril at home. Patient's BP this AM was 159/71 - We have held her home hydralazine, lasix and zestril. - Continue Metoprolol 25 mg BID. (7) CKD (chronic kidney disease) stage 3, GFR 30-59 ml/min Current Visit: No Status: Chronic Assessment and Plan: Nephrology consulted. See above. (8) Anemia in chronic kidney disease Current Visit: No Status: Chronic Assessment and Plan: Patient has chronic anemia likely due to her chronic kidney disease. She had a Hgb of 10 on admission. Her Hgb is 8.4 today. Will continue to monitor. (9) CAD (coronary artery disease) Current Visit: No Status: Acute Assessment and Plan: Patient has a history of CAD. She has had prior stenting and CABG. Patient is beginning to complain of some chest tightness. Trops were negative yesterday and EKG did not show any ischemic changes. Will consider new chest x-ray to evaluate pleural effusion status. Last one completed on 12/07. Could be possible demand ischemia since Hgb dropped from 10 to 8.8. - Will check new troponins and stat EKG. Continue home medications as follows: - Lipitor 20mg PO - Aspirin 81mg PO - Plavix 75mg PO (10) Constipation Current Visit: Yes Status: Acute Assessment and Plan: - Patient has not had a BM since before admission - She is currently on Colace 100 mg PO BID but this has not helped - Will switched patient to Senna Plus DVT Prophylaxis: held lovenox due to bloody urine. SCDs for DVT prophylaxis. - Time Spent with Patient Total time spent is greater than 50% in coordination of care (as documented) at patient's floor/unit and/or counseling patient: Greater than 35 minutes Plan of Care Discussed with: patient Internal Medicine: Result - Labs CBC & Chem 7: 12/10/17 06:21 12/10/17 06:21 Labs: Short CBC 12/09/17 12/10/17 Range/Units 08:16 06:21 WBC 11.4 H 8.0 (4.3-11.1) K/mcL Hgb 8.8 L 8.4 L (11.5-15.4) g/dL Hct 30.2 L 28.9 L (35.3-44.9) % Plt Count 277 264 (140-400) K/mcL Neutrophils # 9.2 H 6.1 (1.6-8.9) K/mcL BMP 12/09/17 12/10/17 08:16 06:21 Sodium 137 134 L Potassium 4.1 4.0 Chloride 105 103 Carbon Dioxide 23 24 BUN 28 H 29 H Creatinine 2.02 H 2.25 H Glucose 113 H 150 H Calcium 8.6 8.4 L - ABG Interpretation ABG results: ABG ABG pH 7.36 pH Units (7.32-7.45) 12/07/17 18:25 ABG pCO2 46 mmHg (35-45) H 12/07/17 18:25 ABG pO2 83 mmHg (85-104) L 12/07/17 18:25 ABG O2 Saturation 96 % (95-98) 12/07/17 18:25 PT/INR, D-dimer PT 13.6 Seconds (9.4-12.1) H 12/07/17 15:36 Consult Discharge Plan - Plan Referrals: Stephanie Morgan, YEAST FERMENTATION ATTENDANT [Primary Care Provider] - <Phi Miranda - Last Filed: 12/10/17 14:13> Hospitalist Progress Note - Encounter Date of Encounter: 12/10/17 - Exam Vitals: Temp Pulse Resp BP Pulse Ox 98.7 F 72 20 159/71 96 12/10/17 04:00 12/10/17 11:36 12/10/17 11:38 12/10/17 11:36 12/10/17 11:38 - Time Spent with Patient Total time spent is greater than 50% in coordination of care (as documented) at patient's floor/unit and/or counseling patient: Internal Medicine: Result - Labs CBC & Chem 7: 12/10/17 06:21 12/10/17 06:21 Labs: Short CBC 12/10/17 Range/Units 06:21 WBC 8.0 (4.3-11.1) K/mcL Hgb 8.4 L (11.5-15.4) g/dL Hct 28.9 L (35.3-44.9) % Plt Count 264 (140-400) K/mcL Neutrophils # 6.1 (1.6-8.9) K/mcL BMP 12/10/17 06:21 Sodium 134 L Potassium 4.0 Chloride 103 Carbon Dioxide 24 BUN 29 H Creatinine 2.25 H Glucose 150 H Calcium 8.4 L - ABG Interpretation ABG results: ABG ABG pH 7.36 pH Units (7.32-7.45) 12/07/17 18:25 ABG pCO2 46 mmHg (35-45) H 12/07/17 18:25 ABG pO2 83 mmHg (85-104) L 12/07/17 18:25 ABG O2 Saturation 96 % (95-98) 12/07/17 18:25 PT/INR, D-dimer PT 13.6 Seconds (9.4-12.1) H 12/07/17 15:36 - Attending Attestation I examined this patient and my medical decision-making was reviewed with the Resident Physician Dr. Edwards. I agree with the documented findings, disposition and treatment plan as described except to the extent set forth below. 72 year female with a past medical history significant for brain cancer s/p craniotomy, lung and spine mets, recurrent pleural effusion, CHF, DM, HLD, CAD s /p stent and CABG, and ELPIDIO who presented to [facility] on 12/07/17 with HCAP. She was recently discharged from the hospital on 12/02/17 after a stay for bilateral pleural effusions and Ct guided thoracocentesis. Pt was admitted in the hospital and started her on empirical abx. She states she is feeling little better today. However she is still on 7 lit NC O2 Gen: A, A, O x 3 Chest: Diminished BS b/l, Mild cackles, rales.. Heart: S1S2+ RRR No murmurs A/p 1. Acute on chronic hypoxic resp failure 2. Acute HCAP - mostly abcterial cont Duoneb + O2 cont broad sepc abx Appreciate Pulm Recommendations 3. Acute on chronic diastolic CHF exacerbation 4. b/l Pleural effusions Held Lasix due to worsening GLENNA cont close monitoring 5. GLENNA with CKD-3 due to aggressive diuresis held Lasix She still has volume overload, would get benefit with Lasix , with intra vascular volume monkey breeder Albumin 6. UTI - ESBl E. Coli and Klebsiella ID consulted unable to use carabapenem due to her seizure problem cont Zosyn for now
[2017-12-10] MEDS: Aspirin Enteric Coated 81 MG Tablet PO SCH (10:30)
[2017-12-10] MEDS: hydrALAZINE 25 MG TABLET PO SCH ×3 (10:31→21:44)
[2017-12-10] MEDS: Cholecalciferol (D-3) 1,000 UNIT TABLET PO SCH (10:31)
[2017-12-10] MEDS: levETIRAcetam 250 MG TABLET PO SCH ×2 (10:31→21:44)
[2017-12-10] MEDS: Levofloxacin 750 MG/150 ML 750 MG/150 ML BAG IVPB SCH (10:33)
[2017-12-10] MEDS: Ipratropium/Albuterol Neb 3 ML IH SCH ×3 (11:38→21:41)
[2017-12-10] MEDS ORDERED: Furosemide 40 MG/4 ML VIAL IVP ONE (13:38)
--- NOTE | 2017-12-10 14:16 | Infectious Disease Consult ---
Date of Encounter: 12/10/17 Time of Encounter: 14:13 Assessment and Plan (1) Sepsis Status: Acute Assessment and plan: The patient had 2 sepsis criteria on admission. Likely secondary to pneumonia. Improved. White blood cell count has normalized. Tachypnea has resolved. Blood cultures drawn 12/07/17 are no growth to date 2 sets. Qualifiers: Sepsis type: sepsis due to unspecified organism Qualified Code(s): A41.9 - Sepsis, unspecified organism (2) Pneumonia Status: Acute Assessment and plan: Location bilateral bases. Causative organism: Unclear. Chest x-ray completed 12/07/17 showed a worsening of left basilar opacity and pleural effusion and stable right basilar opacity and effusion. Etiology unclear, but aspiration does not seem to be playing a part in this. Strep pneumococcal and legionella urinary antigens are negative. MRSA screen was negative. Respiratory infectious panel was negative. Sputum culture obtained 2 were interpreted as normal upper respiratory tract fredrick. Clinically, the patient appears improved. Recommend repeating chest x-ray in the morning. Discontinue vancomycin and Levaquin. Continue Zosyn 3.375 g IV every 8 hours. Duration of treatment depends on the clinical picture, but likely a total of 10 days. Monitor renal function and dose adjust antibiotics. Qualifiers: Pneumonia type: due to unspecified organism Laterality: left Lung location: lower lobe of lung Qualified Code(s): J18.1 - Lobar pneumonia, unspecified organism (3) UTI (urinary tract infection) Status: Acute Assessment and plan: Asymptomatic bacteriuria. Urine culture positive for Klebsiella pneumoniae and Escherichia coli ESBL. No indication to treat. The patient will require ten-day course of Zosyn, which will cover both Klebsiella and Escherichia coli found in the urine. Continue contact precautions per hospital policy. Qualifiers: Urinary tract infection type: site unspecified Hematuria presence: without hematuria Qualified Code(s): N39.0 - Urinary tract infection, site not specified (4) Pleural effusion Status: Acute Assessment and plan: Location: Bilateral. Etiology: Likely multifactorial (CHF plus malignancy) Pulmonology consulted. Performed bedside ultrasound that showed a small left and trivial right-sided pleural effusion that are not amenable to drainage. Diuresis per the primary team. (5) Acute renal failure superimposed on stage 3 chronic kidney disease Status: Acute Assessment and plan: Serum creatinine worsening since admission. 2.25 today. Etiology unclear. Continue to trend. We will discontinue vancomycin since her MRSA screen is negative and we need to try to avoid nephrotoxins. Dose-adjust antibiotics and other medications. Consider nephrology to evaluate. Qualifiers: Acute renal failure type: unspecified Qualified Code(s): N17.9 - Acute kidney failure, unspecified; N18.3 - Chronic kidney disease, stage 3 (moderate) (6) Acute and chronic respiratory failure with hypoxia Status: Acute Assessment and plan: Likely multifactorial: COPD + CHF + pleural effusions Appears improved. Management per the primary team. 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 Patient follows with Dr. Ny at the [facility]. Treatment on hold until cranial hardware exposure can be fixed. (12) Skin lesion of scalp Status: Acute Assessment and plan: Previous cranial surgery hardware exposed since 2008. Referred to plastic surgery and neurosurgery at [place] with surgery planned for December 21. (13) Diabetes mellitus Status: Chronic Assessment and plan: Recommend aggressive glucose monitoring and control to promote wound healing and prevent reinfection. Management per the primary team. Qualifiers: Diabetes mellitus type: type 2 Diabetes mellitus fci insulin use: with local intermodal truck driver use Diabetes mellitus complication status: with kidney complications Diabetes mellitus complication detail: with chronic kidney disease Chronic kidney disease stage: stage 3 (moderate) Qualified Code(s): E11.22 - Type 2 diabetes mellitus with diabetic chronic kidney disease; N18.3 - Chronic kidney disease, stage 3 (moderate); Z79.4 - assisted (current) use of insulin (14) Hypertension Status: Chronic Qualifiers: Hypertension type: essential hypertension Qualified Code(s): I10 - Essential (primary) hypertension (15) Hypothyroid Status: Chronic Qualifiers: Hypothyroidism type: acquired Qualified Code(s): E03.9 - Hypothyroidism, unspecified (16) CHF (congestive heart failure) Status: Chronic Qualifiers: Heart failure type: diastolic Heart failure chronicity: acute on chronic Qualified Code(s): I50.33 - Acute on chronic diastolic (congestive) heart failure Infectious Disease HPI - Data of Consult Patient: new to practice Consult date: 12/10/17 Requesting Physician: Vicki Jurado MD Primary Care Provider: Stephanie Morgan CNP - Consult Narrative Reason for consult: ESBL UTI History of present illness: Ms. Almanza is a 72 year old female with a past medical history of COPD, CHF, brain cancer with metastases to the lung, diabetes, hyperlipidemia, hypertension , and seizures. The patient was admitted to the hospital December 07 for COPD, sepsis, UTI, and pneumonia. We are consulted December 10 for further recommendations for ESBL UTI. Briefly, the patient is a 72-year-old female with past medical history as stated above. The patient presented to the emergency department with worsening shortness of breath and abdominal fullness. Upon arrival, the patient was afebrile. She was tachypneic and hypoxic, but otherwise hemodynamically stable. She had a leukocytosis with neutrophilic predominance. 7 acute kidney injury and a normal lactic acid. BNP was elevated at 1350. Chest x-ray showed interval worsening of left base opacity and pleural effusion and a stable right base opacity and pleural effusion as well as previously noted pulmonary nodules. Urinalysis was obtained that showed too numerous to count white cells , moderate epithelial cells, and many bacteria. Urine culture grew out Klebsiella pneumoniae and Escherichia coli ESBL. Blood cultures were obtained 2 sets and are no growth to date. She was started empirically on vancomycin and Zosyn and admitted to the hospital for further evaluation. Since admission, the patient has remained afebrile. Tachypnea has resolved. White blood cell count has trended down as normal. Pulmonology was consulted to assist with management. They performed bedside ultrasound of the pleural effusion that did not appear amenable to drainage and they did not feel that they were contributing to her hypoxia. Urinary antigen tests were negative. Repeat urine culture on 12/08/17 was negative. 2 sputum cultures are been submitted and both have been deemed acceptable for testing. MRSA nasal screen was negative. Respiratory infectious panel was negative. The patient's renal function has continued to worsen since admission her serum creatinine is up to 2.25 today. She started having bloody sputum and hematuria overnight. Currently , the patient is on Vanc, Zosyn, and Levaquin. We have been asked to evaluate and make further recommendations. During my exam today, the patient states that she presented to the ER with a one -day history of shortness of breath and cough with white/green sputum. She also reported subjective fevers with chills. She denied any headache or neck pain. She reports chronic sinus drainage, but denies any earache or sore throat. She denies any chest pain. She denied any nausea or vomiting or diarrhea. She denies any abdominal pain or urinary complaints including dysuria , hematuria, or urinary frequency. She denies back or flank pain. She denies any pain or joints or extremities. She denied any oral thrush or skin rashes. She tells me that back in 2008 she had a brain mass that was removed at [place] that was a hemangiopericytoma, but she states she was told it was just a benign hemangioma. She also had pulmonary nodules documented on CT scan back in 2014 that was suspicious for malignancy, but the patient did not pursue any further workup then. She was hospitalized back in August 2017 and she underwent thoracentesis when she was admitted with large pleural effusions. She underwent a lung biopsy that showed findings consistent with hemangiopericytoma, favor metastatic, indeterminate grade. Heme/Onc was consulted and recommended follow-up as an outpatient. Brain MRI and PET imaging was completed that shows uptake in the metastatic nodules as well as mediastinal lymphadenopathy. MRI of the brain was negative for recurrence. During follow-up, the patient was noted to have an exposed piece of hardware to her skull. She was referred to neurosurgery and plastic surgery at [place] who have been attempting to schedule surgery and it is currently scheduled for December 21. Treatment for her metastatic disease is on hold until the patient undergo surgery for the cranial hardware exposure. The patient currently lives at home with her sister. 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 She denies any tobacco, alcohol, or illicit drug use. She denies recent travel outside the [facility]. She denies any known chronic infectious diseases. CC: Vicki Jurado MD Past Med Surg Social Fam HX - Past Medical History Attestation: Yes The following information was validated with the patient. Source: patient, old records reviewed, nursing notes reviewed Medical history: asthma, CHF, diabetes, hyperlipidemia, hypertension, seizures, other Additional medical history: hemangiopericytoma Psychiatric history: anxiety, depression, panic disorder - Past Surgical History Surgical History: cholecystectomy, coronary bypass (CABG), other Additional surgical history: L ankle. brain surgery. cardiac stents - Social History Smoking Status: Never smoker Smokeless Tobacco Status: No Alcohol use: none Drug use: none Occupational status: retired Current living situation: Home, With Family Activity Level: Uses cane/walker Recent Out of Country Travel Within the Last 8 Weeks: No Exposure or Possible Exposure to Illness During Travel: No - Family History Father Adopted: No Living Status: Hx Family Cardiac Disorders: Yes Hx Family Respiratory Disorders: Yes Hx Family Cancer: Yes Infectious Disease-CN:Meds Furosemide [Lasix] 20 mg PO DAILY 11/30/14 [History] Pantoprazole Sodium [Protonix] 40 mg PO DAILY 03/13/15 [History] Aspirin [Adult Aspirin] 81 mg PO DAILY 08/12/17 [History] Atorvastatin Calcium [Lipitor] 20 mg PO DAILY 08/12/17 [History] Ergocalciferol (VITAMIN D2) [Vitamin D2] 50,000 unit PO QWEEK 08/12/17 [History] Escitalopram Oxalate 5 mg PO DAILY 08/12/17 [History] LevETIRAcetam [Keppra] 750 mg PO BID 08/12/17 [History] Levothyroxine Sodium [Levoxyl] 25 mcg PO DAILY 08/12/17 [History] Levothyroxine Sodium [Synthroid] 200 mcg PO DAILY 08/12/17 [History] Lisinopril [Zestril] 10 mg PO DAILY 08/12/17 [History] Metoprolol [Lopressor] 25 mg PO BID 08/12/17 [History] Montelukast [Singulair] 10 mg PO DAILY 08/12/17 [History] Phenytoin [Dilantin] 150 mg PO BID 08/12/17 [History] Pioglitazone HCl [Actos] 15 mg PO DAILY 08/12/17 [History] SitaGLIPtin [Januvia] 100 mg PO DAILY 08/12/17 [History] Tolterodine Tartrate [Detrol] 2 mg PO BID 08/12/17 [History] Acetaminophen [Tylenol] 650 mg PO Q6HR PRN tablet 08/18/17 [Rx] Calcium Carbonate [Tums] 1,000 mg PO QID 30 Days #120 tab.chew 08/30/17 [Rx] Docusate [Colace] 100 mg PO BID 30 Days #60 capsule 08/30/17 [Rx] Ferrous Sulfate 325 mg PO BIDWM 30 Days #60 tablet 08/30/17 [Rx] Clopidogrel [Plavix] 75 mg PO DAILY 12/07/17 [History] Insulin Glargine [Lantus] 15 unit SQ HS 12/07/17 [History] Mupirocin [Bactroban Oint] 1 appl TP DAILY 12/07/17 [History] hydrALAZINE [HydrALAZINE] 25 mg PO BID 12/07/17 [History] Albuterol Sulfate [Proventil Hfa] 2 puff IH Q4H PRN 12/08/17 [History] 3 Allergy/AdvReac Type Severity Reaction Status Date / Time Tetanus Vaccines and Toxoid Allergy Unknown unknown Verified 11/03/17 13:25 [Tetanus Vaccines & Toxoid] All systems: reviewed and no additional remarkable complaints except as stated Exam - Constitutional Vitals: Temp Pulse Resp BP Pulse Ox 98.7 F 72 20 159/71 96 12/10/17 04:00 12/10/17 11:36 12/10/17 11:38 12/10/17 11:36 12/10/17 11:38 General appearance: cooperative, no acute distress, obese - Head Head exam: Present: atraumatic, normocephalic. Absent: normal inspection ( Exposed cranial hardware noted to the right pareital area.) - Eye Eye exam: Present: EOMI, normal appearance, PERRL Pupils: Present: normal accommodation - ENT ENT exam: Present: mucous membranes moist - Neck Neck exam: Present: normal inspection - Respiratory Respiratory exam: Present: CTAB. Absent: rales, respiratory distress, rhonchi, wheezes - Cardiovascular Cardiovascular exam: Present: RRR, +S1, +S2 - GI/Abdominal GI/Abdominal exam: Present: distended (obese), normal bowel sounds, soft. Absent: tenderness Additional comments: Segal catheter noted to be draining dark bloody urine. - Extremities Exam Extremities exam: Present: normal inspection. Absent: joint swelling, pedal edema, tenderness - Neurological Exam Neurological exam: Present: alert, oriented X3, no focal deficits - Psychiatric Psychiatric exam: Present: normal affect, normal mood - Skin Skin exam: Present: dry, intact, normal color, warm Infectious Disease CN: Results - Labs CBC & Chem 7: 12/10/17 06:21 10/05/18 06:21 Cultures: Cultures 12/08/17 17:50 Urine Culture - Final Urine,Clean Catch No significant growth. 12/10/17 01:15 Sputum Culture - Final Sputum 12/09/17 06:00 Sputum Culture - Final Sputum 12/08/17 17:50 Streptococcus pneumoniae Antigen (M - Final Urine,Catheterized 12/08/17 17:50 Legionella Antigen - Final Urine,Catheterized Serology: Serology 12/09/17 12/09/17 Range/Units 06:00 06:00 Nasal Screen MRSA (PCR) Negative (Negative) Chlamy pneumoniae PCR Not Detected (Not Detect) Adenovirus (PCR) Not Detected (Not Detect) B. pertussis DNA (PCR) Not Detected (Not Detect) B.parapertussis DNA PCR Not Detected (Not Detect) Coronavirus OC43 (PCR) Not Detected (Not Detect) Coronavirus HKU1 (PCR) Not Detected (Not Detect) Coronavirus 229E (PCR) Not Detected (Not Detect) Coronavirus NL63 (PCR) Not Detected (Not Detect) Human Metapneumovir PCR Not Detected (Not Detect) Influenza A (H1) PCR Not Detected (Not Detect) Influ A (H1N1/09) PCR Not Detected (Not Detect) Influenza A (H3) PCR Not Detected (Not Detect) Influenza A Untype (PCR) Not Detected (Not Detect) Influenza Type B (PCR) Not Detected (Not Detect) M.pneumoniae DNA (PCR) Not Detected (Not Detect) Parainfluenza 1 (PCR) Not Detected (Not Detect) Parainfluenza 2 (PCR) Not Detected (Not Detect) Parainfluenza 3 (PCR) Not Detected (Not Detect) Parainfluenza 4 (PCR) Not Detected (Not Detect) RSV (PCR) Not Detected (Not Detect) Entero/Rhino (PCR) Not Detected (Not Detect) Consult Discharge Plan - Plan Referrals: Stephanie Morgan, BUSINESS PERFORMANCE SPECIALIST [Primary Care Provider] - - Attending Attestation I examined this patient and my medical decision-making was reviewed with the Resident Physician. I agree with the documented findings, disposition and treatment plan as described except to the extent set forth below. Will detail. Patient is 72-year-old woman with past medical history mentioned below came in with sepsis like picture. Patient was noted to have a pneumonia and a UTI with ESBL Escherichia coli patient is having cough with sputum production but she states that she feels also some pleuritic chest pain. Patient no urinary symptoms but she has an indwelling Segal. Patient apparently had significant hematuria and nursing and the patient thinking it was traumatic that the Segal insertion and a try to move her out of bed. Assessment and plan: Sepsis Pneumonia causative organism unclear UTI with Escherichia coli ESBL and klebsiella pneumoniae Acute kidney injury Morbid obesity Hemangiopericytoma with multiple nodules on the CT concerning for mets? Agree with Zosyn. Stop vancomycin since the patient creatinine is 2.25 especially with the fact that she had negative MRSA screen even though after 2 days of treatment Pulmonary to evaluate Dose adjust antibiotics based on the creatinine clearance we will ask pharmacy to help Prognosis guarded
[2017-12-10] MEDS: Albumin 25% 25gram/100mL 25 GM/100 ML IV.SOLN IVC SCH (17:45)
[2017-12-10] MEDS: Insulin DETEMIR 100 UNIT/ML X5UNITS SQ SCH (21:48)
[2017-12-11] MEDS: Piperacillin/Tazobactam 3.375 GM in 0.9 % Sodium Chloride Mini Bag 100 ML IVPB SCH ×3 (00:20→17:04)
[2017-12-11] MEDS: Albumin 25% 25gram/100mL 25 GM/100 ML IV.SOLN IVC SCH (00:22)
[2017-12-11] MEDS: Ipratropium/Albuterol Neb 3 ML IH SCH ×4 (04:30→22:18)
[2017-12-11 05:58] LABS: Creatinine,Urine 98 mg/dL; Microalbum/Creatinine Ratio,Ur 54 mcg/mg (Less than 30); Microalbumin,Urine 53 mg/L
[2017-12-11] MEDS: hydrALAZINE 25 MG TABLET PO SCH ×3 (08:57→21:09)
[2017-12-11] MEDS: levETIRAcetam 250 MG TABLET PO SCH ×2 (08:57→21:09)
[2017-12-11] MEDS: Cholecalciferol (D-3) 1,000 UNIT TABLET PO SCH (08:57)
[2017-12-11] MEDS: Aspirin Enteric Coated 81 MG Tablet PO SCH (08:58)
[2017-12-11] MEDS: Furosemide 40 MG/4 ML VIAL IVP SCH ×2 (11:29→17:04)
[2017-12-11 11:37] LABS: Calcium 8.7 mg/dL (8.6-10.3); Magnesium 1.7 mg/dL (1.6-2.6); Potassium 3.9 mEq/L (3.5-5.1)
--- NOTE | 2017-12-11 12:21 | Internal Med Progress Note ---
Hospitalist Progress Note - Encounter Date of Encounter: 12/11/17 Time of Encounter: 11:00 - Subjective Interval History: Ms. Almanza is a 72 year female with a past medical history significant for brain cancer s/p craniotomy, lung and spine mets, recurrent pleural effusion, CHF, DM, HLD, CAD s/p stent and CABG, and ELPIDIO who presented to [facility] on 12/07/17 with HCAP. She was recently discharged from the hospital on 12/02/17 after a stay for bilateral pleural effusions and CT guided thoracocentesis. Pt was admitted in the hospital and started her on empirical abx and IV lasix. She states she is feeling little better today. However she is still on 8 lit NC O2.No events over night - Exam Vitals: Temp Pulse Resp BP Pulse Ox 97.9 F 78 16 172/70 90 12/11/17 10:54 12/11/17 10:54 12/11/17 10:54 12/11/17 10:54 12/11/17 10:54 Exam: Gen: Alert, awake, Oriented to time,place and person Chest: Diminished breath sounds B/L, MIld wheezing, moderate crackles and rales Heart: S1S2+ RRR No murmurs Abd: Soft, NT, BS +, No organomegaly Ext:: 2+ edema, pulses are palpable, No calf tenderness Neuro : Benign findings Skin: No rash. - Assessment and Plan (1) Acute on chronic diastolic (congestive) heart failure Current Visit: Yes Status: Acute Assessment and Plan: Resumed lasix with Albumin y/d Had only -210 net balance cont Lasix 40mg IV BID Cont ASA + Plavix + Statin + BB (2) Volume overload Current Visit: Yes Status: Acute (3) Acute and chronic respiratory failure with hypoxia Current Visit: Yes Status: Acute Assessment and Plan: Due to CHF exacerbation + Pneumonia Cont close monitoring will encourage frequent ICS (4) COPD exacerbation Current Visit: Yes Status: Acute Assessment and Plan: Improving no need of steroids any more Cont duoneb and broad spec abx (5) HCAP (healthcare-associated pneumonia) Current Visit: Yes Status: Acute Assessment and Plan: cont broad sepc abx Zosyn Sputum cx - no growth so far (6) UTI (urinary tract infection) Current Visit: Yes Status: Acute Assessment and Plan: Urine cx - Klebsiella and ESBL E. Coli ID consulted recommend to continue Zosyn - total 10 days course # 4/ (7) Morbid obesity Current Visit: Yes Status: Acute (8) Acute renal failure superimposed on stage 3 chronic kidney disease Current Visit: No Status: Acute Assessment and Plan: improving cont Lasix with Albumin treatment avoid nephro toxin meds (9) Diabetes mellitus Current Visit: No Status: Chronic Assessment and Plan: Last Hb A1C- 6.1 Cont ISS (10) Hypertension Current Visit: No Status: Chronic Assessment and Plan: resumed home meds - Time Spent with Patient Total time spent is greater than 50% in coordination of care (as documented) at patient's floor/unit and/or counseling patient: Internal Medicine: Result - Labs CBC & Chem 7: 12/10/17 06:21 12/11/17 10:57 Labs: BMP 12/11/17 10:57 Sodium 136 Potassium 3.9 Chloride 102 Carbon Dioxide 25 BUN 30 H Creatinine 2.21 H Glucose 163 H Calcium 8.7 - ABG Interpretation ABG results: ABG ABG pH 7.36 pH Units (7.32-7.45) 12/07/17 18:25 ABG pCO2 46 mmHg (35-45) H 12/07/17 18:25 ABG pO2 83 mmHg (85-104) L 12/07/17 18:25 ABG O2 Saturation 96 % (95-98) 12/07/17 18:25 PT/INR, D-dimer PT 13.6 Seconds (9.4-12.1) H 12/07/17 15:36 - Impressions Impressions Chest X-Ray 12/10/17 08:56 IMPRESSION: Overall similar appearance of the chest compared to prior with dominant mass in the right mid lung and multiple areas of satellite nodularity considered bilaterally. D/ / Pantera Buenrostro / Pantera Buenrostro Interpreting Provider: Pantera Buenrostro Consult Discharge Plan - Plan Referrals: Stephanie Morgan, DOOR FURRING INSTALLER [Primary Care Provider] - (6) UTI (urinary tract infection) Qualifiers: Urinary tract infection type: site unspecified Hematuria presence: without hematuria Qualified Code(s): N39.0 - Urinary tract infection, site not specified (8) Acute renal failure superimposed on stage 3 chronic kidney disease Qualifiers: Acute renal failure type: unspecified Qualified Code(s): N17.9 - Acute kidney failure, unspecified; N18.3 - Chronic kidney disease, stage 3 (moderate) (9) Diabetes mellitus Qualifiers: Diabetes mellitus type: type 2 Diabetes mellitus retirement insulin use: with terminologist use Diabetes mellitus complication status: with kidney complications Diabetes mellitus complication detail: with chronic kidney disease Chronic kidney disease stage: stage 3 (moderate) Qualified Code(s): E11.22 - Type 2 diabetes mellitus with diabetic chronic kidney disease; N18.3 - Chronic kidney disease, stage 3 (moderate); Z79.4 - technician terminal and repeater (current) use of insulin (10) Hypertension Qualifiers: Hypertension type: essential hypertension Qualified Code(s): I10 - Essential (primary) hypertension
--- NOTE | 2017-12-11 15:32 | Nephrology Consult Note ---
Date of Encounter: 12/11/17 Time of Encounter: 13:00 Assessment and Plan (1) Acute kidney injury Status: Acute Elevated Scr in the setting of diuretic use, PNA Ok to continue diuretic use for now given respiratory status but continue albumin as well. Seems to help the 2 dosese received Urine microalbumin/cr noted, mild US of kidney done 08/2017 unremarkable, will consider repeat if no improvement in renal fxn (2) Acute and chronic respiratory failure with hypoxia Status: Acute Per primary team (3) Acute on chronic diastolic (congestive) heart failure Status: Acute Strict I/Os Fluid restriction advised (4) HCAP (healthcare-associated pneumonia) Status: Acute Per primary team (5) Volume overload Status: Acute Qualifiers: Hypervolemia type: other Qualified Code(s): E87.79 - Other fluid overload (6) CKD (chronic kidney disease) stage 3, GFR 30-59 ml/min Status: Chronic History of Present Illness - Reason for Consult Consult date: 12/11/17 Requesting physician: Javad Edwards - History of Present Illness 72 y o female with PMH of brain cancer s/p craniotomy with mets to lungs and spine, recurrent pleural effusion, DM, CHF, CAD s/p CABG, ELPIDIO and CKD stage 3 admitted 12/07 with worsening SOB. She was diagnosed with HCAP and is reciving iv abx. She is also being diuresed for volume overload on lasix iv 40mg bid. renal consulted for worsening renal fxn. SCr noted at 1.4, GFR 37 on admission worsening to 2.21, GFR 22 today. Pt seen and examined resting comfortably. Past Med Surg Social Fam HX - Past Medical History Medical history: asthma, CHF, diabetes, hyperlipidemia, hypertension, seizures, other Additional medical history: hemangiopericytoma Psychiatric history: anxiety, depression, panic disorder - Past Surgical History Surgical History: cholecystectomy, coronary bypass (CABG), other Additional surgical history: L ankle. brain surgery. cardiac stents - Social History Smoking Status: Never smoker Smokeless Tobacco Status: No Alcohol use: none Drug use: none - Family History Father Adopted: No Living Status: Hx Family Cardiac Disorders: Yes Hx Family Respiratory Disorders: Yes Hx Family Cancer: Yes Medications and Allergies RX: Pantoprazole Sodium [Protonix] 40 mg PO DAILY 03/13/15 [History] RX: Aspirin [Adult Aspirin] 81 mg PO DAILY 08/12/17 [History] RX: Atorvastatin Calcium [Lipitor] 20 mg PO DAILY 08/12/17 [History] RX: Ergocalciferol (VITAMIN D2) [Vitamin D2] 50,000 unit PO QWEEK 08/12/17 [History] RX: Escitalopram Oxalate 5 mg PO DAILY 08/12/17 [History] RX: LevETIRAcetam [Keppra] 750 mg PO BID 08/12/17 [History] RX: Levothyroxine Sodium [Levoxyl] 25 mcg PO DAILY 08/12/17 [History] RX: Levothyroxine Sodium [Synthroid] 200 mcg PO DAILY 08/12/17 [History] RX: Metoprolol [Lopressor] 25 mg PO BID 08/12/17 [History] RX: Montelukast [Singulair] 10 mg PO DAILY 08/12/17 [History] RX: Phenytoin [Dilantin] 150 mg PO BID 08/12/17 [History] RX: Acetaminophen [Tylenol] 650 mg PO Q6HR PRN tablet 08/18/17 [Rx] RX: Calcium Carbonate [Tums] 1,000 mg PO QID 30 Days #120 tab.chew 08/30/17 [Rx] RX: Docusate [Colace] 100 mg PO BID 30 Days #60 capsule 08/30/17 [Rx] RX: Ferrous Sulfate 325 mg PO BIDWM 30 Days #60 tablet 08/30/17 [Rx] RX: Clopidogrel [Plavix] 75 mg PO DAILY 12/07/17 [History] RX: Insulin Glargine [Lantus] 15 unit SQ HS 12/07/17 [History] RX: Mupirocin [Bactroban Oint] 1 appl TP DAILY 12/07/17 [History] RX: Furosemide [Lasix] 20 mg PO BIDDIURETIC 30 Days #60 tablet 12/15/17 [Rx] RX: Ipratropium/Albuterol Neb [Duoneb] 3 ml IH [id number] PRN inhsol 12/22/17 [Rx] RX: Ipratropium/Albuterol Neb [Duoneb] 3 ml IH [id number] inhsol 12/22/17 [Rx] RX: SitaGLIPtin [Januvia] 50 mg PO DAILY 30 Days #30 tablet 12/22/17 [Rx] RX: amLODIPine [Norvasc] 10 mg PO HS 30 Days #30 tablet 12/22/17 [Rx] RX: hydrALAZINE [HydrALAZINE] 100 mg PO TID 30 Days #90 tablet 12/22/17 [Rx] Allergy/AdvReac Type Severity Reaction Status Date / Time Tetanus Vaccines and Toxoid Allergy Unknown unknown Verified 11/03/17 13:25 [Tetanus Vaccines & Toxoid] Review of Systems All Systems review (narrative): The rest of systems (10 total) were negative Constitutional: fatigue (admits) Cardiovascular: chest pain (denies), leg edema (admits) Respiratory: dyspnea (admits) Exam - Vital Signs Vital signs: Initial Vital Signs Temp Pulse Resp BP Pulse Ox 99.3 F 73 24 183/86 90 12/07/17 15:26 12/07/17 15:26 12/07/17 15:26 12/07/17 15:26 12/07/17 15:26 Vital Signs - Last 8 Hours Temp Pulse Resp BP Pulse Ox 12/11/17 10:54 97.9 F 78 16 172/70 90 12/11/17 09:34 16 159/69 88 Intake and Output 12/10/17 12/11/17 12/11/17 23:59 07:59 15:59 Intake Total 240 / 240 340 / 340 120 / 120 Output Total 290 / 290 350 / 350 200 / 200 Balance -50 / -50 -10 / -10 -80 / -80 Intake: IV Fluids 300 / 300 Flexbumin 25 gm In 100 ml @ 60 200 / 200 mls/hr IVC .Q1H40M [facility] Rx#: [id number] Zosyn 3.375 GM In 0.9 % Sodium 100 / 100 Chloride (Mini-Bag +) 100 ML @ 25 mls/hr IVPB Q8HR [facility] Rx#: [id number] Oral 240 / 240 40 / 40 120 / 120 Output: Urine 0 / 0 350 / 350 200 / 200 Catheter 290 / 290 Other: Meal Dinner Lunch Percent of Meal Consumed 95% 10% Stool Size Small Small Small Stool Consistency soft soft formed Stool Characteristics Normal for Patient Normal for Patient Stool Color Brown Brown Brown Green Green # Voids 1 Weight 143.2 kg Blood Glucose* 151 151 165 Patient Weight 12/11/17 23:59 Weight 143.2 kg - General Appearance General appearance: chronically ill EENT: ATNC, mucous membranes moist Neck: no JVD, supple Respiratory: course breath sounds Cardiology: edema, normal S1, normal S2 Gastrointestinal: no tenderness, no guarding, obese Integumentary: warm and dry Neurologic: no focal deficit Musculoskeletal: no deformities Psychiatric: mood/affect appropriate Results - Lab Results 12/20/17 08:51 12/20/17 08:51 Most recent lab results ABG pH 7.36 pH Units (7.32-7.45) 12/07/17 18:25 ABG pCO2 46 mmHg (35-45) H 12/07/17 18:25 ABG pO2 83 mmHg (85-104) L 12/07/17 18:25 ABG HCO3 26 mEq/L (21-27) 12/07/17 18:25 ABG O2 Saturation 96 % (95-98) 12/07/17 18:25 Calcium 8.7 mg/dL (8.6-10.3) 12/11/17 10:57 Magnesium 1.7 mg/dL (1.6-2.6) 12/11/17 10:57 Urine Creatinine 98 mg/dL 12/11/17 05:22 Urine Total Protein 57 mg/dL (1-14) H 12/11/17 05:22 Consult Discharge Plan - Plan Instructions: Furosemide (By mouth), Hydralazine (By mouth), Amlodipine (By mouth), Sitagliptin (By mouth), Heart Failure (DC), Sleep Apnea Syndrome (GEN), Acute Respiratory Distress Syndrome (DC), Urinary Tract Infection in Women (DC), Chronic Obstructive Pulmonary Disease (DC), Sepsis (DC), Pneumonia (DC) Additional Instructions: - Resume normal activity as tolerated - Continue to use continuous O2 NC supplementation - Continue to use Bipap while sleeping - Will order PT/OT in addition to referral to home health - Follow up with PCP and [facility] - Continue Diabetic diet and restrict fluid intake - Continue taking Lasix 20mg by mouth twice a day until your appointment with [facility] on 01/03/18 - Bloodwork will need to be done 7 days after discharge for a repeat BMP to monitor your kidney function - Continue taking Levaquin 750 mg by mouth every other day for 3 days Referrals: Stephanie Morgan, NAIL PULLER [Primary Care Provider] - 12/22/17 11:00 am Tequila Dixon MD [Partnered Physician] - 01/03/18 11:00 am Prescriptions: RX: amLODIPine [Norvasc] 10 mg PO HS 30 Days #30 tablet RX: Furosemide [Lasix] 20 mg PO BIDDIURETIC 30 Days #60 tablet RX: hydrALAZINE [HydrALAZINE] 100 mg PO TID 30 Days #90 tablet RX: SitaGLIPtin [Januvia] 50 mg PO DAILY 30 Days #30 tablet
[2017-12-11] MEDS ORDERED: Albumin 25% 25gram/100mL 25 GM/100 ML IV.SOLN IVPB SCH (18:00)
[2017-12-11] MEDS: Albumin 25% 25gram/100mL 25 GM/100 ML IV.SOLN IVPB SCH (21:10)
[2017-12-11] MEDS: Insulin DETEMIR 100 UNIT/ML X5UNITS SQ SCH (21:11)
[2017-12-12] MEDS: Fluticasone Propionate Nasal 50 MCG/SPRAY BOTTLE NS SCH ×2 (01:28→08:34)
[2017-12-12] MEDS: Piperacillin/Tazobactam 3.375 GM in 0.9 % Sodium Chloride Mini Bag 100 ML IVPB SCH ×3 (01:29→18:39)
[2017-12-12] MEDS: Ipratropium/Albuterol Neb 3 ML IH SCH ×5 (03:57→22:42)
[2017-12-12 07:42] LABS: Basophils % 0.2 %; Eosinophils # 0.6 K/mcL (0.0-0.6); Eosinophils % 7.4 %; Hematocrit 29.3 % (35.3-44.9); Hemoglobin 8.6 g/dL (11.5-15.4); Immature Granulocytes % 0.5 % (0-4); Lymphocytes # 0.6 K/mcL (0.6-4.6); Lymphocytes % 7.1 %; Mean Corpuscular HGB Conc 29.4 g/dL (31.6-35.5); Mean Corpuscular Hemoglobin 26.6 pg (28.0-33.3); Mean Corpuscular Volume 90.7 fL (83.0-100.0); Mean Platelet Volume 9.5 fL (9.4-12.4); Monocytes # 0.6 K/mcL (0.0-1.3); Monocytes % 7.5 %; Neutrophils # 6.3 K/mcL (1.6-8.9); Platelet Count 228 K/mcL (140-400); Red Blood Count 3.23 M/mcL (3.82-4.97); Red Cell Distribution Width 16.9 % (11.5-14.5); Segmented Neutrophils % 77.3 %
[2017-12-12 08:01] LABS: Magnesium 1.6 mg/dL (1.6-2.6); Potassium 3.7 mEq/L (3.5-5.1)
[2017-12-12] MEDS: Aspirin Enteric Coated 81 MG Tablet PO SCH (08:32)
[2017-12-12] MEDS: levETIRAcetam 250 MG TABLET PO SCH ×2 (08:32→20:49)
[2017-12-12] MEDS: Cholecalciferol (D-3) 1,000 UNIT TABLET PO SCH (08:33)
[2017-12-12] MEDS: hydrALAZINE 25 MG TABLET PO SCH ×3 (08:33→20:49)
[2017-12-12] MEDS: Albumin 25% 25gram/100mL 25 GM/100 ML IV.SOLN IVPB SCH ×2 (08:34→15:35)
[2017-12-12] MEDS: Furosemide 40 MG/4 ML VIAL IVP SCH ×2 (10:23→18:38)
--- NOTE | 2017-12-12 10:24 | Internal Med Progress Note ---
Hospitalist Progress Note - Encounter Date of Encounter: 12/12/17 Time of Encounter: 10:15 - Subjective Interval History: Ms. Almanza is a 72 year female with a past medical history significant for brain cancer s/p craniotomy, lung and spine mets, recurrent pleural effusion, CHF, DM, HLD, CAD s/p stent and CABG, and ELPIDIO who presented to [facility] on 12/07/17 with HCAP. She was recently discharged from the hospital on 12/02/17 after a stay for bilateral pleural effusions and CT guided thoracocentesis. Pt was admitted in the hospital and started her on empirical abx and IV lasix. She states she is feeling little better today. She is more alert, awake and O x 3 today. However she is still on 7 lit NC O2.No events over night - Exam Vitals: Temp Pulse Resp BP Pulse Ox 97.7 F 78 16 159/63 93 12/12/17 08:38 12/12/17 08:38 12/12/17 08:38 12/12/17 08:38 12/12/17 08:38 Exam: Gen: Alert, awake, Oriented to time,place and person Chest: Diminished breath sounds B/L, MIld wheezing, moderate crackles and rales Heart: S1S2+ RRR No murmurs Abd: Soft, NT, BS +, No organomegaly Ext:: 2+ edema, pulses are palpable, No calf tenderness Neuro : Benign findings Skin: No rash. - Assessment and Plan (1) Acute on chronic diastolic (congestive) heart failure Current Visit: Yes Status: Acute Assessment and Plan: Cont lasix 40mg BID with Albumin No birggs... Has urinary incontinence will check with staff to get accurate I & Os Cont ASA + Plavix + Statin + BB (2) Volume overload Current Visit: Yes Status: Acute (3) Acute and chronic respiratory failure with hypoxia Current Visit: Yes Status: Acute Assessment and Plan: Due to CHF exacerbation + Pneumonia Cont close monitoring will encourage frequent ICS (4) COPD exacerbation Current Visit: Yes Status: Acute Assessment and Plan: Improving no need of steroids any more Cont duoneb and broad spec abx (5) HCAP (healthcare-associated pneumonia) Current Visit: Yes Status: Acute Assessment and Plan: cont broad sepc abx Zosyn and Levaquin Sputum cx - no growth so far (6) UTI (urinary tract infection) Current Visit: Yes Status: Acute Assessment and Plan: Urine cx - Klebsiella and ESBL E. Coli ID consulted recommend to continue Zosyn - total 10 days course # / (7) Morbid obesity Current Visit: Yes Status: Acute (8) Acute renal failure superimposed on stage 3 chronic kidney disease Current Visit: No Status: Acute Assessment and Plan: improving cont Lasix with Albumin treatment avoid nephro toxin meds (9) Diabetes mellitus Current Visit: No Status: Chronic Assessment and Plan: Last Hb A1C- 6.1 Cont ISS (10) Hypertension Current Visit: No Status: Chronic Assessment and Plan: resumed home meds - Time Spent with Patient Total time spent is greater than 50% in coordination of care (as documented) at patient's floor/unit and/or counseling patient: Internal Medicine: Result - Labs CBC & Chem 7: 12/12/17 07:12 12/12/17 07:12 Labs: Short CBC 12/12/17 Range/Units 07:12 WBC 8.1 (4.3-11.1) K/mcL Hgb 8.6 L (11.5-15.4) g/dL Hct 29.3 L (35.3-44.9) % Plt Count 228 (140-400) K/mcL Neutrophils # 6.3 (1.6-8.9) K/mcL BMP 12/11/17 12/12/17 10:57 07:12 Sodium 136 135 L Potassium 3.9 3.7 Chloride 102 102 Carbon Dioxide 25 26 BUN 30 H 28 H Creatinine 2.21 H 1.99 H Glucose 163 H 130 H Calcium 8.7 9.0 - ABG Interpretation ABG results: ABG ABG pH 7.36 pH Units (7.32-7.45) 12/07/17 18:25 ABG pCO2 46 mmHg (35-45) H 12/07/17 18:25 ABG pO2 83 mmHg (85-104) L 12/07/17 18:25 ABG O2 Saturation 96 % (95-98) 12/07/17 18:25 PT/INR, D-dimer PT 13.6 Seconds (9.4-12.1) H 12/07/17 15:36 Consult Discharge Plan - Plan Referrals: Stephanie Morgan, SHOWCASE TRIMMER [Primary Care Provider] - (6) UTI (urinary tract infection) Qualifiers: Urinary tract infection type: site unspecified Hematuria presence: without hematuria Qualified Code(s): N39.0 - Urinary tract infection, site not specified (8) Acute renal failure superimposed on stage 3 chronic kidney disease Qualifiers: Acute renal failure type: unspecified Qualified Code(s): N17.9 - Acute kidney failure, unspecified; N18.3 - Chronic kidney disease, stage 3 (moderate) (9) Diabetes mellitus Qualifiers: Diabetes mellitus type: type 2 Diabetes mellitus snf insulin use: with snf use Diabetes mellitus complication status: with kidney complications Diabetes mellitus complication detail: with chronic kidney disease Chronic kidney disease stage: stage 3 (moderate) Qualified Code(s): E11.22 - Type 2 diabetes mellitus with diabetic chronic kidney disease; N18.3 - Chronic kidney disease, stage 3 (moderate); Z79.4 - ocean transportation intermediary (current) use of insulin (10) Hypertension Qualifiers: Hypertension type: essential hypertension Qualified Code(s): I10 - Essential (primary) hypertension
[2017-12-12] MEDS: Levofloxacin 750 MG/150 ML 750 MG/150 ML BAG IVPB SCH (13:59)
--- NOTE | 2017-12-12 14:22 | Nephrology Progress Note ---
Date of Encounter: 12/12/17 Time of Encounter: 12:00 - Assessment and Plan (1) Acute kidney injury Current Visit: No Status: Acute SCr improving at 1.99, GFR 25 UOP noted at 530cc in the past 24hrs, not sure if accurate Continue to avoid nephrotoxins if possible (2) Acute and chronic respiratory failure with hypoxia Current Visit: Yes Status: Acute Continue COPD/PNA treatment per primary team (3) Acute on chronic diastolic (congestive) heart failure Current Visit: Yes Status: Acute Continue lasix/albumin for another day Fluid restriction Strict I/Os (4) HCAP (healthcare-associated pneumonia) Current Visit: Yes Status: Acute per primary team (5) Volume overload Current Visit: Yes Status: Acute Qualifiers: Hypervolemia type: other Qualified Code(s): E87.79 - Other fluid overload (6) CKD (chronic kidney disease) stage 3, GFR 30-59 ml/min Current Visit: No Status: Chronic GFR 30-40s at baseline Subjective Principal diagnosis: pneumonia Interval history: Pt seen and examined feels better with her breathing today. Making more UOP per pt. Objective - Vital Signs Vital signs: Vital Signs Temp Pulse Resp BP Pulse Ox 12/12/17 11:11 98.3 F 69 18 155/68 93 12/12/17 10:33 16 90 12/12/17 08:38 97.7 F 78 16 159/63 93 12/12/17 05:30 97.7 F 75 17 162/71 92 12/12/17 03:57 18 161/75 91 12/12/17 00:00 98 F 69 18 161/75 91 12/11/17 22:18 17 167/79 90 12/11/17 20:00 98.1 F 76 18 167/79 89 12/11/17 16:34 97.9 F 70 18 156/65 93 12/11/17 15:53 16 156/65 93 Intake and Output 12/11/17 12/12/17 12/12/17 23:59 07:59 15:59 Intake Total 380 / 380 220 / 220 320 / 320 Output Total 400 / 400 Balance 380 / 380 220 / 220 -80 / -80 Intake: IV Fluids 200 / 200 100 / 100 Flexbumin 25 gm In 100 ml @ 60 100 / 100 mls/hr IVPB 0730,1630 [facility] Rx#: [id number] Zosyn 3.375 GM In 0.9 % Sodium 100 / 100 100 / 100 Chloride (Mini-Bag +) 100 ML @ 25 mls/hr IVPB Q8HR [facility] Rx#: [id number] Oral 180 / 180 120 / 120 320 / 320 Output: Urine 400 / 400 Other: Meal Breakfast Percent of Meal Consumed 50% Stool Size Large Small Stool Consistency soft formed Stool Characteristics Normal for Patient Stool Color Brown Brown # Voids 1 # Urine Diapers 1 1 1 # Bowel Movements 1 Weight 143 kg Blood Glucose* 150 167 Patient Weight 12/12/17 23:59 Weight 143 kg - General Appearance General appearance: Present: chronically ill EENT: Present: ATNC, mucous membranes moist Neck: Present: no JVD, supple Additional Comments: decreased BS throughout Cardiology: Present: edema (LE/UE bilat), normal S1, normal S2 Gastrointestinal: Present: no tenderness, no guarding, obese Integumentary: Present: warm and dry Neurologic: Present: no focal deficit Musculoskeletal: Present: no deformities Psychiatric: Present: mood/affect appropriate - Lab 12/12/17 07:12 12/12/17 07:12 Most recent lab results ABG pH 7.36 pH Units (7.32-7.45) 12/07/17 18:25 ABG pCO2 46 mmHg (35-45) H 12/07/17 18:25 ABG pO2 83 mmHg (85-104) L 12/07/17 18:25 ABG HCO3 26 mEq/L (21-27) 12/07/17 18:25 ABG O2 Saturation 96 % (95-98) 12/07/17 18:25 Calcium 9.0 mg/dL (8.6-10.3) 12/12/17 07:12 Magnesium 1.6 mg/dL (1.6-2.6) 12/12/17 07:12 Urine Creatinine 98 mg/dL 12/11/17 05:22 Urine Total Protein 57 mg/dL (1-14) H 12/11/17 05:22 Consult Discharge Plan - Plan Referrals: Stephanie Morgan, RETOUCHING OPERATOR [Primary Care Provider] -
[2017-12-12] MEDS: Insulin DETEMIR 100 UNIT/ML X5UNITS SQ SCH (20:48)
[2017-12-13] MEDS: Piperacillin/Tazobactam 3.375 GM in 0.9 % Sodium Chloride Mini Bag 100 ML IVPB SCH ×3 (02:06→18:19)
[2017-12-13 03:05] LABS: ABG Base Excess 4 mEq/L (-2 to 3); ABG HCO3 31 mEq/L (21-27); ABG Oxygen Saturation 94 % (95-98); ABG PCO2 56 mmHg (35-45); ABG PH 7.35 pH Units (7.32-7.45); ABG PO2 75 mmHg (85-104); ABG TCO2 32 mEq/L (20-26)
[2017-12-13] MEDS: Ipratropium/Albuterol Neb 3 ML IH SCH ×4 (04:21→22:26)
[2017-12-13] MEDS: Aspirin Enteric Coated 81 MG Tablet PO SCH (08:52)
[2017-12-13] MEDS: levETIRAcetam 250 MG TABLET PO SCH ×2 (08:52→22:06)
[2017-12-13] MEDS: Cholecalciferol (D-3) 1,000 UNIT TABLET PO SCH (08:52)
[2017-12-13] MEDS: hydrALAZINE 25 MG TABLET PO SCH ×3 (08:53→22:06)
[2017-12-13] MEDS: Fluticasone Propionate Nasal 50 MCG/SPRAY BOTTLE NS SCH (08:55)
[2017-12-13 09:28] LABS: Basophils % 0.3 %; Eosinophils # 0.4 K/mcL (0.0-0.6); Eosinophils % 5.6 %; Hematocrit 28.2 % (35.3-44.9); Hemoglobin 8.4 g/dL (11.5-15.4); Immature Granulocytes % 0.3 % (0-4); Lymphocytes # 0.6 K/mcL (0.6-4.6); Lymphocytes % 7.8 %; Mean Corpuscular HGB Conc 29.8 g/dL (31.6-35.5); Mean Corpuscular Hemoglobin 26.5 pg (28.0-33.3); Mean Platelet Volume 9.8 fL (9.4-12.4); Monocytes # 0.6 K/mcL (0.0-1.3); Monocytes % 7.9 %; Neutrophils # 6.2 K/mcL (1.6-8.9); Platelet Count 208 K/mcL (140-400); Red Blood Count 3.17 M/mcL (3.82-4.97); Red Cell Distribution Width 16.9 % (11.5-14.5); Segmented Neutrophils % 78.1 %
[2017-12-13 09:50] LABS: Magnesium 1.5 mg/dL (1.6-2.6); Potassium 3.5 mEq/L (3.5-5.1)
--- NOTE | 2017-12-13 10:31 | Internal Med Progress Note ---
<Kylie Sosa - Last Filed: 12/13/17 13:02> Hospitalist Progress Note - Encounter Date of Encounter: 12/13/17 Time of Encounter: 09:15 - Subjective Interval History: The patient is a very pleasant 72 year female with a past medical history significant for brain cancer s/p craniotomy, lung and spine mets, recurrent pleural effusion, CHF, DM, HLD, CAD s/p stent and CABG, and ELPIDIO who presented to [facility] on 12/07/17 with HCAP. She was recently discharged from the hospital on after a stay for bilateral pleural effusions and Ct guided thoracocentesis. Patient has been receiving empiric antibiotics and IV Lasix for HCAP and pleural effusions. This is hospitalization day number 7. The patient was seen and examined at bedside this morning. Today, patient states she is feeling better but is still needing to use 7L of O2 when she is on . She is still experiencing urinary incontinence. The patient reports that her bipap does not seem to fit her right. She says that it leaks air after a while of having it on which is why she had been taking it off. Patient was also unclear as to the importance of wearing her bipap. After a conversation about why she needs the bipap clinically and how it works the patient was amenable to having her mask refit or getting a new mask so that it works properly for her. The patient currently denies any lightheadedness, dizziness, vision changes, headache, palpitations, abdominal pain, nausea, vomiting, edema, fever or chills. - Exam Vitals: Temp Pulse Resp BP Pulse Ox 97.8 F 75 17 167/71 93 12/13/17 06:35 12/13/17 06:35 12/13/17 06:35 12/13/17 06:35 12/13/17 06:35 Exam: Physical Exam: GENERAL: Patient is a 72 year old morbidly obese class III female in mild respiratory distress with appropriate affect. Alert & oriented x3. HEENT: Head is normocephalic, patient has visible metal plate in her cranium from prior craniotomy in 2008. Was supposed to undergo Surgery on 12/07/17 to fix the exposed plate but this has been rescheduled. EYES: PERRLA, EOMI. Sclera anincteric. MOUTH: Oropharynx clear. Mucous membranes moist. NECK: Supple, no masses, exam difficult due to large neck circumference. CV: Regular rate and rhythm. Normal S1, S2 with no clicks, murmurs, gallops, or rubs. PULMONARY: Decreased breath sounds bilaterally, could be due to habitus. Symmetrical chest expansion. Scattered rales and wheezes throughout. Accessory muscle usage. GI: Abdomen is soft, obese, nontender, positive bowel sounds x 4 present and appropriate. No peritoneal signs or guarding. No palpable masses. SKIN: Warm, dry and intact. No rashes, bruising, cyanosis or non healing lesions are seen. Pedal edema noted. NEUROLOGICAL: Alert, awake. CN II-XII grossly intact. Patient is moving all extremities and following commands appropriately. No focal deficits are noted. Muscle strength 5/5 x 4 extremities. VASCULAR/EXTREMITIES: Peripheral pulses palpable and equal. - Assessment and Plan (1) HCAP (healthcare-associated pneumonia) Current Visit: Yes Status: Acute Assessment and Plan: HCAP: Patient presented with dyspnea, increased thick sputum production, and required increased oxygen use. Chest X-ray showed lower lobe pneumonia with pleural effusion. Pulmonology and ID have been consulted. Recommend continuing Zosyn monotherapy for 10 days with lasix and albumin. - Causative Organism: Unknown - Sputum cultures grew normal respiratory fredrick - As per ID - continue Day #6/10 of IV Zosyn - MRSA swab negative, Legionella and Strep Pneumo antigen negative. Respiratory Negative. - Continue Supplemental O2 - 7L - Continue BiPAP but will have respiratory see patient for refitting of her mask since patient reported that oxygen has been leaking during usage - setting as per pulm - with FiO2 Bleed - Continue IV Lasix 40mg BID with albumin, strict I&Os - Continue Duonebs PRN Q4H (2) Acute and chronic respiratory failure with hypoxia Current Visit: Yes Status: Acute Assessment and Plan: Likely multifactorial due to CHF exacerbation and pneumonia. Continue close monitoring. Continue Supplemental oxygen. Continue Bipap, settings as per pulm. (3) Acute on chronic diastolic (congestive) heart failure Current Visit: Yes Status: Acute Assessment and Plan: Continuing lasix 40mg BID with albumin. Patient has had her briggs taken out due to likely asymptomatic bacteriuria. Staff has been advised to get strict I&Os. Patient has urinary incontinence so I&Os will not be fully accurate. (4) Renal failure (ARF), acute on chronic Current Visit: No Status: Acute Assessment and Plan: Patient has CKD Stage 3. This is improving. She is having consistent urinary output. Yesterday her total output was 1000ml and her input was 840ml. She currently has a BUN of 21 and Cr of 2.01. - Continue IV Lasix 40mg BID with albumin as per nephrology - Monitor strict I&Os - Avoid nephro toxic medications (5) Volume overload Current Visit: Yes Status: Acute (6) UTI (urinary tract infection) Current Visit: Yes Status: Acute Assessment and Plan: ID consulted. Most likely asymptomatic bacteriuria. Urine culture grew Klebsiella and ESBL E. coli. Patient already on day 08/15 of Zosyn. No other abx treatment indicated. (7) Diabetes mellitus Current Visit: No Status: Chronic Assessment and Plan: Last Hg A1c 6.1. Will continue ISS. Diabetic Diet. Accu-checks ACHS. (8) Hypertension Current Visit: No Status: Chronic Assessment and Plan: Continue home medications (9) Morbid obesity Current Visit: Yes Status: Acute (10) DVT prophylaxis Current Visit: No Status: Acute Assessment and Plan: EPCDs DVT Prophylaxis: held lovenox due to bloody urine. SCDs for DVT prophylaxis. - Time Spent with Patient Total time spent is greater than 50% in coordination of care (as documented) at patient's floor/unit and/or counseling patient: 25 - 35 minutes Plan of Care Discussed with: patient Internal Medicine: Result - Labs CBC & Chem 7: 12/13/17 08:58 12/13/17 08:58 Labs: Short CBC 12/13/17 Range/Units 08:58 WBC 7.9 (4.3-11.1) K/mcL Hgb 8.4 L (11.5-15.4) g/dL Hct 28.2 L (35.3-44.9) % Plt Count 208 (140-400) K/mcL Neutrophils # 6.2 (1.6-8.9) K/mcL BMP 12/13/17 08:58 Sodium 138 Potassium 3.5 Chloride 101 Carbon Dioxide 28 BUN 27 H Creatinine 2.01 H Glucose 144 H Calcium 9.0 - ABG Interpretation ABG results: ABG ABG pH 7.35 pH Units (7.32-7.45) 12/13/17 03:01 ABG pCO2 56 mmHg (35-45) H 12/13/17 03:01 ABG pO2 75 mmHg (85-104) L 12/13/17 03:01 ABG O2 Saturation 94 % (95-98) L 12/13/17 03:01 PT/INR, D-dimer PT 13.6 Seconds (9.4-12.1) H 12/07/17 15:36 Consult Discharge Plan - Plan Referrals: Stephanie Morgan, FACILITY ENVIRONMENTAL TECHNICIAN [Primary Care Provider] - <Phi Miranda - Last Filed: 12/13/17 17:37> Hospitalist Progress Note - Encounter Date of Encounter: 12/13/17 - Exam Vitals: Temp Pulse Resp BP Pulse Ox 98.1 F 77 18 156/94 92 12/13/17 16:48 12/13/17 16:48 12/13/17 16:48 12/13/17 16:48 12/13/17 16:48 - Assessment and Plan (1) Acute on chronic diastolic (congestive) heart failure Current Visit: Yes Status: Acute (2) Volume overload Current Visit: Yes Status: Acute (3) Acute and chronic respiratory failure with hypoxia Current Visit: Yes Status: Acute (4) COPD exacerbation Current Visit: Yes Status: Acute (5) HCAP (healthcare-associated pneumonia) Current Visit: Yes Status: Acute (6) UTI (urinary tract infection) Current Visit: Yes Status: Acute (7) Morbid obesity Current Visit: Yes Status: Acute (8) Acute renal failure superimposed on stage 3 chronic kidney disease Current Visit: No Status: Acute (9) Diabetes mellitus Current Visit: No Status: Chronic (10) Hypertension Current Visit: No Status: Chronic - Time Spent with Patient Total time spent is greater than 50% in coordination of care (as documented) at patient's floor/unit and/or counseling patient: Internal Medicine: Result - Labs CBC & Chem 7: 12/13/17 08:58 12/13/17 08:58 Labs: Short CBC 12/13/17 Range/Units 08:58 WBC 7.9 (4.3-11.1) K/mcL Hgb 8.4 L (11.5-15.4) g/dL Hct 28.2 L (35.3-44.9) % Plt Count 208 (140-400) K/mcL Neutrophils # 6.2 (1.6-8.9) K/mcL BMP 12/13/17 08:58 Sodium 138 Potassium 3.5 Chloride 101 Carbon Dioxide 28 BUN 27 H Creatinine 2.01 H Glucose 144 H Calcium 9.0 - ABG Interpretation ABG results: ABG ABG pH 7.35 pH Units (7.32-7.45) 12/13/17 03:01 ABG pCO2 56 mmHg (35-45) H 12/13/17 03:01 ABG pO2 75 mmHg (85-104) L 12/13/17 03:01 ABG O2 Saturation 94 % (95-98) L 12/13/17 03:01 PT/INR, D-dimer PT 13.6 Seconds (9.4-12.1) H 12/07/17 15:36 - Attending Attestation I examined this patient and my medical decision-making was reviewed with the Resident Physician Dr. Romero. I agree with the documented findings, disposition and treatment plan as described except to the extent set forth below. 72 year female with a past medical history significant for brain cancer s/p craniotomy, lung and spine mets, recurrent pleural effusion, CHF, DM, HLD, CAD s /p stent and CABG, and ELPIDIO who presented to [facility] on 12/07/17 with HCAP. She was recently discharged from the hospital on 12/02/17 after a stay for bilateral pleural effusions and Ct guided thoracocentesis. Pt was admitted in the hospital and started her on empirical abx. She states she is feeling little better today. However she is still on 8 lit NC O2. Pt has issues with BiPAP, not wearing it properly Gen: A, A, O x 3 Chest: Diminished BS b/l, Mild cackles, rales.. Heart: S1S2+ RRR No murmurs A/p 1. Acute on chronic hypoxic resp failure 2. Acute HCAP - mostly abcterial cont Duoneb + O2 cont broad sepc abx Appreciate Pulm Recommendations BiPAP as needed during day time and continuous at QHS 3. Acute on chronic diastolic CHF exacerbation 4. b/l Pleural effusions on Lasix 5. GLENNA with CKD-3 due to aggressive diuresis Improved Cont Lasix along with Albumin Nephro on board 6. UTI - ESBl E. Coli and Klebsiella ID consulted asymptomatic bacteriuria.. No treatment recommended by ID <IanKylie M - Last Filed: 12/13/17 13:02> (4) Renal failure (ARF), acute on chronic Qualifiers: Acute renal failure type: unspecified Chronic kidney disease stage: stage 3 ( moderate) Qualified Code(s): N17.9 - Acute kidney failure, unspecified; N18.3 - Chronic kidney disease, stage 3 (moderate) (5) Volume overload Qualifiers: Hypervolemia type: other Qualified Code(s): E87.79 - Other fluid overload (6) UTI (urinary tract infection) Qualifiers: Urinary tract infection type: site unspecified Hematuria presence: without hematuria Qualified Code(s): N39.0 - Urinary tract infection, site not specified (7) Diabetes mellitus Qualifiers: Diabetes mellitus type: type 2 Diabetes mellitus superintendent [employer] insulin use: with superintendent [employer] use Diabetes mellitus complication status: with kidney complications Diabetes mellitus complication detail: with chronic kidney disease Chronic kidney disease stage: stage 3 (moderate) Qualified Code(s): E11.22 - Type 2 diabetes mellitus with diabetic chronic kidney disease; N18.3 - Chronic kidney disease, stage 3 (moderate); Z79.4 - terminal gauger (current) use of insulin (8) Hypertension Qualifiers: Hypertension type: essential hypertension Qualified Code(s): I10 - Essential (primary) hypertension <Phi Miranda - Last Filed: 12/13/17 17:37> (2) Volume overload Qualifiers: Hypervolemia type: other Qualified Code(s): E87.79 - Other fluid overload (6) UTI (urinary tract infection) Qualifiers: Urinary tract infection type: site unspecified Hematuria presence: without hematuria Qualified Code(s): N39.0 - Urinary tract infection, site not specified (8) Acute renal failure superimposed on stage 3 chronic kidney disease Qualifiers: Acute renal failure type: unspecified Qualified Code(s): N17.9 - Acute kidney failure, unspecified; N18.3 - Chronic kidney disease, stage 3 (moderate) (9) Diabetes mellitus Qualifiers: Diabetes mellitus type: type 2 Diabetes mellitus mcc insulin use: with superintendent [employer] use Diabetes mellitus complication status: with kidney complications Diabetes mellitus complication detail: with chronic kidney disease Chronic kidney disease stage: stage 3 (moderate) Qualified Code(s): E11.22 - Type 2 diabetes mellitus with diabetic chronic kidney disease; N18.3 - Chronic kidney disease, stage 3 (moderate); Z79.4 - terminal gauger (current) use of insulin (10) Hypertension Qualifiers: Hypertension type: essential hypertension Qualified Code(s): I10 - Essential (primary) hypertension
--- NOTE | 2017-12-13 11:21 | Nephrology Progress Note ---
Date of Encounter: 12/13/17 Time of Encounter: 11:18 - Assessment and Plan (1) Acute kidney injury Current Visit: No Status: Acute SCr stable at 2.01 and GFR of 24. UOP noted to be 1000 over the last 24 hours. Continue to avoid nephrotoxins if possible (2) CKD (chronic kidney disease) stage 3, GFR 30-59 ml/min Current Visit: No Status: Chronic GFR 30-40s at baseline (3) HCAP (healthcare-associated pneumonia) Current Visit: Yes Status: Acute per primary team (4) Acute and chronic respiratory failure with hypoxia Current Visit: Yes Status: Acute Continue COPD/PNA treatment per primary team (5) Acute on chronic diastolic (congestive) heart failure Current Visit: Yes Status: Acute Continue lasix/albumin today. Fluid restriction Strict I/Os (6) Volume overload Current Visit: Yes Status: Acute Strict I/O. Qualifiers: Hypervolemia type: other Qualified Code(s): E87.79 - Other fluid overload Subjective Principal diagnosis: pneumonia Interval history: PT seen and examined, doing well. Denies CP/SOB. Admits to feeling fatigued. Denies nausea/vomiting. Objective - Vital Signs Vital signs: Vital Signs Temp Pulse Resp BP Pulse Ox 12/13/17 10:43 17 93 12/13/17 10:40 98.1 F 71 18 155/60 89 12/13/17 06:35 97.8 F 75 17 167/71 93 12/13/17 04:21 14 92 12/13/17 03:12 97.4 F L 70 16 146/75 92 12/13/17 00:04 97.5 F L 73 16 141/71 93 12/12/17 22:42 14 92 12/12/17 19:09 98.2 F 85 18 171/82 92 12/12/17 16:27 16 93 12/12/17 16:21 98.5 F 74 16 192/79 94 Intake and Output 12/12/17 12/13/17 12/13/17 23:59 07:59 15:59 Intake Total 100 / 100 100 / 100 Output Total 600 / 600 Balance -500 / -500 100 / 100 Intake: IV Fluids 100 / 100 100 / 100 Zosyn 3.375 GM In 0.9 % Sodium 100 / 100 100 / 100 Chloride (Mini-Bag +) 100 ML @ 25 mls/hr IVPB Q8H [facility] Rx#: [id number] Output: Urine 600 / 600 Other: Stool Size Moderate Stool Consistency soft formed Stool Color Brown # Voids 1 1 Weight 143.7 kg Blood Glucose* 194 145 172 Patient Weight 12/13/17 23:59 Weight 143.7 kg - General Appearance General appearance: Present: well-developed, well-nourished, obese EENT: Present: ATNC, hearing intact, vision intact Neck: Present: supple Respiratory: Present: clear Cardiology: Present: edema, normal S1, normal S2 Additional Comments: +1 tense, pitting edema noted to bilat lower extremities. Gastrointestinal: Present: normoactive bowel sounds, no tenderness, no guarding Integumentary: Present: no rash, warm and dry Neurologic: Present: alert and oriented x3 Psychiatric: Present: mood/affect appropriate, cooperative - Lab 12/13/17 08:58 12/13/17 08:58 Most recent lab results ABG pH 7.35 pH Units (7.32-7.45) 12/13/17 03:01 ABG pCO2 56 mmHg (35-45) H 12/13/17 03:01 ABG pO2 75 mmHg (85-104) L 12/13/17 03:01 ABG HCO3 31 mEq/L (21-27) H 12/13/17 03:01 ABG O2 Saturation 94 % (95-98) L 12/13/17 03:01 Calcium 9.0 mg/dL (8.6-10.3) 12/13/17 08:58 Magnesium 1.5 mg/dL (1.6-2.6) L 12/13/17 08:58 Urine Creatinine 98 mg/dL 12/11/17 05:22 Urine Total Protein 57 mg/dL (1-14) H 12/11/17 05:22 Consult Discharge Plan - Plan Referrals: Stephanie Morgan, GATE KEEPER [Primary Care Provider] -
--- NOTE | 2017-12-13 12:17 | Infectious Disease Progress No ---
Date of Encounter: 12/13/17 Time of Encounter: 12:15 - Assessment and Plan (1) Sepsis Current Visit: Yes Status: Acute The patient had 2 sepsis criteria on admission. Likely secondary to pneumonia. Improved. White blood cell count has normalized. Tachypnea has resolved. Blood cultures drawn 12/07/17 are no growth to date 2 sets. Qualifiers: Sepsis type: sepsis due to unspecified organism Qualified Code(s): A41.9 - Sepsis, unspecified organism (2) Pneumonia Current Visit: Yes Status: Acute Location bilateral bases. Causative organism: Unclear. Chest x-ray completed 12/07/17 showed a worsening of left basilar opacity and pleural effusion and stable right basilar opacity and effusion. Etiology unclear, but aspiration does not seem to be playing a part in this. Strep pneumococcal and legionella urinary antigens are negative. MRSA screen was negative. Respiratory infectious panel was negative. Sputum culture obtained 2 were interpreted as normal upper respiratory tract fredrick. Clinically, the patient appears improved. Repeat CXR 12/10/17 showed no evidence of PNA. Discontinue Levaquin. Continue Zosyn 3.375 g IV every 8 hours. (day 7) Duration of treatment depends on the clinical picture, but likely a total of 10 days. Can likely transition to PO antibiotics if ready for discharge prior to completing course of treatment. Monitor renal function and dose adjust antibiotics. Qualifiers: Pneumonia type: due to unspecified organism Laterality: left Lung location: lower lobe of lung Qualified Code(s): J18.1 - Lobar pneumonia, unspecified organism (3) UTI (urinary tract infection) Current Visit: Yes Status: Acute Asymptomatic bacteriuria. Urine culture positive for Klebsiella pneumoniae and Escherichia coli ESBL. No indication to treat. Continue contact precautions per hospital policy. Qualifiers: Urinary tract infection type: site unspecified Hematuria presence: without hematuria Qualified Code(s): N39.0 - Urinary tract infection, site not specified (4) Pleural effusion Current Visit: Yes Status: Acute Location: Bilateral. Etiology: Likely multifactorial (CHF plus malignancy) Pulmonology consulted. Performed bedside ultrasound that showed a small left and trivial right-sided pleural effusion that are not amenable to drainage. Diuresis per the primary team. (5) Acute renal failure superimposed on stage 3 chronic kidney disease Current Visit: No Status: Acute Improved. Etiology unclear. Continue to trend. Vanc stopped. Dose-adjust antibiotics and other medications. Nephrology consulted and following. Qualifiers: Acute renal failure type: unspecified Qualified Code(s): N17.9 - Acute kidney failure, unspecified; N18.3 - Chronic kidney disease, stage 3 (moderate) (6) Acute and chronic respiratory failure with hypoxia Current Visit: Yes Status: Acute Likely multifactorial: COPD + CHF + pleural effusions Appears improved. Management per the primary team. 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 Patient follows with Dr. Ny at the [facility]. Treatment on hold until cranial hardware exposure can be fixed. (12) Skin lesion of scalp Current Visit: No Status: Acute Previous cranial surgery hardware exposed since 2008. Referred to plastic surgery and neurosurgery at [place] with surgery planned for December 21. (13) Diabetes mellitus Current Visit: No Status: Chronic Recommend aggressive glucose monitoring and control to promote wound healing and prevent reinfection. Management per the primary team. Qualifiers: Diabetes mellitus type: type 2 Diabetes mellitus correction insulin use: with moth exterminator use Diabetes mellitus complication status: with kidney complications Diabetes mellitus complication detail: with chronic kidney disease Chronic kidney disease stage: stage 3 (moderate) Qualified Code(s): E11.22 - Type 2 diabetes mellitus with diabetic chronic kidney disease; N18.3 - Chronic kidney disease, stage 3 (moderate); Z79.4 - extermination inspector (current) use of insulin (14) Hypertension Current Visit: No Status: Chronic Qualifiers: Hypertension type: essential hypertension Qualified Code(s): I10 - Essential (primary) hypertension (15) Hypothyroid Current Visit: No Status: Chronic Qualifiers: Hypothyroidism type: acquired Qualified Code(s): E03.9 - Hypothyroidism, unspecified (16) CHF (congestive heart failure) Current Visit: Yes Status: Chronic Qualifiers: Heart failure type: diastolic Heart failure chronicity: acute on chronic Qualified Code(s): I50.33 - Acute on chronic diastolic (congestive) heart failure - Subjective Interval history: Patient seen and examined. No acute events noted overnight. Patient states overall she feels okay. Reports shortness of breath a little worse since yesterday and still coughing up green sputum. Denies chest or abdominal pain. Reports some nausea this morning that has resolved. Denies abdominal pain or urinary complaints. States appetite is okay. Denies oral thrush or new skin lesions. Infect Dis PN-Objective Data - Labs CBC & Chem 7: 12/13/17 08:58 12/13/17 08:58 Labs: Laboratory Results - last 24 hr 12/12/17 12/12/17 12/12/17 11:10 16:25 20:21 WBC RBC Hgb Hct MCV MCH MCHC RDW Plt Count MPV Immature Gran % Seg Neutrophils % Lymphocytes % Monocytes % Eosinophils % Basophils % Neutrophils # Lymphocytes # Monocytes # Eosinophils # Basophils # Sample Site ABG pH ABG pCO2 ABG pO2 ABG HCO3 ABG Total CO2 ABG O2 Saturation ABG Base Excess Balta Test O2 Delivery Device Inspired O2 Sodium Potassium Chloride Carbon Dioxide BUN Creatinine Est GFR ( Amer) Est GFR (Non-Af Amer) BUN/Creatinine Ratio Glucose POC Glucose 167 H 178 H 194 H Calculated Osmolality Calcium Magnesium 12/13/17 12/13/17 12/13/17 03:01 08:58 08:58 WBC 7.9 RBC 3.17 L Hgb 8.4 L Hct 28.2 L MCV 89.0 MCH 26.5 L MCHC 29.8 L RDW 16.9 H Plt Count 208 MPV 9.8 Immature Gran % 0.3 Seg Neutrophils % 78.1 Lymphocytes % 7.8 Monocytes % 7.9 Eosinophils % 5.6 Basophils % 0.3 Neutrophils # 6.2 Lymphocytes # 0.6 Monocytes # 0.6 Eosinophils # 0.4 Basophils # 0.0 Sample Site R Radial ABG pH 7.35 ABG pCO2 56 H ABG pO2 75 L ABG HCO3 31 H ABG Total CO2 32 H ABG O2 Saturation 94 L ABG Base Excess 4 H Balta Test Positive O2 Delivery Device BiPAP Inspired O2 45.0 Sodium 138 Potassium 3.5 Chloride 101 Carbon Dioxide 28 BUN 27 H Creatinine 2.01 H Est GFR ( Amer) 30 L Est GFR (Non-Af Amer) 24 L BUN/Creatinine Ratio 13 Glucose 144 H POC Glucose Calculated Osmolality 294 Calcium 9.0 Magnesium 1.5 L Cultures: Cultures 12/08/17 17:50 Urine Culture - Final Urine,Clean Catch No significant growth. 12/10/17 01:15 Sputum Culture - Final Sputum 12/09/17 06:00 Sputum Culture - Final Sputum 12/08/17 17:50 Streptococcus pneumoniae Antigen (M - Final Urine,Catheterized 12/08/17 17:50 Legionella Antigen - Final Urine,Catheterized Serology 12/11/17 12/10/17 12/09/17 Range/Units 05:22 09:55 06:00 Urine Creatinine 98 mg/dL Urine Microalbumin 53 mg/L Microalb/Creat Ratio 54 H (Less than 30) mcg/mg Urine Urea Nitrogen 412 mg/dL Urine Total Protein 57 H (1-14) mg/dL Nasal Screen MRSA (PCR) Negative (Negative) Chlamy pneumoniae PCR Not Detected (Not Detect) Adenovirus (PCR) Not Detected (Not Detect) B. pertussis DNA (PCR) Not Detected (Not Detect) B.parapertussis DNA PCR Not Detected (Not Detect) Coronavirus OC43 (PCR) Not Detected (Not Detect) Coronavirus HKU1 (PCR) Not Detected (Not Detect) Coronavirus 229E (PCR) Not Detected (Not Detect) Coronavirus NL63 (PCR) Not Detected (Not Detect) Human Metapneumovir PCR Not Detected (Not Detect) Influenza A (H1) PCR Not Detected (Not Detect) Influ A (H1N1/09) PCR Not Detected (Not Detect) Influenza A (H3) PCR Not Detected (Not Detect) Influenza A Untype (PCR) Not Detected (Not Detect) Influenza Type B (PCR) Not Detected (Not Detect) M.pneumoniae DNA (PCR) Not Detected (Not Detect) Parainfluenza 1 (PCR) Not Detected (Not Detect) Parainfluenza 2 (PCR) Not Detected (Not Detect) Parainfluenza 3 (PCR) Not Detected (Not Detect) Parainfluenza 4 (PCR) Not Detected (Not Detect) RSV (PCR) Not Detected (Not Detect) Entero/Rhino (PCR) Not Detected (Not Detect) 12/09/17 Range/Units 06:00 Urine Creatinine mg/dL Urine Microalbumin mg/L Microalb/Creat Ratio (Less than 30) mcg/mg Urine Urea Nitrogen mg/dL Urine Total Protein (1-14) mg/dL Nasal Screen MRSA (PCR) Negative (Negative) Chlamy pneumoniae PCR (Not Detect) Adenovirus (PCR) (Not Detect) B. pertussis DNA (PCR) (Not Detect) B.parapertussis DNA PCR (Not Detect) Coronavirus OC43 (PCR) (Not Detect) Coronavirus HKU1 (PCR) (Not Detect) Coronavirus 229E (PCR) (Not Detect) Coronavirus NL63 (PCR) (Not Detect) Human Metapneumovir PCR (Not Detect) Influenza A (H1) PCR (Not Detect) Influ A (H1N1/09) PCR (Not Detect) Influenza A (H3) PCR (Not Detect) Influenza A Untype (PCR) (Not Detect) Influenza Type B (PCR) (Not Detect) M.pneumoniae DNA (PCR) (Not Detect) Parainfluenza 1 (PCR) (Not Detect) Parainfluenza 2 (PCR) (Not Detect) Parainfluenza 3 (PCR) (Not Detect) Parainfluenza 4 (PCR) (Not Detect) RSV (PCR) (Not Detect) Entero/Rhino (PCR) (Not Detect) Exam - Constitutional Vitals: Temp Pulse Resp BP Pulse Ox 98.1 F 71 17 155/60 93 12/13/17 10:40 12/13/17 10:40 12/13/17 10:43 12/13/17 10:40 12/13/17 10:43 General appearance: cooperative, morbidly obese, no acute distress - Head Head exam: Present: atraumatic, normal inspection, normocephalic - Eye Eye exam: Present: EOMI, normal appearance, PERRL Pupils: Present: normal accommodation - ENT ENT exam: Present: mucous membranes moist - Neck Neck exam: Present: normal inspection - Respiratory Respiratory exam: Present: CTAB. Absent: rales, respiratory distress, rhonchi, wheezes - Cardiovascular Cardiovascular exam: Present: RRR, +S1, +S2 - GI/Abdominal GI/Abdominal exam: Present: distended (obese), normal bowel sounds, soft. Absent: tenderness - Extremities Exam Extremities exam: Present: normal inspection. Absent: joint swelling, pedal edema, tenderness - Neurological Exam Neurological exam: Present: alert, oriented X3, no focal deficits - Psychiatric Psychiatric exam: Present: normal affect, normal mood - Skin Skin exam: Present: dry, intact, normal color, warm Consult Discharge Plan - Plan Referrals: Stephanie Morgan, DIRECTOR TRANSLATION [Primary Care Provider] - - Attending Attestation I examined this patient and my medical decision-making was reviewed with the Resident Physician. I agree with the documented findings, disposition and treatment plan as described except to the extent set forth below.
[2017-12-13] MEDS: Furosemide 40 MG/4 ML VIAL IVP SCH ×2 (12:49→18:19)
[2017-12-13] MEDS: Albumin 25% 25gram/100mL 25 GM/100 ML IV.SOLN IVPB SCH ×2 (13:43→16:39)
--- NOTE | 2017-12-13 15:58 | Electrocardiograph Report ---
[place] [address] Test Date: 2017-12-09 Pat Name: Van Almanza Department: 111 Room: E35 Gender: F Workgroup Leader: : [id number] Requested By: Alfredo Daniel Order Number: [id number] Reading MD: Luis Feng Measurements Intervals [place] Rate: 70 P: 46 [place]: 165 QRS: -59 QRSD: 121 T: -31 QT: 403 QTc: 425 Interpretive Statements SINUS RHYTHM RIGHT BUNDLE BRANCH BLOCK LEFT ANTERIOR FASCICULAR BLOCK Electronically Signed On 12-13-2017 15:56:19 EDT by Luis Feng
[2017-12-13] MEDS: Insulin DETEMIR 100 UNIT/ML X5UNITS SQ SCH (22:06)
[2017-12-14] MEDS: Piperacillin/Tazobactam 3.375 GM in 0.9 % Sodium Chloride Mini Bag 100 ML IVPB SCH ×3 (02:23→18:02)
[2017-12-14] MEDS: Ipratropium/Albuterol Neb 3 ML IH SCH ×4 (03:40→21:05)
[2017-12-14] MEDS: Albumin 25% 25gram/100mL 25 GM/100 ML IV.SOLN IVPB SCH (06:40)
[2017-12-14 07:30] LABS: Calcium 9.3 mg/dL (8.6-10.3); Potassium 3.4 mEq/L (3.5-5.1)
[2017-12-14] MEDS: Aspirin Enteric Coated 81 MG Tablet PO SCH (09:21)
[2017-12-14] MEDS: Cholecalciferol (D-3) 1,000 UNIT TABLET PO SCH (09:21)
[2017-12-14] MEDS: hydrALAZINE 25 MG TABLET PO SCH ×3 (09:22→22:28)
[2017-12-14] MEDS: levETIRAcetam 250 MG TABLET PO SCH ×2 (09:22→22:28)
[2017-12-14] MEDS: Furosemide 40 MG/4 ML VIAL IVP SCH (09:24)
--- NOTE | 2017-12-14 11:51 | Nephrology Progress Note ---
Date of Encounter: 12/14/17 Time of Encounter: 11:48 - Assessment and Plan (1) Acute kidney injury Current Visit: No Status: Acute SCr stable at 1.93 and GFR of 26. UOP noted to be 100 over the last 24 hours, unsure if this is accurate. Continue to avoid nephrotoxins if possible. Stop lasix/albumin today. Start lasix 20 mg PO BID until seen by Dr. Cummings on 01/03/18 BMP in 7 days after d/c. Fluid restriction. (2) Acute on chronic diastolic (congestive) heart failure Current Visit: Yes Status: Acute Stop lasix/albumin today. Start lasix 20 mg PO BID until seen by Dr. Cummings on 01/03/18 BMP in 7 days after d/c. Fluid restriction. Strict I/Os (3) CKD (chronic kidney disease) stage 3, GFR 30-59 ml/min Current Visit: No Status: Chronic GFR 30-40s at baseline (4) HCAP (healthcare-associated pneumonia) Current Visit: Yes Status: Acute per primary team (5) Acute and chronic respiratory failure with hypoxia Current Visit: Yes Status: Acute Continue COPD/PNA treatment per primary team (6) Volume overload Current Visit: Yes Status: Acute Strict I/O. Qualifiers: Hypervolemia type: other Qualified Code(s): E87.79 - Other fluid overload Subjective Principal diagnosis: pneumonia Interval history: PT seen and examined, doing well. Denies CP/SOB. Admits to feeling fatigued but a little better today. Denies nausea/vomiting. Objective - Vital Signs Vital signs: Vital Signs Temp Pulse Resp BP Pulse Ox 12/14/17 10:10 16 94 12/14/17 08:00 98.6 F 78 16 151/69 93 12/14/17 04:00 97.4 F L 74 22 157/72 95 12/14/17 03:40 20 93 12/14/17 00:00 66 20 157/72 93 12/13/17 22:37 16 96 12/13/17 16:48 98.1 F 77 18 156/94 92 12/13/17 15:49 14 94 Intake and Output 12/13/17 12/14/17 12/14/17 23:59 07:59 15:59 Intake Total 300 / 300 0 / 0 Balance 300 / 300 0 / 0 Intake: IV Fluids 300 / 300 Flexbumin 25 gm In 100 ml @ 60 100 / 100 mls/hr IVPB 0730,1630 [facility] Rx#: [id number] Zosyn 3.375 GM In 0.9 % Sodium 200 / 200 Chloride (Mini-Bag +) 100 ML @ 25 mls/hr IVPB Q8H [facility] Rx#: [id number] Oral 0 / 0 Other: # Voids 2 Weight 140.5 kg Blood Glucose* 142 135 Patient Weight 12/14/17 23:59 Weight 140.5 kg - General Appearance General appearance: Present: well-developed, well-nourished EENT: Present: ATNC, hearing intact, vision intact Neck: Present: supple Respiratory: Present: clear Cardiology: Present: edema (+2 pitting edema noted ), normal S1, normal S2 Gastrointestinal: Present: normoactive bowel sounds, no tenderness, no guarding Integumentary: Present: no rash, warm and dry Neurologic: Present: alert and oriented x3 Psychiatric: Present: mood/affect appropriate, cooperative - Lab 12/13/17 08:58 12/14/17 04:00 Most recent lab results ABG pH 7.35 pH Units (7.32-7.45) 12/13/17 03:01 ABG pCO2 56 mmHg (35-45) H 12/13/17 03:01 ABG pO2 75 mmHg (85-104) L 12/13/17 03:01 ABG HCO3 31 mEq/L (21-27) H 12/13/17 03:01 ABG O2 Saturation 94 % (95-98) L 12/13/17 03:01 Calcium 9.3 mg/dL (8.6-10.3) 12/14/17 04:00 Magnesium 1.5 mg/dL (1.6-2.6) L 12/13/17 08:58 Urine Creatinine 98 mg/dL 12/11/17 05:22 Urine Total Protein 57 mg/dL (1-14) H 12/11/17 05:22 Consult Discharge Plan - Plan Referrals: Stephanie Morgan, CENTRAL PROCESSING TECH [Primary Care Provider] -
--- NOTE | 2017-12-14 11:58 | Internal Med Progress Note ---
<Kylie Sosa - Last Filed: 12/14/17 13:38> Hospitalist Progress Note - Encounter Date of Encounter: 12/14/17 Time of Encounter: 08:45 - Subjective Interval History: The patient is a very pleasant 72 year female with a past medical history significant for brain cancer s/p craniotomy, lung and spine mets, recurrent pleural effusion, CHF, DM, HLD, CAD s/p stent and CABG, and ELPIDIO who presented to [facility] on 12/07/17 with HCAP. She was recently discharged from the hospital on after a stay for bilateral pleural effusions and Ct guided thoracocentesis. Patient has been receiving empiric antibiotics and IV Lasix for HCAP and pleural effusions. This is hospitalization day number 7. The patient was seen and examined at bedside this morning. Today, patient states she is feeling better and can breathe better after using her BiPap PRN throughout yesterday and overnight. Respiratory saw patient yesterday and confirmed that her mask fit her properly and that the noise she was hearing was the exhalation valve. However, she is still using 8L of O2 NC. She is still experiencing urinary incontinence. The patient currently denies any lightheadedness, dizziness, vision changes, headache, palpitations, abdominal pain, nausea, vomiting, edema, fever or chills. - Exam Vitals: Temp Pulse Resp BP Pulse Ox 98.6 F 78 16 151/69 94 12/14/17 08:00 12/14/17 08:00 12/14/17 10:10 12/14/17 08:00 12/14/17 10:10 Exam: Physical Exam: GENERAL: Patient is a 72 year old morbidly obese class III female in mild respiratory distress with appropriate affect. Alert & oriented x3. HEENT: Head is normocephalic, patient has visible metal plate in her cranium from prior craniotomy in 2008. Was supposed to undergo Surgery on 12/07/17 to fix the exposed plate but this has been rescheduled. EYES: PERRLA, EOMI. Sclera anincteric. MOUTH: Oropharynx clear. Mucous membranes moist. NECK: Supple, no masses, exam difficult due to large neck circumference. CV: Regular rate and rhythm. Normal S1, S2 with no clicks, murmurs, gallops, or rubs. PULMONARY: CTA but muffled breath sounds bilaterally, could be due to habitus. Symmetrical chest expansion. Accessory muscle usage. No wheezes, rales, rhonchi. GI: Abdomen is soft, obese, nontender, positive bowel sounds x 4 present and appropriate. No peritoneal signs or guarding. No palpable masses. SKIN: Warm, dry and intact. No rashes, bruising, cyanosis or non healing lesions are seen. Trace pedal edema noted but improved. NEUROLOGICAL: Alert, awake. CN II-XII grossly intact. Patient is moving all extremities and following commands appropriately. No focal deficits are noted. Muscle strength 5/5 x 4 extremities. VASCULAR/EXTREMITIES: Peripheral pulses palpable and equal. - Assessment and Plan (1) HCAP (healthcare-associated pneumonia) Current Visit: Yes Status: Acute Assessment and Plan: HCAP: Patient presented with dyspnea, increased thick sputum production, and required increased oxygen use. Chest X-ray showed lower lobe pneumonia with pleural effusion. Pulmonology and ID have been consulted. Recommend continuing Zosyn monotherapy for 10 days with lasix and albumin. - Causative Organism: Unknown - Sputum cultures grew normal respiratory fredrick - As per ID - continue Day #7/10 of IV Zosyn - MRSA swab negative, Legionella and Strep Pneumo antigen negative. Respiratory Negative. - Continue Supplemental O2 but begin trials of weaning off of O2, currently on 8L - O2 Sats 93 - Continue BiPAP - setting as per pulm - with FiO2 Bleed, can be used PRN throughout the day and continuously at night. - Continue Duonebs PRN Q4H (2) Acute and chronic respiratory failure with hypoxia Current Visit: Yes Status: Acute Assessment and Plan: Likely multifactorial due to CHF exacerbation and pneumonia. Continue close monitoring - Consult Palliative - Will order PT (3) Acute on chronic diastolic (congestive) heart failure Current Visit: Yes Status: Acute Assessment and Plan: Continuing lasix 40mg BID with albumin. Patient has had her briggs taken out due to likely asymptomatic bacteriuria. Staff has been advised to get strict I&Os. Patient has urinary incontinence so I&Os will not be fully accurate. - Continue IV Lasix 40mg BID with albumin, strict I&Os - patient is down 4lbs and improved clinically (4) Renal failure (ARF), acute on chronic Current Visit: No Status: Acute Assessment and Plan: Patient has CKD Stage 3. This is improving. She is having consistent urinary output. Yesterday her total output was 1000ml and her input was 840ml. She currently has a BUN of 27 and 1.93. - Continue IV Lasix 40mg BID with albumin as per nephrology - Monitor strict I&Os - Avoid nephro toxic medications (5) Volume overload Current Visit: Yes Status: Acute (6) UTI (urinary tract infection) Current Visit: Yes Status: Acute Assessment and Plan: ID consulted. Most likely asymptomatic bacteriuria. Urine culture grew Klebsiella and ESBL E. coli. Patient already on day 09/14 of Zosyn. No other abx treatment indicated. Contact precautions for ESBL as per hospital protocol. (7) Diabetes mellitus Current Visit: No Status: Chronic Assessment and Plan: Last Hg A1c 6.1. Will continue ISS. Diabetic Diet. Accu-checks ACHS (8) Hypertension Current Visit: No Status: Chronic Assessment and Plan: Continue home medications (9) Morbid obesity Current Visit: Yes Status: Acute (10) DVT prophylaxis Current Visit: No Status: Acute Assessment and Plan: EPCDs - Time Spent with Patient Total time spent is greater than 50% in coordination of care (as documented) at patient's floor/unit and/or counseling patient: 25 - 35 minutes Plan of Care Discussed with: patient Internal Medicine: Result - Labs CBC & Chem 7: 12/13/17 08:58 12/14/17 04:00 Labs: BMP 12/14/17 04:00 Sodium 137 Potassium 3.4 L Chloride 101 Carbon Dioxide 29 BUN 27 H Creatinine 1.93 H Glucose 125 H Calcium 9.3 - ABG Interpretation ABG results: ABG ABG pH 7.35 pH Units (7.32-7.45) 12/13/17 03:01 ABG pCO2 56 mmHg (35-45) H 12/13/17 03:01 ABG pO2 75 mmHg (85-104) L 12/13/17 03:01 ABG O2 Saturation 94 % (95-98) L 12/13/17 03:01 PT/INR, D-dimer PT 13.6 Seconds (9.4-12.1) H 12/07/17 15:36 Consult Discharge Plan - Plan Referrals: Stephanie Morgan, [facility] [employer] [facility] [Primary Care Provider] - <Ivana Lee - Last Filed: 12/14/17 16:10> Hospitalist Progress Note - Encounter Date of Encounter: 12/14/17 - Exam Vitals: Temp Pulse Resp BP Pulse Ox 97.8 F 78 16 165/69 94 12/14/17 12:34 12/14/17 12:34 12/14/17 12:34 12/14/17 12:34 12/14/17 12:34 - Assessment and Plan (1) Diabetes mellitus Current Visit: No Status: Chronic (2) Hypertension Current Visit: No Status: Chronic (3) Acute renal failure superimposed on stage 3 chronic kidney disease Current Visit: No Status: Acute (4) COPD exacerbation Current Visit: Yes Status: Acute (5) UTI (urinary tract infection) Current Visit: Yes Status: Acute (6) HCAP (healthcare-associated pneumonia) Current Visit: Yes Status: Acute (7) Acute and chronic respiratory failure with hypoxia Current Visit: Yes Status: Acute (8) Morbid obesity Current Visit: Yes Status: Acute (9) Acute on chronic diastolic (congestive) heart failure Current Visit: Yes Status: Acute (10) Volume overload Current Visit: Yes Status: Acute - Time Spent with Patient Total time spent is greater than 50% in coordination of care (as documented) at patient's floor/unit and/or counseling patient: Internal Medicine: Result - Labs CBC & Chem 7: 12/13/17 08:58 12/14/17 04:00 Labs: BMP 12/14/17 04:00 Sodium 137 Potassium 3.4 L Chloride 101 Carbon Dioxide 29 BUN 27 H Creatinine 1.93 H Glucose 125 H Calcium 9.3 - ABG Interpretation ABG results: ABG ABG pH 7.35 pH Units (7.32-7.45) 12/13/17 03:01 ABG pCO2 56 mmHg (35-45) H 12/13/17 03:01 ABG pO2 75 mmHg (85-104) L 12/13/17 03:01 ABG O2 Saturation 94 % (95-98) L 12/13/17 03:01 PT/INR, D-dimer PT 13.6 Seconds (9.4-12.1) H 12/07/17 15:36 - Attending Attestation 72 year female with a past medical history significant for brain cancer s/p craniotomy, lung and spine mets, recurrent pleural effusion, CHF, DM, HLD, CAD s /p stent and CABG, and ELPIDIO who presented to [facility] on 12/07/17 with HCAP. She was recently discharged from the hospital on 12/02/17 after a stay for bilateral pleural effusions and Ct guided thoracocentesis. Pt was admitted in the hospital and started her on empirical abx. S: She states her breathing has improved Exam GENERAL: Patient is a 72 year old morbidly obese class III female in mild respiratory distress with appropriate affect. Alert & oriented x3. HEENT: Head is normocephalic, patient has visible metal plate in her cranium from prior craniotomy in 2008. Was supposed to undergo Surgery on 12/07/17 to fix the exposed plate but this has been rescheduled. EYES: PERRLA, EOMI. Sclera anincteric. MOUTH: Oropharynx clear. Mucous membranes moist. NECK: Supple, no masses, exam difficult due to large neck circumference. CV: Regular rate and rhythm. Normal S1, S2 with no clicks, murmurs, gallops, or rubs. PULMONARY: CTA but muffled breath sounds bilaterally, could be due to habitus. Symmetrical chest expansion. Accessory muscle usage. No wheezes, rales, rhonchi. GI: Abdomen is soft, obese, nontender, positive bowel sounds x 4 present and appropriate. No peritoneal signs or guarding. No palpable masses. SKIN: Warm, dry and intact. No rashes, bruising, cyanosis or non healing lesions are seen. Trace pedal edema noted but improved. NEUROLOGICAL: Alert, awake. CN II-XII grossly intact. Patient is moving all extremities and following commands appropriately. No focal deficits are noted. Muscle strength 5/5 x 4 extremities. Plan Sepsis likely secondary to bacterial HCAP. Continue zosyn to complete 10 day course. Improving. Plan to discharge on po augmentin or levaquin HCAP. See #1 GLENNA on CKD stage 3. Monitor creatinine Acute on chronic diastolic CHF. Continue lasix UTI. Asymptomatic bacteruria. No indication to treat. Acute hypoxic respiratory failure 2/2 to HCAP. Continue antibiotics. Wean off oxygen as tolerated DVT prophylaxis. SCDs <Kylie Sosa Tatiana - Last Filed: 12/14/17 13:38> (4) Renal failure (ARF), acute on chronic Qualifiers: Acute renal failure type: unspecified Chronic kidney disease stage: stage 3 ( moderate) Qualified Code(s): N17.9 - Acute kidney failure, unspecified; N18.3 - Chronic kidney disease, stage 3 (moderate) (5) Volume overload Qualifiers: Hypervolemia type: other Qualified Code(s): E87.79 - Other fluid overload (6) UTI (urinary tract infection) Qualifiers: Urinary tract infection type: site unspecified Hematuria presence: without hematuria Qualified Code(s): N39.0 - Urinary tract infection, site not specified (7) Diabetes mellitus Qualifiers: Diabetes mellitus type: type 2 Diabetes mellitus termite exterminator insulin use: with termite exterminator use Diabetes mellitus complication status: with kidney complications Diabetes mellitus complication detail: with chronic kidney disease Chronic kidney disease stage: stage 3 (moderate) Qualified Code(s): E11.22 - Type 2 diabetes mellitus with diabetic chronic kidney disease; N18.3 - Chronic kidney disease, stage 3 (moderate); Z79.4 - termite exterminator (current) use of insulin (8) Hypertension Qualifiers: Hypertension type: essential hypertension Qualified Code(s): I10 - Essential (primary) hypertension <Ivana Lee - Last Filed: 12/14/17 16:10> (1) Diabetes mellitus Qualifiers: Diabetes mellitus type: type 2 Diabetes mellitus long-term insulin use: with termite exterminator use Diabetes mellitus complication status: with kidney complications Diabetes mellitus complication detail: with chronic kidney disease Chronic kidney disease stage: stage 3 (moderate) Qualified Code(s): E11.22 - Type 2 diabetes mellitus with diabetic chronic kidney disease; N18.3 - Chronic kidney disease, stage 3 (moderate); Z79.4 - [facility]CF (current) use of insulin (2) Hypertension Qualifiers: Hypertension type: essential hypertension Qualified Code(s): I10 - Essential (primary) hypertension (3) Acute renal failure superimposed on stage 3 chronic kidney disease Qualifiers: Acute renal failure type: unspecified Qualified Code(s): N17.9 - Acute kidney failure, unspecified; N18.3 - Chronic kidney disease, stage 3 (moderate) (5) UTI (urinary tract infection) Qualifiers: Urinary tract infection type: site unspecified Hematuria presence: without hematuria Qualified Code(s): N39.0 - Urinary tract infection, site not specified (10) Volume overload Qualifiers: Hypervolemia type: other Qualified Code(s): E87.79 - Other fluid overload
--- NOTE | 2017-12-14 12:40 | Infectious Disease Progress No ---
Date of Encounter: 12/14/17 Time of Encounter: 13:53 - Assessment and Plan (1) Sepsis Current Visit: Yes Status: Acute The patient had 2 sepsis criteria on admission. Likely secondary to pneumonia. Improved. White blood cell count has normalized. Tachypnea has resolved. Blood cultures drawn 12/07/17 are no growth to date 2 sets. Qualifiers: Sepsis type: sepsis due to unspecified organism Qualified Code(s): A41.9 - Sepsis, unspecified organism (2) Pneumonia Current Visit: Yes Status: Acute Location bilateral bases. Causative organism: Unclear. Chest x-ray completed 12/07/17 showed a worsening of left basilar opacity and pleural effusion and stable right basilar opacity and effusion. Etiology unclear, but aspiration does not seem to be playing a part in this. Strep pneumococcal and legionella urinary antigens are negative. MRSA screen was negative. Respiratory infectious panel was negative. Sputum culture obtained 2 were interpreted as normal upper respiratory tract fredrick. Clinically, the patient appears improved. Repeat CXR 12/10/17 showed no evidence of PNA. Discontinue Levaquin. Continue Zosyn 3.375 g IV every 8 hours. (day 8) Duration of treatment depends on the clinical picture, but likely a total of 10 days. Can likely transition to PO Augmentin and Levaquin if ready for discharge prior to completing course of treatment. Monitor renal function and dose adjust antibiotics. No further recommendations from the ID team. We will sign off. Please re- consult if needed. Qualifiers: Pneumonia type: due to unspecified organism Laterality: left Lung location: lower lobe of lung Qualified Code(s): J18.1 - Lobar pneumonia, unspecified organism (3) UTI (urinary tract infection) Current Visit: Yes Status: Acute Asymptomatic bacteriuria. Urine culture positive for Klebsiella pneumoniae and Escherichia coli ESBL. No indication to treat. Continue contact precautions per hospital policy. Qualifiers: Urinary tract infection type: site unspecified Hematuria presence: without hematuria Qualified Code(s): N39.0 - Urinary tract infection, site not specified (4) Pleural effusion Current Visit: Yes Status: Acute Location: Bilateral. Etiology: Likely multifactorial (CHF plus malignancy) Pulmonology consulted. Performed bedside ultrasound that showed a small left and trivial right-sided pleural effusion that are not amenable to drainage. Diuresis per the primary team. (5) Acute renal failure superimposed on stage 3 chronic kidney disease Current Visit: No Status: Acute Improved. Etiology unclear. Continue to trend. Vanc stopped. Dose-adjust antibiotics and other medications. Nephrology consulted and following. Qualifiers: Acute renal failure type: unspecified Qualified Code(s): N17.9 - Acute kidney failure, unspecified; N18.3 - Chronic kidney disease, stage 3 (moderate) (6) Acute and chronic respiratory failure with hypoxia Current Visit: Yes Status: Acute Likely multifactorial: COPD + CHF + pleural effusions Appears improved. Management per the primary team. 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 Patient follows with Dr. Ny at the [facility]. Treatment on hold until cranial hardware exposure can be fixed. (12) Skin lesion of scalp Current Visit: No Status: Acute Previous cranial surgery hardware exposed since 2008. Referred to plastic surgery and neurosurgery at [place] with surgery planned for December 21. (13) Diabetes mellitus Current Visit: No Status: Chronic Recommend aggressive glucose monitoring and control to promote wound healing and prevent reinfection. Management per the primary team. Qualifiers: Diabetes mellitus type: type 2 Diabetes mellitus supervisor lump room insulin use: with senior living use Diabetes mellitus complication status: with kidney complications Diabetes mellitus complication detail: with chronic kidney disease Chronic kidney disease stage: stage 3 (moderate) Qualified Code(s): E11.22 - Type 2 diabetes mellitus with diabetic chronic kidney disease; N18.3 - Chronic kidney disease, stage 3 (moderate); Z79.4 - USP (current) use of insulin (14) Hypertension Current Visit: No Status: Chronic Qualifiers: Hypertension type: essential hypertension Qualified Code(s): I10 - Essential (primary) hypertension (15) Hypothyroid Current Visit: No Status: Chronic Qualifiers: Hypothyroidism type: acquired Qualified Code(s): E03.9 - Hypothyroidism, unspecified (16) CHF (congestive heart failure) Current Visit: Yes Status: Chronic Qualifiers: Heart failure type: diastolic Heart failure chronicity: acute on chronic Qualified Code(s): I50.33 - Acute on chronic diastolic (congestive) heart failure - Subjective Interval history: Patient seen and examined. No acute events noted overnight. Patient states overall she feels okay. Reports shortness of breath improved today and she is coughing less. Denies chest or abdominal pain. Denies nausea or vomiting. Denies abdominal pain or urinary complaints. States appetite is okay. Denies oral thrush or new skin lesions. Infect Dis PN-Objective Data - Labs CBC & Chem 7: 12/13/17 08:58 12/14/17 04:00 Labs: Laboratory Results - last 24 hr 12/13/17 12/13/17 12/13/17 06:45 10:44 16:55 Sodium Potassium Chloride Carbon Dioxide BUN Creatinine Est GFR ( Amer) Est GFR (Non-Af Amer) BUN/Creatinine Ratio Glucose POC Glucose 145 H 172 H 142 H Calculated Osmolality Calcium 12/13/17 12/14/17 19:38 04:00 Sodium 137 Potassium 3.4 L Chloride 101 Carbon Dioxide 29 BUN 27 H Creatinine 1.93 H Est GFR ( Amer) 31 L Est GFR (Non-Af Amer) 26 L BUN/Creatinine Ratio 14 Glucose 125 H POC Glucose 201 H Calculated Osmolality 291 Calcium 9.3 Cultures: Cultures 12/08/17 17:50 Urine Culture - Final Urine,Clean Catch No significant growth. 12/10/17 01:15 Sputum Culture - Final Sputum 12/09/17 06:00 Sputum Culture - Final Sputum 12/08/17 17:50 Streptococcus pneumoniae Antigen (M - Final Urine,Catheterized 12/08/17 17:50 Legionella Antigen - Final Urine,Catheterized Serology 12/11/17 12/10/17 12/09/17 Range/Units 05:22 09:55 06:00 Urine Creatinine 98 mg/dL Urine Microalbumin 53 mg/L Microalb/Creat Ratio 54 H (Less than 30) mcg/mg Urine Urea Nitrogen 412 mg/dL Urine Total Protein 57 H (1-14) mg/dL Nasal Screen MRSA (PCR) Negative (Negative) Chlamy pneumoniae PCR Not Detected (Not Detect) Adenovirus (PCR) Not Detected (Not Detect) B. pertussis DNA (PCR) Not Detected (Not Detect) B.parapertussis DNA PCR Not Detected (Not Detect) Coronavirus OC43 (PCR) Not Detected (Not Detect) Coronavirus HKU1 (PCR) Not Detected (Not Detect) Coronavirus 229E (PCR) Not Detected (Not Detect) Coronavirus NL63 (PCR) Not Detected (Not Detect) Human Metapneumovir PCR Not Detected (Not Detect) Influenza A (H1) PCR Not Detected (Not Detect) Influ A (H1N1/09) PCR Not Detected (Not Detect) Influenza A (H3) PCR Not Detected (Not Detect) Influenza A Untype (PCR) Not Detected (Not Detect) Influenza Type B (PCR) Not Detected (Not Detect) M.pneumoniae DNA (PCR) Not Detected (Not Detect) Parainfluenza 1 (PCR) Not Detected (Not Detect) Parainfluenza 2 (PCR) Not Detected (Not Detect) Parainfluenza 3 (PCR) Not Detected (Not Detect) Parainfluenza 4 (PCR) Not Detected (Not Detect) RSV (PCR) Not Detected (Not Detect) Entero/Rhino (PCR) Not Detected (Not Detect) 12/09/17 Range/Units 06:00 Urine Creatinine mg/dL Urine Microalbumin mg/L Microalb/Creat Ratio (Less than 30) mcg/mg Urine Urea Nitrogen mg/dL Urine Total Protein (1-14) mg/dL Nasal Screen MRSA (PCR) Negative (Negative) Chlamy pneumoniae PCR (Not Detect) Adenovirus (PCR) (Not Detect) B. pertussis DNA (PCR) (Not Detect) B.parapertussis DNA PCR (Not Detect) Coronavirus OC43 (PCR) (Not Detect) Coronavirus HKU1 (PCR) (Not Detect) Coronavirus 229E (PCR) (Not Detect) Coronavirus NL63 (PCR) (Not Detect) Human Metapneumovir PCR (Not Detect) Influenza A (H1) PCR (Not Detect) Influ A (H1N1/09) PCR (Not Detect) Influenza A (H3) PCR (Not Detect) Influenza A Untype (PCR) (Not Detect) Influenza Type B (PCR) (Not Detect) M.pneumoniae DNA (PCR) (Not Detect) Parainfluenza 1 (PCR) (Not Detect) Parainfluenza 2 (PCR) (Not Detect) Parainfluenza 3 (PCR) (Not Detect) Parainfluenza 4 (PCR) (Not Detect) RSV (PCR) (Not Detect) Entero/Rhino (PCR) (Not Detect) Exam - Constitutional Vitals: Temp Pulse Resp BP Pulse Ox 98.6 F 78 16 151/69 94 12/14/17 08:00 12/14/17 08:00 12/14/17 10:10 12/14/17 08:00 12/14/17 10:10 General appearance: cooperative, morbidly obese, no acute distress - Head Head exam: Present: atraumatic, normal inspection, normocephalic - Eye Eye exam: Present: EOMI, normal appearance, PERRL Pupils: Present: normal accommodation - ENT ENT exam: Present: mucous membranes moist - Neck Neck exam: Present: normal inspection - Respiratory Respiratory exam: Present: CTAB. Absent: rales, respiratory distress, rhonchi, wheezes - Cardiovascular Cardiovascular exam: Present: RRR, +S1, +S2 - GI/Abdominal GI/Abdominal exam: Present: distended (obese), normal bowel sounds, soft. Absent: tenderness - Extremities Exam Extremities exam: Present: normal inspection. Absent: joint swelling, pedal edema, tenderness - Neurological Exam Neurological exam: Present: alert, oriented X3, no focal deficits - Psychiatric Psychiatric exam: Present: normal affect, normal mood - Skin Skin exam: Present: dry, intact, normal color, warm Consult Discharge Plan - Plan Referrals: Stephanie oMrgan, [employer] A[employer]LYST [Primary Care Provider] - - Attending Attestation I examined this patient and my medical decision-making was reviewed with the Resident Physician. I agree with the documented findings, disposition and treatment plan as described except to the extent set forth below.
--- NOTE | 2017-12-14 15:45 | Palliative - Consult Note ---
Date of Encounter: 12/14/17 Time of Encounter: 13:00 - Assessment and Plan (1) Noncompliance Current Visit: No Status: Acute Assessment and plan: Patient continues to be noncompliant with BiPAP while hospitalized; educated on risk of hypoxia and worsening lung status without appropriate usage; verbalized understanding. (2) CKD (chronic kidney disease) stage 3, GFR 30-59 ml/min Current Visit: No Status: Chronic Assessment and plan: Nephrology consult appreciated. Avoid nephrotoxins. (3) UTI (urinary tract infection) Current Visit: Yes Status: Acute Assessment and plan: ID recommendations appreciated. Qualifiers: Urinary tract infection type: site unspecified Hematuria presence: without hematuria Qualified Code(s): N39.0 - Urinary tract infection, site not specified (4) HCAP (healthcare-associated pneumonia) Current Visit: Yes Status: Acute Assessment and plan: Zosyn IV. Infectious disease and Primary team managing. (5) Acute and chronic respiratory failure with hypoxia Current Visit: Yes Status: Acute Assessment and plan: Pulmonology consult in place; appreciate recommendations. Continue BiPAP and oxygen therapy. (6) ELPIDIO (obstructive sleep apnea) Current Visit: Yes Status: Acute Assessment and plan: BiPAP needs to be used nightly and during naps. (7) Acute on chronic diastolic (congestive) heart failure Current Visit: Yes Status: Acute Assessment and plan: Gentle Diuresis being performed. Continue. Peripheral edema remains present. (8) Goals of care, counseling/discussion Current Visit: Yes Status: Acute Assessment and plan: Conducted goals of care discussion with patient. No family present at bedside. Advanced Directives: Patient has previously completed MPOA forms; however, is unsure where they are located now. Desires to complete forms again. Requested assistance in calling family/friends to get phone numbers of people she desires to have as her decision makes should she be unable. Patient has designated [facility] as: 1. Trisha Huston (sister) [phone], sister also works at [employer] if unable to answer she may be there; 2. Vidal Almanza (son) works at [employer], unsure of phone number; and 3. Bk Romo (auto service advisor). Requested phone calls be made to Taylor Fernandes (friend) [phone] or [phone] and Stone Guillory (friend) ; no answer when called. Patient desires to wait until tomorrow once getting all phone numbers to complete MPOA forms. Patient has not completed a Living Will. Patient desires to remain FULL CODE until she has a change to talk with her sister Trisha Huston and brothers. DME already at home: BiPAP, O2, and Walker. DME needed: Hospital bed and cane. Patient is already an established patient of [facility]. Feels like her visits are "really only to see if I am still alive." Reports nurse was at home the day patient come to hospital and did not attempt to help her resolve symptoms. Patient lives at home and helps take care of her sister whom has generalized seizures. Patient's sister has generalized anxiety and is unable to deal with changes in routine, nor wants to know patient's medical status. Patient reports her sister will be unable to care for her at home due to her own illnesses. Patient reports understanding of may need short term rehab prior to returning home as has weakened during course of hospital stay. Patient explained that she is eligible for hospice should she decide; desires to talk matter over with other siblings and reconvene tomorrow. Requested assistance in speaking with patient's sister to arrange family meeting; sister did not answer when called, will re-attempt tomorrow morning as patient reports she is probably at work today. (9) Dyspnea Current Visit: Yes Status: Acute Assessment and plan: Patient reports increased dypsnea. Pulmonary managing. Explained options for medication assistance in management of dyspnea; explained limitations with prescription opiods, verbalized understanding. Qualifiers: Dyspnea type: unspecified Qualified Code(s): R06.00 - Dyspnea, unspecified Palliative-CN HPI - Data of Consult Patient: new to practice Consult date: 12/14/17 Requesting Physician: Phi Miranda MD Primary Care Provider: Stephanie Morgan CNP - Consult Narrative Palliative Care/Comfort Measures: Palliative care History of present illness: Ms. Almanza is a 72 year old female Arrived to [facility] on 12/07/17, for Shortness of breath. PMH: Brain Cancer with mets to lung with recurrent pleural effusions (Patient of Dr. Ny at [facility]; has not started treatment with chemotherapy due to exposed metal/bone in skull), Asthma, CHF, DM, Hyperlipidemia, HTN, seizures, Anxiety, Depression, and panic disorder. Patient admitted for COPD exacerbation, Sepsis, and Community acquired pneumonia. Chest x-ray showing: Interval worsening of left base opacity and pleural effusion; Stable right base opacity with pleural effusion; Redemonstration of pulmonary nodules measuring up to 7.1 cm on the right and 12 mm on the left; and Cardiomegaly. EKG showing: Sinus rhythm, Right BBB, and Left anterior fascicular block. Pulmonary consulted for Acute on chronic hypoxic respiratory failure; pneumonia; pleural effusions; ELPIDIO;and malignancy with mets to lung; recommend continue oxygen therapy and BiPAP use. Patient had CT guided thoracentesis during last visit on 12/02/17. Patient medically managed for HCAP; Acute on chronic renal failure, CHF, UTI, DM, HTN, CKD stage 3, Anemia, CAD, and constipation. Infectious disease consulted for assistance in managing: Sepsis, pneumonia, and UTI; stopped Vancomycin and Levaquin, continue Zosyn. Patient having difficulty with compliance of BiPAP. Palliative care consult for Lung Cancer with recurrent pleural effusion and multiple hospital admissions. Patient lying in bed with BiPAP in place upon arrival for assessment. Patient is alert and oriented times 3. Patient denies pain, anxiety, shortness of breath , nausea, and vomiting. Requested to be taken off BiPAP as has missed calls from insurance company. Offered assistance to transition to Oxygen nasal cannula ; provided assistance; however, prior to completing assessment BiPAP has to be reapplied as patient becoming hypoxic. CC: Phi Miranda MD - Time Spent with Patient Time: Total time spent is greater than 50% in coordination of care (as documented) at patient's floor/unit and/or counseling patient: Greater than 35 minutes Past Med Surg Social Fam HX - Past Medical History Medical history: asthma, CHF, diabetes, hyperlipidemia, hypertension, seizures, other Additional medical history: hemangiopericytoma Psychiatric history: anxiety, depression, panic disorder - Past Surgical History Surgical History: cholecystectomy, coronary bypass (CABG), other Additional surgical history: L ankle. brain surgery. cardiac stents - Social History Smoking Status: Never smoker Smokeless Tobacco Status: No Alcohol use: none Drug use: none - Family History Father Adopted: No Living Status: Hx Family Cardiac Disorders: Yes Hx Family Respiratory Disorders: Yes Hx Family Cancer: Yes Medications and Allergies Furosemide [Lasix] 20 mg PO DAILY 11/30/14 [History] Pantoprazole Sodium [Protonix] 40 mg PO DAILY 03/13/15 [History] Aspirin [Adult Aspirin] 81 mg PO DAILY 08/12/17 [History] Atorvastatin Calcium [Lipitor] 20 mg PO DAILY 08/12/17 [History] Ergocalciferol (VITAMIN D2) [Vitamin D2] 50,000 unit PO QWEEK 08/12/17 [History] Escitalopram Oxalate 5 mg PO DAILY 08/12/17 [History] LevETIRAcetam [Keppra] 750 mg PO BID 08/12/17 [History] Levothyroxine Sodium [Levoxyl] 25 mcg PO DAILY 08/12/17 [History] Levothyroxine Sodium [Synthroid] 200 mcg PO DAILY 08/12/17 [History] Lisinopril [Zestril] 10 mg PO DAILY 08/12/17 [History] Metoprolol [Lopressor] 25 mg PO BID 08/12/17 [History] Montelukast [Singulair] 10 mg PO DAILY 08/12/17 [History] Phenytoin [Dilantin] 150 mg PO BID 08/12/17 [History] Pioglitazone HCl [Actos] 15 mg PO DAILY 08/12/17 [History] SitaGLIPtin [Januvia] 100 mg PO DAILY 08/12/17 [History] Tolterodine Tartrate [Detrol] 2 mg PO BID 08/12/17 [History] Acetaminophen [Tylenol] 650 mg PO Q6HR PRN tablet 08/18/17 [Rx] Calcium Carbonate [Tums] 1,000 mg PO QID 30 Days #120 tab.chew 08/30/17 [Rx] Docusate [Colace] 100 mg PO BID 30 Days #60 capsule 08/30/17 [Rx] Ferrous Sulfate 325 mg PO BIDWM 30 Days #60 tablet 08/30/17 [Rx] Clopidogrel [Plavix] 75 mg PO DAILY 12/07/17 [History] Insulin Glargine [Lantus] 15 unit SQ HS 12/07/17 [History] Mupirocin [Bactroban Oint] 1 appl TP DAILY 12/07/17 [History] hydrALAZINE [HydrALAZINE] 25 mg PO BID 12/07/17 [History] Albuterol Sulfate [Proventil Hfa] 2 puff IH Q4H PRN 12/08/17 [History] 3 Allergy/AdvReac Type Severity Reaction Status Date / Time Tetanus Vaccines and Toxoid Allergy Unknown unknown Verified 11/03/17 13:25 [Tetanus Vaccines & Toxoid] - Cardiovascular Cardiovascular ROS: chest pain, dyspnea on exertion - Respiratory Respiratory: dyspnea, dyspnea on exertion, no cough - Gastrointestinal Gastrointestinal: diarrhea - Psychiatric Psychiatric general PM: anxiety Palliative Care-Exam - Constitutional Vitals: Temp Pulse Resp BP Pulse Ox 97.8 F 78 16 165/69 94 12/14/17 12:34 12/14/17 12:34 12/14/17 12:34 12/14/17 12:34 12/14/17 12:34 General appearance: Present: cooperative, morbidly obese, no acute distress - Head Head Exam: Present: atraumatic, normal inspection - Expanded Head Exam Head exam expanded IM: Absent: raccoon eyes - Eye Eye exam: Present: EOMI, PERRL, conjuntiva pink. Absent: periorbital swelling, periorbital tenderness Pupils: Present: normal accommodation, PERRL - ENT ENT exam: Present: mucous membranes moist - Expanded ENT Exam Mouth Exam: Absent: drooling - Neck Neck exam: Present: full ROM, normal inspection - Respiratory Respiratory exam: Present: accessory muscle use, respiratory distress (When not on BiPAP.), rhonchi, wheezes - Cardiovascular Cardiovascular exam: Present: +S1, +S2 - Expanded Cardiovascular Exam Peripheral pulses: 1+: Posterior Tibialis (L), Posterior Tibialis (R), Dorsalis Pedis (L) PM, Dorsalis Pedis (R) PM, 2+: Radial (L), Radial (R) - GI/Abdominal Exam GI/Abdominal exam: Present: diminished bowel sounds, soft. Absent: tenderness - Extremities Exam Extremities exam: Present: pedal edema - Neurological Exam Neurological exam: Present: alert, oriented X3, strengths equal and symetr throughout. Absent: altered - Expanded Neurological Exam Coma Scale Eye Opening: Spontaneous Coma Scale Motor Response: Obeys Commands Coma Scale Verbal Response: Oriented Coma Scale Total: 15 - Psychiatric Psychiatric exam: Present: normal affect, normal mood - Skin Skin exam: Present: dry, intact, normal color Internal Medicine - CN: Reslt - Labs CBC & Chem 7: 12/13/17 08:58 12/14/17 04:00 Labs: BMP 12/14/17 04:00 Sodium 137 Potassium 3.4 L Chloride 101 Carbon Dioxide 29 BUN 27 H Creatinine 1.93 H Glucose 125 H Calcium 9.3 - ABG Interpretation ABG results: ABG ABG pH 7.35 pH Units (7.32-7.45) 12/13/17 03:01 ABG pCO2 56 mmHg (35-45) H 12/13/17 03:01 ABG pO2 75 mmHg (85-104) L 12/13/17 03:01 ABG O2 Saturation 94 % (95-98) L 12/13/17 03:01 PT/INR, D-dimer PT 13.6 Seconds (9.4-12.1) H 12/07/17 15:36 Consult Discharge Plan - Plan Referrals: Stephanie Morgan, [employer] S[employer]OL CAREGIVER [Primary Care Provider] - Palliative Quality Palliative Quality: Screen for Code Status: Yes, Screen for Goals of Care: Yes, Screen for Pain: Yes, If Pain Regimen Started, Initiate Bowel Regimen: NA, Screen for Nausea/Vomitting: Yes Code Status: 12/07/17 18:21 Resuscitation Status: Active [RES] Routine Comment: Resuscitation Status: Full Code
[2017-12-14] MEDS: Furosemide 20 MG TABLET PO SCH (15:59)
[2017-12-14] MEDS: Insulin DETEMIR 100 UNIT/ML X5UNITS SQ SCH (22:28)
[2017-12-15] MEDS: Piperacillin/Tazobactam 3.375 GM in 0.9 % Sodium Chloride Mini Bag 100 ML IVPB SCH ×2 (01:34→08:55)
[2017-12-15] MEDS: Ipratropium/Albuterol Neb 3 ML IH SCH ×4 (03:39→21:37)
[2017-12-15 05:19] LABS: Basophils % 0.3 %; Eosinophils # 0.5 K/mcL (0.0-0.6); Eosinophils % 6.3 %; Hematocrit 24.9 % (35.3-44.9); Hemoglobin 7.5 g/dL (11.5-15.4); Immature Granulocytes % 0.4 % (0-4); Lymphocytes # 0.8 K/mcL (0.6-4.6); Lymphocytes % 10.4 %; Mean Corpuscular HGB Conc 30.1 g/dL (31.6-35.5); Mean Corpuscular Hemoglobin 26.7 pg (28.0-33.3); Mean Corpuscular Volume 88.6 fL (83.0-100.0); Mean Platelet Volume 9.4 fL (9.4-12.4); Monocytes # 0.6 K/mcL (0.0-1.3); Monocytes % 8.1 %; Neutrophils # 5.4 K/mcL (1.6-8.9); Platelet Count 176 K/mcL (140-400); Red Blood Count 2.81 M/mcL (3.82-4.97); Red Cell Distribution Width 17.1 % (11.5-14.5); Segmented Neutrophils % 74.5 %
[2017-12-15 05:31] LABS: Calcium 9.4 mg/dL (8.6-10.3); Potassium 3.8 mEq/L (3.5-5.1)
[2017-12-15] MEDS: levETIRAcetam 250 MG TABLET PO SCH ×2 (08:53→21:14)
[2017-12-15] MEDS: Furosemide 20 MG TABLET PO SCH ×2 (08:53→18:55)
[2017-12-15] MEDS: hydrALAZINE 25 MG TABLET PO SCH ×3 (08:53→21:13)
[2017-12-15] MEDS: Aspirin Enteric Coated 81 MG Tablet PO SCH (08:54)
[2017-12-15] MEDS: Cholecalciferol (D-3) 1,000 UNIT TABLET PO SCH (08:54)
--- NOTE | 2017-12-15 09:43 | Discharge Summary ---
<Kylie Sosa - Last Filed: 12/15/17 11:41> - NOTES TO OUTPATIENT PROVIDER Notes to Outpatient Provider: Patient can return to home with home health, PT/ OT. She is now on 4L of O2 at rest. Nephrology recommended Lasix PO 20mg BID until her follow-up appointment on 03/05. They also recommended fluid restriction and repeat BMP 7 days after discharge. Patient was treated with IV Zosyn for HCAP. She is being discharged with 3 days of PO Levaquin 750mg PO Q48H. She was also found to have asymptomatic bacteruria. Date of Encounter: 12/15/17 Time of Encounter: 09:20 - Discharge Diagnosis (1) HCAP (healthcare-associated pneumonia) Priority: Primary Status: Acute (2) Acute and chronic respiratory failure with hypoxia Priority: Primary Status: Acute (3) Acute on chronic diastolic (congestive) heart failure Priority: Secondary Status: Acute (4) Renal failure (ARF), acute on chronic Priority: Secondary Status: Acute Qualifiers: Acute renal failure type: unspecified Chronic kidney disease stage: stage 3 (moderate) Qualified Code(s): N17.9 - Acute kidney failure, unspecified; N18.3 - Chronic kidney disease, stage 3 (moderate) (5) Volume overload Priority: Secondary Status: Acute Qualifiers: Hypervolemia type: other Qualified Code(s): E87.79 - Other fluid overload (6) UTI (urinary tract infection) Priority: Secondary Status: Acute Assessment and Plan: Asymptomatic Bacteriuria Qualifiers: Urinary tract infection type: site unspecified Hematuria presence: without hematuria Qualified Code(s): N39.0 - Urinary tract infection, site not specified (7) Diabetes mellitus Priority: Secondary Status: Chronic Qualifiers: Diabetes mellitus type: type 2 Diabetes mellitus terminal superintendent insulin use: with fpc use Diabetes mellitus complication status: with kidney complications Diabetes mellitus complication detail: with chronic kidney disease Chronic kidney disease stage: stage 3 (moderate) Qualified Code(s): E11.22 - Type 2 diabetes mellitus with diabetic chronic kidney disease; N18.3 - Chronic kidney disease, stage 3 (moderate); Z79.4 - terminal block assembler (current) use of insulin (8) Hypertension Priority: Secondary Status: Chronic Qualifiers: Hypertension type: essential hypertension Qualified Code(s): I10 - Essential (primary) hypertension (9) Morbid obesity Priority: Secondary Status: Chronic Hospital course: The patient is a very pleasant 72 year female with a past medical history significant for brain cancer s/p craniotomy, lung and spine mets, recurrent pleural effusion, CHF, CKD Stage 3, DM, HLD, CAD s/p stent and CABG, and ELPIDIO who presented to [facility] on 12/07/17 with HCAP. She was recently discharged from the hospital on 12/02/17 after a stay for bilateral pleural effusions and Ct guided thoracocentesis. Patient was found to have a left lower lobe HCAP, bilateral pleural effusions, and Acute on chronic CHF exacerbation. Pulmonology and ID were consulted. Blood cultures x2 were negative. Sputum cultures only grew normal respiratory fredrick. MRSA swab was negative. Strep pneumo and legionella antigen were negative. Respiratory Panel was negative. Patient was treated with 9 days of IV Zosyn as per pulm and ID for HCAP caused by unknown organism. Pulmonology did not believe her bilateral pleural effusions were large enough to be contributing to her symptoms or warrant thoracocentesis. She also received IV Lasix and albumin as per nephrology since she developed GLENNA on CKD. Patient was asymptomatic but urine cultures grew E. coli ESBL and Klebsiella. ID did not recommend further treatment beyond the Zosyn she was already receiving because they believe this to be asymptomatic bacteriuria. Patient initially required 8L O2 NC and PRN BiPap and duonebs throughout the day as well as continuous bipap at night. By discharge, patient was weaned to 4L O2 NC and is only using her BiPap at night. This is hospitalization day number 8. The patient was seen and examined at bedside this morning. Today, patient states she feels a lot better and is breathing comfortably without dyspnea. She is still experiencing urinary incontinence but says this is chronic. The patient currently denies any chest pain, dyspnea, lightheadedness, dizziness, vision changes, headache, palpitations, abdominal pain, nausea, vomiting, edema, fever or chills. Palliative was consulted yesterday and discussed MPOA with patient. Decision was made to send the patient home with home health and PT/OT. Patient will require a hospital bed and cane. Patient is stable for discharge to home with home health. Discharge discussed with: patient - Time Spent with Patient Total time spent providing and/or coordinating discharge services: Greater than 30 minutes - Discharge Medications Prescriptions: Furosemide [Lasix] 20 mg PO BIDDIURETIC 30 Days #60 tablet Levofloxacin [Levaquin] 750 mg PO Q48H 3 Days #3 tablet Home Medications: Pantoprazole Sodium [Protonix] 40 mg PO DAILY 03/13/15 [History] Aspirin [Adult Aspirin] 81 mg PO DAILY 08/12/17 [History] Atorvastatin Calcium [Lipitor] 20 mg PO DAILY 08/12/17 [History] Ergocalciferol (VITAMIN D2) [Vitamin D2] 50,000 unit PO QWEEK 08/12/17 [History] Escitalopram Oxalate 5 mg PO DAILY 08/12/17 [History] LevETIRAcetam [Keppra] 750 mg PO BID 08/12/17 [History] Levothyroxine Sodium [Levoxyl] 25 mcg PO DAILY 08/12/17 [History] Levothyroxine Sodium [Synthroid] 200 mcg PO DAILY 08/12/17 [History] Lisinopril [Zestril] 10 mg PO DAILY 08/12/17 [History] Metoprolol [Lopressor] 25 mg PO BID 08/12/17 [History] Montelukast [Singulair] 10 mg PO DAILY 08/12/17 [History] Phenytoin [Dilantin] 150 mg PO BID 08/12/17 [History] Pioglitazone HCl [Actos] 15 mg PO DAILY 08/12/17 [History] SitaGLIPtin [Januvia] 100 mg PO DAILY 08/12/17 [History] Tolterodine Tartrate [Detrol] 2 mg PO BID 08/12/17 [History] Acetaminophen [Tylenol] 650 mg PO Q6HR PRN tablet 08/18/17 [Rx] Calcium Carbonate [Tums] 1,000 mg PO QID 30 Days #120 tab.chew 08/30/17 [Rx] Docusate [Colace] 100 mg PO BID 30 Days #60 capsule 08/30/17 [Rx] Ferrous Sulfate 325 mg PO BIDWM 30 Days #60 tablet 08/30/17 [Rx] Clopidogrel [Plavix] 75 mg PO DAILY 12/07/17 [History] Insulin Glargine [Lantus] 15 unit SQ HS 12/07/17 [History] Mupirocin [Bactroban Oint] 1 appl TP DAILY 12/07/17 [History] hydrALAZINE [HydrALAZINE] 25 mg PO BID 12/07/17 [History] Albuterol Sulfate [Proventil Hfa] 2 puff IH Q4H PRN 12/08/17 [History] Furosemide [Lasix] 20 mg PO BIDDIURETIC 30 Days #60 tablet 12/15/17 [Rx] Levofloxacin [Levaquin] 750 mg PO Q48H 3 Days #3 tablet 12/15/17 [Rx] Allergies/Adverse Reactions: 3 Allergy/AdvReac Type Severity Reaction Status Date / Time Tetanus Vaccines and Toxoid Allergy Unknown unknown Verified 11/03/17 13:25 [Tetanus Vaccines & Toxoid] Date of admission: 12/07/17 20:21 Primary care physician: Stephanie Morgan CNP Consults: 12/10/17 13:34 Consult to Nephrology [CONS] Routine Consulting Provider: [facility] [place]/[facility]/AMIRAH/REBECCA Reason for Consult: CHF requiring lasix but also GLENNA in CKD Call Completed: Yes 12/10/17 13:35 Consult to Infectious Diseases [CONS] Routine Consulting Provider: [facility] [place] Reason for Consult: ESBL and klebsiella on urine culture. On zosyn and levaquin but not getting better. Call Completed: Yes 12/14/17 09:31 Consult to Palliative Care [CONS] Routine Comment: Consulting Provider: [facility] [place] Reason for Consult: lung ca with recurrent pleural effusion and multiple hospital admissions Call Completed: No 12/14/17 10:11 Consult to Physical Therapy [CONS] Routine Comment: Evaluate, develop and implement POC Reason for Consult: strengthening Does patient have active BEDREST order?: No Is patient medically & hemodynamically stable?: Yes Patient assessed for mobility or mobilized this visit?: No 12/15/17 09:24 Consult to Occupational Therapy [CONS] Routine Comment: Evaluate, develop and implement POC Reason for Consult: Needed for insurance to cover SNF; PT already consulted Does patient have active BEDREST order?: No Is patient medically & hemodynamically stable?: Yes Discharging clinician: Ivana Lee Anticipated date of discharge: 12/15/17 - Constitutional Vitals: Temp Pulse Resp BP Pulse Ox 98.2 F 74 16 147/67 93 12/15/17 06:55 12/15/17 06:55 12/15/17 06:55 12/15/17 06:55 12/15/17 06:55 General appearance: Present: mild distress, morbidly obese Exam: Physical Exam: GENERAL: Patient is a 72 year old morbidly obese class III female in mild respiratory distress with appropriate affect. Alert & oriented x3. HEENT: Head is normocephalic, patient has visible metal plate in her cranium from prior craniotomy in 2008. Was supposed to undergo Surgery on 12/07/17 to fix the exposed plate but this has been rescheduled. EYES: PERRLA, EOMI. Sclera anincteric. MOUTH: Oropharynx clear. Mucous membranes moist. NECK: Supple, no masses, exam difficult due to large neck circumference. CV: Regular rate and rhythm. Normal S1, S2 with no clicks, murmurs, gallops, or rubs. PULMONARY: CTA throughout. Symmetrical chest expansion. Accessory muscle usage. No wheezes, rales, rhonchi. GI: Abdomen is soft, obese, nontender, positive bowel sounds x 4 present and appropriate. No peritoneal signs or guarding. No palpable masses. SKIN: Warm, dry and intact. No rashes, bruising, cyanosis or non healing lesions are seen. Trace pedal edema noted but improved. NEUROLOGICAL: Alert, awake. CN II-XII grossly intact. Patient is moving all extremities and following commands appropriately. No focal deficits are noted. Muscle strength 5/5 x 4 extremities. VASCULAR/EXTREMITIES: Peripheral pulses palpable and equal. - Patient Status Disposition: Home Health Service Condition: Fair Functional capacity at discharge: uses cane/walker Overall status at discharge: patient is progressing back to baseline - Discharge Instructions Follow Up With: Stephanie Morgan CNP [Primary Care Provider] - 12/22/17 11:00 am Tequila Dixon MD [Partnered Physician] - 01/03/18 11:00 am Additional Instructions: - Resume normal activity as tolerated - Continue to use continuous O2 NC supplementation - Continue to use Bipap while sleeping - Will order PT/OT in addition to referral to home health - Follow up with PCP and [facility] - Continue Diabetic diet and restrict fluid intake - Continue taking Lasix 20mg by mouth twice a day until your appointment with [facility] on 01/03/18 - Bloodwork will need to be done 7 days after discharge for a repeat BMP to monitor your kidney function - Continue taking Levaquin 750 mg by mouth every other day for 3 days - Diet and Activity Activity: resume usual activities as tolerated, wear oxygen at all times Diet: diabetic diet <Ivana Lee - Last Filed: 12/15/17 13:36> Date of Encounter: 12/15/17 - Discharge Diagnosis (1) Diabetes mellitus Status: Chronic Qualifiers: Diabetes mellitus type: type 2 Diabetes mellitus fpc insulin use: with terminal superintendent use Diabetes mellitus complication status: with kidney complications Diabetes mellitus complication detail: with chronic kidney disease Chronic kidney disease stage: stage 3 (moderate) Qualified Code(s): E11.22 - Type 2 diabetes mellitus with diabetic chronic kidney disease; N18.3 - Chronic kidney disease, stage 3 (moderate); Z79.4 - terminal block assembler (current) use of insulin (2) Hypertension Status: Chronic Qualifiers: Hypertension type: essential hypertension Qualified Code(s): I10 - Essential (primary) hypertension (3) Acute renal failure superimposed on stage 3 chronic kidney disease Status: Acute Qualifiers: Acute renal failure type: unspecified Qualified Code(s): N17.9 - Acute kidney failure, unspecified; N18.3 - Chronic kidney disease, stage 3 (moderate) (4) COPD exacerbation Status: Acute (5) UTI (urinary tract infection) Status: Acute Qualifiers: Urinary tract infection type: site unspecified Hematuria presence: without hematuria Qualified Code(s): N39.0 - Urinary tract infection, site not specified (6) HCAP (healthcare-associated pneumonia) Status: Acute (7) Acute and chronic respiratory failure with hypoxia Status: Acute (8) Morbid obesity Status: Chronic (9) Acute on chronic diastolic (congestive) heart failure Status: Acute (10) Volume overload Status: Acute Qualifiers: Hypervolemia type: other Qualified Code(s): E87.79 - Other fluid overload Hospital course: Ms. Almanza is a 72 year old female - Time Spent with Patient Total time spent providing and/or coordinating discharge services: Date of admission: 12/07/17 20:21 Primary care physician: Stephanie Morgan CNP Consults: 12/10/17 13:34 Consult to Nephrology [CONS] Routine Consulting Provider: [facility]/AMIRAH/REBECCA Reason for Consult: CHF requiring lasix but also GLENNA in CKD Call Completed: Yes 12/10/17 13:35 Consult to Infectious Diseases [CONS] Routine Consulting Provider: [facility] Reason for Consult: ESBL and klebsiella on urine culture. On zosyn and levaquin but not getting better. Call Completed: Yes 12/14/17 09:31 Consult to Palliative Care [CONS] Routine Comment: Consulting Provider: [facility] [place] Reason for Consult: lung ca with recurrent pleural effusion and multiple hospital admissions Call Completed: No 12/14/17 10:11 Consult to Physical Therapy [CONS] Routine Comment: Evaluate, develop and implement POC Reason for Consult: strengthening Does patient have active BEDREST order?: No Is patient medically & hemodynamically stable?: Yes Patient assessed for mobility or mobilized this visit?: No 12/15/17 09:24 Consult to Occupational Therapy [CONS] Routine Comment: Evaluate, develop and implement POC Reason for Consult: Needed for insurance to cover SNF; PT already consulted Does patient have active BEDREST order?: No Is patient medically & hemodynamically stable?: Yes - Constitutional Vitals: Temp Pulse Resp BP Pulse Ox 97.7 F 72 18 157/68 90 12/15/17 11:40 12/15/17 11:40 12/15/17 11:40 12/15/17 11:40 12/15/17 11:40 - Attending Attestation S: She states her breathing has improved Exam GENERAL: Patient is a 72 year old morbidly obese class III female in mild respiratory distress with appropriate affect. Alert & oriented x3. HEENT: Head is normocephalic, patient has visible metal plate in her cranium from prior craniotomy in 2008. Was supposed to undergo Surgery on 12/07/17 to fix the exposed plate but this has been rescheduled. EYES: PERRLA, EOMI. Sclera anincteric. MOUTH: Oropharynx clear. Mucous membranes moist. NECK: Supple, no masses, exam difficult due to large neck circumference. CV: Regular rate and rhythm. Normal S1, S2 with no clicks, murmurs, gallops, or rubs. PULMONARY: CTA but muffled breath sounds bilaterally, could be due to habitus. Symmetrical chest expansion. Accessory muscle usage. No wheezes, rales, rhonchi. GI: Abdomen is soft, obese, nontender, positive bowel sounds x 4 present and appropriate. No peritoneal signs or guarding. No palpable masses. SKIN: Warm, dry and intact. No rashes, bruising, cyanosis or non healing lesions are seen. Trace pedal edema noted but improved. NEUROLOGICAL: Alert, awake. CN II-XII grossly intact. Patient is moving all extremities and following commands appropriately. No focal deficits are noted. Muscle strength 5/5 x 4 extremities. Plan Sepsis likely secondary to bacterial HCAP. Continue zosyn to complete 10 day course. Improving. Plan to discharge on po augmentin or levaquin HCAP. See #1 GLENNA on CKD stage 3. Monitor creatinine Acute on chronic diastolic CHF with acute hypoxic resp failure. Continue lasix. Oxygen needs were weaned down to 4L prior to discharge Agree with discharge summary as above. 35minutes was spent discharging this patient
--- NOTE | 2017-12-15 13:23 | Palliative Progress Note ---
Date of Encounter: 12/15/17 Time of Encounter: 11:00 - Assessment and plan (1) Noncompliance Current Visit: No Status: Acute Assessment and plan: Patient improved compliance with BiPAP. (2) CKD (chronic kidney disease) stage 3, GFR 30-59 ml/min Current Visit: No Status: Chronic Assessment and plan: BUN 29/Creatinine 1.87. Avoid nephrotoxins. (3) UTI (urinary tract infection) Current Visit: Yes Status: Acute Assessment and plan: Zosyn IV antibiotic in place. Qualifiers: Urinary tract infection type: site unspecified Hematuria presence: without hematuria Qualified Code(s): N39.0 - Urinary tract infection, site not specified (4) HCAP (healthcare-associated pneumonia) Current Visit: Yes Status: Acute (5) Acute and chronic respiratory failure with hypoxia Current Visit: Yes Status: Acute Assessment and plan: Continue BiPAP and Oxygen therapy. (6) ELPIDIO (obstructive sleep apnea) Current Visit: Yes Status: Acute Assessment and plan: Stable. Continue BiPAP support. (7) Acute on chronic diastolic (congestive) heart failure Current Visit: Yes Status: Acute (8) Goals of care, counseling/discussion Current Visit: Yes Status: Acute Assessment and plan: Discussed plan for discharge. Patient initially desired to return home today; however, upon further discussion patient became agreeable to discharge to [facility] for rehab. Patient identified desire to complete MPOA forms; printed forms and initiated filling of forms, patient requested to keep forms to review and sign tomorrow with son present. Palliative care will continue to follow from a distance; discharge plan to [facility] for rehab pending PT/OT recommendations. (9) Dyspnea Current Visit: Yes Status: Acute Assessment and plan: Denies shortness of breath; however, note increase in accessory muscle use with activity. Qualifiers: Dyspnea type: unspecified Qualified Code(s): R06.00 - Dyspnea, unspecified (10) Debility, unspecified Current Visit: Yes Status: Acute Assessment and plan: Patient unable to perform self care. PT/OT consult ordered. - Time Spent With Patient Total time spent is greater than 50% in coordination of care (as documented) at patient's floor/unit and/or counseling patient: - Subjective Interval history: Patient sitting up at bedside upon arrival for assessment. Patient is alert and oriented times 3. Denies pain, anxiety, dyspnea, nausea and vomiting. Patient reported she is leaving hospital today for home with oxygen support. Asked patient to show ability to get to herself to bedside commode and back independently; able to perform with increased dyspnea. - Constitutional Vitals: Abnormal lab results RBC 2.81 M/mcL (3.82-4.97) L 12/15/17 04:00 Hgb 7.5 g/dL (11.5-15.4) L 12/15/17 04:00 Hct 24.9 % (35.3-44.9) L 12/15/17 04:00 MCH 26.7 pg (28.0-33.3) L 12/15/17 04:00 MCHC 30.1 g/dL (31.6-35.5) L 12/15/17 04:00 RDW 17.1 % (11.5-14.5) H 12/15/17 04:00 Hypochromasia Present (Not Present) A 12/10/17 06:21 Anisocytosis 1+ (Not Present) A 12/10/17 06:21 PT 13.6 Seconds (9.4-12.1) H 12/07/17 15:36 ABG pCO2 56 mmHg (35-45) H 12/13/17 03:01 ABG pO2 75 mmHg (85-104) L 12/13/17 03:01 ABG HCO3 31 mEq/L (21-27) H 12/13/17 03:01 ABG Total CO2 32 mEq/L (20-26) H 12/13/17 03:01 ABG O2 Saturation 94 % (95-98) L 12/13/17 03:01 ABG Base Excess 4 mEq/L (-2 to 3) H 12/13/17 03:01 Carbon Dioxide 32 mEq/L (23-29) H 12/15/17 04:00 BUN 29 mg/dL (8-23) H 12/15/17 04:00 Creatinine 1.87 mg/dL (0.60-1.20) H 12/15/17 04:00 Est GFR ( Amer) 32 (> 60) L 12/15/17 04:00 Est GFR (Non-Af Amer) 27 (> 60) L 12/15/17 04:00 Glucose 134 mg/dL (70-105) H 12/15/17 04:00 POC Glucose 124 mg/dL (70-99) H 12/15/17 08:23 Magnesium 1.5 mg/dL (1.6-2.6) L 12/13/17 08:58 AST 9 Units/L (13-39) L 12/08/17 03:37 Alkaline Phosphatase 106 Units/L (34-104) H 12/08/17 03:37 B-Natriuretic Peptide 1350 pg/mL (Less than 100) H 12/07/17 15:36 Albumin 3.2 g/dL (3.5-5.7) L 12/08/17 03:37 Albumin/Globulin Ratio 0.9 (1.1-2.2) L 12/08/17 03:37 Urine Clarity Cloudy (Clear) A 12/07/17 16:28 Ur Specific [place] >= 1.030 (1.010-1.025) H 12/07/17 16:28 Urine Protein >=300 mg/dL (Neg-Trace) H 12/07/17 16:28 Urine Blood Trace-intact (Negative) H 12/07/17 16:28 Urine Nitrite Positive (Negative) A 12/07/17 16:28 Urine Bilirubin Small (Negative) H 12/07/17 16:28 Ur Leukocyte Esterase Trace (Negative) H 12/07/17 16:28 Urine Microscopic RBC 15-30 per hpf (0-3) H 12/07/17 16:28 Urine Microscopic WBC TNTC per hpf (0-3) H 12/07/17 16:28 Ur Squamous Epith Cells Moderate per lpf (None-Few) H 12/07/17 16:28 Urine Bacteria Many per hpf (None-Few) H 12/07/17 16:28 Ur Culture Indicated? YES (NO) A 12/07/17 16:28 Microalb/Creat Ratio 54 mcg/mg (Less than 30) H 12/11/17 05:22 Urine Total Protein 57 mg/dL (1-14) H 12/11/17 05:22 General appearance: Present: cooperative, mild distress - Head Head exam: Present: atraumatic, normal inspection - Eye Eye exam: Present: PERRL. Absent: periorbital swelling, periorbital tenderness Pupils: Present: normal accommodation, PERRL - ENT ENT exam: Present: mucous membranes moist, normal external ear exam - Neck Neck exam: Present: full ROM, normal inspection - Respiratory Respiratory exam: Present: accessory muscle use, rhonchi. Absent: respiratory distress - Cardiovascular Cardiovascular exam: Present: +S1, +S2 - GI/Abdominal GI/Abdominal exam: Present: hypoactive bowel sounds, soft. Absent: tenderness - Rectal Rectal exam: Present: deferred - Extremities Exam Extremities exam: Present: full ROM, normal inspection, pedal edema. Absent: calf tenderness - Back Exam Back exam: Present: full ROM, normal inspection - Neurological Exam Neurological exam: Present: alert, oriented X3, strengths equal and symetr throughout. Absent: altered - Psychiatric Psychiatric exam: Present: anxious - Skin Skin exam: Present: dry, intact, warm Palliative Quality Palliative Quality: Screen for Code Status: Yes, Screen for Goals of Care: Yes, Screen for Pain: Yes, If Pain Regimen Started, Initiate Bowel Regimen: NA, Screen for Nausea/Vomitting: Yes Code Status: 12/07/17 18:21 Resuscitation Status: Active [RES] Routine Comment: Resuscitation Status: Full Code - Labs CBC & Chem 7: 12/15/17 04:00 12/15/17 04:00 Labs: Laboratory Results - last 24 hr 12/14/17 12/14/17 12/14/17 08:11 12:01 16:24 WBC RBC Hgb Hct MCV MCH MCHC RDW Plt Count MPV Immature Gran % Seg Neutrophils % Lymphocytes % Monocytes % Eosinophils % Basophils % Neutrophils # Lymphocytes # Monocytes # Eosinophils # Basophils # Sodium Potassium Chloride Carbon Dioxide BUN Creatinine Est GFR ( Amer) Est GFR (Non-Af Amer) BUN/Creatinine Ratio Glucose POC Glucose 135 H 147 H 145 H Calculated Osmolality Calcium 12/14/17 12/15/17 12/15/17 21:12 04:00 04:00 WBC 7.3 RBC 2.81 L Hgb 7.5 L Hct 24.9 L MCV 88.6 MCH 26.7 L MCHC 30.1 L RDW 17.1 H Plt Count 176 MPV 9.4 Immature Gran % 0.4 Seg Neutrophils % 74.5 Lymphocytes % 10.4 Monocytes % 8.1 Eosinophils % 6.3 Basophils % 0.3 Neutrophils # 5.4 Lymphocytes # 0.8 Monocytes # 0.6 Eosinophils # 0.5 Basophils # 0.0 Sodium 140 Potassium 3.8 Chloride 101 Carbon Dioxide 32 H BUN 29 H Creatinine 1.87 H Est GFR ( Amer) 32 L Est GFR (Non-Af Amer) 27 L BUN/Creatinine Ratio 16 Glucose 134 H POC Glucose 142 H Calculated Osmolality 298 Calcium 9.4 12/15/17 08:23 WBC RBC Hgb Hct MCV MCH MCHC RDW Plt Count MPV Immature Gran % Seg Neutrophils % Lymphocytes % Monocytes % Eosinophils % Basophils % Neutrophils # Lymphocytes # Monocytes # Eosinophils # Basophils # Sodium Potassium Chloride Carbon Dioxide BUN Creatinine Est GFR ( Amer) Est GFR (Non-Af Amer) BUN/Creatinine Ratio Glucose POC Glucose 124 H Calculated Osmolality Calcium - ABG Interpretation ABG results: ABG ABG pH 7.35 pH Units (7.32-7.45) 12/13/17 03:01 ABG pCO2 56 mmHg (35-45) H 12/13/17 03:01 ABG pO2 75 mmHg (85-104) L 12/13/17 03:01 ABG O2 Saturation 94 % (95-98) L 12/13/17 03:01 PT/INR, D-dimer PT 13.6 Seconds (9.4-12.1) H 12/07/17 15:36 Consult Discharge Plan - Plan Additional Instructions: - Resume normal activity as tolerated - Continue to use continuous O2 NC supplementation - Continue to use Bipap while sleeping - Will order PT/OT in addition to referral to home health - Follow up with PCP and [facility] - Continue Diabetic diet and restrict fluid intake - Continue taking Lasix 20mg by mouth twice a day until your appointment with [facility] on 01/03/18 - Bloodwork will need to be done 7 days after discharge for a repeat BMP to monitor your kidney function - Continue taking Levaquin 750 mg by mouth every other day for 3 days Referrals: Stephanie Morgan CNP [Primary Care Provider] - 12/22/17 11:00 am Tequila Dixon MD [Partnered Physician] - 01/03/18 11:00 am Prescriptions: Furosemide [Lasix] 20 mg PO BIDDIURETIC 30 Days #60 tablet Levofloxacin [Levaquin] 750 mg PO Q48H 3 Days #3 tablet
[2017-12-15] MEDS: Fluticasone Propionate Nasal 50 MCG/SPRAY BOTTLE NS SCH ×2 (15:42→15:43)
--- NOTE | 2017-12-15 17:13 | Infectious Disease Progress No ---
Date of Encounter: 12/15/17 Time of Encounter: 10:45 - Assessment and Plan (1) Sepsis Current Visit: Yes Status: Resolved The patient had 2 sepsis criteria on admission. Likely secondary to pneumonia. Improved. White blood cell count has normalized. Tachypnea has resolved. Blood cultures drawn 12/07/17 are no growth to date 2 sets. Qualifiers: Sepsis type: sepsis due to unspecified organism Qualified Code(s): A41.9 - Sepsis, unspecified organism (2) Pneumonia Current Visit: Yes Status: Acute Location bilateral bases. Causative organism: Unclear. Chest x-ray completed 12/07/17 showed a worsening of left basilar opacity and pleural effusion and stable right basilar opacity and effusion. Etiology unclear, but aspiration does not seem to be playing a part in this. Strep pneumococcal and legionella urinary antigens are negative. MRSA screen was negative. Respiratory infectious panel was negative. Sputum culture obtained 2 were interpreted as normal upper respiratory tract fredrick. Clinically, the patient appears improved. Repeat CXR 12/10/17 showed no evidence of PNA. Discontinue Levaquin. Continue Zosyn 3.375 g IV every 8 hours. (day 9) Duration of treatment depends on the clinical picture, but likely a total of 10 days. Can likely transition to PO Augmentin and Levaquin if ready for discharge prior to completing course of treatment. Monitor renal function and dose adjust antibiotics. No further recommendations from the ID team. We will sign off. Please re- consult if needed. Qualifiers: Pneumonia type: due to unspecified organism Laterality: left Lung location: lower lobe of lung Qualified Code(s): J18.1 - Lobar pneumonia, unspecified organism (3) UTI (urinary tract infection) Current Visit: Yes Status: Acute Asymptomatic bacteriuria. Urine culture positive for Klebsiella pneumoniae and Escherichia coli ESBL. No indication to treat. Continue contact precautions per hospital policy. Qualifiers: Urinary tract infection type: site unspecified Hematuria presence: without hematuria Qualified Code(s): N39.0 - Urinary tract infection, site not specified (4) Pleural effusion Current Visit: Yes Status: Acute Location: Bilateral. Etiology: Likely multifactorial (CHF plus malignancy) Pulmonology consulted. Performed bedside ultrasound that showed a small left and trivial right-sided pleural effusion that are not amenable to drainage. Diuresis per the primary team. (5) Acute renal failure superimposed on stage 3 chronic kidney disease Current Visit: No Status: Acute Improved. Etiology unclear. Continue to trend. Vanc stopped. Dose-adjust antibiotics and other medications. Nephrology consulted and following. Qualifiers: Acute renal failure type: unspecified Qualified Code(s): N17.9 - Acute kidney failure, unspecified; N18.3 - Chronic kidney disease, stage 3 (moderate) (6) Acute and chronic respiratory failure with hypoxia Current Visit: Yes Status: Acute Likely multifactorial: COPD + CHF + pleural effusions Appears improved. Management per the primary team. 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 Patient follows with Dr. Ny at the [facility]. Treatment on hold until cranial hardware exposure can be fixed. (12) Skin lesion of scalp Current Visit: No Status: Acute Previous cranial surgery hardware exposed since 2008. Referred to plastic surgery and neurosurgery at [place] with surgery planned for December 21. (13) Diabetes mellitus Current Visit: No Status: Chronic Recommend aggressive glucose monitoring and control to promote wound healing and prevent reinfection. Management per the primary team. Qualifiers: Diabetes mellitus type: type 2 Diabetes mellitus snf insulin use: with risk intern use Diabetes mellitus complication status: with kidney complications Diabetes mellitus complication detail: with chronic kidney disease Chronic kidney disease stage: stage 3 (moderate) Qualified Code(s): E11.22 - Type 2 diabetes mellitus with diabetic chronic kidney disease; N18.3 - Chronic kidney disease, stage 3 (moderate); Z79.4 - skilled nursing (current) use of insulin (14) Hypertension Current Visit: No Status: Chronic Qualifiers: Hypertension type: essential hypertension Qualified Code(s): I10 - Essential (primary) hypertension (15) Hypothyroid Current Visit: No Status: Chronic Qualifiers: Hypothyroidism type: acquired Qualified Code(s): E03.9 - Hypothyroidism, unspecified (16) CHF (congestive heart failure) Current Visit: Yes Status: Chronic Qualifiers: Heart failure type: diastolic Heart failure chronicity: acute on chronic Qualified Code(s): I50.33 - Acute on chronic diastolic (congestive) heart failure - Subjective Interval history: Patient seen and examined sitting up in the bedside chair. No acute events noted overnight. Patient states overall she feels okay. Reports shortness of breath improved today and she is coughing less. Denies chest or abdominal pain. Denies nausea or vomiting. Denies abdominal pain or urinary complaints. States appetite is okay. Denies oral thrush or new skin lesions. Infect Dis PN-Objective Data - Labs CBC & Chem 7: 12/15/17 04:00 12/15/17 04:00 Labs: Laboratory Results - last 24 hr 12/14/17 12/14/17 12/15/17 16:24 21:12 04:00 WBC 7.3 RBC 2.81 L Hgb 7.5 L Hct 24.9 L MCV 88.6 MCH 26.7 L MCHC 30.1 L RDW 17.1 H Plt Count 176 MPV 9.4 Immature Gran % 0.4 Seg Neutrophils % 74.5 Lymphocytes % 10.4 Monocytes % 8.1 Eosinophils % 6.3 Basophils % 0.3 Neutrophils # 5.4 Lymphocytes # 0.8 Monocytes # 0.6 Eosinophils # 0.5 Basophils # 0.0 Sodium Potassium Chloride Carbon Dioxide BUN Creatinine Est GFR ( Amer) Est GFR (Non-Af Amer) BUN/Creatinine Ratio Glucose POC Glucose 145 H 142 H Calculated Osmolality Calcium 12/15/17 12/15/17 12/15/17 04:00 08:23 11:34 WBC RBC Hgb Hct MCV MCH MCHC RDW Plt Count MPV Immature Gran % Seg Neutrophils % Lymphocytes % Monocytes % Eosinophils % Basophils % Neutrophils # Lymphocytes # Monocytes # Eosinophils # Basophils # Sodium 140 Potassium 3.8 Chloride 101 Carbon Dioxide 32 H BUN 29 H Creatinine 1.87 H Est GFR ( Amer) 32 L Est GFR (Non-Af Amer) 27 L BUN/Creatinine Ratio 16 Glucose 134 H POC Glucose 124 H 161 H Calculated Osmolality 298 Calcium 9.4 Cultures: Cultures 12/08/17 17:50 Urine Culture - Final Urine,Clean Catch No significant growth. 12/10/17 01:15 Sputum Culture - Final Sputum 12/09/17 06:00 Sputum Culture - Final Sputum 12/08/17 17:50 Streptococcus pneumoniae Antigen (M - Final Urine,Catheterized 10/03/18 17:50 Legionella Antigen - Final Urine,Catheterized Serology 12/11/17 12/10/17 12/09/17 Range/Units 05:22 09:55 06:00 Urine Creatinine 98 mg/dL Urine Microalbumin 53 mg/L Microalb/Creat Ratio 54 H (Less than 30) mcg/mg Urine Urea Nitrogen 412 mg/dL Urine Total Protein 57 H (1-14) mg/dL Nasal Screen MRSA (PCR) Negative (Negative) Chlamy pneumoniae PCR Not Detected (Not Detect) Adenovirus (PCR) Not Detected (Not Detect) B. pertussis DNA (PCR) Not Detected (Not Detect) B.parapertussis DNA PCR Not Detected (Not Detect) Coronavirus OC43 (PCR) Not Detected (Not Detect) Coronavirus HKU1 (PCR) Not Detected (Not Detect) Coronavirus 229E (PCR) Not Detected (Not Detect) Coronavirus NL63 (PCR) Not Detected (Not Detect) Human Metapneumovir PCR Not Detected (Not Detect) Influenza A (H1) PCR Not Detected (Not Detect) Influ A (H1N1/09) PCR Not Detected (Not Detect) Influenza A (H3) PCR Not Detected (Not Detect) Influenza A Untype (PCR) Not Detected (Not Detect) Influenza Type B (PCR) Not Detected (Not Detect) M.pneumoniae DNA (PCR) Not Detected (Not Detect) Parainfluenza 1 (PCR) Not Detected (Not Detect) Parainfluenza 2 (PCR) Not Detected (Not Detect) Parainfluenza 3 (PCR) Not Detected (Not Detect) Parainfluenza 4 (PCR) Not Detected (Not Detect) RSV (PCR) Not Detected (Not Detect) Entero/Rhino (PCR) Not Detected (Not Detect) 12/09/17 Range/Units 06:00 Urine Creatinine mg/dL Urine Microalbumin mg/L Microalb/Creat Ratio (Less than 30) mcg/mg Urine Urea Nitrogen mg/dL Urine Total Protein (1-14) mg/dL Nasal Screen MRSA (PCR) Negative (Negative) Chlamy pneumoniae PCR (Not Detect) Adenovirus (PCR) (Not Detect) B. pertussis DNA (PCR) (Not Detect) B.parapertussis DNA PCR (Not Detect) Coronavirus OC43 (PCR) (Not Detect) Coronavirus HKU1 (PCR) (Not Detect) Coronavirus 229E (PCR) (Not Detect) Coronavirus NL63 (PCR) (Not Detect) Human Metapneumovir PCR (Not Detect) Influenza A (H1) PCR (Not Detect) Influ A (H1N1/09) PCR (Not Detect) Influenza A (H3) PCR (Not Detect) Influenza A Untype (PCR) (Not Detect) Influenza Type B (PCR) (Not Detect) M.pneumoniae DNA (PCR) (Not Detect) Parainfluenza 1 (PCR) (Not Detect) Parainfluenza 2 (PCR) (Not Detect) Parainfluenza 3 (PCR) (Not Detect) Parainfluenza 4 (PCR) (Not Detect) RSV (PCR) (Not Detect) Entero/Rhino (PCR) (Not Detect) Exam - Constitutional Vitals: Temp Pulse Resp BP Pulse Ox 98.3 F 76 18 186/78 90 12/15/17 15:56 12/15/17 15:56 12/15/17 16:26 12/15/17 15:56 12/15/17 16:26 General appearance: cooperative, morbidly obese, no acute distress - Head Head exam: Present: atraumatic, normal inspection, normocephalic - Eye Eye exam: Present: EOMI, normal appearance, PERRL Pupils: Present: normal accommodation - ENT ENT exam: Present: mucous membranes moist - Neck Neck exam: Present: normal inspection - Respiratory Respiratory exam: Present: CTAB. Absent: rales, respiratory distress, rhonchi, wheezes - Cardiovascular Cardiovascular exam: Present: RRR, +S1, +S2 - GI/Abdominal GI/Abdominal exam: Present: distended (obese), normal bowel sounds, soft. Absent: tenderness - Extremities Exam Extremities exam: Present: normal inspection. Absent: joint swelling, pedal edema, tenderness - Neurological Exam Neurological exam: Present: alert, oriented X3, no focal deficits - Psychiatric Psychiatric exam: Present: normal affect, normal mood - Skin Skin exam: Present: dry, intact, normal color, warm Consult Discharge Plan - Plan Additional Instructions: - Resume normal activity as tolerated - Continue to use continuous O2 NC supplementation - Continue to use Bipap while sleeping - Will order PT/OT in addition to referral to home health - Follow up with PCP and [facility] - Continue Diabetic diet and restrict fluid intake - Continue taking Lasix 20mg by mouth twice a day until your appointment with [facility] on 01/03/18 - Bloodwork will need to be done 7 days after discharge for a repeat BMP to monitor your kidney function - Continue taking Levaquin 750 mg by mouth every other day for 3 days Referrals: Stephanie Morgan CNP [Primary Care Provider] - 12/22/17 11:00 am Tequila Dixon MD [Partnered Physician] - 01/03/18 11:00 am Prescriptions: Furosemide [Lasix] 20 mg PO BIDDIURETIC 30 Days #60 tablet Levofloxacin [Levaquin] 750 mg PO Q48H 3 Days #3 tablet - Attending Attestation I examined this patient and my medical decision-making was reviewed with the Resident Physician. I agree with the documented findings, disposition and treatment plan as described except to the extent set forth below.
[2017-12-15] MEDS: Insulin DETEMIR 100 UNIT/ML X5UNITS SQ SCH (21:14)
[2017-12-16] MEDS: Ipratropium/Albuterol Neb 3 ML IH SCH ×4 (03:49→21:48)
[2017-12-16] MEDS ORDERED: levoFLOXacin 750 MG TABLET PO SCH (09:00)
--- NOTE | 2017-12-16 09:22 | Internal Med Progress Note ---
<Kylie Sosa - Last Filed: 12/16/17 13:15> Hospitalist Progress Note - Encounter Date of Encounter: 12/16/17 Time of Encounter: 08:30 - Subjective Interval History: The patient is a very pleasant 72 year female with a past medical history significant for brain cancer s/p craniotomy, lung and spine mets, recurrent pleural effusion, CHF, DM, HLD, CAD s/p stent and CABG, and ELPIDIO who presented to [facility] on 12/07/17 with HCAP. She was recently discharged from the hospital on after a stay for bilateral pleural effusions and Ct guided thoracocentesis. Patient has been receiving treatment for HCAP and acute on chronic respiratory failure with with hypoxemia during her stay. This is hospitalization day number 9. The patient was seen and examined at bedside this morning. The patient was not discharged to home with home health yesterday because she made the decision with Palliative to go to a short term rehab facility. PT and OT evaluated her yesterday and agreed that a short term rehab stay at a SNF was the patient's safest option because of her current level of assistance needs compared to baseline. Placement is being arranged for today. Overnight, patient developed HTN with her highest BP being 190/80 at 2206. She received PRN IV Hydralazine 10mg at 2207. However, her BP has stayed consistently elevated through to this morning when it was 167/74 at 0745.She is still on 50mg PO Hydralazine TID. Today, patient states she feels better but has some fatigue. The patient currently denies any chest pain, dyspnea, lightheadedness, dizziness, vision changes, headache, palpitations, abdominal pain, nausea, vomiting, fever or chills. Patient is stable for discharge to SNF for short term rehab stay with PT/OT. - Exam Vitals: Temp Pulse Resp BP Pulse Ox 98.2 F 77 16 166/74 91 12/16/17 07:45 12/16/17 07:45 12/16/17 07:45 12/16/17 07:45 12/16/17 07:45 Exam: Physical Exam: GENERAL: Patient is a 72 year old morbidly obese class III female in mild respiratory distress with appropriate affect. Alert & oriented x3. HEENT: Head is normocephalic, patient has visible metal plate in her cranium from prior craniotomy in 2008. Was supposed to undergo Surgery on 12/07/17 to fix the exposed plate but this has been rescheduled. EYES: PERRLA, EOMI. Sclera anincteric. MOUTH: Oropharynx clear. Mucous membranes moist. NECK: Supple, no masses, exam difficult due to large neck circumference. CV: Regular rate and rhythm. Normal S1, S2 with no clicks, murmurs, gallops, or rubs. PULMONARY: CTA throughout. Symmetrical chest expansion. Accessory muscle usage and uses short sentences. No wheezes, rales, rhonchi. GI: Abdomen is soft, obese, nontender, positive bowel sounds x 4 present and appropriate. No peritoneal signs or guarding. No palpable masses. SKIN: Warm, dry and intact. No rashes, bruising, cyanosis or non healing lesions are seen. Trace pedal edema noted. NEUROLOGICAL: Alert, awake. CN II-XII grossly intact. Patient is moving all extremities and following commands appropriately. No focal deficits are noted. Muscle strength 5/5 x 4 extremities. VASCULAR/EXTREMITIES: Peripheral pulses palpable and equal. - Assessment and Plan (1) Hypertension Current Visit: No Status: Chronic Assessment and Plan: Patient developed HTN overnight. The highest was 190/80 at 2206 and patient received PRN IV Hydralazine 10mg. She is still on PO 50mg Hydralazine TID. (2) HCAP (healthcare-associated pneumonia) Current Visit: Yes Status: Acute Assessment and Plan: HCAP: Patient presented with dyspnea, increased thick sputum production, and required increased oxygen use. Chest X-ray showed lower lobe pneumonia with pleural effusion. Pulmonology and ID have been consulted. Recommend PO Levaquin and Augmentin upon discharge. - Causative Organism: Unknown - Sputum cultures grew normal respiratory fredrick - Day 2/3 PO Levaquin 750mg Q48H - MRSA swab negative, Legionella and Strep Pneumo antigen negative. Respiratory Negative. - Patient weaned to 4-5L of O2 NC. Her baseline was 2-3L - Continue BiPAP - setting as per pulm - with FiO2 Bleed, can be used PRN throughout the day and continuously at night. - Continue Duonebs PRN Q4H (3) Acute and chronic respiratory failure with hypoxia Current Visit: Yes Status: Acute (4) Acute on chronic diastolic (congestive) heart failure Current Visit: Yes Status: Acute Assessment and Plan: Continue PO Lasix 20mg BID (5) Renal failure (ARF), acute on chronic Current Visit: No Status: Acute (6) Volume overload Current Visit: Yes Status: Acute (7) UTI (urinary tract infection) Current Visit: Yes Status: Acute (8) Diabetes mellitus Current Visit: No Status: Chronic (9) Morbid obesity Current Visit: Yes Status: Chronic - Time Spent with Patient Total time spent is greater than 50% in coordination of care (as documented) at patient's floor/unit and/or counseling patient: Internal Medicine: Result - Labs CBC & Chem 7: 12/15/17 04:00 12/15/17 04:00 - ABG Interpretation ABG results: ABG ABG pH 7.35 pH Units (7.32-7.45) 12/13/17 03:01 ABG pCO2 56 mmHg (35-45) H 12/13/17 03:01 ABG pO2 75 mmHg (85-104) L 12/13/17 03:01 ABG O2 Saturation 94 % (95-98) L 12/13/17 03:01 PT/INR, D-dimer PT 13.6 Seconds (9.4-12.1) H 12/07/17 15:36 Consult Discharge Plan - Plan Additional Instructions: - Resume normal activity as tolerated - Continue to use continuous O2 NC supplementation - Continue to use Bipap while sleeping - Will order PT/OT in addition to referral to home health - Follow up with PCP and [facility] - Continue Diabetic diet and restrict fluid intake - Continue taking Lasix 20mg by mouth twice a day until your appointment with [facility] on 01/03/18 - Bloodwork will need to be done 7 days after discharge for a repeat BMP to monitor your kidney function - Continue taking Levaquin 750 mg by mouth every other day for 3 days Referrals: Stephanie Morgan CNP [Primary Care Provider] - 12/22/17 11:00 am Tequila Dixon MD [Partnered Physician] - 01/03/18 11:00 am Prescriptions: Furosemide [Lasix] 20 mg PO BIDDIURETIC 30 Days #60 tablet Levofloxacin [Levaquin] 750 mg PO Q48H 3 Days #3 tablet <Ivana Lee - Last Filed: 12/16/17 17:10> Hospitalist Progress Note - Encounter Date of Encounter: 12/16/17 - Exam Vitals: Temp Pulse Resp BP Pulse Ox 97.8 F 75 16 156/64 93 12/16/17 16:00 12/16/17 16:00 12/16/17 16:00 12/16/17 16:00 12/16/17 16:00 - Assessment and Plan (1) Diabetes mellitus Current Visit: No Status: Chronic (2) Hypertension Current Visit: No Status: Chronic (3) Acute renal failure superimposed on stage 3 chronic kidney disease Current Visit: No Status: Acute (4) COPD exacerbation Current Visit: Yes Status: Acute (5) UTI (urinary tract infection) Current Visit: Yes Status: Acute (6) HCAP (healthcare-associated pneumonia) Current Visit: Yes Status: Acute (7) Acute and chronic respiratory failure with hypoxia Current Visit: Yes Status: Acute (8) Morbid obesity Current Visit: Yes Status: Chronic (9) Acute on chronic diastolic (congestive) heart failure Current Visit: Yes Status: Acute (10) Volume overload Current Visit: Yes Status: Acute - Time Spent with Patient Total time spent is greater than 50% in coordination of care (as documented) at patient's floor/unit and/or counseling patient: Internal Medicine: Result - Labs CBC & Chem 7: 12/15/17 04:00 12/15/17 04:00 - ABG Interpretation ABG results: ABG ABG pH 7.35 pH Units (7.32-7.45) 12/13/17 03:01 ABG pCO2 56 mmHg (35-45) H 12/13/17 03:01 ABG pO2 75 mmHg (85-104) L 12/13/17 03:01 ABG O2 Saturation 94 % (95-98) L 12/13/17 03:01 PT/INR, D-dimer PT 13.6 Seconds (9.4-12.1) H 12/07/17 15:36 - Attending Attestation 72 year female with a past medical history significant for brain cancer s/p craniotomy, lung and spine mets, recurrent pleural effusion, CHF, DM, HLD, CAD s /p stent and CABG, and ELPIDIO who presented to [facility] on 12/07/17 with HCAP. She was recently discharged from the hospital on 12/02/17 after a stay for bilateral pleural effusions and Ct guided thoracocentesis. Pt was admitted in the hospital and started her on empirical abx. S: She states her breathing has improved Exam GENERAL: Patient is a 72 year old morbidly obese class III female in mild respiratory distress with appropriate affect. Alert & oriented x3. HEENT: Head is normocephalic, patient has visible metal plate in her cranium from prior craniotomy in 2008. Was supposed to undergo Surgery on 12/07/17 to fix the exposed plate but this has been rescheduled. EYES: PERRLA, EOMI. Sclera anincteric. MOUTH: Oropharynx clear. Mucous membranes moist. NECK: Supple, no masses, exam difficult due to large neck circumference. CV: Regular rate and rhythm. Normal S1, S2 with no clicks, murmurs, gallops, or rubs. PULMONARY: CTA but muffled breath sounds bilaterally, could be due to habitus. Symmetrical chest expansion. Accessory muscle usage. No wheezes, rales, rhonchi. GI: Abdomen is soft, obese, nontender, positive bowel sounds x 4 present and appropriate. No peritoneal signs or guarding. No palpable masses. SKIN: Warm, dry and intact. No rashes, bruising, cyanosis or non healing lesions are seen. Trace pedal edema noted but improved. NEUROLOGICAL: Alert, awake. CN II-XII grossly intact. Patient is moving all extremities and following commands appropriately. No focal deficits are noted. Muscle strength 5/5 x 4 extremities. Plan Sepsis likely secondary to bacterial HCAP. Continue zosyn to complete 10 day course. Improving. Plan to discharge on po augmentin or levaquin. Awaiting rehab placement HCAP. See #1 GLENNA on CKD stage 3. Monitor creatinine Acute on chronic diastolic CHF. Continue lasix UTI. Asymptomatic bacteruria. No indication to treat. Acute hypoxic respiratory failure 2/2 to HCAP. Continue antibiotics. Wean off oxygen as tolerated DVT prophylaxis. SCDs <Kylie Ssoa - Last Filed: 12/16/17 13:15> (1) Hypertension Qualifiers: Hypertension type: essential hypertension Qualified Code(s): I10 - Essential (primary) hypertension (5) Renal failure (ARF), acute on chronic Qualifiers: Acute renal failure type: unspecified Chronic kidney disease stage: stage 3 ( moderate) Qualified Code(s): N17.9 - Acute kidney failure, unspecified; N18.3 - Chronic kidney disease, stage 3 (moderate) (6) Volume overload Qualifiers: Hypervolemia type: other Qualified Code(s): E87.79 - Other fluid overload (7) UTI (urinary tract infection) Qualifiers: Urinary tract infection type: site unspecified Hematuria presence: without hematuria Qualified Code(s): N39.0 - Urinary tract infection, site not specified (8) Diabetes mellitus Qualifiers: Diabetes mellitus type: type 2 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: with correction use Diabetes mellitus complication status: with kidney complications Diabetes mellitus complication detail: with chronic kidney disease Chronic kidney disease stage: stage 3 (moderate) Qualified Code(s): E11.22 - Type 2 diabetes mellitus with diabetic chronic kidney disease; N18.3 - Chronic kidney disease, stage 3 (moderate); Z79.4 - lobsterman (current) use of insulin <Ivana Lee - Last Filed: 12/16/17 17:10> (1) Diabetes mellitus Qualifiers: Diabetes mellitus type: type 2 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: with correction use Diabetes mellitus complication status: with kidney complications Diabetes mellitus complication detail: with chronic kidney disease Chronic kidney disease stage: stage 3 (moderate) Qualified Code(s): E11.22 - Type 2 diabetes mellitus with diabetic chronic kidney disease; N18.3 - Chronic kidney disease, stage 3 (moderate); Z79.4 - halfway (current) use of insulin (2) Hypertension Qualifiers: Hypertension type: essential hypertension Qualified Code(s): I10 - Essential (primary) hypertension (3) Acute renal failure superimposed on stage 3 chronic kidney disease Qualifiers: Acute renal failure type: unspecified Qualified Code(s): N17.9 - Acute kidney failure, unspecified; N18.3 - Chronic kidney disease, stage 3 (moderate) (5) UTI (urinary tract infection) Qualifiers: Urinary tract infection type: site unspecified Hematuria presence: without hematuria Qualified Code(s): N39.0 - Urinary tract infection, site not specified (10) Volume overload Qualifiers: Hypervolemia type: other Qualified Code(s): E87.79 - Other fluid overload
[2017-12-16] MEDS: hydrALAZINE 25 MG TABLET PO SCH ×3 (10:12→21:16)
[2017-12-16] MEDS: Furosemide 20 MG TABLET PO SCH ×2 (10:13→18:08)
[2017-12-16] MEDS: Cholecalciferol (D-3) 1,000 UNIT TABLET PO SCH (10:13)
[2017-12-16] MEDS: Aspirin Enteric Coated 81 MG Tablet PO SCH (10:13)
[2017-12-16] MEDS: Fluticasone Propionate Nasal 50 MCG/SPRAY BOTTLE NS SCH (10:14)
[2017-12-16] MEDS: levETIRAcetam 250 MG TABLET PO SCH ×2 (10:27→21:16)
[2017-12-16] MEDS: Insulin DETEMIR 100 UNIT/ML X5UNITS SQ SCH (21:16)
[2017-12-17] MEDS: Ipratropium/Albuterol Neb 3 ML IH SCH ×4 (04:13→21:59)
[2017-12-17] MEDS: Cholecalciferol (D-3) 1,000 UNIT TABLET PO SCH (10:27)
[2017-12-17] MEDS: hydrALAZINE 25 MG TABLET PO SCH ×3 (10:27→20:43)
[2017-12-17] MEDS: levETIRAcetam 250 MG TABLET PO SCH ×2 (10:27→20:42)
[2017-12-17] MEDS: Aspirin Enteric Coated 81 MG Tablet PO SCH (10:27)
[2017-12-17] MEDS: Furosemide 20 MG TABLET PO SCH ×2 (10:27→17:27)
--- NOTE | 2017-12-17 10:52 | Internal Med Progress Note ---
<Wildre Davalos - Last Filed: 12/17/17 11:19> Hospitalist Progress Note - Encounter Date of Encounter: 12/17/17 Time of Encounter: 09:30 - Subjective Interval History: Ms. Almanza is a pleasant 72F seen and evaluated at beside. She is A&Ox3 and reports feeling quite better today aside from her general weakness. She continues to have cough productive of a yellow-green sputum but does not report feeling any congestion in her chest. Pt denies N/V, abdominal pain, fever, chills, CP. Currently pt is sleeping well with BiPap throughout the night and is on high flow oxygen or 4L NC throughout the day. Pt typically uses 2-3L of O2 at home. Pt feels anxious to be d/c as she cares for her sister at home. Despite this, pt is cognizant of her medical care plan and is focusing on her PT/OT therapy. Pt has been working on general strengthening exercises with the goal of returning to baseline before hospitalization. As of now pt is waiting for placement to a SNF for ST rehabilitation with PT/OT - Exam Vitals: Temp Pulse Resp BP Pulse Ox 98.2 F 80 16 180/74 96 12/17/17 07:12 12/17/17 07:12 12/17/17 07:12 12/17/17 07:12 12/17/17 10:44 Exam: General: Pt appears to be in no apparent distress Head: Pt has some visible metal plate on her right upper forehead from a craniotomy surgery about 10 years ago. She had been scheduled to fix this defect on 12/07 however pt was unable to make this apt due to hospital stay. Neck: Supple with no lymphadenopathy or tenderness. CV: Tachycardic. No murmurs rubs or gallops. Mild edema of the LE. Peripheral pulses on UE symmetrical and intact. Lungs: CTAB. No rales or rhonchi. Pt has slightly labored breathing with breaks in her phrasing Neuro: Pt has diminished strength in all 4 extremities (4/5). Sensation intact. Skin: Dry and intact. Some lesions on pt backside, likely due to pt immobility. - Assessment and Plan (1) Hypertension Current Visit: No Status: Chronic Assessment and Plan: Pt BP today 180/74 Plan: Managed with Hydralazine 50mg TID PO IV Hydralazine 10mg PRN (2) HCAP (healthcare-associated pneumonia) Current Visit: Yes Status: Acute Assessment and Plan: Patient presented with dyspnea, increased thick sputum production, and required increased oxygen use. Chest X-ray showed lower lobe pneumonia with pleural effusion. Pulmonology and ID have been consulted. Recommend PO Levaquin and Augmentin upon discharge. - Causative Organism: Unknown - Sputum cultures grew normal respiratory fredrick - 2/3 PO Levaquin doses given. Third dose (12/18) of 750mg Q48H - MRSA swab negative, Legionella and Strep Pneumo antigen negative. Respiratory Negative. - Patient weaned to 4-5L of O2 NC. Her baseline was 2-3L - Continue BiPAP - setting as per pulm - with FiO2 Bleed, can be used PRN throughout the day and continuously at night. - Continue Duonebs PRN Q4H (3) Renal failure (ARF), acute on chronic Current Visit: No Status: Acute Assessment and Plan: Plan: F/u with PCP and nephrology (01/03) after d/c BMP 7 days after d/c to monitor kidney function (4) Acute and chronic respiratory failure with hypoxia Current Visit: Yes Status: Acute (5) Morbid obesity Current Visit: Yes Status: Chronic (6) Acute on chronic diastolic (congestive) heart failure Current Visit: Yes Status: Acute (7) Diabetes mellitus Current Visit: No Status: Chronic (8) Volume overload Current Visit: Yes Status: Acute (9) UTI (urinary tract infection) Current Visit: Yes Status: Acute - Time Spent with Patient Total time spent is greater than 50% in coordination of care (as documented) at patient's floor/unit and/or counseling patient: Internal Medicine: Result - Labs CBC & Chem 7: 12/15/17 04:00 12/15/17 04:00 - ABG Interpretation ABG results: ABG ABG pH 7.35 pH Units (7.32-7.45) 12/13/17 03:01 ABG pCO2 56 mmHg (35-45) H 12/13/17 03:01 ABG pO2 75 mmHg (85-104) L 12/13/17 03:01 ABG O2 Saturation 94 % (95-98) L 12/13/17 03:01 PT/INR, D-dimer PT 13.6 Seconds (9.4-12.1) H 12/07/17 15:36 Consult Discharge Plan - Plan Additional Instructions: - Resume normal activity as tolerated - Continue to use continuous O2 NC supplementation - Continue to use Bipap while sleeping - Will order PT/OT in addition to referral to home health - Follow up with PCP and [facility] - Continue Diabetic diet and restrict fluid intake - Continue taking Lasix 20mg by mouth twice a day until your appointment with [facility] on 01/03/18 - Bloodwork will need to be done 7 days after discharge for a repeat BMP to monitor your kidney function - Continue taking Levaquin 750 mg by mouth every other day for 3 days Referrals: Stephanie Morgan CNP [Primary Care Provider] - 12/22/17 11:00 am Tequila Dixon MD [Partnered Physician] - 01/03/18 11:00 am Prescriptions: Furosemide [Lasix] 20 mg PO BIDDIURETIC 30 Days #60 tablet Levofloxacin [Levaquin] 750 mg PO Q48H 3 Days #3 tablet <Ivana Lee - Last Filed: 12/17/17 15:52> Hospitalist Progress Note - Encounter Date of Encounter: 12/17/17 - Exam Vitals: Temp Pulse Resp BP Pulse Ox 98 F 83 16 185/72 92 12/17/17 12:10 12/17/17 12:10 12/17/17 12:10 12/17/17 12:10 12/17/17 12:10 - Assessment and Plan (1) Diabetes mellitus Current Visit: No Status: Chronic (2) Hypertension Current Visit: No Status: Chronic (3) Acute renal failure superimposed on stage 3 chronic kidney disease Current Visit: No Status: Acute (4) COPD exacerbation Current Visit: Yes Status: Acute (5) UTI (urinary tract infection) Current Visit: Yes Status: Acute (6) HCAP (healthcare-associated pneumonia) Current Visit: Yes Status: Acute (7) Acute and chronic respiratory failure with hypoxia Current Visit: Yes Status: Acute (8) Morbid obesity Current Visit: Yes Status: Chronic (9) Acute on chronic diastolic (congestive) heart failure Current Visit: Yes Status: Acute (10) Volume overload Current Visit: Yes Status: Acute - Time Spent with Patient Total time spent is greater than 50% in coordination of care (as documented) at patient's floor/unit and/or counseling patient: Internal Medicine: Result - Labs CBC & Chem 7: 12/15/17 04:00 12/15/17 04:00 - ABG Interpretation ABG results: ABG ABG pH 7.35 pH Units (7.32-7.45) 12/13/17 03:01 ABG pCO2 56 mmHg (35-45) H 12/13/17 03:01 ABG pO2 75 mmHg (85-104) L 12/13/17 03:01 ABG O2 Saturation 94 % (95-98) L 12/13/17 03:01 PT/INR, D-dimer PT 13.6 Seconds (9.4-12.1) H 12/07/17 15:36 - Attending Attestation 72 year female with a past medical history significant for brain cancer s/p craniotomy, lung and spine mets, recurrent pleural effusion, CHF, DM, HLD, CAD s /p stent and CABG, and ELPIDIO who presented to [facility] on 12/07/17 with HCAP. She was recently discharged from the hospital on 12/02/17 after a stay for bilateral pleural effusions and Ct guided thoracocentesis. Pt was admitted in the hospital and started her on empirical abx. S: She states her breathing has improved Exam GENERAL: Patient is a 72 year old morbidly obese class III female in mild respiratory distress with appropriate affect. Alert & oriented x3. HEENT: Head is normocephalic, patient has visible metal plate in her cranium from prior craniotomy in 2008. Was supposed to undergo Surgery on 12/07/17 to fix the exposed plate but this has been rescheduled. EYES: PERRLA, EOMI. Sclera anincteric. MOUTH: Oropharynx clear. Mucous membranes moist. NECK: Supple, no masses, exam difficult due to large neck circumference. CV: Regular rate and rhythm. Normal S1, S2 with no clicks, murmurs, gallops, or rubs. PULMONARY: CTA but muffled breath sounds bilaterally, could be due to habitus. Symmetrical chest expansion. Accessory muscle usage. No wheezes, rales, rhonchi. GI: Abdomen is soft, obese, nontender, positive bowel sounds x 4 present and appropriate. No peritoneal signs or guarding. No palpable masses. SKIN: Warm, dry and intact. No rashes, bruising, cyanosis or non healing lesions are seen. Trace pedal edema noted but improved. NEUROLOGICAL: Alert, awake. CN II-XII grossly intact. Patient is moving all extremities and following commands appropriately. No focal deficits are noted. Muscle strength 5/5 x 4 extremities. Plan Sepsis likely secondary to bacterial HCAP. Continue zosyn to complete 10 day course. Improving. Plan to discharge on po augmentin or levaquin. Awaiting rehab placement HCAP. See #1 GLENNA on CKD stage 3. Monitor creatinine Acute on chronic diastolic CHF. Continue lasix UTI. Asymptomatic bacteruria. No indication to treat. Acute hypoxic respiratory failure 2/2 to HCAP. Continue antibiotics. Wean off oxygen as tolerated DVT prophylaxis. 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 Diabetes mellitus complication status: with kidney complications Diabetes mellitus complication detail: with chronic kidney disease Chronic kidney disease stage: stage 3 (moderate) Qualified Code(s): E11.22 - Type 2 diabetes mellitus with diabetic chronic kidney disease; N18.3 - Chronic kidney disease, stage 3 (moderate); Z79.4 - [facility] (current) use of insulin (8) Volume overload Qualifiers: Hypervolemia type: other Qualified Code(s): E87.79 - Other fluid overload <Ivana Lee - Last Filed: 12/17/17 15:52> (1) Diabetes mellitus Qualifiers: Diabetes mellitus type: type 2 Diabetes mellitus [facility] insulin use: with clay processing labourer use Diabetes mellitus complication status: with kidney complications Diabetes mellitus complication detail: with chronic kidney disease Chronic kidney disease stage: stage 3 (moderate) Qualified Code(s): E11.22 - Type 2 diabetes mellitus with diabetic chronic kidney disease; N18.3 - Chronic kidney disease, stage 3 (moderate); 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 (2) Hypertension Qualifiers: Hypertension type: essential hypertension Qualified Code(s): I10 - Essential (primary) hypertension (3) Acute renal failure superimposed on stage 3 chronic kidney disease Qualifiers: Acute renal failure type: unspecified Qualified Code(s): N17.9 - Acute kidney failure, unspecified; N18.3 - Chronic kidney disease, stage 3 (moderate) (5) UTI (urinary tract infection) Qualifiers: Urinary tract infection type: site unspecified Hematuria presence: without hematuria Qualified Code(s): N39.0 - Urinary tract infection, site not specified (10) Volume overload Qualifiers: Hypervolemia type: other Qualified Code(s): E87.79 - Other fluid overload
--- NOTE | 2017-12-17 13:27 | Palliative Progress Note ---
<Shannon Gamboa N - Last Filed: 12/17/17 15:51> Date of Encounter: 12/17/17 Time of Encounter: 15:22 - Assessment and plan (1) Goals of care, counseling/discussion Current Visit: Yes Status: Acute Assessment and plan: Palliative care team was initially consulted regarding goals of care and advanced care planning. At that time, patient expressed interest in designating a medical power of staff attorney; however, she requested some time to think about it further. When asked today if she had considered that any further, she states that she does want to complete that document. She states that she has poor eyesight and is unable to read the document fully, and requests someone to sit down with her and read it to her "word for word". Patient is currently awaiting placement at [facility]. She was initially denied acceptance due to exposed metal present in her scalp secondary to prior brain surgery. Nursing staff reports that she was initially told that she could not be considered for admission until after surgical repair of that defect; however, chart review demonstrates that procedure has been cancelled and she is awaiting further consideration for placement. Sat down with patient this afternoon regarding medical power of staff attorney paperwork, which was read aloud to the patient, with clarification of terminology as needed. Patient has designated her sister Trisha as her primary POA , with her brother Vidal as her first alternate and her friend Bk Romo as her second alternate. Patient voiced understanding of the documentation and the responsibilities of her designated agent(s). She states that she plans to discuss her wishes with those individuals in the near future, in order to lessen the burden placed on them in the event that they are needed to make decisions for her. All questions were answered to the patient's satisfaction. (2) Acute on chronic diastolic (congestive) heart failure Current Visit: Yes Status: Acute Assessment and plan: At the time of initial evaluation in the ED, patient was found to have recurrent pleural effusions on imaging and an elevated BNP. She was initially treated with IV lasix, and has improved since the time of admission. Recommend continuation of diuresis with lasix 20mg PO BID and adherence to 1.5L daily fluid restriction. (3) Acute and chronic respiratory failure with hypoxia Current Visit: Yes Status: Acute Assessment and plan: Patient is currently on supplemental oxygen therapy and BIPAP PRN. Will continue those supportive measures, along with scheduled duonebs Q6H and additional treatments PRN. (4) ELPIDIO (obstructive sleep apnea) Current Visit: Yes Status: Acute Assessment and plan: Patient has a history of noncompliance with BIPAP therapy in the past; however, she has been more compliant with recommendations over the last few days. Will continue BIPAP at night and during naps. - Time Spent With Patient Total time spent is greater than 50% in coordination of care (as documented) at patient's floor/unit and/or counseling patient: - Subjective Interval history: Ms. Almanza is a 72-year old female who presented to the ED on 12/07/2017 with shortness of breath. Her medical history significant for brain cancer with lung metastasis and recurrent pleural effusions. She also has a history of CHF, COPD , DM, seizures, hypertension, anxiety, and depression. Patient has been treated for sepsis secondary to HCAP and UTI. She has completed antibiotic therapy for these infections. She does have persistent shortness of breath, for which she does intermittently require BIPAP. On evaluation today, the patient reports some shortness of breath. She also complains of pain in her gluteal region secondary to sitting/lying in bed. She states that she has been considering designation of medical POA; however, she states that her eyesight is poor and she is unable to fully read and understand the document. She requests that a provider sit down with her to go through that document to ensure that she fully understands its contents. She denies any other acute complaints or concerns at this time. - Constitutional Vitals: Abnormal lab results RBC 2.81 M/mcL (3.82-4.97) L 12/15/17 04:00 Hgb 7.5 g/dL (11.5-15.4) L 12/15/17 04:00 Hct 24.9 % (35.3-44.9) L 12/15/17 04:00 MCH 26.7 pg (28.0-33.3) L 12/15/17 04:00 MCHC 30.1 g/dL (31.6-35.5) L 12/15/17 04:00 RDW 17.1 % (11.5-14.5) H 12/15/17 04:00 Hypochromasia Present (Not Present) A 12/10/17 06:21 Anisocytosis 1+ (Not Present) A 12/10/17 06:21 PT 13.6 Seconds (9.4-12.1) H 12/07/17 15:36 ABG pCO2 56 mmHg (35-45) H 12/13/17 03:01 ABG pO2 75 mmHg (85-104) L 12/13/17 03:01 ABG HCO3 31 mEq/L (21-27) H 12/13/17 03:01 ABG Total CO2 32 mEq/L (20-26) H 12/13/17 03:01 ABG O2 Saturation 94 % (95-98) L 12/13/17 03:01 ABG Base Excess 4 mEq/L (-2 to 3) H 12/13/17 03:01 Carbon Dioxide 32 mEq/L (23-29) H 12/15/17 04:00 BUN 29 mg/dL (8-23) H 12/15/17 04:00 Creatinine 1.87 mg/dL (0.60-1.20) H 12/15/17 04:00 Est GFR ( Amer) 32 (> 60) L 12/15/17 04:00 Est GFR (Non-Af Amer) 27 (> 60) L 12/15/17 04:00 Glucose 134 mg/dL (70-105) H 12/15/17 04:00 POC Glucose 160 mg/dL (70-99) H 12/16/17 12:00 Magnesium 1.5 mg/dL (1.6-2.6) L 12/13/17 08:58 AST 9 Units/L (13-39) L 12/08/17 03:37 Alkaline Phosphatase 106 Units/L (34-104) H 12/08/17 03:37 B-Natriuretic Peptide 1350 pg/mL (Less than 100) H 12/07/17 15:36 Albumin 3.2 g/dL (3.5-5.7) L 12/08/17 03:37 Albumin/Globulin Ratio 0.9 (1.1-2.2) L 12/08/17 03:37 Urine Clarity Cloudy (Clear) A 12/07/17 16:28 Ur Specific [place] >= 1.030 (1.010-1.025) H 12/07/17 16:28 Urine Protein >=300 mg/dL (Neg-Trace) H 12/07/17 16:28 Urine Blood Trace-intact (Negative) H 12/07/17 16:28 Urine Nitrite Positive (Negative) A 12/07/17 16:28 Urine Bilirubin Small (Negative) H 12/07/17 16:28 Ur Leukocyte Esterase Trace (Negative) H 12/07/17 16:28 Urine Microscopic RBC 15-30 per hpf (0-3) H 12/07/17 16:28 Urine Microscopic WBC TNTC per hpf (0-3) H 12/07/17 16:28 Ur Squamous Epith Cells Moderate per lpf (None-Few) H 12/07/17 16:28 Urine Bacteria Many per hpf (None-Few) H 12/07/17 16:28 Ur Culture Indicated? YES (NO) A 12/07/17 16: Microalb/Creat Ratio 54 mcg/mg (Less than 30) H 12/11/17 05:22 Urine Total Protein 57 mg/dL (1-14) H 12/11/17 05:22 Exam: GENERAL: Pleasant elderly female in no acute distress. She does appear slightly short of breath. HEENT: Atraumatic and normocephalic. Nasal canula in place. CARDIOVASCULAR: Regular rate and rhythm. S1 and S2 present. No murmurs, rubs, or gallops. RESPIRATORY: Diffusely decreased breath sounds bilaterally. Chest rises and falls symmetrically without evidence of accessory muscle use. GASTROINTESTINAL: Abdomen is obese with no tenderness to palpation. EXTREMITIES: Mild pedal edema present in bilateral lower extremities. NEUROLOGIC: Alert and oriented x3. Patient answers questions appropriately and is cooperative with exam. Palliative Quality Palliative Quality: Screen for Code Status: Yes, Screen for Goals of Care: Yes, Screen for Pain: Yes, If Pain Regimen Started, Initiate Bowel Regimen: NA, Screen for Nausea/Vomitting: Yes Code Status: 12/07/17 18:21 Resuscitation Status: Active [RES] Routine Comment: Resuscitation Status: Full Code - Labs CBC & Chem 7: 12/15/17 04:00 12/15/17 04:00 Labs: Laboratory Results - last 24 hr 12/15/17 12/16/17 12/16/17 20:16 07:47 12:00 POC Glucose 214 H 132 H 160 H - ABG Interpretation ABG results: ABG ABG pH 7.35 pH Units (7.32-7.45) 12/13/17 03:01 ABG pCO2 56 mmHg (35-45) H 12/13/17 03:01 ABG pO2 75 mmHg (85-104) L 12/13/17 03:01 ABG O2 Saturation 94 % (95-98) L 12/13/17 03:01 PT/INR, D-dimer PT 13.6 Seconds (9.4-12.1) H 12/07/17 15:36 Consult Discharge Plan - Plan Additional Instructions: - Resume normal activity as tolerated - Continue to use continuous O2 NC supplementation - Continue to use Bipap while sleeping - Will order PT/OT in addition to referral to home health - Follow up with PCP and [facility] - Continue Diabetic diet and restrict fluid intake - Continue taking Lasix 20mg by mouth twice a day until your appointment with [facility] on 01/03/18 - Bloodwork will need to be done 7 days after discharge for a repeat BMP to monitor your kidney function - Continue taking Levaquin 750 mg by mouth every other day for 3 days Referrals: Stephanie Morgan CNP [Primary Care Provider] - 12/22/17 11:00 am Tequila Dixon MD [Partnered Physician] - 01/03/18 11:00 am Prescriptions: Furosemide [Lasix] 20 mg PO BIDDIURETIC 30 Days #60 tablet Levofloxacin [Levaquin] 750 mg PO Q48H 3 Days #3 tablet <Dinora Schmitt - Last Filed: 12/17/17 21:26> Date of Encounter: 12/17/17 - Time Spent With Patient Total time spent is greater than 50% in coordination of care (as documented) at patient's floor/unit and/or counseling patient: - Constitutional Vitals: Abnormal lab results RBC 2.81 M/mcL (3.82-4.97) L 12/15/17 04:00 Hgb 7.5 g/dL (11.5-15.4) L 12/15/17 04:00 Hct 24.9 % (35.3-44.9) L 12/15/17 04:00 MCH 26.7 pg (28.0-33.3) L 12/15/17 04:00 MCHC 30.1 g/dL (31.6-35.5) L 12/15/17 04:00 RDW 17.1 % (11.5-14.5) H 12/15/17 04:00 Hypochromasia Present (Not Present) A 12/10/17 06:21 Anisocytosis 1+ (Not Present) A 12/10/17 06:21 PT 13.6 Seconds (9.4-12.1) H 12/07/17 15:36 ABG pCO2 56 mmHg (35-45) H 12/13/17 03:01 ABG pO2 75 mmHg (85-104) L 12/13/17 03:01 ABG HCO3 31 mEq/L (21-27) H 12/13/17 03:01 ABG Total CO2 32 mEq/L (20-26) H 12/13/17 03:01 ABG O2 Saturation 94 % (95-98) L 12/13/17 03:01 ABG Base Excess 4 mEq/L (-2 to 3) H 12/13/17 03:01 Carbon Dioxide 32 mEq/L (23-29) H 12/15/17 04:00 BUN 29 mg/dL (8-23) H 12/15/17 04:00 Creatinine 1.87 mg/dL (0.60-1.20) H 12/15/17 04:00 Est GFR ( Amer) 32 (> 60) L 12/15/17 04:00 Est GFR (Non-Af Amer) 27 (> 60) L 12/15/17 04:00 Glucose 134 mg/dL (70-105) H 12/15/17 04:00 POC Glucose 158 mg/dL (70-99) H 12/17/17 17:06 Magnesium 1.5 mg/dL (1.6-2.6) L 12/13/17 08:58 AST 9 Units/L (13-39) L 12/08/17 03:37 Alkaline Phosphatase 106 Units/L (34-104) H 12/08/17 03:37 B-Natriuretic Peptide 1350 pg/mL (Less than 100) H 12/07/17 15:36 Albumin 3.2 g/dL (3.5-5.7) L 12/08/17 03:37 Albumin/Globulin Ratio 0.9 (1.1-2.2) L 12/08/17 03:37 Urine Clarity Cloudy (Clear) A 12/07/17 16:28 Ur Specific [place] >= 1.030 (1.010-1.025) H 12/07/17 16:28 Urine Protein >=300 mg/dL (Neg-Trace) H 12/07/17 16:28 Urine Blood Trace-intact (Negative) H 12/07/17 16:28 Urine Nitrite Positive (Negative) A 12/07/17 16:28 Urine Bilirubin Small (Negative) H 12/07/17 16:28 Ur Leukocyte Esterase Trace (Negative) H 12/07/17 16:28 Urine Microscopic RBC 15-30 per hpf (0-3) H 12/07/17 16:28 Urine Microscopic WBC TNTC per hpf (0-3) H 12/07/17 16:28 Ur Squamous Epith Cells Moderate per lpf (None-Few) H 12/07/17 16:28 Urine Bacteria Many per hpf (None-Few) H 12/07/17 16:28 Ur Culture Indicated? YES (NO) A 12/07/17 16:28 Microalb/Creat Ratio 54 mcg/mg (Less than 30) H 12/11/17 05:22 Urine Total Protein 57 mg/dL (1-14) H 12/11/17 05:22 - Attending Attestation I saw and evaluated the patient. I agree with the findings and the plan of care as documented in the residents note. Palliative Quality Code Status: 12/07/17 18:21 Resuscitation Status: Active [RES] Routine Comment: Resuscitation Status: Full Code - Labs CBC & Chem 7: 12/15/17 04:00 12/15/17 04:00 Labs: Laboratory Results - last 24 hr 12/17/17 12/17/17 12/17/17 07:15 12:09 17:06 POC Glucose 155 H 151 H 158 H - ABG Interpretation ABG results: ABG ABG pH 7.35 pH Units (7.32-7.45) 12/13/17 03:01 ABG pCO2 56 mmHg (35-45) H 12/13/17 03:01 ABG pO2 75 mmHg (85-104) L 12/13/17 03:01 ABG O2 Saturation 94 % (95-98) L 12/13/17 03:01 PT/INR, D-dimer PT 13.6 Seconds (9.4-12.1) H 12/07/17 15:36
[2017-12-17] MEDS: Fluticasone Propionate Nasal 50 MCG/SPRAY BOTTLE NS SCH (14:29)
[2017-12-17] MEDS: amLODIPine 5 MG TABLET PO SCH (20:43)
[2017-12-17] MEDS: Insulin DETEMIR 100 UNIT/ML X5UNITS SQ SCH (20:57)
[2017-12-18] MEDS: Ipratropium/Albuterol Neb 3 ML IH SCH ×4 (04:02→22:07)
--- NOTE | 2017-12-18 09:44 | Internal Med Progress Note ---
Hospitalist Progress Note - Encounter Date of Encounter: 12/18/17 Time of Encounter: 09:30 - Exam Vitals: Temp Pulse Resp BP Pulse Ox 98.8 F 78 17 149/63 92 12/18/17 07:15 12/18/17 07:15 12/18/17 07:15 12/18/17 07:15 12/18/17 07:15 Exam: General: Pt appears to be in no apparent distress Head: Pt has some visible metal plate on her right upper forehead from a craniotomy surgery about 10 years ago. She had been scheduled to fix this defect on 12/07 however pt was unable to make this apt due to hospital stay. Neck: Supple with no lymphadenopathy or tenderness. CV: Tachycardic. No murmurs rubs or gallops. Mild edema of the LE. Peripheral pulses on UE symmetrical and intact. Lungs: CTAB. No rales or rhonchi. Pt has slightly labored breathing with breaks in her phrasing Neuro: Pt has diminished strength in all 4 extremities (4/5). Sensation intact. Skin: Dry and intact. Some lesions on pt backside, likely due to pt immobility. - Assessment and Plan (1) HCAP (healthcare-associated pneumonia) Current Visit: Yes Status: Acute Assessment and Plan: Improved. completed course of zosyn and levaquin. Almost back to baseline of 3L. Awaiting discharge to rehab (2) Diabetes mellitus Current Visit: No Status: Chronic Assessment and Plan: Last Hb A1C- 6.1 Cont ISS (3) Hypertension Current Visit: No Status: Chronic Assessment and Plan: resumed home meds (4) Acute renal failure superimposed on stage 3 chronic kidney disease Current Visit: No Status: Acute Assessment and Plan: improving cont Lasix with Albumin treatment avoid nephro toxin meds (5) COPD exacerbation Current Visit: Yes Status: Acute Assessment and Plan: Improving no need of steroids any more Cont duoneb and broad spec abx (6) UTI (urinary tract infection) Current Visit: Yes Status: Acute Assessment and Plan: Urine cx - Klebsiella and ESBL E. Coli ID consulted recommend to continue Zosyn - total 10 days course # 5/10 (7) Acute and chronic respiratory failure with hypoxia Current Visit: Yes Status: Acute Assessment and Plan: Due to CHF exacerbation + Pneumonia Cont close monitoring will encourage frequent ICS (8) Morbid obesity Current Visit: Yes Status: Chronic (9) Acute on chronic diastolic (congestive) heart failure Current Visit: Yes Status: Acute Assessment and Plan: Cont lasix 40mg BID with Albumin No briggs... Has urinary incontinence will check with staff to get accurate I & Os Cont ASA + Plavix + Statin + BB (10) Volume overload Current Visit: Yes Status: Acute DVT Prophylaxis: scd - Time Spent with Patient Total time spent is greater than 50% in coordination of care (as documented) at patient's floor/unit and/or counseling patient: Internal Medicine: Result - Labs CBC & Chem 7: 12/15/17 04:00 12/15/17 04:00 - ABG Interpretation ABG results: ABG ABG pH 7.35 pH Units (7.32-7.45) 12/13/17 03:01 ABG pCO2 56 mmHg (35-45) H 12/13/17 03:01 ABG pO2 75 mmHg (85-104) L 12/13/17 03:01 ABG O2 Saturation 94 % (95-98) L 12/13/17 03:01 PT/INR, D-dimer PT 13.6 Seconds (9.4-12.1) H 12/07/17 15:36 Consult Discharge Plan - Plan Instructions: Furosemide (By mouth), Levofloxacin (By mouth), Heart Failure (DC ), Sleep Apnea Syndrome (GEN), Acute Respiratory Distress Syndrome (DC), Urinary Tract Infection in Women (DC), Chronic Obstructive Pulmonary Disease (DC ), Sepsis (DC), Pneumonia (DC) Additional Instructions: - Resume normal activity as tolerated - Continue to use continuous O2 NC supplementation - Continue to use Bipap while sleeping - Will order PT/OT in addition to referral to home health - Follow up with PCP and [facility] - Continue Diabetic diet and restrict fluid intake - Continue taking Lasix 20mg by mouth twice a day until your appointment with [facility] on 01/03/18 - Bloodwork will need to be done 7 days after discharge for a repeat BMP to monitor your kidney function - Continue taking Levaquin 750 mg by mouth every other day for 3 days Referrals: Stephanie Morgan CNP [Primary Care Provider] - 12/22/17 11:00 am Tequila Dixon MD [Partnered Physician] - 01/03/18 11:00 am Prescriptions: Furosemide [Lasix] 20 mg PO BIDDIURETIC 30 Days #60 tablet Levofloxacin [Levaquin] 750 mg PO Q48H 3 Days #3 tablet (2) Diabetes mellitus Qualifiers: Diabetes mellitus type: type 2 Diabetes mellitus long term care pharmacist insulin use: with long term care pharmacist use Diabetes mellitus complication status: with kidney complications Diabetes mellitus complication detail: with chronic kidney disease Chronic kidney disease stage: stage 3 (moderate) Qualified Code(s): E11.22 - Type 2 diabetes mellitus with diabetic chronic kidney disease; N18.3 - Chronic kidney disease, stage 3 (moderate); Z79.4 - halfway (current) use of insulin (3) Hypertension Qualifiers: Hypertension type: essential hypertension Qualified Code(s): I10 - Essential (primary) hypertension (4) Acute renal failure superimposed on stage 3 chronic kidney disease Qualifiers: Acute renal failure type: unspecified Qualified Code(s): N17.9 - Acute kidney failure, unspecified; N18.3 - Chronic kidney disease, stage 3 (moderate) (6) UTI (urinary tract infection) Qualifiers: Urinary tract infection type: site unspecified Hematuria presence: without hematuria Qualified Code(s): N39.0 - Urinary tract infection, site not specified (10) Volume overload Qualifiers: Hypervolemia type: other Qualified Code(s): E87.79 - Other fluid overload
[2017-12-18] MEDS: hydrALAZINE 25 MG TABLET PO SCH ×3 (11:42→20:23)
[2017-12-18] MEDS: Furosemide 20 MG TABLET PO SCH ×2 (11:44→17:15)
[2017-12-18] MEDS: levETIRAcetam 250 MG TABLET PO SCH ×2 (11:44→20:24)
[2017-12-18] MEDS: Cholecalciferol (D-3) 1,000 UNIT TABLET PO SCH (11:45)
[2017-12-18] MEDS: Aspirin Enteric Coated 81 MG Tablet PO SCH (11:45)
[2017-12-18] MEDS: amLODIPine 5 MG TABLET PO SCH (20:24)
[2017-12-18] MEDS: Insulin DETEMIR 100 UNIT/ML X5UNITS SQ SCH (20:25)
[2017-12-19] MEDS: Ipratropium/Albuterol Neb 3 ML IH SCH ×4 (05:40→22:20)
[2017-12-19] MEDS: hydrALAZINE 25 MG TABLET PO SCH ×3 (09:33→21:33)
[2017-12-19] MEDS: Furosemide 20 MG TABLET PO SCH ×2 (09:34→17:06)
[2017-12-19] MEDS: levETIRAcetam 250 MG TABLET PO SCH ×2 (09:35→21:32)
[2017-12-19] MEDS: Aspirin Enteric Coated 81 MG Tablet PO SCH (09:36)
[2017-12-19] MEDS: Cholecalciferol (D-3) 1,000 UNIT TABLET PO SCH (09:38)
--- NOTE | 2017-12-19 10:12 | Internal Med Progress Note ---
Hospitalist Progress Note - Encounter Date of Encounter: 12/19/17 Time of Encounter: 09:00 - Exam Vitals: Temp Pulse Resp BP Pulse Ox 97.9 F 72 20 144/73 91 12/19/17 06:48 12/19/17 06:48 12/19/17 06:48 12/19/17 06:48 12/19/17 06:48 Exam: General: Pt appears to be in no apparent distress Head: Pt has some visible metal plate on her right upper forehead from a craniotomy surgery about 10 years ago. She had been scheduled to fix this defect on 12/07 however pt was unable to make this apt due to hospital stay. Neck: Supple with no lymphadenopathy or tenderness. CV: Tachycardic. No murmurs rubs or gallops. Mild edema of the LE. Peripheral pulses on UE symmetrical and intact. Lungs: CTAB. No rales or rhonchi. Pt has slightly labored breathing with breaks in her phrasing Neuro: Pt has diminished strength in all 4 extremities (4/5). Sensation intact. Skin: Dry and intact. Some lesions on pt backside, likely due to pt immobility. - Assessment and Plan (1) Acute and chronic respiratory failure with hypoxia Current Visit: Yes Status: Acute Assessment and Plan: Due to CHF exacerbation + Pneumonia Cont close monitoring will encourage frequent ICS (2) HCAP (healthcare-associated pneumonia) Current Visit: Yes Status: Acute Assessment and Plan: Improved. completed course of zosyn and levaquin. Almost back to baseline of 3L. Awaiting discharge to rehab (3) Diabetes mellitus Current Visit: No Status: Chronic Assessment and Plan: Last Hb A1C- 6.1 Cont ISS (4) Hypertension Current Visit: No Status: Chronic Assessment and Plan: resumed home meds (5) Acute renal failure superimposed on stage 3 chronic kidney disease Current Visit: No Status: Acute Assessment and Plan: improving cont Lasix with Albumin treatment avoid nephro toxin meds (6) COPD exacerbation Current Visit: Yes Status: Acute Assessment and Plan: Improving no need of steroids any more Cont duoneb and broad spec abx (7) UTI (urinary tract infection) Current Visit: Yes Status: Acute Assessment and Plan: Urine cx - Klebsiella and ESBL E. Coli ID consulted recommend to continue Zosyn - total 10 days course # / (8) Morbid obesity Current Visit: Yes Status: Chronic Assessment and Plan: diet and exercise (9) Acute on chronic diastolic (congestive) heart failure Current Visit: Yes Status: Acute Assessment and Plan: Cont lasix 40mg BID with Albumin No briggs... Has urinary incontinence will check with staff to get accurate I & Os Cont ASA + Plavix + Statin + BB (10) Volume overload Current Visit: Yes Status: Acute - Time Spent with Patient Total time spent is greater than 50% in coordination of care (as documented) at patient's floor/unit and/or counseling patient: Internal Medicine: Result - Labs CBC & Chem 7: 12/15/17 04:00 12/15/17 04:00 - ABG Interpretation ABG results: ABG ABG pH 7.35 pH Units (7.32-7.45) 12/13/17 03:01 ABG pCO2 56 mmHg (35-45) H 12/13/17 03:01 ABG pO2 75 mmHg (85-104) L 12/13/17 03:01 ABG O2 Saturation 94 % (95-98) L 12/13/17 03:01 PT/INR, D-dimer PT 13.6 Seconds (9.4-12.1) H 12/07/17 15:36 Consult Discharge Plan - Plan Instructions: Furosemide (By mouth), Levofloxacin (By mouth), Heart Failure (DC ), Sleep Apnea Syndrome (GEN), Acute Respiratory Distress Syndrome (DC), Urinary Tract Infection in Women (DC), Chronic Obstructive Pulmonary Disease (DC ), Sepsis (DC), Pneumonia (DC) Additional Instructions: - Resume normal activity as tolerated - Continue to use continuous O2 NC supplementation - Continue to use Bipap while sleeping - Will order PT/OT in addition to referral to home health - Follow up with PCP and [facility] - Continue Diabetic diet and restrict fluid intake - Continue taking Lasix 20mg by mouth twice a day until your appointment with [facility] on 01/03/18 - Bloodwork will need to be done 7 days after discharge for a repeat BMP to monitor your kidney function - Continue taking Levaquin 750 mg by mouth every other day for 3 days Referrals: Stephanie Morgan CNP [Primary Care Provider] - 12/22/17 11:00 am Tequila Dixon MD [Partnered Physician] - 01/03/18 11:00 am Prescriptions: Furosemide [Lasix] 20 mg PO BIDDIURETIC 30 Days #60 tablet Levofloxacin [Levaquin] 750 mg PO Q48H 3 Days #3 tablet (3) Diabetes mellitus Qualifiers: Diabetes mellitus type: type 2 Diabetes mellitus detention insulin use: with detention use Diabetes mellitus complication status: with kidney complications Diabetes mellitus complication detail: with chronic kidney disease Chronic kidney disease stage: stage 3 (moderate) Qualified Code(s): E11.22 - Type 2 diabetes mellitus with diabetic chronic kidney disease; N18.3 - Chronic kidney disease, stage 3 (moderate); Z79.4 - intermediate accountant (current) use of insulin (4) Hypertension Qualifiers: Hypertension type: essential hypertension Qualified Code(s): I10 - Essential (primary) hypertension (5) Acute renal failure superimposed on stage 3 chronic kidney disease Qualifiers: Acute renal failure type: unspecified Qualified Code(s): N17.9 - Acute kidney failure, unspecified; N18.3 - Chronic kidney disease, stage 3 (moderate) (7) UTI (urinary tract infection) Qualifiers: Urinary tract infection type: site unspecified Hematuria presence: without hematuria Qualified Code(s): N39.0 - Urinary tract infection, site not specified (10) Volume overload Qualifiers: Hypervolemia type: other Qualified Code(s): E87.79 - Other fluid overload
[2017-12-19] MEDS: Fluticasone Propionate Nasal 50 MCG/SPRAY BOTTLE NS SCH (11:53)
[2017-12-19] MEDS: amLODIPine 5 MG TABLET PO SCH (21:32)
[2017-12-19] MEDS: Insulin DETEMIR 100 UNIT/ML X5UNITS SQ SCH (21:33)
[2017-12-20] MEDS: Ipratropium/Albuterol Neb 3 ML IH SCH ×4 (04:42→22:28)
[2017-12-20] MEDS: Furosemide 20 MG TABLET PO SCH ×2 (08:26→17:26)
[2017-12-20] MEDS: levETIRAcetam 250 MG TABLET PO SCH ×2 (08:30→23:41)
[2017-12-20] MEDS: hydrALAZINE 25 MG TABLET PO SCH ×3 (08:31→23:41)
[2017-12-20] MEDS: Aspirin Enteric Coated 81 MG Tablet PO SCH (08:31)
[2017-12-20] MEDS: Cholecalciferol (D-3) 1,000 UNIT TABLET PO SCH (08:31)
[2017-12-20] MEDS: Fluticasone Propionate Nasal 50 MCG/SPRAY BOTTLE NS SCH (08:32)
--- NOTE | 2017-12-20 15:44 | Internal Med Progress Note ---
<Chip Seymour - Last Filed: 12/20/17 17:09> Hospitalist Progress Note - Encounter Date of Encounter: 12/20/17 Time of Encounter: 10:25 - Subjective Interval History: Pt seen and examined at bedside. Resting comfortably in chair, no acute distress. No acute events overnight. Pt has no new or acute complaints. Denies any fever, chills, chest pain, shortness of breath, abdominal pain, nausea, vomiting, headache, numbness, or tingling. - Exam Vitals: Temp Pulse Resp BP Pulse Ox 98.0 F 76 17 152/69 90 12/20/17 15:24 12/20/17 15:24 12/20/17 15:24 12/20/17 15:24 12/20/17 15:24 Exam: General: pleasant female. no acute distress Head: Pt has some visible metal plate on her right upper forehead from a craniotomy surgery about 10 years ago. She had been scheduled to fix this defect on 12/07 however pt was unable to make this apt due to hospital stay. Neck: Supple. Trachea midline. No lymphadenopathy. Heart: RRR. +S1 +S2. No murmurs rubs or gallops. Lungs: CTAB. Mildly labored breathing. No rales or rhonchi. Extremities: Radial pulses palpable and symmetrical. Mild edema of the LEs. Neuro: A&Ox3. No focal deficits. Gross weakness, sensation intact. Skin: Dry and intact. Multiple healing contusions noted on back. - Assessment and Plan (1) Diabetes mellitus Current Visit: No Status: Chronic Assessment and Plan: Last Hb A1C- 6.1 15u Levemir (2) Hypertension Current Visit: No Status: Chronic Assessment and Plan: Continue Norvasc, Hydralazine, Metoprolol (3) Acute renal failure superimposed on stage 3 chronic kidney disease Current Visit: No Status: Acute Assessment and Plan: improving cont Lasix with Albumin treatment avoid nephro toxin meds (4) COPD exacerbation Current Visit: Yes Status: Acute Assessment and Plan: Improving no need of steroids any more Cont duoneb and broad spec abx (5) UTI (urinary tract infection) Current Visit: Yes Status: Acute Assessment and Plan: Urine cx - Klebsiella and ESBL E. Coli ID consulted Completed abx course (6) HCAP (healthcare-associated pneumonia) Current Visit: Yes Status: Acute Assessment and Plan: Improved. completed course of zosyn and levaquin. Almost back to baseline of 3L. Awaiting discharge to rehab (7) Acute and chronic respiratory failure with hypoxia Current Visit: Yes Status: Acute Assessment and Plan: Due to CHF exacerbation + Pneumonia Cont close monitoring will encourage frequent ICS (8) Morbid obesity Current Visit: Yes Status: Chronic Assessment and Plan: chronic issue discussed lifestyle modifications (9) Acute on chronic diastolic (congestive) heart failure Current Visit: Yes Status: Acute Assessment and Plan: Cont lasix 40mg BID with Albumin No briggs... Has urinary incontinence will check with staff to get accurate I & Os Cont ASA + Plavix + Statin + BB DVT Prophylaxis: On ASA and plavix EPCDs - Time Spent with Patient Total time spent is greater than 50% in coordination of care (as documented) at patient's floor/unit and/or counseling patient: Internal Medicine: Result - Labs CBC & Chem 7: 12/15/17 04:00 12/15/17 04:00 - ABG Interpretation ABG results: ABG ABG pH 7.35 pH Units (7.32-7.45) 12/13/17 03:01 ABG pCO2 56 mmHg (35-45) H 12/13/17 03:01 ABG pO2 75 mmHg (85-104) L 12/13/17 03:01 ABG O2 Saturation 94 % (95-98) L 12/13/17 03:01 PT/INR, D-dimer PT 13.6 Seconds (9.4-12.1) H 12/07/17 15:36 Consult Discharge Plan - Plan Instructions: Furosemide (By mouth), Levofloxacin (By mouth), Heart Failure (DC ), Sleep Apnea Syndrome (GEN), Acute Respiratory Distress Syndrome (DC), Urinary Tract Infection in Women (DC), Chronic Obstructive Pulmonary Disease (DC ), Sepsis (DC), Pneumonia (DC) Additional Instructions: - Resume normal activity as tolerated - Continue to use continuous O2 NC supplementation - Continue to use Bipap while sleeping - Will order PT/OT in addition to referral to home health - Follow up with PCP and [facility] - Continue Diabetic diet and restrict fluid intake - Continue taking Lasix 20mg by mouth twice a day until your appointment with [facility] on 01/03/18 - Bloodwork will need to be done 7 days after discharge for a repeat BMP to monitor your kidney function - Continue taking Levaquin 750 mg by mouth every other day for 3 days Referrals: Stephanie Morgan CNP [Primary Care Provider] - 12/22/17 11:00 am Tequila Dixon MD [Partnered Physician] - 01/03/18 11:00 am Prescriptions: Furosemide [Lasix] 20 mg PO BIDDIURETIC 30 Days #60 tablet Levofloxacin [Levaquin] 750 mg PO Q48H 3 Days #3 tablet <Ivana Lee - Last Filed: 12/21/17 09:51> Hospitalist Progress Note - Encounter Date of Encounter: 12/21/17 - Exam Vitals: Temp Pulse Resp BP Pulse Ox 98.8 F 80 18 169/77 89 12/20/17 21:56 12/20/17 21:56 12/21/17 03:51 12/20/17 21:56 12/21/17 03:51 - Assessment and Plan (1) Diabetes mellitus Current Visit: No Status: Chronic (2) Hypertension Current Visit: No Status: Chronic (3) Acute renal failure superimposed on stage 3 chronic kidney disease Current Visit: No Status: Acute (4) COPD exacerbation Current Visit: Yes Status: Acute (5) UTI (urinary tract infection) Current Visit: Yes Status: Acute (6) HCAP (healthcare-associated pneumonia) Current Visit: Yes Status: Acute (7) Acute and chronic respiratory failure with hypoxia Current Visit: Yes Status: Acute (8) Morbid obesity Current Visit: Yes Status: Chronic (9) Acute on chronic diastolic (congestive) heart failure Current Visit: Yes Status: Acute - Time Spent with Patient Total time spent is greater than 50% in coordination of care (as documented) at patient's floor/unit and/or counseling patient: Internal Medicine: Result - Labs CBC & Chem 7: 12/20/17 08:51 12/20/17 08:51 Labs: Short CBC 12/20/17 Range/Units 08:51 WBC 9.2 (4.3-11.1) K/mcL Hgb 8.6 L (11.5-15.4) g/dL Hct 28.9 L (35.3-44.9) % Plt Count 205 (140-400) K/mcL Neutrophils # 7.0 (1.6-8.9) K/mcL BMP 12/20/17 08:51 Sodium 139 Potassium 3.7 Chloride 100 Carbon Dioxide 30 H BUN 28 H Creatinine 1.68 H Glucose 123 H Calcium 9.8 - ABG Interpretation ABG results: ABG ABG pH 7.35 pH Units (7.32-7.45) 12/13/17 03:01 ABG pCO2 56 mmHg (35-45) H 12/13/17 03:01 ABG pO2 75 mmHg (85-104) L 12/13/17 03:01 ABG O2 Saturation 94 % (95-98) L 12/13/17 03:01 PT/INR, D-dimer PT 13.6 Seconds (9.4-12.1) H 12/07/17 15:36 - Attending Attestation 72 year female with a past medical history significant for brain cancer s/p craniotomy, lung and spine mets, recurrent pleural effusion, CHF, DM, HLD, CAD s /p stent and CABG, and ELPIDIO who presented to [facility] on 12/07/17 with HCAP. She was recently discharged from the hospital on 12/02/17 after a stay for bilateral pleural effusions and Ct guided thoracocentesis. Pt was admitted in the hospital and started her on empirical abx. S: She states her breathing has improved Exam GENERAL: Patient is a 72 year old morbidly obese class III female in mild respiratory distress with appropriate affect. Alert & oriented x3. HEENT: Head is normocephalic, patient has visible metal plate in her cranium from prior craniotomy in 2008. Was supposed to undergo Surgery on 12/07/17 to fix the exposed plate but this has been rescheduled. EYES: PERRLA, EOMI. Sclera anincteric. MOUTH: Oropharynx clear. Mucous membranes moist. NECK: Supple, no masses, exam difficult due to large neck circumference. CV: Regular rate and rhythm. Normal S1, S2 with no clicks, murmurs, gallops, or rubs. PULMONARY: CTA but muffled breath sounds bilaterally, could be due to habitus. Symmetrical chest expansion. Accessory muscle usage. No wheezes, rales, rhonchi. GI: Abdomen is soft, obese, nontender, positive bowel sounds x 4 present and appropriate. No peritoneal signs or guarding. No palpable masses. SKIN: Warm, dry and intact. No rashes, bruising, cyanosis or non healing lesions are seen. Trace pedal edema noted but improved. NEUROLOGICAL: Alert, awake. CN II-XII grossly intact. Patient is moving all extremities and following commands appropriately. No focal deficits are noted. Muscle strength 5/5 x 4 extremities. Plan Sepsis likely secondary to bacterial HCAP. Completed course of antibiotics. Awaiting rehab placement HCAP. See #1 GLENNA on CKD stage 3. Monitor creatinine Acute on chronic diastolic CHF. Continue lasix UTI. Asymptomatic bacteruria. No indication to treat. Acute hypoxic respiratory failure 2/2 to HCAP. Continue antibiotics. Wean off oxygen as tolerated DVT prophylaxis. SCDs <Chip Seymour - Last Filed: 12/20/17 17:09> (1) Diabetes mellitus Qualifiers: Diabetes mellitus type: type 2 Diabetes mellitus manager intermediate insulin use: with fdc use Diabetes mellitus complication status: with kidney complications Diabetes mellitus complication detail: with chronic kidney disease Chronic kidney disease stage: stage 3 (moderate) Qualified Code(s): E11.22 - Type 2 diabetes mellitus with diabetic chronic kidney disease; N18.3 - Chronic kidney disease, stage 3 (moderate); Z79.4 - snf (current) use of insulin (2) Hypertension Qualifiers: Hypertension type: essential hypertension Qualified Code(s): I10 - Essential (primary) hypertension (3) Acute renal failure superimposed on stage 3 chronic kidney disease Qualifiers: Acute renal failure type: unspecified Qualified Code(s): N17.9 - Acute kidney failure, unspecified; N18.3 - Chronic kidney disease, stage 3 (moderate) (5) UTI (urinary tract infection) Qualifiers: Urinary tract infection type: site unspecified Hematuria presence: without hematuria Qualified Code(s): N39.0 - Urinary tract infection, site not specified <Ivana Lee - Last Filed: 12/21/17 09:51> (1) Diabetes mellitus Qualifiers: Diabetes mellitus type: type 2 Diabetes mellitus manager intermediate insulin use: with fdc use Diabetes mellitus complication status: with kidney complications Diabetes mellitus complication detail: with chronic kidney disease Chronic kidney disease stage: stage 3 (moderate) Qualified Code(s): E11.22 - Type 2 diabetes mellitus with diabetic chronic kidney disease; N18.3 - Chronic kidney disease, stage 3 (moderate); Z79.4 - terminal system operator (current) use of insulin (2) Hypertension Qualifiers: Hypertension type: essential hypertension Qualified Code(s): I10 - Essential (primary) hypertension (3) Acute renal failure superimposed on stage 3 chronic kidney disease Qualifiers: Acute renal failure type: unspecified Qualified Code(s): N17.9 - Acute kidney failure, unspecified; N18.3 - Chronic kidney disease, stage 3 (moderate) (5) UTI (urinary tract infection) Qualifiers: Urinary tract infection type: site unspecified Hematuria presence: without hematuria Qualified Code(s): N39.0 - Urinary tract infection, site not specified
[2017-12-20 18:26] LABS: Basophils % 0.3 %; Eosinophils # 0.5 K/mcL (0.0-0.6); Hematocrit 28.9 % (35.3-44.9); Hemoglobin 8.6 g/dL (11.5-15.4); Immature Granulocytes % 0.5 % (0-4); Lymphocytes # 1.1 K/mcL (0.6-4.6); Lymphocytes % 12.2 %; Mean Corpuscular HGB Conc 29.8 g/dL (31.6-35.5); Mean Corpuscular Hemoglobin 26.9 pg (28.0-33.3); Mean Corpuscular Volume 90.3 fL (83.0-100.0); Mean Platelet Volume 9.8 fL (9.4-12.4); Monocytes # 0.5 K/mcL (0.0-1.3); Platelet Count 205 K/mcL (140-400); Red Cell Distribution Width 17.3 % (11.5-14.5)
[2017-12-20 18:42] LABS: Calcium 9.8 mg/dL (8.6-10.3); Potassium 3.7 mEq/L (3.5-5.1)
[2017-12-20] MEDS: amLODIPine 5 MG TABLET PO SCH (23:42)
[2017-12-20] MEDS: Insulin DETEMIR 100 UNIT/ML X5UNITS SQ SCH (23:45)
[2017-12-21] MEDS: Ipratropium/Albuterol Neb 3 ML IH SCH ×4 (03:51→22:33)
[2017-12-21] MEDS: Fluticasone Propionate Nasal 50 MCG/SPRAY BOTTLE NS SCH ×2 (07:25→08:53)
--- NOTE | 2017-12-21 07:33 | Internal Med Progress Note ---
<Gillian Kessler - Last Filed: 12/21/17 15:56> Hospitalist Progress Note - Encounter Date of Encounter: 12/21/17 - Exam Vitals: Temp Pulse Resp BP Pulse Ox 98.8 F 73 17 165/74 94 12/20/17 21:56 12/21/17 11:58 12/21/17 11:58 12/21/17 11:58 12/21/17 11:58 - Assessment and Plan (1) Diabetes mellitus Current Visit: No Status: Chronic (2) Hypertension Current Visit: No Status: Chronic (3) Acute renal failure superimposed on stage 3 chronic kidney disease Current Visit: No Status: Acute (4) COPD exacerbation Current Visit: Yes Status: Acute (5) UTI (urinary tract infection) Current Visit: Yes Status: Acute (6) HCAP (healthcare-associated pneumonia) Current Visit: Yes Status: Acute (7) Acute and chronic respiratory failure with hypoxia Current Visit: Yes Status: Acute (8) Morbid obesity Current Visit: Yes Status: Chronic (9) Acute on chronic diastolic (congestive) heart failure Current Visit: Yes Status: Acute - Time Spent with Patient Total time spent is greater than 50% in coordination of care (as documented) at patient's floor/unit and/or counseling patient: Internal Medicine: Result - Labs CBC & Chem 7: 12/20/17 08:51 12/20/17 08:51 Labs: Short CBC 12/20/17 Range/Units 08:51 WBC 9.2 (4.3-11.1) K/mcL Hgb 8.6 L (11.5-15.4) g/dL Hct 28.9 L (35.3-44.9) % Plt Count 205 (140-400) K/mcL Neutrophils # 7.0 (1.6-8.9) K/mcL BMP 12/20/17 08:51 Sodium 139 Potassium 3.7 Chloride 100 Carbon Dioxide 30 H BUN 28 H Creatinine 1.68 H Glucose 123 H Calcium 9.8 - ABG Interpretation ABG results: ABG ABG pH 7.35 pH Units (7.32-7.45) 12/13/17 03:01 ABG pCO2 56 mmHg (35-45) H 12/13/17 03:01 ABG pO2 75 mmHg (85-104) L 12/13/17 03:01 ABG O2 Saturation 94 % (95-98) L 12/13/17 03:01 PT/INR, D-dimer PT 13.6 Seconds (9.4-12.1) H 12/07/17 15:36 Consult Discharge Plan - Plan Instructions: Furosemide (By mouth), Levofloxacin (By mouth), Heart Failure (DC ), Sleep Apnea Syndrome (GEN), Acute Respiratory Distress Syndrome (DC), Urinary Tract Infection in Women (DC), Chronic Obstructive Pulmonary Disease (DC ), Sepsis (DC), Pneumonia (DC) Additional Instructions: - Resume normal activity as tolerated - Continue to use continuous O2 NC supplementation - Continue to use Bipap while sleeping - Will order PT/OT in addition to referral to home health - Follow up with PCP and [facility] - Continue Diabetic diet and restrict fluid intake - Continue taking Lasix 20mg by mouth twice a day until your appointment with [facility] on 01/03/18 - Bloodwork will need to be done 7 days after discharge for a repeat BMP to monitor your kidney function - Continue taking Levaquin 750 mg by mouth every other day for 3 days Referrals: Stephanie Morgan CNP [Primary Care Provider] - 12/22/17 11:00 am Tequila Dixon MD [Partnered Physician] - 01/03/18 11:00 am Prescriptions: Furosemide [Lasix] 20 mg PO BIDDIURETIC 30 Days #60 tablet Levofloxacin [Levaquin] 750 mg PO Q48H 3 Days #3 tablet - Attending Attestation I examined this patient and my medical decision-making was reviewed with the Resident Physician Dr Seymour. I agree with the documented findings, disposition and treatment plan as described except to the extent set forth below/addl details below. Ms Lua was admitted with hypoxic resp failure and treated for pneumonia with abx course now complete. She addl has been treated for glenna on ckd stage 3 this admit, acute on chronic diastolic CHF with lasix and albumin and UTI with abx course also complete. ID followed her. She has been med clear for dc to [facility] and is awaiting insurance auth for discharge Awake, pleasant, awiitng discharge. no new complaints of concerns. No sob, cough resolved, no wheezing. No spura pubic pain, dysuria or hesitancy. Denies fevers or chills. LE edema improved this admission. gen- alert, awake,appears stated age, obese cv- reg rate and rhythm, normal s1,s2, no murmurs appreciated, trace pitting edema to bl shins lungs- ctabl, no wheezing, rhonchi or crackles, normal resp effort abd- soft, non tender, non distended, + bs neuro- AAOx3 Acute on Chronic Resp FAilure, improved due to pneumonia and chf exacerbation cont o2 nc , home baseline is 3L NC HCAP, improved- completed course of zosyn + levaquin Acute on Chronic Diastolic CHF, improved- cont po lasix PO 20 mg BID and home asa, plavix, statin, bb, not on acei/arb given ckd stage 3 Klebsiella and ESBL E Coli UTI- ID followed, abxcourse completed (was zosyn sensitive) GLENNA on CKD stage III, appears resovled and back to baseline creat dc to e[facility], med stable, awaiting auth form insurance <Chip Seymour - Last Filed: 12/21/17 16:23> Hospitalist Progress Note - Encounter Date of Encounter: 12/21/17 Time of Encounter: 09:32 - Subjective Interval History: Pt seen and examined at bedside. Resting comfortably in chair, no acute distress. No acute events overnight. Pt has no new or acute complaints. Denies any fever, chills, chest pain, shortness of breath, abdominal pain, nausea, vomiting, headache, numbness, or tingling. - Exam Vitals: Temp Pulse Resp BP Pulse Ox 98.8 F 80 18 169/77 89 12/20/17 21:56 12/20/17 21:56 12/21/17 03:51 12/20/17 21:56 12/21/17 03:51 Exam: General: pleasant female. no acute distress Head: Pt has some visible metal plate on her right upper forehead from a craniotomy surgery about 10 years ago. She had been scheduled to fix this defect on 12/07 however pt was unable to make this apt due to hospital stay. Neck: Supple. Trachea midline. No lymphadenopathy. Heart: RRR. +S1 +S2. No murmurs, rubs, or gallops. Lungs: CTAB. Mildly labored breathing. No rales or rhonchi. Extremities: Radial pulses palpable and symmetrical. Mild +1 pitting edema of the LEs. Neuro: A&Ox3. No focal deficits. Gross weakness, sensation intact. Skin: Dry and intact. Multiple healing contusions noted on back. - Assessment and Plan (1) Diabetes mellitus Current Visit: No Status: Chronic Assessment and Plan: Last Hb A1C- 6.1 15u Levemir (2) Hypertension Current Visit: No Status: Chronic Assessment and Plan: Continue Norvasc, Hydralazine, Metoprolol (3) Acute renal failure superimposed on stage 3 chronic kidney disease Current Visit: No Status: Acute Assessment and Plan: improving avoid nephro toxin meds (4) COPD exacerbation Current Visit: Yes Status: Acute Assessment and Plan: Improving no need of steroids any more Cont duoneb and broad spec abx (5) UTI (urinary tract infection) Current Visit: Yes Status: Acute Assessment and Plan: Urine cx - Klebsiella and ESBL E. Coli ID consulted Completed abx course (6) HCAP (healthcare-associated pneumonia) Current Visit: Yes Status: Acute Assessment and Plan: Improved. completed course of zosyn and levaquin. Almost back to baseline of 3L. Awaiting discharge to rehab (7) Acute and chronic respiratory failure with hypoxia Current Visit: Yes Status: Acute Assessment and Plan: Due to CHF exacerbation + Pneumonia Cont close monitoring will encourage frequent ICS (8) Acute on chronic diastolic (congestive) heart failure Current Visit: Yes Status: Acute Assessment and Plan: Cont ASA + Plavix + Statin + BB Lasix 20mg BID (9) Morbid obesity Current Visit: Yes Status: Chronic Assessment and Plan: chronic issue discussed lifestyle modifications DVT Prophylaxis: On ASA and plavix EPCDs - Time Spent with Patient Total time spent is greater than 50% in coordination of care (as documented) at patient's floor/unit and/or counseling patient: Internal Medicine: Result - Labs CBC & Chem 7: 12/20/17 08:51 12/20/17 08:51 Labs: Short CBC 12/20/17 Range/Units 08:51 WBC 9.2 (4.3-11.1) K/mcL Hgb 8.6 L (11.5-15.4) g/dL Hct 28.9 L (35.3-44.9) % Plt Count 205 (140-400) K/mcL Neutrophils # 7.0 (1.6-8.9) K/mcL BMP 12/20/17 08:51 Sodium 139 Potassium 3.7 Chloride 100 Carbon Dioxide 30 H BUN 28 H Creatinine 1.68 H Glucose 123 H Calcium 9.8 - ABG Interpretation ABG results: ABG ABG pH 7.35 pH Units (7.32-7.45) 12/13/17 03:01 ABG pCO2 56 mmHg (35-45) H 12/13/17 03:01 ABG pO2 75 mmHg (85-104) L 12/13/17 03:01 ABG O2 Saturation 94 % (95-98) L 12/13/17 03:01 PT/INR, D-dimer PT 13.6 Seconds (9.4-12.1) H 12/07/17 15:36 <Gillian Kessler - Last Filed: 12/21/17 15:56> (1) Diabetes mellitus Qualifiers: Diabetes mellitus type: type 2 Diabetes mellitus terminal gauger supervisor insulin use: with terminal gauger supervisor use Diabetes mellitus complication status: with kidney complications Diabetes mellitus complication detail: with chronic kidney disease Chronic kidney disease stage: stage 3 (moderate) Qualified Code(s): E11.22 - Type 2 diabetes mellitus with diabetic chronic kidney disease; N18.3 - Chronic kidney disease, stage 3 (moderate); Z79.4 - intermediate manager (current) use of insulin (2) Hypertension Qualifiers: Hypertension type: essential hypertension Qualified Code(s): I10 - Essential (primary) hypertension (3) Acute renal failure superimposed on stage 3 chronic kidney disease Qualifiers: Acute renal failure type: unspecified Qualified Code(s): N17.9 - Acute kidney failure, unspecified; N18.3 - Chronic kidney disease, stage 3 (moderate) (5) UTI (urinary tract infection) Qualifiers: Urinary tract infection type: site unspecified Hematuria presence: without hematuria Qualified Code(s): N39.0 - Urinary tract infection, site not specified <Chip Seymour - Last Filed: 12/21/17 16:23> (1) Diabetes mellitus Qualifiers: Diabetes mellitus type: type 2 Diabetes mellitus terminal gauger supervisor insulin use: with detention use Diabetes mellitus complication status: with kidney complications Diabetes mellitus complication detail: with chronic kidney disease Chronic kidney disease stage: stage 3 (moderate) Qualified Code(s): E11.22 - Type 2 diabetes mellitus with diabetic chronic kidney disease; N18.3 - Chronic kidney disease, stage 3 (moderate); Z79.4 - custodial (current) use of insulin (2) Hypertension Qualifiers: Hypertension type: essential hypertension Qualified Code(s): I10 - Essential (primary) hypertension (3) Acute renal failure superimposed on stage 3 chronic kidney disease Qualifiers: Acute renal failure type: unspecified Qualified Code(s): N17.9 - Acute kidney failure, unspecified; N18.3 - Chronic kidney disease, stage 3 (moderate) (5) UTI (urinary tract infection) Qualifiers: Urinary tract infection type: site unspecified Hematuria presence: without hematuria Qualified Code(s): N39.0 - Urinary tract infection, site not specified
[2017-12-21] MEDS: levETIRAcetam 250 MG TABLET PO SCH ×2 (08:48→22:15)
[2017-12-21] MEDS: hydrALAZINE 25 MG TABLET PO SCH ×3 (08:48→22:15)
[2017-12-21] MEDS: Aspirin Enteric Coated 81 MG Tablet PO SCH (08:48)
[2017-12-21] MEDS: Furosemide 20 MG TABLET PO SCH ×2 (08:49→17:36)
[2017-12-21] MEDS: Cholecalciferol (D-3) 1,000 UNIT TABLET PO SCH (08:49)
[2017-12-21] MEDS: amLODIPine 5 MG TABLET PO SCH (22:14)
[2017-12-21] MEDS: Insulin DETEMIR 100 UNIT/ML X5UNITS SQ SCH (22:15)
[2017-12-22] MEDS: Ipratropium/Albuterol Neb 3 ML IH SCH ×4 (04:18→22:09)
[2017-12-22] MEDS: Aspirin Enteric Coated 81 MG Tablet PO SCH (08:05)
[2017-12-22] MEDS: hydrALAZINE 25 MG TABLET PO SCH ×3 (08:05→20:52)
[2017-12-22] MEDS: levETIRAcetam 250 MG TABLET PO SCH ×2 (08:05→20:52)
[2017-12-22] MEDS: Furosemide 20 MG TABLET PO SCH ×2 (08:06→17:26)
[2017-12-22] MEDS: Fluticasone Propionate Nasal 50 MCG/SPRAY BOTTLE NS SCH (08:06)
[2017-12-22] MEDS: Cholecalciferol (D-3) 1,000 UNIT TABLET PO SCH (08:06)
--- NOTE | 2017-12-22 13:29 | Discharge Summary ---
<Gillian Kessler - Last Filed: 12/22/17 14:05> Date of Encounter: 12/22/17 - Discharge Diagnosis (1) Diabetes mellitus Status: Chronic Qualifiers: Diabetes mellitus type: type 2 Diabetes mellitus penitentiary insulin use: with penitentiary use Diabetes mellitus complication status: with kidney complications Diabetes mellitus complication detail: with chronic kidney disease Chronic kidney disease stage: stage 3 (moderate) Qualified Code(s): E11.22 - Type 2 diabetes mellitus with diabetic chronic kidney disease; N18.3 - Chronic kidney disease, stage 3 (moderate); Z79.4 - helpdesk specialist (current) use of insulin (2) Hypertension Status: Chronic Qualifiers: Hypertension type: essential hypertension Qualified Code(s): I10 - Essential (primary) hypertension (3) Acute renal failure superimposed on stage 3 chronic kidney disease Status: Acute Qualifiers: Acute renal failure type: unspecified Qualified Code(s): N17.9 - Acute kidney failure, unspecified; N18.3 - Chronic kidney disease, stage 3 (moderate) (4) COPD exacerbation Status: Acute (5) UTI (urinary tract infection) Status: Acute Qualifiers: Urinary tract infection type: site unspecified Hematuria presence: without hematuria Qualified Code(s): N39.0 - Urinary tract infection, site not specified (6) HCAP (healthcare-associated pneumonia) Status: Acute (7) Acute and chronic respiratory failure with hypoxia Status: Acute (8) Morbid obesity Status: Chronic (9) Acute on chronic diastolic (congestive) heart failure Status: Acute Hospital course: Ms. Almanza is a 72 year old female - Time Spent with Patient Total time spent providing and/or coordinating discharge services: Less than 30 minutes - Discharge Medications Prescriptions: amLODIPine [Norvasc] 10 mg PO HS 30 Days #30 tablet Furosemide [Lasix] 20 mg PO BIDDIURETIC 30 Days #60 tablet hydrALAZINE [HydrALAZINE] 100 mg PO TID 30 Days #90 tablet SitaGLIPtin [Januvia] 50 mg PO DAILY 30 Days #30 tablet Home Medications: Pantoprazole Sodium [Protonix] 40 mg PO DAILY 03/13/15 [History] Aspirin [Adult Aspirin] 81 mg PO DAILY 08/12/17 [History] Atorvastatin Calcium [Lipitor] 20 mg PO DAILY 08/12/17 [History] Ergocalciferol (VITAMIN D2) [Vitamin D2] 50,000 unit PO QWEEK 08/12/17 [History] Escitalopram Oxalate 5 mg PO DAILY 08/12/17 [History] LevETIRAcetam [Keppra] 750 mg PO BID 08/12/17 [History] Levothyroxine Sodium [Levoxyl] 25 mcg PO DAILY 08/12/17 [History] Levothyroxine Sodium [Synthroid] 200 mcg PO DAILY 08/12/17 [History] Metoprolol [Lopressor] 25 mg PO BID 08/12/17 [History] Montelukast [Singulair] 10 mg PO DAILY 08/12/17 [History] Phenytoin [Dilantin] 150 mg PO BID 08/12/17 [History] Acetaminophen [Tylenol] 650 mg PO Q6HR PRN tablet 08/18/17 [Rx] Calcium Carbonate [Tums] 1,000 mg PO QID 30 Days #120 tab.chew 08/30/17 [Rx] Docusate [Colace] 100 mg PO BID 30 Days #60 capsule 08/30/17 [Rx] Ferrous Sulfate 325 mg PO BIDWM 30 Days #60 tablet 08/30/17 [Rx] Clopidogrel [Plavix] 75 mg PO DAILY 12/07/17 [History] Insulin Glargine [Lantus] 15 unit SQ HS 12/07/17 [History] Mupirocin [Bactroban Oint] 1 appl TP DAILY 12/07/17 [History] Furosemide [Lasix] 20 mg PO BIDDIURETIC 30 Days #60 tablet 12/15/17 [Rx] Ipratropium/Albuterol Neb [Duoneb] 3 ml IH [id number] PRN inhsol 12/22/17 [Rx] Ipratropium/Albuterol Neb [Duoneb] 3 ml IH [id number] inhsol 12/22/17 [Rx] SitaGLIPtin [Januvia] 50 mg PO DAILY 30 Days #30 tablet 12/22/17 [Rx] amLODIPine [Norvasc] 10 mg PO HS 30 Days #30 tablet 12/22/17 [Rx] hydrALAZINE [HydrALAZINE] 100 mg PO TID 30 Days #90 tablet 12/22/17 [Rx] Allergies/Adverse Reactions: Allergy/AdvReac Type Severity Reaction Status Date / Time Tetanus Vaccines and Toxoid Allergy Unknown unknown Verified 11/03/17 13:25 [Tetanus Vaccines & Toxoid] Date of admission: 12/07/17 20:21 Primary care physician: Stephanie Morgan CNP Consults: 12/10/17 13:34 Consult to Nephrology [CONS] Routine Consulting Provider: [facility]/AMIRAH/REBECCA Reason for Consult: CHF requiring lasix but also GLENNA in CKD Call Completed: Yes 12/10/17 13:35 Consult to Infectious Diseases [CONS] Routine Consulting Provider: [facility] [place] Reason for Consult: ESBL and klebsiella on urine culture. On zosyn and levaquin but not getting better. Call Completed: Yes 12/14/17 09:31 Consult to Palliative Care [CONS] Routine Comment: Consulting Provider: [facility] Reason for Consult: lung ca with recurrent pleural effusion and multiple hospital admissions Call Completed: No 12/14/17 10:11 Consult to Physical Therapy [CONS] Routine Comment: Evaluate, develop and implement POC Reason for Consult: strengthening Does patient have active BEDREST order?: No Is patient medically & hemodynamically stable?: Yes Patient assessed for mobility or mobilized this visit?: No 12/15/17 09:24 Consult to Occupational Therapy [CONS] Routine Comment: Evaluate, develop and implement POC Reason for Consult: Needed for insurance to cover SNF; PT already consulted Does patient have active BEDREST order?: No Is patient medically & hemodynamically stable?: Yes 12/15/17 16:40 Consult to [employer]er Sock [CONS] Routine Reason for SW Consult: PT/OT rec SNF; patient's first choice is [facility] - Constitutional Vitals: Temp Pulse Resp BP Pulse Ox 98.1 F 70 19 162/77 95 12/22/17 04:00 12/22/17 11:56 12/22/17 11:56 12/22/17 11:56 12/22/17 11:56 - Patient Status Disposition: Transfer SNF Condition: Fair - Discharge Instructions Instructions: Furosemide (By mouth), Levofloxacin (By mouth), Heart Failure (DC), Sleep Apnea Syndrome (GEN), Acute Respiratory Distress Syndrome (DC), Urinary Tract Infection in Women (DC), Chronic Obstructive Pulmonary Disease (DC), Sepsis (DC), Pneumonia (DC) Follow Up With: Stephanie Morgan CNP [Primary Care Provider] - 12/22/17 11:00 am Tequila Dixon MD [Partnered Physician] - 01/03/18 11:00 am Additional Instructions: - Resume normal activity as tolerated - Continue to use continuous O2 NC supplementation - Continue to use Bipap while sleeping - Will order PT/OT in addition to referral to home health - Follow up with PCP and [facility] - Continue Diabetic diet and restrict fluid intake - Continue taking Lasix 20mg by mouth twice a day until your appointment with [facility] on 01/03/18 - Bloodwork will need to be done 7 days after discharge for a repeat BMP to monitor your kidney function - Continue taking Levaquin 750 mg by mouth every other day for 3 days - Attending Attestation I examined this patient and my medical decision-making was reviewed with the Resident Physician Dr Seymour. I agree with the documented findings, disposition and treatment plan as described except to the extent set forth below/addl details below. Ms Almanza was admitted with hypoxic resp failure and treated for pneumonia with pulm consult, abx course now complete and with new baseline o2 requirement. She addl has been treated for glenna on ckd stage 3 this admit, acute on chronic diastolic CHF with lasix and albumin and UTI with abx course also complete. ID followed her. She has been med clear for dc to ecf and awaited insurance auth for dc. Awake, pleasant, awaiting discharge. no new complaints of concerns. No sob, cough, wheezing. Ambulatong to bedside commode without resp distress. No abd pain dysuria or hesitancy. Denies fevers or chills. LE edema improved this admission. gen- alert, awake,appears stated age, obese cv- reg rate and rhythm, normal s1,s2, no murmurs appreciated, trace pitting edema to bl shins lungs- ctabl, no wheezing, rhonchi or crackles, normal resp effort abd- soft, non tender, non distended, + bs neuro- AAOx3 Acute on Chronic Resp FAilure, improved overall due to pneumonia and chf exacerbation cont o2 nc at rate higher than she previously required HCAP, improved- completed course of zosyn + levaquin Acute on Chronic Diastolic CHF, improved- cont po lasix PO 20 mg BID and home asa, plavix, statin, bb, not on acei/arb given ckd stage 3 Klebsiella and ESBL E Coli UTI- ID followed, abxcourse completed (was zosyn sensitive) GLENNA on CKD stage III, appears resovled and 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 Her most recent PET/CT on 09/29 showed bilateral pulmonary nodules with hypermetabolic right paratracheal, right hilar and subcarinal lymph nodes which were most likely metastatic in nature. Patient also had a CT-guided biopsy in 08/2017 which confirmed metastatic disease to the lungs. She continues to follow-up with [facility] and will follow there outpt dc to ecf in stable condition <Chip Seymour - Last Filed: 12/22/17 21:04> - NOTES TO OUTPATIENT PROVIDER Notes to Outpatient Provider: Ms. Almanza was admitted on 12/07 for progressively worsening shortness of breath. CXR revealed left lower lobe pneumonia. She was r ecently discharged from the hospital on 12/02/17 after a stay for bilateral pleural effusions and Ct guided thoracocentesis. She completed a 10 day course of abx as recommended by infectious disease. She was also treated for pleural effusions with IV Lasix and albumin. Discharged with 20mg Lasix BID. At time of discharge, Lisinopril had been held with increase in serum creatinine. Recommend BMP in 1 week along with evaluation of HTN. Date of Encounter: 12/22/17 Time of Encounter: 10:30 - Discharge Diagnosis (1) HCAP (healthcare-associated pneumonia) Priority: Primary Status: Acute Assessment and Plan: Improved Completed 10 day course of zosyn and levaquin. Continue supplemental O2 - home baseline of 3lpm Duonebs as needed (2) COPD exacerbation Priority: Primary Status: Acute Assessment and Plan: Improving Discontinued steroids Completed 10 day course of abx Cont duonebs as needed. (3) Diabetes mellitus Priority: Secondary Status: Chronic Assessment and Plan: Last Hb A1C- 6.1 15u Levemir Discontinued Actos Decreased Januvia to 50mg Qualifiers: Diabetes mellitus type: type 2 Diabetes mellitus penitentiary insulin use: with repossessor use Diabetes mellitus complication status: with kidney complications Diabetes mellitus complication detail: with chronic kidney disease Chronic kidney disease stage: stage 3 (moderate) Qualified Code(s): E11.22 - Type 2 diabetes mellitus with diabetic chronic kidney disease; N18.3 - Chronic kidney disease, stage 3 (moderate); Z79.4 - helpdesk specialist (current) use of insulin (4) Hypertension Priority: Secondary Status: Chronic Assessment and Plan: Increased Norvasc to 10mg Continue Hydralazine 100mg TID Continue Metoprolol 25mg BID Continuing to hold Lisinopril at discharge with increased Cr Qualifiers: Hypertension type: essential hypertension Qualified Code(s): I10 - Essential (primary) hypertension (5) Acute renal failure superimposed on stage 3 chronic kidney disease Priority: Secondary Status: Acute Assessment and Plan: improving Holding Lisinopril as above Qualifiers: Acute renal failure type: unspecified Qualified Code(s): N17.9 - Acute kidney failure, unspecified; N18.3 - Chronic kidney disease, stage 3 (moderate) (6) UTI (urinary tract infection) Priority: Secondary Status: Acute Assessment and Plan: Urine cx - Klebsiella and ESBL E. Coli ID consulted Completed abx course - no need for further treatment Qualifiers: Urinary tract infection type: site unspecified Hematuria presence: without hematuria Qualified Code(s): N39.0 - Urinary tract infection, site not specified (7) Acute and chronic respiratory failure with hypoxia Priority: Secondary Status: Acute Assessment and Plan: Due to CHF exacerbation + Pneumonia Encourage frequent ICS and exercises per PT (8) Morbid obesity Priority: Secondary Status: Chronic Assessment and Plan: chronic issue discussed lifestyle modifications (9) Acute on chronic diastolic (congestive) heart failure Priority: Secondary Status: Acute Assessment and Plan: Cont ASA + Plavix + Statin + BB Lasix 20mg BID Hospital course: See notes to outpatient provider Discharge discussed with: patient, nurse, social work, case management, tanning consultant - Time Spent with Patient Total time spent providing and/or coordinating discharge services: Date of admission: 12/07/17 20:21 Primary care physician: Stephanie Morgan CNP Consults: 12/10/17 13:34 Consult to Nephrology [CONS] Routine Consulting Provider: [facility]CATRACH[facility]/AMIRAH/REBECCA Reason for Consult: CHF requiring lasix but also GLENNA in CKD Call Completed: Yes 12/10/17 13:35 Consult to Infectious Diseases [CONS] Routine Consulting Provider: [facility] [place] Reason for Consult: ESBL and klebsiella on urine culture. On zosyn and levaquin but not getting better. Call Completed: Yes 12/14/17 09:31 Consult to Palliative Care [CONS] Routine Comment: Consulting Provider: [facility] Reason for Consult: lung ca with recurrent pleural effusion and multiple hospital admissions Call Completed: No 12/14/17 10:11 Consult to Physical Therapy [CONS] Routine Comment: Evaluate, develop and implement POC Reason for Consult: strengthening Does patient have active BEDREST order?: No Is patient medically & hemodynamically stable?: Yes Patient assessed for mobility or mobilized this visit?: No 12/15/17 09:24 Consult to Occupational Therapy [CONS] Routine Comment: Evaluate, develop and implement POC Reason for Consult: Needed for insurance to cover SNF; PT already consulted Does patient have active BEDREST order?: No Is patient medically & hemodynamically stable?: Yes 12/15/17 16:40 Consult to [employer]er Sock [CONS] Routine Reason for SW Consult: PT/OT rec SNF; patient's first choice is [facility] Discharging clinician: Chip Seymour - Constitutional Vitals: Temp Pulse Resp BP Pulse Ox 98.1 F 70 19 162/77 95 12/22/17 04:00 12/22/17 11:56 12/22/17 11:56 12/22/17 11:56 12/22/17 11:56 General appearance: Present: mild distress, morbidly obese Exam: General: pleasant female. no acute distress Head: Pt has some visible metal plate on her right upper forehead from a craniotomy surgery about 10 years ago. She had been scheduled to fix this defect on 12/07 however pt was unable to make this apt due to hospital stay. Neck: Supple. Trachea midline. No lymphadenopathy. Heart: RRR. +S1 +S2. No murmurs, rubs, or gallops. Lungs: CTAB. Mildly labored breathing. No rales or rhonchi. Extremities: Radial pulses palpable and symmetrical. Mild +1 pitting edema of the LEs. Neuro: A&Ox3. No focal deficits. Gross weakness, sensation intact. Skin: Dry and intact. Multiple healing contusions noted on back. - Patient Status Functional capacity at discharge: wheelchair bound Overall status at discharge: patient is progressing back to baseline - Diet and Activity Activity: as per physical therapy Diet: diabetic diet Addendum entered and electronically signed by Gillian Kessler DO 01/04/18 16:13: To confirm, pt did have sepsis on admission given RR and WBC and source of infection, this resolved.
--- NOTE | 2017-12-22 14:46 | Physician Discharge Referral ---
ExtendedCare Referral Info Transfer To: ECF Provider in Charge after Transfer: PCP Institutional Level of Care: Skilled - Diagnosis (1) Diabetes mellitus Priority: Secondary Status: Chronic (2) Hypertension Priority: Secondary Status: Chronic (3) Acute renal failure superimposed on stage 3 chronic kidney disease Priority: Secondary Status: Acute (4) COPD exacerbation Priority: Secondary Status: Acute (5) UTI (urinary tract infection) Priority: Secondary Status: Acute (6) HCAP (healthcare-associated pneumonia) Priority: Primary Status: Acute (7) Acute and chronic respiratory failure with hypoxia Priority: Primary Status: Acute (8) Morbid obesity Priority: Secondary Status: Chronic (9) Acute on chronic diastolic (congestive) heart failure Priority: Secondary Status: Acute Prognosis: Fair - Transfer Medications Prescriptions: amLODIPine [Norvasc] 10 mg PO HS 30 Days #30 tablet Furosemide [Lasix] 20 mg PO BIDDIURETIC 30 Days #60 tablet hydrALAZINE [HydrALAZINE] 100 mg PO TID 30 Days #90 tablet SitaGLIPtin [Januvia] 50 mg PO DAILY 30 Days #30 tablet Home Medications: Pantoprazole Sodium [Protonix] 40 mg PO DAILY 03/13/15 [History] Aspirin [Adult Aspirin] 81 mg PO DAILY 08/12/17 [History] Atorvastatin Calcium [Lipitor] 20 mg PO DAILY 08/12/17 [History] Ergocalciferol (VITAMIN D2) [Vitamin D2] 50,000 unit PO QWEEK 08/12/17 [History] Escitalopram Oxalate 5 mg PO DAILY 08/12/17 [History] LevETIRAcetam [Keppra] 750 mg PO BID 08/12/17 [History] Levothyroxine Sodium [Levoxyl] 25 mcg PO DAILY 08/12/17 [History] Levothyroxine Sodium [Synthroid] 200 mcg PO DAILY 08/12/17 [History] Metoprolol [Lopressor] 25 mg PO BID 08/12/17 [History] Montelukast [Singulair] 10 mg PO DAILY 08/12/17 [History] Phenytoin [Dilantin] 150 mg PO BID 08/12/17 [History] Acetaminophen [Tylenol] 650 mg PO Q6HR PRN tablet 08/18/17 [Rx] Calcium Carbonate [Tums] 1,000 mg PO QID 30 Days #120 tab.chew 08/30/17 [Rx] Docusate [Colace] 100 mg PO BID 30 Days #60 capsule 08/30/17 [Rx] Ferrous Sulfate 325 mg PO BIDWM 30 Days #60 tablet 08/30/17 [Rx] Clopidogrel [Plavix] 75 mg PO DAILY 12/07/17 [History] Insulin Glargine [Lantus] 15 unit SQ HS 12/07/17 [History] Mupirocin [Bactroban Oint] 1 appl TP DAILY 12/07/17 [History] Furosemide [Lasix] 20 mg PO BIDDIURETIC 30 Days #60 tablet 12/15/17 [Rx] Ipratropium/Albuterol Neb [Duoneb] 3 ml IH [id number] PRN inhsol 12/22/17 [Rx] Ipratropium/Albuterol Neb [Duoneb] 3 ml IH [id number] inhsol 12/22/17 [Rx] SitaGLIPtin [Januvia] 50 mg PO DAILY 30 Days #30 tablet 12/22/17 [Rx] amLODIPine [Norvasc] 10 mg PO HS 30 Days #30 tablet 12/22/17 [Rx] hydrALAZINE [HydrALAZINE] 100 mg PO TID 30 Days #90 tablet 12/22/17 [Rx] Allergies/Adverse Reactions: 3 Allergy/AdvReac Type Severity Reaction Status Date / Time Tetanus Vaccines and Toxoid Allergy Unknown unknown Verified 11/03/17 13:25 [Tetanus Vaccines & Toxoid] - Respiratory Orders Oxygen / L per min, Other (bipap prn 14/7 rate 10 36%) Smoking Cessation: Smoking cessation has been advised. For more information, call the [place] Tobacco Quit Line at 2-698-DBON-NOW. - Advance Directives Code Status: Full Code - Rehabiliation Orders Rehab Potential: Good Rehab Orders: Evaluation for Physical Therapy, Evaluation for Occupational Therapy - Diet Orders No Concentrated Sweets (diabetic, 1.5L daily fluid restriction), Cardiac (1.5 L daily fluid restriction) CERTIFICATION: I certify that the transfer of the above named patient to an Extended Care Facility is necessary for the continuing treatment of the diagnosis listed. The above information is true and accurate reflection of patient's current condition. Confidential - Redisclosure prohibited without a patient's written consent.
[2017-12-22] MEDS: Insulin DETEMIR 100 UNIT/ML X5UNITS SQ SCH (20:53)
[2017-12-22] MEDS ORDERED: amLODIPine 5 MG TABLET PO SCH (21:00)
[2017-12-23] MEDS ORDERED: Fluconazole 40 MG/ML UDC PO SCH (09:00)
--- NOTE | 2017-12-23 12:18 | Internal Med Progress Note ---
<Gillian Kessler - Last Filed: 12/23/17 14:53> Hospitalist Progress Note - Exam Vitals: Temp Pulse Resp BP Pulse Ox 98.4 F 72 18 145/64 88 12/23/17 01:33 12/23/17 01:33 12/23/17 12:23 12/23/17 01:33 12/23/17 12:23 - Assessment and Plan (1) Diabetes mellitus Current Visit: No Status: Chronic (2) Hypertension Current Visit: No Status: Chronic (3) Acute renal failure superimposed on stage 3 chronic kidney disease Current Visit: No Status: Acute (4) COPD exacerbation Current Visit: Yes Status: Acute (5) UTI (urinary tract infection) Current Visit: Yes Status: Acute (6) HCAP (healthcare-associated pneumonia) Current Visit: Yes Status: Acute (7) Acute and chronic respiratory failure with hypoxia Current Visit: Yes Status: Acute (8) Morbid obesity Current Visit: Yes Status: Chronic (9) Acute on chronic diastolic (congestive) heart failure Current Visit: Yes Status: Acute - Time Spent with Patient Total time spent is greater than 50% in coordination of care (as documented) at patient's floor/unit and/or counseling patient: Internal Medicine: Result - Labs CBC & Chem 7: 12/20/17 08:51 12/20/17 08:51 - ABG Interpretation ABG results: ABG ABG pH 7.35 pH Units (7.32-7.45) 12/13/17 03:01 ABG pCO2 56 mmHg (35-45) H 12/13/17 03:01 ABG pO2 75 mmHg (85-104) L 12/13/17 03:01 ABG O2 Saturation 94 % (95-98) L 12/13/17 03:01 PT/INR, D-dimer PT 13.6 Seconds (9.4-12.1) H 12/07/17 15:36 Consult Discharge Plan - Plan Instructions: Furosemide (By mouth), Hydralazine (By mouth), Amlodipine (By mouth), Sitagliptin (By mouth), Heart Failure (DC), Sleep Apnea Syndrome (GEN), Acute Respiratory Distress Syndrome (DC), Urinary Tract Infection in Women (DC), Chronic Obstructive Pulmonary Disease (DC), Sepsis (DC), Pneumonia (DC) Additional Instructions: - Resume normal activity as tolerated - Continue to use continuous O2 NC supplementation - Continue to use Bipap while sleeping - Will order PT/OT in addition to referral to home health - Follow up with PCP and [facility] - Continue Diabetic diet and restrict fluid intake - Continue taking Lasix 20mg by mouth twice a day until your appointment with [facility] on 01/03/18 - Bloodwork will need to be done 7 days after discharge for a repeat BMP to monitor your kidney function - Continue taking Levaquin 750 mg by mouth every other day for 3 days Referrals: Stephanie Morgan CNP [Primary Care Provider] - 12/22/17 11:00 am Tequila Dixon MD [Partnered Physician] - 01/03/18 11:00 am Prescriptions: amLODIPine [Norvasc] 10 mg PO HS 30 Days #30 tablet Furosemide [Lasix] 20 mg PO BIDDIURETIC 30 Days #60 tablet hydrALAZINE [HydrALAZINE] 100 mg PO TID 30 Days #90 tablet SitaGLIPtin [Januvia] 50 mg PO DAILY 30 Days #30 tablet - Attending Attestation I examined this patient and my medical decision-making was reviewed with the Resident Physician Dr Seymour. I agree with the documented findings, disposition and treatment plan as described except to the extent set forth below/addl details below. Ms Lua was admitted with hypoxic resp failure and treated for pneumonia with pulm consult, abx course now complete and with new baseline o2 requirement. She addl has been treated for glenna on ckd stage 3 this admit, acute on chronic diastolic CHF with lasix and albumin and UTI with abx course also complete. ID followed her. She has been med clear for dc to [facility] and awaited insurance auth for dc. Awake, pleasant, awaiting discharge. no new complaints of concerns. Denies any sob, cough, wheezing. gen- alert, awake,appears stated age, obese cv- reg rate and rhythm, normal s1,s2, no murmurs appreciated, trace pitting edema to bl shins lungs- ctabl, no wheezing, rhonchi or crackles, normal resp effort on o2 neuro- AAOx3 Acute on Chronic Resp FAilure, improved overall due to pneumonia and chf exacerbation cont o2 nc at rate higher than she previously required bipap prn HCAP, improved- completed course of zosyn + levaquin Acute on Chronic Diastolic CHF, improved- cont po lasix PO 20 mg BID and home asa, plavix, statin, bb, not on acei/arb given ckd stage 3 Klebsiella and ESBL E Coli UTI- ID followed, abxcourse completed (was zosyn sensitive) GLENNA on CKD stage III, appears resovled and 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 Her most recent PET/CT on 09/29 showed bilateral pulmonary nodules with hypermetabolic right paratracheal, right hilar and subcarinal lymph nodes which were most likely metastatic in nature. Patient also had a CT-guided biopsy in 08/2017 which confirmed metastatic disease to the lungs. She continues to follow-up with [facility] and will follow there outpt dc to [facility] in stable condition <Chip Seymour - Last Filed: 12/23/17 15:35> Hospitalist Progress Note - Encounter Date of Encounter: 12/23/17 Time of Encounter: 09:45 - Subjective Interval History: Pt seen and examined at bedside. Resting comfortably in chair, no acute distress. No acute events overnight. Pt has no new or acute complaints. Denies any fever, chills, chest pain, shortness of breath, abdominal pain, nausea, vomiting, headache, numbness, or tingling. - Exam Vitals: Temp Pulse Resp BP Pulse Ox 98.4 F 72 18 145/64 88 12/23/17 01:33 12/23/17 01:33 12/23/17 01:33 12/23/17 01:33 12/23/17 01:33 Exam: General: pleasant female. no acute distress Head: Pt has some visible metal plate on her right upper forehead from a craniotomy surgery about 10 years ago. She had been scheduled to fix this defect on 12/07 however pt was unable to make this apt due to hospital stay. Neck: Supple. Trachea midline. No lymphadenopathy. Heart: RRR. +S1 +S2. No murmurs, rubs, or gallops. Lungs: CTAB. Mildly labored breathing. No rales or rhonchi. Extremities: Radial pulses palpable and symmetrical. Mild +1 pitting edema of the LEs. Neuro: A&Ox3. No focal deficits. Gross weakness, sensation intact. Skin: Dry and intact. Multiple healing contusions noted on back. - Assessment and Plan (1) Diabetes mellitus Current Visit: No Status: Chronic Assessment and Plan: Last Hb A1C- 6.1 15u Levemir Discontinued Actos Decreased Januvia to 50mg (2) Hypertension Current Visit: No Status: Chronic Assessment and Plan: Increased Norvasc to 10mg Continue Hydralazine 100mg TID Continue Metoprolol 25mg BID Continuing to hold Lisinopril at discharge with increased Cr (3) Acute renal failure superimposed on stage 3 chronic kidney disease Current Visit: No Status: Acute Assessment and Plan: improving Holding Lisinopril as above (4) COPD exacerbation Current Visit: Yes Status: Acute Assessment and Plan: Improving Discontinued steroids Completed 10 day course of abx Cont duonebs as needed. (5) UTI (urinary tract infection) Current Visit: Yes Status: Acute Assessment and Plan: Urine cx - Klebsiella and ESBL E. Coli ID consulted Completed abx course - no need for further treatment (6) HCAP (healthcare-associated pneumonia) Current Visit: Yes Status: Acute Assessment and Plan: Improved Completed 10 day course of zosyn and levaquin. Continue supplemental O2 - home baseline of 3lpm Duonebs as needed (7) Acute and chronic respiratory failure with hypoxia Current Visit: Yes Status: Acute Assessment and Plan: Due to CHF exacerbation + Pneumonia Encourage frequent ICS and exercises per PT (8) Morbid obesity Current Visit: Yes Status: Chronic Assessment and Plan: chronic issue discussed lifestyle modifications (9) Acute on chronic diastolic (congestive) heart failure Current Visit: Yes Status: Acute Assessment and Plan: Cont ASA + Plavix + Statin + BB Lasix 20mg BID DVT Prophylaxis: On ASA and plavix EPCDs - Time Spent with Patient Total time spent is greater than 50% in coordination of care (as documented) at patient's floor/unit and/or counseling patient: Internal Medicine: Result - Labs CBC & Chem 7: 12/20/17 08:51 12/20/17 08:51 - ABG Interpretation ABG results: ABG ABG pH 7.35 pH Units (7.32-7.45) 12/13/17 03:01 ABG pCO2 56 mmHg (35-45) H 12/13/17 03:01 ABG pO2 75 mmHg (85-104) L 12/13/17 03:01 ABG O2 Saturation 94 % (95-98) L 12/13/17 03:01 PT/INR, D-dimer PT 13.6 Seconds (9.4-12.1) H 12/07/17 15:36 <Gillian Kessler - Last Filed: 12/23/17 14:53> (1) Diabetes mellitus Qualifiers: Diabetes mellitus type: type 2 Diabetes mellitus lobsterman insulin use: with fpc use Diabetes mellitus complication status: with kidney complications Diabetes mellitus complication detail: with chronic kidney disease Chronic kidney disease stage: stage 3 (moderate) Qualified Code(s): E11.22 - Type 2 diabetes mellitus with diabetic chronic kidney disease; N18.3 - Chronic kidney disease, stage 3 (moderate); 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 <Chip Seymour - Last Filed: 12/23/17 15:35> (1) Diabetes mellitus Qualifiers: Diabetes mellitus type: type 2 Diabetes mellitus fpc insulin use: with lobsterman use Diabetes mellitus complication status: with kidney complications Diabetes mellitus complication detail: with chronic kidney disease Chronic kidney disease stage: stage 3 (moderate) Qualified Code(s): E11.22 - Type 2 diabetes mellitus with diabetic chronic kidney disease; N18.3 - Chronic kidney disease, stage 3 (moderate); 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
[2017-12-23] MEDS: Ipratropium/Albuterol Neb 3 ML IH SCH ×3 (12:23→15:55)
[2017-12-23] MEDS: hydrALAZINE 25 MG TABLET PO SCH ×2 (14:52→16:12)
[2017-12-23 16:03] VITALS: BP 151/73
[2017-12-23] MEDS: Aspirin Enteric Coated 81 MG Tablet PO SCH (16:10)
[2017-12-23] MEDS: Furosemide 20 MG TABLET PO SCH ×2 (16:10→18:21)
[2017-12-23] MEDS: levETIRAcetam 250 MG TABLET PO SCH (16:12)
[2017-12-23] MEDS: Cholecalciferol (D-3) 1,000 UNIT TABLET PO SCH (16:15)
[2017-12-23] MEDS ORDERED: Cholecalciferol (D-3) 1,000 UNIT TABLET PO ONE (20:09)
[2017-12-23] MEDS ORDERED: Ipratropium/Albuterol Neb 3 ML IH ONE ×2 (20:09)
[2017-12-23] MEDS ORDERED: Aspirin Enteric Coated 81 MG Tablet PO ONE (20:09)
[2017-12-23] MEDS ORDERED: Furosemide 20 MG TABLET PO ONE (20:09)
[2017-12-23] MEDS ORDERED: hydrALAZINE 25 MG TABLET PO ONE (20:09)
[2017-12-23] MEDS ORDERED: levETIRAcetam 250 MG TABLET PO ONE (20:09)
== END 2017-12-23 20:10 | DRG 871 ==
LOC: EMEROOARM 15:18 → 2NENU 15:18 → SUATTDRO 20:21
PROVIDERS: ADMIT Internal Medicine; ATTEND Internal Medicine